=== PATIENT | male | born 1950 | race Caucasian/White ===

== ENCOUNTER 2016-10-06 11:23 | Emergency (ER) | payer OTHER ==
[~2016-10-06] VITALS: Ht 175.3 cm; Wt 87.9 kg
[~2016-10-06 11:23] MED LIST: ALBUAER19 INH; ASPEC81 PO; IPRASOL4 INH; LISI-461 PO; LPR100 PO; MAGN400T6 PO; NRN600 PO; PANT40TA PO; PRAS1TAB6 PO; ROSU40TA PO; SYMIN/8045 INH; TIOTCAP INH; WARF3TAB6 PO
[2016-10-06 11:27] VITALS: TEMP 36.6; Ht 175.3 cm; Wt 87.9 kg
[2016-10-06] MEDS ORDERED: ACET1TAB84 PO (11:48)
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
[2016-10-06 13:08] VITALS: BP 115/70; PULSE 54; O2SAT 95
[2017-01-13] MEDS ORDERED: ISOS40TA5 PO (11:57)
[2017-02-10] MEDS ORDERED: RANO500T PO (11:02)
== END 2016-10-06 13:32 | disposition home or self-care (01) ==
LOC: C.EDB 11:25
DX: S09.91XA Unspecified injury of ear, initial encounter (principal); X58.XXXA Exposure to other specified factors, initial encounter; Z79.01 Long term (current) use of anticoagulants; I10 Essential (primary) hypertension; G40.909 Epilepsy, unspecified, not intractable, without status epilepticus; E78.5 Hyperlipidemia, unspecified; I25.10 Atherosclerotic heart disease of native coronary artery without angina pectoris; I48.91 Unspecified atrial fibrillation; K21.9 Gastro-esophageal reflux disease without esophagitis; M19.90 Unspecified osteoarthritis, unspecified site; F41.8 Other specified anxiety disorders; K57.32 Diverticulitis of large intestine without perforation or abscess without bleeding; G47.33 Obstructive sleep apnea (adult) (pediatric); Z86.711 Personal history of pulmonary embolism; Z98.61 Coronary angioplasty status; Z79.82 Long term (current) use of aspirin; Z79.899 Other long term (current) drug therapy; Z98.890 Other specified postprocedural states; Z88.5 Allergy status to narcotic agent; Z88.8 Allergy status to other drugs, medicaments and biological substances; Z83.3 Family history of diabetes mellitus; Z82.49 Family history of ischemic heart disease and other diseases of the circulatory system

== ENCOUNTER → 2016-10-21 | Outpatient (CLI) | payer OTHER ==
[~2016-10-21] MED LIST changes: +ACET1TAB84 PO; +ASPI-435 PO; +ISOS40TA5 PO; +RANO500T PO; +SPRIN/30 INH; +VNTHFA/IN INH
[2016-10-21 09:49] LABS: BASO % 0.4 %; BASO ABS # 0.02 K/uL (0-0.2); EOS % 5.9 %; HEMATOCRIT 38.1 % (42-52); LYMPH % 30.9 %; LYMPH ABS # 1.66 K/uL (1.2-3.4); MEAN CELL VOLUME 81.6 fL (80-100); MEAN CORPUSCULAR HEMOGLOBIN 26.6 pg (25-34); MEAN CORPUSCULAR HGB CONC 32.5 g/dl (32-36); MONO % 11.9 %; NEUT % 50.9 %; PLATELET COUNT 157 K/uL (130-400); RED BLOOD COUNT 4.67 M/uL (4.7-6.1); WHITE BLOOD COUNT 5.38 K/uL (4.8-10.8)
[2016-10-21 10:06] LABS: ALT/SGPT 30 U/L (12-78); BLOOD UREA NITROGEN 25 mg/dl (7-18); BUN/CREATININE RATIO 22.4 (10-20); CALCIUM 9.4 mg/dl (8.5-10.1); CARBON DIOXIDE 27 mmol/L (21-32); CHLORIDE 105 mmol/L (98-107); GLUCOSE 91 mg/dl (70-99); HDL CHOLESTEROL 34 mg/dl; POTASSIUM 4.2 mmol/L (3.5-5.1); SODIUM 140 mmol/L (136-145)
[2016-10-21 10:17] LABS: ALKALINE PHOSPHATASE 68 U/L (45-117); AST/SGOT 26 U/L (15-37); CHOLESTEROL 131 mg/dl (0-200); CHOLESTEROL/HDL RATIO 3.9; FERRITIN 18.4 ng/ml (8.0-388.0); LDL CHOLESTEROL CALCULATED 69 mg/dl; TRIGLYCERIDES 141 mg/dl (0-150); VERY LOW DENSITY LIPOPROT CALC 28 mg/dl
[2016-10-21 10:26] LABS: COMPLETE YES
== END | disposition home or self-care (01) ==
LOC: C.LAB1850 07:25
PROVIDERS: ATTEND Internal Medicine
DX: D64.9 Anemia, unspecified (principal); E78.5 Hyperlipidemia, unspecified; I26.99 Other pulmonary embolism without acute cor pulmonale

== ENCOUNTER 2016-12-24 12:02 | Inpatient (IN) | payer OTHER ==
[~2016-12-24] VITALS: Ht 175.3 cm; Wt 86.2 kg
[2016-12-24] VITALS (7 sets, daily range): BP systolic 131–154; BP diastolic 70–88; PULSE 54–58; TEMP 36.5–36.6; O2SAT 94–97; Ht 175.3 cm; Wt 86.2 kg
[~2016-12-24 12:02] MED LIST changes: -ASPI-435 PO; -ISOS40TA5 PO; -RANO500T PO; -SPRIN/30 INH; -VNTHFA/IN INH
[2016-12-24] MEDS ORDERED: SPRIN/30 INH (12:25)
[2016-12-24] MEDS ORDERED: VNTHFA/IN INH (12:25)
[2016-12-24] MEDS ORDERED: ASPI-435 PO (12:25)
[2016-12-24] MEDS ORDERED: NITROGLYCERIN OINT 2% 1GM PACKET ONE (12:30)
[2016-12-24] MEDS ORDERED: SODIUM CHLORIDE 0.9% 1000ML 500 ML IV STA (12:31)
[2016-12-24] MEDS ORDERED: NITROGLYCERIN OINT 2% 1GM PACKET EXT STA (12:31)
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
--- NOTE | 2016-12-24 12:52 | DIAGNOSTIC IMAGING REPORT ---
CHEST ONE VIEW PORTABLE CLINICAL HISTORY: CHEST PAIN dyspnea COMPARISON STUDY: 07/02/2015 FINDINGS: Chronic elevation left hemidiaphragm. Several old left-sided rib fractures. Mild left basilar atelectasis. Lungs otherwise appear clear. IMPRESSION: Chronic change. Mild left basilar atelectasis. Electronically signed by: Dann Chiu M.D. 12/24/2016 12:50 PM Dictated Date/Time: 12/24/2016 12:50 PM
[2016-12-24 13:00] LABS: HEMATOCRIT 36.2 % (42-52); MEAN CELL VOLUME 84.4 fL (80-100); MEAN CORPUSCULAR HEMOGLOBIN 27.7 pg (25-34); MEAN CORPUSCULAR HGB CONC 32.9 g/dl (32-36); MEAN PLATELET VOLUME 9.1 fL (7.4-10.4); PLATELET COUNT 143 K/uL (130-400); RED BLOOD COUNT 4.29 M/uL (4.7-6.1); WHITE BLOOD COUNT 5.13 K/uL (4.8-10.8)
[2016-12-24 13:08] LABS: INR 2.8 (0.9-1.1); PARTIAL THROMBOPLASTIN RATIO 1.5
[2016-12-24 13:18] LABS: CREATININE 1.4 mg/dl (0.60-1.40); MAGNESIUM 2.2 mg/dl (1.8-2.4); POTASSIUM 4.7 mmol/L (3.5-5.1)
[2016-12-24 13:24] LABS: CKMB/CK RATIO 0.9 (0-3.0)
[2016-12-24] MEDS ORDERED: POLYETHYLENE (MIRALAX) 17 GM PACK PO PRN (14:30)
[2016-12-24] MEDS ORDERED: ONDANSETRON INJ 2 MG/ML 2 ML VIAL IV PRN (14:30)
[2016-12-24] MEDS ORDERED: NITROGLYCERIN 0.4 MG SL PER TAB CHARGE SL PRN (14:30)
[2016-12-24] MEDS ORDERED: ALBUT/IPRATROP 3MG/0.5MG NEB 3 ML VIAL INH PRN (14:30)
[2016-12-24] MEDS ORDERED: ALUMINUM/MAGNESIUM/SIMETH (MAALOX MAX) 30 ML UDC PO PRN (14:30)
[2016-12-24] MEDS ORDERED: ACETAMINOPHEN 325 MG TAB PO PRN ×2 (14:30→18:45)
[2016-12-24] MEDS ORDERED: MAGNESIUM HYDROXIDE SUSP 30 ML UDC PO PRN (14:30)
[2016-12-24] MEDS: SODIUM CHLORIDE 0.9% 1000ML 1,000 ML IV SCH (14:50)
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
[2016-12-24] MEDS ORDERED: FENTANYL CITRATE INJ 50 MCG/1 ML 2 ML VIAL ONE (16:33)
[2016-12-24] MEDS ORDERED: MIDAZOLAM HCL 1 MG/ML 2ML VIAL ONE (16:33)
[2016-12-24] MEDS ORDERED: HEPARIN SOD (PORCINE) 1000 UNIT/ML 10 ML VIAL ONE (16:33)
[2016-12-24] MEDS ORDERED: NiCARDipine HCL INJ 2.5 MG/ML 10 ML AMP ONE (16:33)
[2016-12-24] MEDS ORDERED: NITROGLYCERIN/D5W 100MCG/ML 20ML SYR ONE (16:33)
--- NOTE | 2016-12-24 16:52 | Procedure Note ---
Pre-Mod Sedation Assessment General Date of Moderate Sedation: Dec 24, 2016. Vital Signs: Vital Signs Past 12 Hours Date Time Temp Pulse Resp B/P (MAP) Pulse Ox O2 Delivery O2 Flow Rate FiO2 12/24/16 15:21 52 18 105/73 97 Room Air 12/24/16 15:03 51 16 130/80 12/24/16 14:10 51 16 118/78 95 Room Air 12/24/16 13:24 48 16 105/63 97 Room Air 12/24/16 13:17 94 Room Air 12/24/16 13:16 94 Room Air 12/24/16 12:42 51 12/24/16 12:15 36.4 50 16 113/76 97 Room Air 12/24/16 12:11 97 Room Air Review Cardiovascular: regular rate, rhythm, no edema Abdomen: normal bowel sounds, non tender Lungs: chest non-tender, lungs clear Airway Class: II Pre-Sedation Airway Assessment Oral Cavity: WNL Able to Visualize Vocal Cords: No Short Thick Neck: No Hx of Sleep Apnea: No Smoking Status: Never Smoker Mallampati Classification: Class III ASA Classification: Class II Procedure Planning Contraindications-for Mod Sed: None Yes Notes The planned sedation has been discussed with the patient and consent obtained. I have identified the patient, determined the appropriateness of sedation and have assessed the patient immediately prior to the procedure. All medicine(s) and interventions are by my order.
[2016-12-24] MEDS ORDERED: IV FLUIDS COMPLETED PRN ×2 (17:00→19:15)
[2016-12-24 17:05] LABS: CALCIUM 8.9 mg/dl (8.5-10.1)
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
[2016-12-24] MEDS ORDERED: ADENOSINE IV SOLN 3 MG/ML 20 ML VIAL ONE ×2 (17:52)
[2016-12-24] MEDS ORDERED: SODIUM CHLORIDE 0.9% 1000ML 1,000 ML IV SCH (18:38)
--- NOTE | 2016-12-24 18:38 | Cardiac Catheterization ---
Procedure Note Procedure Date Dec 24, 2016. Pre-Procedure Diagnosis Acute Coronary Syndrome AUC Score 7 Post-Procedure Diagnosis Severe CAD, Decreased LV Systolic Function, Normal Intracardiac Pressures Procedure(s) Performed Coronary Angiography, Left Heart Cath [employer] Detective Slick Senior [employer] Developer(s) Reuben Estimated Blood Loss 15 Medication(s) Fentanyl, Heparin, Nitroglycerin, Versed, Lidocaine 1% Summary of Findings Indication: Unstable angina/Rest Pain Access: 6Fr Slender Right Radial Artery Catheters: [place] Findings: LM - Luminal irregularities LAD - Widely patent proximal stent, 30-40% focal mid stenosis, distal luminal irregularities; 20-30% ostial stenosis moderate caliber 2nd diagonal. Circumflex - 20% ostial stenosis, 50-60% stenosis in distal segment after OM2; large OM2 with luminal irregularities. RCA - Dominant, chronically occluded proximally. Distal PDA, PLB fill partially via left to right collaterals. LVEDP - 12 LVEF - 35-40%; inferior wall akinesis. JR4 guide, probed occluded RCA with state pilot 50 wire. Behaved as chronic occlusion. EBU 3.5 guide, FFR wire across distal circumflex stenosis. FFR distal circumflex - 0.92 Arterial Closure: TR Band Summary: 1. Severe chronic single vessel disease - Occluded proximal RCA (faint distal left to right collaterals) 2. Mild to moderate nonobstructive left coronary system disease - 40% mid LAD - 50-60% distal circumflex (FFR 0.92) 3. Normal intracardiac filling pressure 4. Moderate LV dysfunction. LVEF 35-40% with inferior akinesis. Recommendations: Return to PCU for continued monitoring. Repeat Echo tomorrow AM to confirm LV dysfunction. Titrate up MEET, beta-yris as BP/HR allow Continue DAPT with Effient/ASA Hold coumadin tonight, can resume tomorrow Continued ASCVD risk factor modification including high-intensity statin If stable can potentially discharge to home tomorrow. Hemodynamics Rest Ao: 121/65/89 Final Ao: 136/68/95 LV: 139/12 Recommendations PCI without planned CABG Specimens None Radiation Exposure (mGy) 2709 Contrast (mls) 120 Visipaque Fluids (cc crystalloids) 150 Drains None Anesthesia Moderate (start 17:06 - 18:09) Procedural Complication(s) None Disposition PCU ACC Data Cardiac Status Clinical evaluation leading to the procedure CAD Presntation: Unstable angina Anginal Classification: CCS IV Heart Failure: No, NYHA Class: CCS I Cardiogenic Shock w/in 24Hrs: No Cardiac Arrest w/in 24Hrs: No Imaging studies past 6 months: No Stress studies past 6 months: No Standard Exercise Stress Test: No Stress Echocardiogram: No Stress Testing w/SPECT MPI: No Cardiac CTA: No Coronary Anatomy Dominant: Right Left Main (% Stenosis): Normal LAD (% Stenosis): Mid (40) D2 (% Stenosis): Ostial (30) Circumflex (% Stenosis): Ostial (20), Distal (50-60) RCA (% Stenosis): Proximal (100) Diagnostic Physician's Name: Ric Kruger MD Status: Urgent Closure Device Percutaneous Entry Location: Radial Closure Device: Radial Band Recommendations: Medical therapy and/or Counseling Intraprocedure Events Significant Dissection: No Perforation: No
[2016-12-24] MEDS: METOPROLOL TARTRATE 50 MG TAB PO SCH (20:19)
[2016-12-24] MEDS: GABAPENTIN 600 MG TAB PO SCH (20:19)
[2016-12-24] MEDS: ALBUTEROL HFA 8 GM INHALER INH SCH (20:21)
[2016-12-24] MEDS: BUDESONIDE/FORMOTEROL FUMARATE 80/4.5 60 PUFFS/INHALER INH SCH (20:21)
[2016-12-25] MEDS: SODIUM CHLORIDE 0.9% 1000ML 1,000 ML IV SCH ×2 (00:50→10:50)
[2016-12-25 04:12] VITALS: BP 143/83; PULSE 55; TEMP 36.7; O2SAT 96
[2016-12-25 04:28] LABS: HEMATOCRIT 35.7 % (42-52); MEAN CELL VOLUME 84.8 fL (80-100); MEAN CORPUSCULAR HEMOGLOBIN 25.7 pg (25-34); MEAN CORPUSCULAR HGB CONC 30.3 g/dl (32-36); MEAN PLATELET VOLUME 8.8 fL (7.4-10.4); PLATELET COUNT 117 K/uL (130-400); RED BLOOD COUNT 4.21 M/uL (4.7-6.1); WHITE BLOOD COUNT 4.17 K/uL (4.8-10.8)
[2016-12-25 04:36] LABS: INR 2.5 (0.9-1.1); PROTHROMBIN TIME (PATIENT) 27.4 SECONDS (9.0-12.0)
[2016-12-25 04:56] LABS: CHLORIDE 108 mmol/L (98-107); POTASSIUM 4.5 mmol/L (3.5-5.1); SODIUM 141 mmol/L (136-145)
[2016-12-25 05:32] LABS: BLOOD UREA NITROGEN 28 mg/dl (7-18); BUN/CREATININE RATIO 23.2 (10-20); CALCIUM 8.3 mg/dl (8.5-10.1); CARBON DIOXIDE 27 mmol/L (21-32); GLUCOSE 98 mg/dl (70-99)
[2016-12-25] MEDS: ALBUTEROL HFA 8 GM INHALER INH SCH ×3 (06:30→12:16)
[2016-12-25] MEDS ORDERED: PERFLUTREN LIPID MICROSPHERE (DEFINITY) IV ONE (07:22)
[2016-12-25] MEDS: BUDESONIDE/FORMOTEROL FUMARATE 80/4.5 60 PUFFS/INHALER INH SCH (07:28)
[2016-12-25] MEDS: GABAPENTIN 600 MG TAB PO SCH (07:33)
[2016-12-25 08:00] VITALS: BP 132/81; PULSE 62; TEMP 36.6; O2SAT 96
[2016-12-25] MEDS: METOPROLOL TARTRATE 50 MG TAB PO SCH (08:16)
[2016-12-25] MEDS ORDERED: PRASugrel TAB 10 MG TAB PO SCH (09:00)
[2016-12-25] MEDS ORDERED: LISINOPRIL 10 MG TAB PO SCH (09:00)
[2016-12-25] MEDS ORDERED: ASPIRIN 81 MG ECTAB PO SCH (09:00)
[2016-12-25] MEDS ORDERED: TIOTROPIUM BROMIDE 5 PUFF/90 MCG INH INH SCH (09:00)
[2016-12-25] MEDS ORDERED: MAGNESIUM OXIDE 400 MG TAB PO SCH (09:00)
[2016-12-25] MEDS ORDERED: ROSUVASTATIN CALCIUM 20 MG TAB PO SCH (09:00)
[2016-12-25] MEDS ORDERED: PANTOprazole SOD 40 MG TAB PO SCH (09:00)
--- NOTE | 2016-12-25 09:21 | ECHOCARDIOGRAM REPORT ---
*NOTICE TO RECEIVING [employer] This information is strictly Confidential and protected under [place] law. [place] law prohibits you from making any further disclosure of this information unless further disclosure is expressly permitted by the written consent of the person to whom it pertains or is authorized by law. A general authorization for the release of medical or other information is not sufficient for this purpose. Hospital accepts no responsibility if the information is made available to any other person, INCLUDING THE PATIENT. Interpretation Summary * Name: FLACA KIDD Study Date: 12/25/2016 06:58 AM BP: 143/83 mmHg * Patient Location: C.2T\S\S232\S\1 HR: 55 * : 1950 (M/d/yyyy) Gender: Male Height: 69 in * Age: 66 yrs Ethnicity: CA Weight: 197 lb * Ordering Physician: Ric Kruger * Referring Physician: Darnell Velazco * Performed By: Erma Rowe RDCS * * Reason For Study: AMI * BSA: 2.1 m2 * -- Conclusions -- * The left ventricle is normal in size. * There is normal left ventricular wall thickness. * Ejection Fraction = 45-50%. * The inferior wall and inferoseptum are akinetic. * The right ventricular systolic function is mildly reduced. * Aortic valve sclerosis mild, without significant aortic valvular stenosis. * Diastolic dysfunction, Grade II (pseudonormalization pattern). Procedure Details * A contrast injection of Definity was performed to improve assessment of LV function. * Contrast was injected into an intravenous site in the left arm. * One vial of Definity ultrasound contrast was diluted in normal saline to a total volume of 10 ml. A total of '2' ml of solution was administered during imaging. * Lot # [id number] of Definity utilized for procedure. * Expiration date FEB 25. * The attending nurse who injected the contrast agent was ALEXIS HOLLAND RN. Left Ventricle * The left ventricle is normal in size. * There is normal left ventricular wall thickness. * Ejection Fraction = 45-50%. * Left ventricular systolic function is mildly reduced. * The inferior wall and inferoseptum are akinetic. Right Ventricle * The right ventricle is normal size. * The right ventricular systolic function is mildly reduced. * The right ventricular systolic function is reduced as assessed by tricuspid annular plane systolic excursion (TAPSE) (TAPSE <1.6 cm). Atria * The left atrium is mildly dilated. * The right atrium is mildly dilated. Mitral Valve * The mitral valve leaflets appear normal. There is no evidence of stenosis, fluttering, or prolapse. * There is mild mitral regurgitation. Tricuspid Valve * The tricuspid valve is not well visualized, but is grossly normal. * There is mild tricuspid regurgitation. * Right ventricular systolic pressure is elevated at 30-40mmHg. Aortic Valve * Aortic valve sclerosis mild, without significant aortic valvular stenosis. * No aortic regurgitation is present. Pulmonic Valve * The pulmonic valve is not well seen, but is grossly normal. Great Vessels * There is aortic root sclerosis/calcification. Pericardium/Pleural * There is no pericardial effusion. Great Vessels * Dilated inferior vena cava with reduced collapsability with sniff indicates an elevated right atrial pressure of 15 mmHg Left Ventricular Diastolic Function * Diastolic dysfunction, Grade II (pseudonormalization pattern). MMode 2D Measurements and Calculations IVSd 1.2 cm IVSs 1.7 cm LVIDd 4.1 cm LVIDs 2.9 cm LVPWd 1.4 cm LVPWs 1.7 cm IVS/LVPW 0.85 FS 28.5 % EDV(Teich) 74.3 ml ESV(Teich) 33.1 ml EF(Teich) 55.5 % EDV(cubed) 69.0 ml ESV(cubed) 25.2 ml EF(cubed) 63.5 % % IVS thick 38.2 % % LVPW thick 15.4 % LV mass(C)d 199.0 grams LV mass(C)dI 96.9 grams/m\S\2 LV mass(C)s 184.2 grams LV mass(C)sI 89.7 grams/m\S\2 SV(Teich) 41.2 ml SI(Teich) 20.1 ml/m\S\2 SV(cubed) 43.8 ml SI(cubed) 21.4 ml/m\S\2 Ao root diam 3.3 cm Ao root area 8.6 cm\S\2 LA dimension 3.5 cm LA/Ao 1.1 LVAd ap4 29.7 cm\S\2 LVLd ap4 8.3 cm EDV(MOD-sp4) 86.6 ml EDV(sp4-el) 90.8 ml LVAs ap4 17.3 cm\S\2 LVLs ap4 6.8 cm ESV(MOD-sp4) 36.9 ml ESV(sp4-el) 37.4 ml EF(MOD-sp4) 57.4 % EF(sp4-el) 58.8 % LVAd ap2 36.1 cm\S\2 LVLd ap2 8.5 cm EDV(MOD-sp2) 124.8 ml EDV(sp2-el) 129.5 ml LVAs ap2 22.1 cm\S\2 LVLs ap2 7.2 cm ESV(MOD-sp2) 55.0 ml ESV(sp2-el) 57.9 ml EF(MOD-sp2) 55.9 % EF(sp2-el) 55.3 % LVLd %diff 3.1 % EDV(MOD-bp) 105.8 ml LVLs %diff 5.3 % ESV(MOD-bp) 45.3 ml EF(MOD-bp) 57.2 % SV(MOD-sp4) 49.7 ml SI(MOD-sp4) 24.2 ml/m\S\2 SV(MOD-sp2) 69.8 ml SI(MOD-sp2) 34.0 ml/m\S\2 SV(MOD-bp) 60.5 ml SI(MOD-bp) 29.5 ml/m\S\2 SV(sp4-el) 53.4 ml SI(sp4-el) 26.0 ml/m\S\2 SV(sp2-el) 71.6 ml SI(sp2-el) 34.9 ml/m\S\2 Doppler Measurements and Calculations MV E max tad 85.4 cm/sec MV A max tad 57.7 cm/sec MV E/A 1.5 MV dec time 0.28 sec Ao V2 max 144.5 cm/sec Ao max PG 8.3 mmHg Ao max PG (full) 5.3 mmHg LV V1 max PG 3.0 mmHg LV V1 max 87.3 cm/sec TR max tad 220.2 cm/sec
[2016-12-25 12:00] VITALS: BP 129/73; PULSE 54; TEMP 36.4; O2SAT 96
--- NOTE | 2016-12-25 12:12 | Discharge Instructions ---
Discharge Instructions Date of Service Dec 25, 2016. Admission Reason for Admission: Sob, Substernal Chest Pain Discharge Discharge Diagnosis / Problem: Substernal chest pain, CAD Discharge Goals Goal(s): Decrease discomfort, Improve function, Increase independence, Improve disease control, Learn about illness, Diagnostic testing, Therapeutic intervention, Prevent Disease Progression Activity Recommendations Activity Limitations: resume your previous activity Exercise/Sports Limitations: none Shower/Bathe: no limitations Driving or Machine Use: no limitations . Instructions / Follow-Up Instructions / Follow-Up Patient to be discharged home Cardiac catherization no worsening stenosis, stents patent No changes in medications at home If worsening chest pain please report to ER Please follow up with Dr Grubbs in 1-2 weeks Please follow up with Dr Velazco in 1-2 weeks Current Hospital Diet Patient's current hospital diet: AHA Diet (Heart Healthy) Discharge Diet Recommended Diet: AHA Diet (Heart Healthy) Pending Studies Studies pending at discharge: no Laboratory Results Lipid Panel Test 10/21/16 07:34 Range/Units Triglycerides Level 141 0-150 mg/dl Cholesterol Level 131 0-200 mg/dl HDL Cholesterol 34 mg/dl Cholesterol/HDL Ratio 3.9 LDL Cholesterol, Calculated 69 mg/dl Medical Emergencies . Who to Call and When: Medical Emergencies: If at any time you feel your situation is an emergency, please call 911 immediately. . Non-Emergent Contact Non-Emergency issues call your: Primary Care Provider Call Non-Emergent contact if: your pain is worsening . . "Provider Documentation" section prepared by Nas Curiel. . VTE Core Measure Inpt VTE Proph given/why not?: Warfarin (Coumadin), [facility] [place], [facility]
[2016-12-25 12:25] VITALS: BP 129/73; PULSE 54; TEMP 36.4; O2SAT 96
[2016-12-25] MEDS ORDERED: WARFARIN SOD 3 MG TAB PO SCH (16:00)
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
[2017-01-13] MEDS ORDERED: ISOS40TA5 PO (11:57)
[2017-02-10] MEDS ORDERED: RANO500T PO (11:02)
== END 2016-12-25 12:45 | disposition home or self-care (01) | DRG 287 ==
LOC: EDBD 12:02 → C.EDB 12:04 → ENRESERV 14:44 → C.2T 16:16
PROVIDERS: ADMIT Internal Medicine; ATTEND Hospitalist
PROC: 4A023N7 Measurement of Cardiac Sampling and Pressure, Left Heart, Percutaneous Approach (ICD-10-PCS; principal; 2016-12-24 16:41)
PROC: B2111ZZ Fluoroscopy of Multiple Coronary Arteries using Low Osmolar Contrast (ICD-10-PCS; principal; 2016-12-24 16:41)
PROC: B2151ZZ Fluoroscopy of Left Heart using Low Osmolar Contrast (ICD-10-PCS; principal; 2016-12-24 16:41)
DX: I25.110 Atherosclerotic heart disease of native coronary artery with unstable angina pectoris (principal); D64.9 Anemia, unspecified; Z95.5 Presence of coronary angioplasty implant and graft; M19.90 Unspecified osteoarthritis, unspecified site; Z86.718 Personal history of other venous thrombosis and embolism; Z86.711 Personal history of pulmonary embolism; E78.5 Hyperlipidemia, unspecified; I10 Essential (primary) hypertension; G47.33 Obstructive sleep apnea (adult) (pediatric); J44.9 Chronic obstructive pulmonary disease, unspecified; I25.2 Old myocardial infarction; I25.82 Chronic total occlusion of coronary artery; R56.9 Unspecified convulsions; M54.30 Sciatica, unspecified side; G43.909 Migraine, unspecified, not intractable, without status migrainosus; F41.1 Generalized anxiety disorder; K21.9 Gastro-esophageal reflux disease without esophagitis; Z90.49 Acquired absence of other specified parts of digestive tract; Z83.3 Family history of diabetes mellitus; Z82.49 Family history of ischemic heart disease and other diseases of the circulatory system; Z83.6 Family history of other diseases of the respiratory system; Z83.79 Family history of other diseases of the digestive system; Z88.5 Allergy status to narcotic agent; Z96.649 Presence of unspecified artificial hip joint; Z79.82 Long term (current) use of aspirin; Z79.899 Other long term (current) drug therapy; Z51.81 Encounter for therapeutic drug level monitoring; Z79.01 Long term (current) use of anticoagulants

== ENCOUNTER → 2016-12-27 | Outpatient (CLI) | payer OTHER ==
[~2016-12-27] MED LIST changes: -ALBUAER19 INH; -ASPEC81 PO; +ASPI-435 PO; +ISOS40TA5 PO; +RANO500T PO; +SPRIN/30 INH; -TIOTCAP INH; +VNTHFA/IN INH
[2016-12-27 09:40] LABS: BASO % 0.5 %; BASO ABS # 0.03 K/uL (0-0.2); COMPLETE YES; EOS % 5.7 %; HEMATOCRIT 36.4 % (42-52); IG% 0.2 %; LYMPH % 26.7 %; LYMPH ABS # 1.46 K/uL (1.2-3.4); MEAN CELL VOLUME 86.5 fL (80-100); MEAN CORPUSCULAR HEMOGLOBIN 27.6 pg (25-34); MEAN CORPUSCULAR HGB CONC 31.9 g/dl (32-36); MEAN PLATELET VOLUME 9.6 fL (7.4-10.4); MONO % 11.3 %; NEUT % 55.6 %; PLATELET COUNT 137 K/uL (130-400); RED BLOOD COUNT 4.21 M/uL (4.7-6.1); WHITE BLOOD COUNT 5.47 K/uL (4.8-10.8)
[2016-12-27 09:51] LABS: BLOOD UREA NITROGEN 20 mg/dl (7-18); BUN/CREATININE RATIO 17.8 (10-20); CARBON DIOXIDE 26 mmol/L (21-32); CHLORIDE 106 mmol/L (98-107); FERRITIN 17.8 ng/ml (8.0-388.0); GLUCOSE 93 mg/dl (70-99); POTASSIUM 4.6 mmol/L (3.5-5.1); SODIUM 140 mmol/L (136-145)
[2016-12-27 09:57] LABS: CALCIUM 8.8 mg/dl (8.5-10.1)
--- NOTE | 2016-12-31 09:27 | CODING QUERY MEDICAL NECESSITY ---
SUPPORTING DIAGNOSIS NEEDED Dr. Velazco, A supporting diagnosis is required for the test/procedure performed on this patient in order for us to be reimbursed by the patient's insurance. Please provide a supporting diagnosis for the following test/procedure listed below next to the test name along with your signature. *If there is no additional diagnosis for this patient that would support the following test/procedure please document that below next to the test/procedure. Test(s)/Procedure(s) that require a supporting diagnosis: * ([id number]) B12 VITAMIN LEVEL DIAGNOSIS: DATE OF SERVICE: 12/27/16 Provider Signature: Date: Thank you Jin Mendiola [facility] Information Management Once completed, please kindly fax back to [phone] For questions please call [phone]
== END | disposition home or self-care (01) ==
LOC: C.LAB1850 07:10
PROVIDERS: ATTEND Internal Medicine Interventional Cardiology
DX: N28.9 Disorder of kidney and ureter, unspecified (principal); D64.9 Anemia, unspecified; E78.5 Hyperlipidemia, unspecified; I10 Essential (primary) hypertension

== ENCOUNTER → 2017-04-22 | Outpatient (CLI) | payer OTHER ==
[2017-04-22 09:28] LABS: BASO % 0.2 %; BASO ABS # 0.01 K/uL (0-0.2); COMPLETE YES; EOS % 5.4 %; HEMATOCRIT 36.2 % (42-52); IG% 0.2 %; LYMPH % 29.2 %; MEAN CELL VOLUME 84.8 fL (80-100); MEAN CORPUSCULAR HEMOGLOBIN 26.9 pg (25-34); MEAN CORPUSCULAR HGB CONC 31.8 g/dl (32-36); MEAN PLATELET VOLUME 9.5 fL (7.4-10.4); MONO % 9.9 %; NEUT % 55.1 %; PLATELET COUNT 139 K/uL (130-400); RED BLOOD COUNT 4.27 M/uL (4.7-6.1); WHITE BLOOD COUNT 5.14 K/uL (4.8-10.8)
[2017-04-22 09:43] LABS: ALT/SGPT 22 U/L (12-78); BLOOD UREA NITROGEN 23 mg/dl (7-18); BUN/CREATININE RATIO 21.3 (10-20); CALCIUM 8.9 mg/dl (8.5-10.1); CARBON DIOXIDE 27 mmol/L (21-32); CHLORIDE 104 mmol/L (98-107); CHOLESTEROL 121 mg/dl (0-200); GLUCOSE 100 mg/dl (70-99); POTASSIUM 4.4 mmol/L (3.5-5.1); SODIUM 138 mmol/L (136-145); TRIGLYCERIDES 143 mg/dl (0-150); VERY LOW DENSITY LIPOPROT CALC 29 mg/dl
[2017-04-22 09:46] LABS: AST/SGOT 18 U/L (15-37); CHOLESTEROL/HDL RATIO 3.3; HDL CHOLESTEROL 37 mg/dl; LDL CHOLESTEROL CALCULATED 55 mg/dl
== END | disposition home or self-care (01) ==
LOC: C.LAB1850 07:45
PROVIDERS: ATTEND Internal Medicine
DX: I25.5 Ischemic cardiomyopathy (principal); I10 Essential (primary) hypertension; E78.5 Hyperlipidemia, unspecified

== ENCOUNTER → 2017-04-29 | Outpatient (CLI) | payer OTHER ==
--- NOTE | 2017-04-29 09:27 | DIAGNOSTIC IMAGING REPORT ---
PELVIS 1 OR 2 VIEW ROUTINE CLINICAL HISTORY: M89.8X8 Iliac crest bone pain [id number] COMPARISON STUDY: Pelvis 03/30/2014. FINDINGS: Cortical plates and screws within the left hemipelvis with multiple old, healed left pelvic fractures. The hardware remains intact. There is a left total hip arthroplasty. This is also unchanged. No definite acute fracture or dislocation within the pelvis or hips. Mild to moderate osteoarthritis within the right hip. The sacrum appears intact. No definite bony destruction identified. Large exostoses within the pelvis remain unchanged. IMPRESSION: No significant change compared the prior study. No acute fracture or dislocation within the pelvis or hips. Old posttraumatic and postoperative changes within the left hemipelvis are again noted. Electronically signed by: Edi Bah M.D. 04/29/2017 9:26 AM Dictated Date/Time: 04/29/2017 9:22 AM
--- NOTE | 2017-04-29 09:33 | DIAGNOSTIC IMAGING REPORT ---
SACRUM AND SACROILIAC JOINTS 3 VIEWS CLINICAL HISTORY: Chronic pelvic pain. FINDINGS: 4 views of the sacrum and sacroiliac joints are correlated with pelvic radiograph dated 03/30/2014. The skeletal structures are osteopenic. There is extensive chronic posttraumatic deformity of the left hemipelvis with buttress plates in place involving the left iliac wing and the left superior pubic ring. A left hip arthroplasty is in place. The orthopedic hardware appears intact. There is no radiographic evidence of acute sacral fracture. Sclerotic change is seen involving the superior aspect of the left sacroiliac joint. The right sacroiliac joint is grossly normal as visualized. No erosive change is suggested. Moderate arthritic change is seen in the partially imaged right hip. There is an IVC filter in place. IMPRESSION: 1. No acute bony abnormality is identified involving the sacrum or sacroiliac joints. 2. Extensive chronic posttraumatic and postoperative change in the left hemipelvis as above. The orthopedic hardware appears intact. This is similar to previous. Electronically signed by: Jairon Gross M.D. 04/29/2017 9:32 AM Dictated Date/Time: 04/29/2017 9:29 AM
== END | disposition home or self-care (01) ==
LOC: C.RAD1850 08:39
PROVIDERS: ATTEND Internal Medicine
DX: M89.8X8 Other specified disorders of bone, other site (principal)

== ENCOUNTER 2017-06-26 14:55 | Observation (INO) | payer OTHER ==
[~2017-06-26] VITALS: Ht 175.3 cm; Wt 87.2 kg
[~2017-06-26 14:55] MED LIST changes: -MAGN400T6 PO; -NRN600 PO
[2017-06-26] MEDS ORDERED: NITROGLYCERIN 0.4 MG SL PER TAB CHARGE ONE (15:11)
[2017-06-26] MEDS ORDERED: ASPIRIN 81 MG CHEW PO STA (15:12)
[2017-06-26 15:16] LABS: BASO % 0.2 %; BASO ABS # 0.01 K/uL (0-0.2); COMPLETE YES; EOS % 4.8 %; HEMATOCRIT 35.2 % (42-52); IG% 0.2 %; LYMPH % 23.1 %; LYMPH ABS # 1.24 K/uL (1.2-3.4); MEAN CELL VOLUME 84.8 fL (80-100); MEAN CORPUSCULAR HEMOGLOBIN 27.2 pg (25-34); MEAN CORPUSCULAR HGB CONC 32.1 g/dl (32-36); MEAN PLATELET VOLUME 8.9 fL (7.4-10.4); MONO % 12.7 %; PLATELET COUNT 133 K/uL (130-400); RED BLOOD COUNT 4.15 M/uL (4.7-6.1); WHITE BLOOD COUNT 5.37 K/uL (4.8-10.8)
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
[2017-06-26 15:31] LABS: PROTHROMBIN TIME (PATIENT) 30.8 SECONDS (9.0-12.0)
[2017-06-26] MEDS ORDERED: CMD/3 PO (15:31)
[2017-06-26] MEDS ORDERED: TIOT1SPR INH (15:31)
[2017-06-26] MEDS ORDERED: PRAS10TA5 PO (15:31)
[2017-06-26] MEDS ORDERED: PANT40TA2 PO (15:31)
[2017-06-26] MEDS ORDERED: ROSU40TA18 PO (15:31)
[2017-06-26] MEDS ORDERED: LSN5 PO (15:31)
--- NOTE | 2017-06-26 15:32 | DIAGNOSTIC IMAGING REPORT ---
CHEST ONE VIEW PORTABLE CLINICAL HISTORY: 66 years-old Male presenting with CHEST PAIN. TECHNIQUE: Portable upright AP view of the chest was obtained. COMPARISON: 12/24/2016. FINDINGS: Surgical clips project over the aortic arch. Cardiac silhouette top normal in size. Mildly low lung volumes with left hemidiaphragm elevation, unchanged. Lungs and pleural spaces clear. Chronic deformities of several left ribs. Degenerative changes of the left glenohumeral joint. Upper abdomen normal. IMPRESSION: 1. Chronic changes. No acute cardiopulmonary disease. Electronically signed by: Hubert Singh M.D. 06/26/2017 3:30 PM Dictated Date/Time: 06/26/2017 3:29 PM
[2017-06-26 15:33] LABS: ALT/SGPT 22 U/L (12-78); BLOOD UREA NITROGEN 31 mg/dl (7-18); BUN/CREATININE RATIO 24.2 (10-20); CALCIUM 8.6 mg/dl (8.5-10.1); CARBON DIOXIDE 28 mmol/L (21-32); CHLORIDE 105 mmol/L (98-107); GLUCOSE 107 mg/dl (70-99); POTASSIUM 4.5 mmol/L (3.5-5.1); SODIUM 139 mmol/L (136-145)
[2017-06-26] MEDS ORDERED: SYMIN INH (15:34)
[2017-06-26] MEDS ORDERED: TPRSR/25 PO (15:37)
[2017-06-26] MEDS ORDERED: NTRGSL/4 UT (15:37)
[2017-06-26 15:38] LABS: ALKALINE PHOSPHATASE 52 U/L (45-117); AST/SGOT 20 U/L (15-37)
[2017-06-26] MEDS ORDERED: MAGN400T6 PO (16:04)
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
[2017-06-26] MEDS ORDERED: ZOLPIDEM TARTRATE 5 MG TAB PO PRN ×2 (19:45)
[2017-06-26] MEDS ORDERED: ACETAMINOPHEN 325 MG TAB PO PRN (19:45)
[2017-06-26] MEDS ORDERED: NITROGLYCERIN 0.4 MG SL PER TAB CHARGE UT PRN (19:45)
[2017-06-26] MEDS ORDERED: MAGNESIUM HYDROXIDE SUSP 30 ML UDC PO PRN (19:45)
[2017-06-26] MEDS ORDERED: POLYETHYLENE (MIRALAX) 17 GM PACK PO PRN (19:45)
[2017-06-26] MEDS ORDERED: NITROGLYCERIN 0.4 MG SL PER TAB CHARGE SL PRN (19:45)
[2017-06-26] MEDS ORDERED: ONDANSETRON INJ 2 MG/ML 2 ML VIAL IV PRN (19:45)
[2017-06-26] MEDS ORDERED: ALBUTEROL HFA 8 GM INHALER INH PRN (19:45)
[2017-06-26] MEDS ORDERED: ALBUT/IPRATROP 3MG/0.5MG NEB 3 ML VIAL INH PRN (19:45)
[2017-06-26] MEDS ORDERED: ALUMINUM/MAGNESIUM/SIMETH (MAALOX MAX) 30 ML UDC PO PRN (19:45)
[2017-06-26 20:53] VITALS: BP 156/90; PULSE 58; TEMP 36.4; O2SAT 98; Ht 175.3 cm; Wt 87.2 kg
[2017-06-26] MEDS ORDERED: NRN600 PO (21:05)
[2017-06-26] MEDS ORDERED: IV FLUIDS COMPLETED PRN (22:30)
[2017-06-26] MEDS: GABAPENTIN 600 MG TAB PO SCH (23:18)
[2017-06-26] MEDS: BUDESONIDE/FORMOTEROL FUMARATE 160/4.5 60 PUFFS/INHALER INH SCH (23:20)
[2017-06-26] MEDS: WARFARIN SOD 3 MG TAB PO SCH (23:20)
[2017-06-26] MEDS: NITROGLYCERIN OINT 2% 1GM PACKET EXT SCH (23:23)
[2017-06-27] VITALS (7 sets, daily range): BP systolic 95–128; BP diastolic 51–77; PULSE 55–65; TEMP 36.4–36.8; O2SAT 92–99
[2017-06-27] MEDS: NITROGLYCERIN OINT 2% 1GM PACKET EXT SCH ×2 (04:00→10:10)
[2017-06-27 06:57] LABS: MEAN CELL VOLUME 84.8 fL (80-100); MEAN CORPUSCULAR HEMOGLOBIN 27.7 pg (25-34); MEAN CORPUSCULAR HGB CONC 32.6 g/dl (32-36); MEAN PLATELET VOLUME 9.4 fL (7.4-10.4); PLATELET COUNT 120 K/uL (130-400); RED BLOOD COUNT 4.01 M/uL (4.7-6.1); WHITE BLOOD COUNT 4.63 K/uL (4.8-10.8)
[2017-06-27 07:13] LABS: INR 2.5 (0.9-1.1); PROTHROMBIN TIME (PATIENT) 26.1 SECONDS (9.0-12.0)
[2017-06-27 07:29] LABS: BLOOD UREA NITROGEN 27 mg/dl (7-18); BUN/CREATININE RATIO 25.2 (10-20); CALCIUM 8.7 mg/dl (8.5-10.1); CARBON DIOXIDE 27 mmol/L (21-32); CHLORIDE 107 mmol/L (98-107); CREATININE 1.06 mg/dl (0.60-1.40); GLUCOSE 93 mg/dl (70-99); POTASSIUM 4.2 mmol/L (3.5-5.1); SODIUM 140 mmol/L (136-145)
[2017-06-27] MEDS: BUDESONIDE/FORMOTEROL FUMARATE 160/4.5 60 PUFFS/INHALER INH SCH (07:56)
[2017-06-27] MEDS: GABAPENTIN 600 MG TAB PO SCH (07:58)
--- NOTE | 2017-06-27 08:54 | Cardiology Consultation ---
Cardiology Consultation Date of Consultation: Jun 27, 2017. Requesting Physician: Dr. Aguiar Reason for Consultation: Chest pain Pt evaluation today including: conversation w/ patient, physical exam, lab review, review of studies, review of inpatient medication list History of Present Illness This is a very pleasant 66-year-old gentleman who has a history of known coronary artery disease as well as a mild ischemic cardiomyopathy. He was diagnosed with coronary disease and had stent placement in 2007 and 2009, he then presented with a acute inferior myocardial infarction 05/09/2015 complicated by ventricular fibrillation and he received several right coronary artery stents. His most recent catheterization was in December 2016 where he had an occluded right coronary artery, some noncritical disease in other vessels but no obstructive disease. His ejection fraction was 45-50%. He was treated medically although does not tolerate high doses of medications. 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 Over the last week he has been having difficulty with chest discomfort, the symptoms were worse than usual but he was working out in the cold. Yesterday he developed chest discomfort while doing heavy work, however did not resolve with rest. It started around 2 PM and lasted until 6 or 7 PM at which time he is in the hospital. He does not recall having any during the night or this morning. He had no other symptoms such as lightheadedness or dizziness, he does have some shortness of breath but tells me that he has nash's lung. Past Medical/Surgical History (1) GERD (gastroesophageal reflux disease) (2) CAD (coronary artery disease) (3) History of migraine (4) Chronic lung disease (5) Ventricular fibrillation (6) Hypertension (7) Dyslipidemia (8) Osteoarthritis (9) SOB (shortness of breath) on exertion (10) History of angioplasty (11) S/P hip replacement (12) S/P appendectomy (13) S p transverse aortic arch graft (14) S p repair of diaphragm laceration Family History Diabetes mellitus FH: liver disease Heart disease FATHER SISTER Hypertension Lung disease Social History Smoking Status: Never Smoker History of Alcohol Use: No Review of Systems Constitutional: No fever, No weight loss, No weakness Respiratory: + dyspnea on exertion, No cough, No wheezing Cardiac: + see HPI, + chest pain, No orthopnea, No PND, No edema, No palpitations Abdomen: No pain, No nausea, No vomiting, No diarrhea, No GI bleeding Male : No urinary frequency, No nocturia more than once/night, No slowing stream, No sexual dysfunction Neurologic: No paralysis, No weakness, No numbness/tingling, No balance problems Heme: No abnormal bleeding/bruising, No clotting problems Endo: No fatigue Skin: No problem reported Allergies Coded Allergies: Codeine (Verified Allergy, Unknown, HIVES, 12/24/16) TOLERATED OXYCODONE AND VICODEN BEFORE; STATES THAT IT IS THE TYLENOL THAT CAUSES THE REACTION. Meperidine (Verified Allergy, Unknown, hives, 12/24/16) Oxycodone (Verified Allergy, Unknown, HIVES, ITCHING, 12/24/16) Medications Current Inpatient Medications Medications (Trade) Dose Ordered Sig/Alejandro Route Start Time Stop Time Status Last Admin Dose Admin Acetaminophen (Tylenol Tab) 650 mg Q4H PRN PO 06/26/17 19:45 07/26/17 19:44 Al Hydrox/Mg Hydrox/Simethicone (Maalox Max Susp) 15 ml Q4H PRN PO 06/26/17 19:45 07/26/17 19:44 Magnesium Hydroxide (Milk Of Magnesia Susp) 30 ml Q12H PRN PO 06/26/17 19:45 07/26/17 19:44 Zolpidem Tartrate (Ambien Tab) 5 mg HSZ PRN PO 06/26/17 19:45 07/26/17 19:44 Ondansetron HCl (Zofran Inj) 4 mg Q6H PRN IV 06/26/17 19:45 07/26/17 19:44 Nitroglycerin (Nitrostat Tab) 0.4 mg UD PRN SL 06/26/17 19:45 07/26/17 19:44 Nitroglycerin (Nitroglycerin 2% Oint) 1 inch Q6H EXT 06/26/17 22:00 07/26/17 21:59 06/26/17 23:23 1 INCH Polyethylene (Miralax Powder Packet) 17 gm DAILY PRN PO 06/26/17 19:45 07/26/17 19:44 Albuterol (Ventolin Hfa Inhaler) 2 puffs Q6H PRN INH 06/26/17 19:45 07/26/17 19:44 Aspirin (Ecotrin Tab) 81 mg DAILY PO 06/27/17 09:00 07/27/17 08:59 06/27/17 07:57 81 MG Budesonide/ Formoterol Fumarate (Symbicort 160/ 4.5 Inh) 2 puffs BID INH 06/26/17 21:00 07/26/17 20:59 06/27/17 07:56 2 PUFFS Gabapentin (Neurontin Tab) 600 mg BID PO 06/26/17 21:00 07/26/17 20:59 06/27/17 07:58 600 MG Lisinopril (Zestril Tab) 5 mg DAILY PO 06/27/17 09:00 07/27/17 08:59 06/27/17 08:00 5 MG Magnesium Oxide (Mag-Ox Tab) 400 mg DAILY PO 06/27/17 09:00 07/27/17 08:59 06/27/17 07:58 400 MG Metoprolol Succinate (Toprol Xl Tab) 25 mg QAM PO 06/27/17 09:00 07/27/17 08:59 06/27/17 08:00 25 MG Pantoprazole Sodium (Protonix Tab) 40 mg QAM PO 06/27/17 09:00 07/27/17 08:59 06/27/17 07:59 40 MG Prasugrel (effiENT TAB) 10 mg QAM PO 06/27/17 09:00 07/27/17 08:59 06/27/17 07:58 10 MG Warfarin Sodium (Coumadin Tab) 3 mg DAILY@1600 PO 06/26/17 21:00 07/26/17 20:59 06/26/17 23:20 3 MG Ranolazine (Ranexa ER Tab) 500 mg DAILY PO 06/27/17 09:00 07/27/17 08:59 06/27/17 07:59 500 MG Rosuvastatin Calcium (Crestor Tab) 40 mg DAILY PO 06/27/17 09:00 07/27/17 08:59 06/27/17 07:57 40 MG Tiotropium [place] (Spiriva Handihaler Inhaler) 2 puff DAILY INH 06/27/17 09:00 07/27/17 08:59 06/27/17 07:55 2 PUFF Albuterol/ Ipratropium (Duoneb) 3 ml Q6H PRN INH 06/26/17 19:45 07/26/17 19:44 Miscellaneous (Iv Fluids Completed) 1 ea PRN PRN N/A 06/26/17 22:30 06/26/18 22:29 Physical Exam Vital Signs Past 12 Hours Date Time Temp Pulse Resp B/P (MAP) Pulse Ox O2 Delivery O2 Flow Rate FiO2 06/27/17 07:42 36.8 65 16 99/56 (70) 99 06/27/17 04:41 36.6 59 18 95/51 (66) 96 Room Air 06/27/17 04:00 Room Air 06/27/17 00:11 36.6 56 18 122/67 (85) 95 Room Air 06/27/17 00:02 Room Air 06/26/17 20:53 36.4 58 16 156/90 98 Room Air Constitutional: General Apperance: heathly-appearing Level of Distress: NAD Psychiatric: Mental Status: active & alert Head: normocephalic Eyes: EOM: EOMI ENMT: normal ENT inspection, hearing grossly normal Neck: supple, no masses Lungs: Respiratory effort: no dyspnea, good air movement Auscultation: breath sounds normal, no wheezing Cardiovascular: Heart Auscultation: RRR, no murmurs, no rubs, no gallops Peripheral Pulses: Bruits: none appreciated Abdomen: Bowel Sounds: normal Inspection & Palpation: soft, no tenderness, guarding & rebound, no masses Musculoskeletal: normal strength (5/5 throughout) Extremities: no edema Neurologic: Cranial Nerves: grossly intact Sensation: grossly intact Data Laboratory Results: Last 24 Hours Test 06/26/17 15:00 06/27/17 06:38 White Blood Count 5.37 K/uL 4.63 K/uL Red Blood Count 4.15 M/uL 4.01 M/uL Hemoglobin 11.3 g/dL 11.1 g/dL Hematocrit 35.2 % 34.0 % Mean Corpuscular Volume 84.8 fL 84.8 fL Mean Corpuscular Hemoglobin 27.2 pg 27.7 pg Mean Corpuscular Hemoglobin Concent 32.1 g/dl 32.6 g/dl Platelet Count 133 K/uL 120 K/uL Mean Platelet Volume 8.9 fL 9.4 fL Neutrophils (%) (Auto) 59.0 % Lymphocytes (%) (Auto) 23.1 % Monocytes (%) (Auto) 12.7 % Eosinophils (%) (Auto) 4.8 % Basophils (%) (Auto) 0.2 % Neutrophils # (Auto) 3.17 K/uL Lymphocytes # (Auto) 1.24 K/uL Monocytes # (Auto) 0.68 K/uL Eosinophils # (Auto) 0.26 K/uL Basophils # (Auto) 0.01 K/uL RDW Standard Deviation 54.6 fL 55.3 fL RDW Coefficient of Variation 17.6 % 17.7 % Immature Granulocyte % (Auto) 0.2 % Immature Granulocyte # (Auto) 0.01 K/uL Prothrombin Time 30.8 SECONDS 26.1 SECONDS Prothromb Time International Ratio 3.0 2.5 Sodium Level 139 mmol/L 140 mmol/L Potassium Level 4.5 mmol/L 4.2 mmol/L Chloride Level 105 mmol/L 107 mmol/L Carbon Dioxide Level 28 mmol/L 27 mmol/L Anion Gap 6.0 mmol/L 6.0 mmol/L Blood Urea Nitrogen 31 mg/dl 27 mg/dl Creatinine 1.30 mg/dl 1.06 mg/dl Est Creatinine Clear Calc Drug Dose 65.1 ml/min 77.0 ml/min Estimated GFR () 66.8 85.5 Estimated GFR (Non- 57.7 73.8 BUN/Creatinine Ratio 24.2 25.2 Random Glucose 107 mg/dl 93 mg/dl Calcium Level 8.6 mg/dl 8.7 mg/dl Total Bilirubin 0.5 mg/dl Direct Bilirubin 0.2 mg/dl Aspartate Amino Transf (AST/SGOT) 20 U/L Alanine Aminotransferase (ALT/SGPT) 22 U/L Alkaline Phosphatase 52 U/L Troponin I < 0.015 ng/ml < 0.015 ng/ml Pro-B-Type Natriuretic Peptide 298 pg/ml Total Protein 7.5 gm/dl Albumin 4.1 gm/dl Lipase 76 U/L Magnesium Level 2.0 mg/dl Imaging: No CHF, no acute changes EKG: Sinus rhythm, old inferior posterior myocardial infarction, no acute changes Telemetry reviewed: Sinus rhythm, no significant arrhythmia Assessment & Plan #1. Chest discomfort: He presented with prolonged chest discomfort which he describes as starting as a sharp pain and then becoming squeezing sensation, however it was unrelenting for 4-5 hours. He has no acute changes on his electrocardiogram and his enzymes are not elevated. This makes it very unlikely that this is cardiac in nature. He was working hard in the cold over the last week and has been getting chest discomfort, but it has typically resolved until this episode. Those episodes could be anginal. There does not appear to be in acute event and he has known coronary disease and chronic angina. This presenting episode may be some other etiology other than anginal. #2. Coronary disease: He does have known coronary disease but he has had stable exertional chest discomfort and other than this episode prompting this admission has been able to do very heavy work without a real change in his symptoms, other than when he works cold. I don't think a stress test would be useful as it would likely be abnormal given his known coronary artery disease, and I don't think we should do a catheterization as his presenting event does not seem ischemic. I would therefore continue to follow him medically. #3. Ischemic myopathy: He has an ischemic cardiomyopathy with moderate left ventricular dysfunction (EF in the 45-50% range). He is on appropriate treatment for this although at relatively low doses of Arnie inhibitors and beta blockers but he does not tolerate higher doses. Thank you for allowing me to participate in his care.
[2017-06-27] MEDS ORDERED: LISINOPRIL 5 MG TAB PO SCH (09:00)
[2017-06-27] MEDS ORDERED: ASPIRIN 81 MG ECTAB PO SCH (09:00)
[2017-06-27] MEDS ORDERED: METOPROLOL SUCC 25MG EXT REL TAB PO SCH (09:00)
[2017-06-27] MEDS ORDERED: PANTOprazole SOD 40 MG TAB PO SCH (09:00)
[2017-06-27] MEDS ORDERED: PRASugrel TAB 10 MG TAB PO SCH (09:00)
[2017-06-27] MEDS ORDERED: TIOTROPIUM BROMIDE 5 PUFF/90 MCG INH INH SCH (09:00)
[2017-06-27] MEDS ORDERED: ROSUVASTATIN CALCIUM 20 MG TAB PO SCH (09:00)
[2017-06-27] MEDS ORDERED: RANOLAZINE 500 MG ER TAB PO SCH (09:00)
[2017-06-27] MEDS ORDERED: MAGNESIUM OXIDE 400 MG TAB PO SCH (09:00)
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
[2017-06-27] MEDS: WARFARIN SOD 3 MG TAB PO SCH (16:30)
--- NOTE | 2017-06-27 16:45 | ECHOCARDIOGRAM REPORT ---
*NOTICE TO RECEIVING CONSTITUTION PARTY AGENCY This information is strictly Confidential and protected under [place] law. [place] law prohibits you from making any further disclosure of this information unless further disclosure is expressly permitted by the written consent of the person to whom it pertains or is authorized by law. A general authorization for the release of medical or other information is not sufficient for this purpose. Hospital accepts no responsibility if the information is made available to any other person, INCLUDING THE PATIENT. Interpretation Summary * Name: FLACA KIDD Study Date: 06/27/2017 07:08 AM BP: 99/56 mmHg * Patient Location: C.2T\S\S230\S\2 HR: 65 * : 1950 (M/d/yyyy) Gender: Male Height: 70 in * Age: 66 yrs Ethnicity: [place] Weight: 200 lb * Ordering Physician: Dann Santiago * Referring Physician: Self, Referred * Performed By: Erma Rowe RDCS * * Reason For Study: CHEST PAIN * BSA: 2.1 m2 * -- Conclusions -- * 1. Normal LV size, mild concentric LVH. * 2. Low normal LV systolic function. LVEF 50-55%. Inferior wall akinesis. * 3. Normal RV size, borderline RV function. * 4. Aortic valve sclerosis without stenosis. * 5. Compared with prior study on 12/25/2016: No significant changes. Procedure Details * A contrast injection of Definity was performed to improve assessment of LV function. * Contrast was injected into an intravenous site in the right arm. * One vial of Definity ultrasound contrast was diluted in normal saline to a total volume of 10 ml. A total of '2' ml of solution was administered during imaging. * Lot # [id number] of Definity utilized for procedure. * Expiration date 1 AUG 29. * The attending nurse who injected the contrast agent was PHIL BOURNE RN. Left Ventricle * The left ventricle is grossly normal size. * There is mild concentric left ventricular hypertrophy. * Ejection Fraction = 45-50%. * Inferior wall hypokinesis. Right Ventricle * The right ventricle is grossly normal size. * The right ventricular systolic function is borderline reduced. Atria * The left atrial size is normal. * Right atrial size is normal. * No ASD detected; PFO is not assessed. Mitral Valve * The mitral valve is grossly normal. * There is no mitral valve stenosis. * There is trace mitral regurgitation. Tricuspid Valve * The tricuspid valve is not well visualized, but is grossly normal. * Tricuspid stenosis is absent. * There is mild tricuspid regurgitation. Aortic Valve * Aortic valve sclerosis mild, without significant aortic valvular stenosis. * No hemodynamically significant valvular aortic stenosis. * There is no significant aortic regurgitation. Pulmonic Valve * The pulmonary valve is inadequately visualized, but the Doppler data is adequate for interpretation. * There is no significant pulmonary regurgitation. Great Vessels * The aortic root and proximal ascending aorta are normal sized. Pericardium/Pleural * There is no pericardial effusion. MMode 2D Measurements and Calculations IVSd 1.5 cm IVSs 2.2 cm LVIDd 3.8 cm LVIDs 2.8 cm LVPWd 1.5 cm LVPWs 2.0 cm IVS/LVPW 0.97 FS 27.2 % EDV(Teich) 63.7 ml ESV(Teich) 29.5 ml EF(Teich) 53.6 % EDV(cubed) 56.8 ml ESV(cubed) 21.9 ml EF(cubed) 61.4 % % IVS thick 45.5 % % LVPW thick 29.2 % LV mass(C)d 223.1 grams LV mass(C)dI 106.9 grams/m\S\2 LV mass(C)s 261.9 grams LV mass(C)sI 125.5 grams/m\S\2 SV(Teich) 34.2 ml SI(Teich) 16.4 ml/m\S\2 SV(cubed) 34.9 ml SI(cubed) 16.7 ml/m\S\2 Ao root diam 3.0 cm Ao root area 7.3 cm\S\2 LA dimension 3.5 cm LA/Ao 1.2 LVAd ap4 39.4 cm\S\2 LVLd ap4 8.9 cm EDV(MOD-sp4) 142.4 ml EDV(sp4-el) 148.7 ml LVAs ap4 24.2 cm\S\2 LVLs ap4 7.4 cm ESV(MOD-sp4) 64.5 ml ESV(sp4-el) 66.7 ml EF(MOD-sp4) 54.7 % EF(sp4-el) 55.1 % LVAd ap2 45.8 cm\S\2 LVLd ap2 9.5 cm EDV(MOD-sp2) 178.1 ml EDV(sp2-el) 186.6 ml LVAs ap2 27.4 cm\S\2 LVLs ap2 7.6 cm ESV(MOD-sp2) 80.8 ml ESV(sp2-el) 83.4 ml EF(MOD-sp2) 54.6 % EF(sp2-el) 55.3 % LVLd %diff 6.8 % EDV(MOD-bp) 166.6 ml LVLs %diff 2.6 % ESV(MOD-bp) 73.1 ml EF(MOD-bp) 56.1 % SV(MOD-sp4) 78.0 ml SI(MOD-sp4) 37.4 ml/m\S\2 SV(MOD-sp2) 97.2 ml SI(MOD-sp2) 46.6 ml/m\S\2 SV(MOD-bp) 93.5 ml SI(MOD-bp) 44.8 ml/m\S\2 SV(sp4-el) 81.9 ml SI(sp4-el) 39.3 ml/m\S\2 SV(sp2-el) 103.2 ml SI(sp2-el) 49.4 ml/m\S\2 Doppler Measurements and Calculations MV E max tad 95.9 cm/sec MV A max tad 68.7 cm/sec MV E/A 1.4 MV dec time 0.29 sec Ao V2 max 149.8 cm/sec Ao max PG 9.0 mmHg Ao max PG (full) 5.9 mmHg LV V1 max PG 3.1 mmHg LV V1 max 87.8 cm/sec TR max tad 205.3 cm/sec
[2017-06-27] MEDS ORDERED: RANO500T PO (16:48)
[2017-06-27] MEDS ORDERED: NTRGSL/4 UT (16:48)
--- NOTE | 2017-06-27 16:51 | Discharge Instructions ---
Discharge Instructions Date of Service Jun 27, 2017. Admission Reason for Admission: Substernal Chest Pain Discharge Discharge Diagnosis / Problem: Chest pain Discharge Goals Goal(s): Improve disease control, Diagnostic testing, Therapeutic intervention Activity Recommendations Activity Limitations: as noted below Exercise/Sports Limitations: gradually increase as tolerated Shower/Bathe: no limitations . Instructions / Follow-Up Instructions / Follow-Up You were admitted with chest pain that lasted longer than usual and went away with nitroglycerin. All of the blood tests for a heart attack were normal.Your ECGs were unchanged from previous. You were seen by the Senior Software Qa Engineer and he did not feel it was necessary at this time to pursue further cardiac evaluation. Please keep your scheduled follow up appointment with Dr. Grubbs on 07/06. Home Care: * Take your medications exactly as directed. Don't skip doses. * Remember that recovery after a heart attack takes time. Plan to rest for at lease 4-8 weeks while you recover. Then return to normal activity when your doctor says it's okay. * Ask your doctor about joining a heart rehabilitation program. * Tell your doctor if you are feeling depressed. Feelings of sadness are common after a heart attack, but it is important that you speak to someone if you are feeling overwhelmed by these feelings. * If you are having chest pain, call 911 for an ambulance. Do NOT drive yourself to the hospital. * Ask your family members to learn CPR. * Learn to take your own blood pressure and pulse. Keep a record of your results. Ask your doctor when you should seek emergency medical attention. He or she will tell you which blood pressure reading is dangerous. Lifestyle Changes: * Maintain a healthy weight. Get help to lose any extra pounds. * Cut back on salt. * Limit canned, dried, packaged, and fast foods. * Don't add salt to your food. * Season foods with herbs instead of salt when you cook. * Break the smoking habit. Enroll in a stop-smoking program to improve your chances of success. * Limit fatty foods. * Ask your doctor about having your lipid levels checked regularly. * Build up your activity according to your doctor's recommendation. * Ask your doctor when it's okay to resume sexual activity. * Tell your doctor about any erectile dysfunction (ED) medication you are taking. Some ED medications are not safe if you take certain heart medications. * Try to manage stress. Follow Up: It is important for you to keep your follow up appointments with your medical provider. Current Hospital Diet Patient's current hospital diet: AHA Diet (Heart Healthy) Discharge Diet Recommended Diet: AHA Diet (Heart Healthy) Procedures Procedures Performed: Chest xray Pending Studies Studies pending at discharge: no Laboratory Results Lipid Panel Test 04/22/17 07:46 Range/Units Triglycerides Level 143 0-150 mg/dl Cholesterol Level 121 0-200 mg/dl HDL Cholesterol 37 mg/dl Cholesterol/HDL Ratio 3.3 LDL Cholesterol, Calculated 55 mg/dl Medical Emergencies . Who to Call and When: Medical Emergencies: If at any time you feel your situation is an emergency, please call 911 immediately. Call 911 immediately or go to your nearest Emergency Room if you experience any of the following: Warning Signs and Symptoms of a Heart Attack * Chest pain that is not relieved by medication * Shortness of breath . Non-Emergent Contact Non-Emergency issues call your: Primary Care Provider, Senior Software Qa Engineer Call Non-Emergent contact if: your pain is not controlled, your pain is worsening, your pain is unusual for you, your pain is concerning you, you have any medication questions . . "Provider Documentation" section prepared by Noemy Aguiar. . AMI Core Measures Reason no ASA as I/P: Treatment provided - N/A Reason no ASA at D/C: Treatment provided - N/A Reason no statin as I/P: Treatment provided - N/A Reason no statin at D/C: Treatment provided - N/A VTE Core Measure Inpt VTE Proph given/why not?: Warfarin (Coumadin)
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
== END 2017-06-27 18:11 | disposition home or self-care (01) ==
LOC: C.EDB 14:56 → C.2T 19:37 → ENRESERV 19:43
PROVIDERS: ADMIT Hospitalist; ATTEND Family Medicine
DX: R07.9 Chest pain, unspecified (principal); I25.10 Atherosclerotic heart disease of native coronary artery without angina pectoris; Z95.5 Presence of coronary angioplasty implant and graft; Z98.890 Other specified postprocedural states; Z86.718 Personal history of other venous thrombosis and embolism; Z79.01 Long term (current) use of anticoagulants; E78.5 Hyperlipidemia, unspecified; I11.0 Hypertensive heart disease with heart failure; K21.9 Gastro-esophageal reflux disease without esophagitis; G43.909 Migraine, unspecified, not intractable, without status migrainosus; I50.42 Chronic combined systolic (congestive) and diastolic (congestive) heart failure; I25.5 Ischemic cardiomyopathy; F41.1 Generalized anxiety disorder; J67.0 Farmer's lung; N28.9 Disorder of kidney and ureter, unspecified; Z79.82 Long term (current) use of aspirin; Z90.89 Acquired absence of other organs; Z96.649 Presence of unspecified artificial hip joint; Z83.3 Family history of diabetes mellitus; Z82.49 Family history of ischemic heart disease and other diseases of the circulatory system; Z88.5 Allergy status to narcotic agent

== ENCOUNTER → 2017-08-02 | Outpatient (CLI) | payer OTHER ==
[~2017-08-02] MED LIST changes: +CMD/3 PO; -ISOS40TA5 PO; -LISI-461 PO; -LPR100 PO; +LSN5 PO; +MAGN400T6 PO; +NRN600 PO; +NTRGSL/4 UT; +OPTIRAY 320 IV PRN; -PANT40TA PO; +PANT40TA2 PO; +PRAS10TA5 PO; -PRAS1TAB6 PO; -ROSU40TA PO; +ROSU40TA28 PO; -SPRIN/30 INH; +SYMIN INH; -SYMIN/8045 INH; +TIOT1SPR INH; +TPRSR/25 PO; -WARF3TAB6 PO
--- NOTE | 2017-08-02 12:55 | DIAGNOSTIC IMAGING REPORT ---
CT SCAN OF THE CHEST WITH IV CONTRAST CLINICAL HISTORY: COPD. COMPARISON STUDY: Chest x-ray dated 06/26/2017. Chest CT dated 06/03/2015. TECHNIQUE: Following the IV administration of 95 cc of Optiray 320, CT scan of the thorax was performed from the thoracic inlet to the upper abdomen. Images are reviewed in the axial, sagittal, and coronal planes. IV contrast was administered without complication. A dose lowering technique was utilized adhering to the principles of ALARA. CT DOSE: 650.42 mGycm FINDINGS: Thyroid: Imaged portions of the thyroid gland are normal in size and attenuation. Thoracic aorta: There is atherosclerotic calcification of the thoracic aorta, which is normal in caliber and demonstrates standard 3-vessel arch anatomy. No dissection is seen. Pulmonary vasculature: The pulmonary trunk is normal in caliber. There are no filling defects identified in the central pulmonary vessels to indicate pulmonary embolus. Note that this examination was not protocoled for evaluation of the pulmonary arteries. Heart: The heart is enlarged and without pericardial effusion. The coronary arteries are densely calcified. Lungs and pleural spaces: Mild emphysematous change is suspected. There is chronic elevation of left hemidiaphragm. Probable scarring versus atelectasis is seen at both lung bases, left greater than right. No pleural effusion is seen. Pleural calcification in the left lower lung is likely related to previous trauma. Groundglass consolidation is seen throughout the right upper lobe. Milder groundglass changes in the right middle and right lower lobes. A calcified granuloma is noted in the right upper lobe. The trachea and central airways are clear. Mediastinum: There are scattered subcentimeter mediastinal lymph nodes. These are not pathologically enlarged by size criteria. Rosalba: Clear. Axillae: There is no axillary lymphadenopathy. Upper abdomen: There are calcifications of the right adrenal gland. A 1.4 cm cyst is noted in the upper pole of the left kidney. Skeletal structures: The skeletal structures are osteopenic. Degenerative change is seen in the shoulders and thoracic spine. There are numerous healed left-sided rib fractures. No lytic or blastic bony lesions are seen. IMPRESSION: 1. Cardiomegaly and suspect emphysema. 2. Chronic posttraumatic change and scarring is identified involving the left hemithorax. 3. Groundglass consolidation is seen throughout the right lung, greatest at the right apex. Correlate clinically for evidence of a mild infectious/inflammatory pneumonitis. 4. No pleural effusion is identified. 5. Additional findings as above. Electronically signed by: Jairon Gross M.D. 08/02/2017 12:54 PM Dictated Date/Time: 08/02/2017 12:48 PM
== END | disposition home or self-care (01) ==
LOC: C.CTS 12:06
PROVIDERS: ATTEND Physician Assistant
DX: I51.7 Cardiomegaly (principal); J44.9 Chronic obstructive pulmonary disease, unspecified; R91.8 Other nonspecific abnormal finding of lung field; J98.4 Other disorders of lung

== ENCOUNTER → 2017-08-06 | Outpatient (CLI) | payer OTHER ==
[~2017-08-06] MED LIST changes: -OPTIRAY 320 IV PRN
--- NOTE | 2017-08-07 05:55 | PAP/PSG TECHNICIAN REPORT ---
[facility] Thermal Cutter Helper Polysomnogram Report Study name: None Report date: 08/07/2017 Study date: 08/06/2017 Referring Physician: Genesis Claudio PA-C, PA-C Name: FLACA MORALES Interpreting Physician: Bernard Laws D.O. Date of : 1950 Thermal Cutter Helper: Grisel Merida [facility]. Sex: Male Age: 67 StudyType: PSG Weight: 195 lbs Height: 67 years, Height 5' 9" Neck Circum: 16.75inches BMI: 28.79 Medications: Ranexa 500mg, Metoprolol Succinate ER 50mg, Spiriva Respimat 2.5mcg/act, Rosuvastatin Calcium 40mg, Lisinopril 5mg, Nitrostat 0.4mg, Pantoprazole Sodium 40mg, Warfarin Sodium 1mg, Gabapentin 600mg, Methylprednisolone 4mg, Albuterol Sulfate 5mg/ml, ASA 81mg, Effient 10mg, Magnesium Oxide 400mg, Senna S 8.6-50mg, Symbicort 160-4.5 mcg/act Patient History Study started on room air with no ETCO2 monitoring in room #6. 67 yr old male here tonight for a possible split psg. He was diagnosed with OLIVER(in 2012 with AHI=27.5) but was unable to tolerate CPAP. He tried both nasal and full face masks. He complains of shortness of breath and EDSTonight he said his "lungs "hurt. He had a CT on 08/04/17 but did not get results. His ESS=22/24. Neck circ=16.75inches. Parameters Monitored NPSG: E1-M2, E2-M1, Fp1-M2, Fp2-M1, F3-M2, F4-M2, F4-M1, C3-M2, C4-M2, C4-M1, O1-M2, O2-M2, O2-M1, T3-M2, T4-M1, P3-M2, P4-M1, CHIN1, CHIN2, HR, EKG, Legs, PFLOW, SNOR, FLOW, CFLOW, Tidal Volume, THOR, ABDO, SpO2, PLTH, CPRESS, ETCO2 Wave, ETCO2, pH Sleep Architecture Sleep Stages Time at Lights Off 9:34:19 PM STAGES Time (min.) TST (%) Time at Lights On 5:28:49 AM Wake 35.5 -- Total Recording Time (TRT) 474.50 min. N1 30.0 7 Total Sleep Period (TSP) 463.0 min. N2 277.5 63 Total Sleep Time (TST) 439.0min. N3 85.5 19 Awake Time 35.5 min. REM 46.0 10 Wake after Sleep Onset 24.0 min. Sleep Efficiency (SE) 93 % Sleep Onset Latency (EDEL) 11.5 min. Number of Stage 1 Shifts None Awakenings 25 Stage Changes 107 Number of REM periods 13 REM 46.0 10 REM Latency 178.5 min. NREM 393.0 90 Body Position Analysis Supine Right Left Side Prone Vertical Total Sleep Time (min.) 223.9 156.5 86.3 242.79 0.0 0.0 Total Sleep Time (%) 45% 36% 20% 55 0% N/A% Total Sleep Time REM (min.) 16.0 5.5 24.5 None 0.0 0.0 Total Sleep Time NREM (min.) 180.2 151.0 61.8 None 0.0 0.0 Intermittent Wake (min.) 27.7 3.4 4.4 None 0.0 0.0 Total Sleep Period (%) 46% None None None None None Arousals Myoclonus (PLM) * Events Count Index Events Count Index Spontaneous 6 1 Events Awake (PLMW) 81 136.9 Respiratory 18 3.6 Events Asleep w/ Arousal (PLMA) 10 1.4 PLM 10 1 Events Asleep w/o Arousal (PLMS) 852 116.4 Snoring 5 1 Total Asleep 862 117.8 Total 39 5 Total 943 119 Respiratory Analysis * CA OA MA CH H RERA Total Count 1 23 0 0 53 1 77 Index 0.1 3.1 0.0 0 7.2 0 10.7 Mean Duration 13.9 23.0 0.0 0.00 26.0 21.3 24.9 Longest Duration 13.9 56.1 0.0 0.00 0.0 21.3 61.2 Respiratory Event Summary Total Supine ~Supine Right Left Prone REM NREM Apneas Count 24 24 0 0 0 N/A 17 7 Index 3.3 7 0 0.0 0.0 N/A 22 1 Hypopneas (4% Desat) Count 53 45 8 1 7 N/A 6 47 Index 7.2 13.8 2 0.4 4.9 N/A 7.8 7.2 Apneas & All Hypopneas Count 77 69 8 1 7 N/A 23 54 Index 10.5 21 2 0 5 N/A 30.0 8.2 Respiratory Events ([employer] Special Agent+All Hyp+RERA) Count 77 70 8 1 7 N/A 23 54 Index 10.7 21 2 0.4 4.9 N/A 30.0 8.4 Respiratory Related Arousal Count 18 70 3 0 3 N/A 5 21 Index 3.6 7 1 0 2 N/A 7 3 Snoring Analysis Supine Right Left Prone REM NREM Total Snore duration 58.7 min Snores count 1,293 539 212 N/A 193 1,851 2,044 Snore mean duration 1.7 Sec Snores index 395 207 147 N/A 251.7 282.6 279.4 TST with snoring (%) 13.4% Desaturation Event Summary: Minimum %SpO2 Event Count Mean/Min/Max Duration(sec.) Desaturation Index % Time In Bed > 90 66 28.1 / 9.8 / 57.5 15.0 56.0 86 - 90 44 30.7 / 9.8 / 58.8 13.5 41.3 81 - 85 4 24.8 / 16.8 / 39.3 25.5 2.0 76 - 80 1 39.3 / 39.3 / 39.3 20.8 0.6 71 - 75 0 N/A 0.0 0.1 66 - 70 0 N/A 0.0 0.1 61 - 65 0 N/A 0.0 0.0 56 - 60 0 N/A 0.0 0.0 51 - 55 0 N/A 0.0 0.0 < 50 0 N/A 0.0 0.0 Total REM NREM Awake <50% 0.0 min. 0.0 min. 0.0 min. 0.0 min. 51 - 60% 0.0 min. 0.0 min. 0.0 min. 0.0 min. 61 - 70% 0.5 min. 0.1 min. 0.0 min. 0.4 min. 71 - 80% 3.3 min. 2.7 min. 0.2 min. 0.3 min. 81 - 90% 204.5 min. 13.9 min. 173.2 min. 17.4 min. 91 - 100% 264.6 min. 29.3 min. 219.3 min. 16.0 min. Average 91 90 91 90 Minimum SpO2 64 68 76 64 Desaturation Event Index 12.1 27.4 9.8 22.0 # Desat. Events below 89% 71 20 45 6 Time(%) with Saturation below 89% 13.9 2.3 10.4 1.1 Time(min.) with Saturation below 89% 65.6 11.1 49.2 5.4 Time (mins) REM (mins) NREM (mins) % of TST SpO2 Below 90% 82 21 N61 26.2 SpO2 Below 88% 33 0 0 7 Heart Rate Analysis Min (bpm) Max (bpm) Average (bpm) Awake 59 102 68 NREM 56 102 63 REM 60 84 66 Overall 56 102 64 Supplemental O2 Values Minimum O2 level: None Value Start Time End Time Thermal Cutter Helper Comments Mr. Morales slept in the right, left and supine positions. Cardiac arrhythmia and PLM's noted. No bruxism noted. Snoring was noted and scored as a 3 on a scale of 1 through 5. (0=no snoring, 5=snoring loud enough to be heard through a closed door or down the [place] way) He did not use the restroom during the night. He stated that he slept about the same as when at home. The final report will be interpreted and signed by a sleep physician. The completed physician report will then be placed in the patient medical record. Therapy (cm H2O) 0 TIB (min.) 474.5 TST (min.) 439.0 Sleep Onset (min.) 11.5 REM Onset From Sleep (min.) 178.5 Sleep Efficiency % 93 Wakefulness (%) 7 Wakefulness (min.) 35.5 NREM 1 (%) 7 NREM 1 (min.) 30.0 NREM 2 (%) 63 NREM 2 (min.) 277.5 NREM 3 (%) 19 NREM 3 (min.) 85.5 REM (%) 10 REM (min.) 46.0 # Arousals 39 Arousal Index 5 # Snore 2,044 Snore Index 279.4 AHI 10.5 AHI Supine 21 AHI Non-Supine 2 NREM AHI 8.2 REM AHI 30.0 RDI 10.7 # Obstructive Apnea 23 # Central Apnea 1 # Mixed Apnea 0 # Hypopneas 53 RERAs 1 Total Respiratory Events 82 Time Below SpO2 89% (min.) 60.3 Mean NREM SpO2 (%) 91 Mean REM SpO2 (%) 90 Mean Sleep SpO2 (%) 91 Min NREM SpO2 (%) 76 Min REM SpO2 (%) 68 Position Supine (min.) 223.9 Position Non-supine (min.) 242.8 LM Index Sleep 117.8 LM Index NREM 129.2 LM Index REM 20.9 Mean Heart Rate (bpm) 64 Min Heart Rate (bpm) 56 16.75
--- NOTE | 2017-08-10 18:23 | Sleep Study ---
Sleep Study Report Date of Service: 08/06/2017 Sleep Study Report CLINICAL DATA: The patient is a 67-year-old male who has complaints of shortness of Breath and excessive daytime somnolence. His Ramer Sleepiness Scale score is 22 out of a possible 24. He previously had a diagnosis of sleep apnea made in 2012 with an apnea-hypopnea index of 27.5. He was unable to tolerate CPAP. This was an in-lab overnight polysomnography. SLEEP ARCHITECTURE: The total sleep period was 463 minutes. The total sleep time was 439 minutes. The sleep efficiency was normal at 93 percent. The sleep latency was 11.5 minutes. Wake after sleep onset was 24 minutes. The REM latency was prolonged to 178.5 minutes. Sleep consisted of stage N1 7 percent, stage N2 63 percent, stage N3 19 percent, stage REM 10 percent. AROUSAL DATA: The patient had a total of 39 arousals including 6 spontaneous arousals, 18 respiratory arousals, 10 PLM arousals, and 5 snoring arousals. The arousal index was 5. PLM DATA: The patient had 862 periodic limb movements of sleep for a PLM index severely elevated at 117.8. There were 10 arousals associated with limb movements for a PLM arousal index of 1.4. EKG: The underlying cardiac rhythm appeared to be normal sinus. There were rare extrasystoles seen. The cardiac rates ranged from 56 to 102 beats per minute. The average heart rate was 64 beats per minute. RESPIRATORY DATA: Patient had a total of 77 respiratory events including 1 central apnea, 23 obstructive apneas, and 53 hypopneas. Hypopneas were scored according to the 4 percent desaturation rule. The longest apnea was 56.1 seconds. The mean duration of the hypopneas was 26 seconds. There was 1 RERAs. The apnea- hypopnea index was 10.5. This reflects mild sleep apnea. OXIMETRY DATA: The average saturation for the night was 91 percent. The minimum saturation was 64 percent. There was a total of 65.6 minutes with saturations less than 90 percent. LEAD SOFTWARE ENGINEER COMMENTS: The patient slept on the right, left, and supine positions. Cardiac arrhythmia and PLMS noted. No bruxism noted. Snoring was noted and scored as a 3 on a scale of 1 through 5. He did not use the restroom during the night. IMPRESSIONS: 1. Obstructive sleep apnea - mild 2. Periodic limb movement disorder COMMENTS: The patient had a normal sleep efficiency. There were very frequent periodic limb movements but with few arousals. Clinical correlation is needed in this regard. He has mild sleep apnea. The events were somewhat more frequent in the supine position and during REM sleep. The patient has a history of prior HI and a history of cardiac arrhythmia. He has cardiomyopathy. These would be comorbidities for sleep apnea. He did not tolerate CPAP in the past. It is unclear if the cause of that failure was the pressure itself or if it was the mask interface. Consideration could be given to a trial of nasal BiPAP in light of his failure with CPAP previously. Alternatively it is unknown if he could be a candidate for oral appliance therapy if he would not do well with CPAP or BiPAP. RECOMMENDATIONS: 1. Consideration is given to a trial of BiPAP in light of his difficulties with CPAP in the past. This would best be done as a in-lab BiPAP titration. 2. If the patient refuses treatment with CPAP or BiPAP, consideration could be given to an evaluation for an oral appliance. This would require that his own teeth would be in quite good condition. 3. If possible the patient should avoid sleeping in the supine position. 4. If the patient refuses any treatment for sleep apnea, he could be a candidate for nocturnal oxygen therapy. This would likely require an overnight pulse oximetry study. Copies To 1: Bernard Laws DO; Halle Watts PA-C
== END | disposition home or self-care (01) ==
LOC: C.NEUR 21:00
PROVIDERS: ATTEND Physician Assistant
DX: G47.33 Obstructive sleep apnea (adult) (pediatric) (principal); G47.61 Periodic limb movement disorder

== ENCOUNTER → 2017-09-02 | Outpatient (CLI) | payer OTHER ==
--- NOTE | 2017-09-03 05:47 | PAP/PSG TECHNICIAN REPORT ---
[facility] Tentmaker Polysomnogram Report Study name: None Report date: 09/03/2017 Study date: 09/02/2017 Referring Physician: Genesis Claudio PA-C, PA-C Name: FLACA MORALES Interpreting Physician: Bernard Laws D.O. Date of : 1950 Tentmaker: Mohini Young [facility]. Sex: Male Age: 67 StudyType: PSG Weight: 195 lbs Height: 67 years, Height 5' 9" Neck Circum: 16.75 inches BMI: 28.79 Medications: Ranexa 500mg, Metoprolol Succinate ER 50mg, Spiriva Respimat 2.5mcg/act, Rosuvastatin Calcium 40mg, Lisinopril 5mg, Nitrostat 0.4mg, Pantoprazole Sodium 40mg, Warfarin Sodium 1mg, Gabapentin 600mg, Methylprednisolone 4mg, Albuterol Sulfate 5mg/ml, ASA 81mg, Effient 10mg, Magnesium Oxide 400mg, Senna S 8.6-50mg, Symbicort 160-4.5 mcg/act Patient History 67 yr. old male here for a new titration sleep study. Patients PSG was done on 08/06/17 and had an AHI of 10.5. ESS . Parameters Monitored NPSG: E1-M2, E2-M1, Fp1-M2, Fp2-M1, F3-M2, F4-M2, F4-M1, C3-M2, C4-M2, C4-M1, O1-M2, O2-M2, O2-M1, T3-M2, T4-M1, P3-M2, P4-M1, CHIN1, CHIN2, HR, EKG, Legs, PFLOW, SNOR, FLOW, CFLOW, Tidal Volume, THOR, ABDO, SpO2, PLTH, CPRESS, ETCO2 Wave, ETCO2, pH Sleep Architecture Sleep Stages Time at Lights Off 8:23:11 PM STAGES Time (min.) TST (%) Time at Lights On 5:05:41 AM Wake 46.0 -- Total Recording Time (TRT) 522.50 min. N1 38.5 8 Total Sleep Period (TSP) 513.5 min. N2 284.0 60 Total Sleep Time (TST) 476.5min. N3 101.5 21 Awake Time 46.0 min. REM 52.5 11 Wake after Sleep Onset 41.5 min. Sleep Efficiency (SE) 91 % Sleep Onset Latency (EDEL) 4.5 min. Number of Stage 1 Shifts None Awakenings 27 Stage Changes 106 Number of REM periods 7 REM 52.5 11 REM Latency 181.0 min. NREM 424.0 89 Body Position Analysis Supine Right Left Side Prone Vertical Total Sleep Time (min.) 142.1 174.2 175.1 349.30 0.0 0.0 Total Sleep Time (%) 27% 37% 37% 73 0% N/A% Total Sleep Time REM (min.) 0.0 45.5 7.0 None 0.0 0.0 Total Sleep Time NREM (min.) 127.2 128.7 168.1 None 0.0 0.0 Intermittent Wake (min.) 14.9 15.2 15.9 None 0.0 0.0 Total Sleep Period (%) 27% None None None None None Arousals Myoclonus (PLM) * Events Count Index Events Count Index Spontaneous 7 1 Events Awake (PLMW) 51 66.5 Respiratory 6 1.0 Events Asleep w/ Arousal (PLMA) 22 2.8 PLM 21 3 Events Asleep w/o Arousal (PLMS) 865 108.9 Snoring 2 0 Total Asleep 887 111.7 Total 36 5 Total 938 108 Respiratory Analysis * CA OA MA CH H RERA Total Count 0 6 0 0 25 0 31 Index 0.0 0.8 0.0 0 3.1 0 3.9 Mean Duration 0.0 19.4 0.0 0.00 25.3 0.0 24.1 Longest Duration 0.0 30.2 0.0 0.00 0.0 0.0 51.5 Respiratory Event Summary Total Supine ~Supine Right Left Prone REM NREM Apneas Count 6 6 0 0 0 N/A 0 6 Index 0.8 3 0 0.0 0.0 N/A 0 1 Hypopneas (4% Desat) Count 25 22 3 3 0 N/A 0 25 Index 3.1 10.4 1 1.0 0.0 N/A 0.0 3.5 Apneas & All Hypopneas Count 31 28 3 3 0 N/A 0 31 Index 3.9 13 1 1 0 N/A 0.0 4.4 Respiratory Events (Tiler+All Hyp+RERA) Count 31 28 3 3 0 N/A 0 31 Index 3.9 13 1 1.0 0.0 N/A 0.0 4.4 Respiratory Related Arousal Count 6 28 1 1 0 N/A 0 8 Index 1.0 3 0 0 0 N/A 0 1 Snoring Analysis Supine Right Left Prone REM NREM Total Snore duration 12.9 min Snores count 464 74 39 N/A 22 555 577 Snore mean duration 1.3 Sec Snores index 219 25 13 N/A 25.1 78.5 72.7 TST with snoring (%) 2.7% Desaturation Event Summary: Minimum %SpO2 Event Count Mean/Min/Max Duration(sec.) Desaturation Index % Time In Bed > 90 57 27.3 / 8.0 / 54.5 7.1 91.8 86 - 90 2 22.6 / 15.0 / 30.3 2.9 7.8 81 - 85 0 N/A 0.0 0.3 76 - 80 0 N/A 0.0 0.0 71 - 75 0 N/A 0.0 0.0 66 - 70 0 N/A 0.0 0.0 61 - 65 0 N/A 0.0 0.0 56 - 60 0 N/A 0.0 0.0 51 - 55 0 N/A 0.0 0.0 < 50 0 N/A 0.0 0.0 Total REM NREM Awake <50% 0.0 min. 0.0 min. 0.0 min. 0.0 min. 51 - 60% 0.0 min. 0.0 min. 0.0 min. 0.0 min. 61 - 70% 0.0 min. 0.0 min. 0.0 min. 0.0 min. 71 - 80% 0.2 min. 0.0 min. 0.0 min. 0.2 min. 81 - 90% 42.6 min. 0.7 min. 36.5 min. 5.3 min. 91 - 100% 478.5 min. 51.8 min. 387.4 min. 39.3 min. Average 93 93 92 93 Minimum SpO2 77 90 81 77 Desaturation Event Index 6.5 1.1 6.1 18.3 # Desat. Events below 89% 23 N/A 17 6 Time(%) with Saturation below 89% 1.1 0.0 0.8 0.3 Time(min.) with Saturation below 89% 5.9 0.0 4.3 1.6 Time (mins) REM (mins) NREM (mins) % of TST SpO2 Below 90% 35 N/A N35 1.8 SpO2 Below 88% 8 0 0 1 Heart Rate Analysis Min (bpm) Max (bpm) Average (bpm) Awake 58 127 67 NREM 57 77 65 REM 59 75 64 Overall 57 77 65 Supplemental O2 Values Minimum O2 level: None Value Start Time End Time Tentmaker Comments Mr. Morales slept in the right, left, and supine and prone positions. No cardiac arrhythmia. Frequent PLMs noted. No bruxism noted. PAP initiated at an IPAP of +8 CMH2O and an EPAP of +4 CMH2O up-titrated to al level of: IPAP +14 CMH2O, EPAP +7 CMH20 BiFlex 1. A medium Lowe and Paykel Simplus, was used during titration. Mr. Morales did not wake to use the restroom during the night. Mr. Morales stated, I am stiff this morning. The final report will be interpreted and signed by a sleep physician. The completed physician report will then be placed in the patient medical record. Therapy Event: Therapy (cm H20) 02/11 03/14 04/14 05/15 06/15 136 14/7 Total Time at Pressure (min.) 164.1 10.3 39.5 8.3 25.7 142.8 131.8 TST at Pressure (min.) 154.1 9.9 28.9 8.3 24.7 137.8 112.8 # Periods 1 1 1 1 1 1 1 Sleep Onset (min.) 4.5 0.0 1.2 0.0 0.0 0.0 0.0 REM Onset (min.) N/A N/A 11.2 N/A N/A 50.6 12.8 Sleep Efficiency % 93 96 73 100 96 96 85 Wakefulness (%) 6.1 3.3 27.0 0.0 3.9 3.5 14.4 Wakefulness (min.) 10.0 0.3 10.7 0.0 1.0 5.0 19.0 NREM 1 (%) 4.3 4.9 13.9 0.0 5.8 7.0 10.6 NREM 1 (min.) 7.0 0.5 5.5 0.0 1.5 10.0 14.0 NREM 2 (%) 49.7 91.8 28.7 100.0 90.3 64.6 43.8 NREM 2 (min.) 81.6 9.4 11.4 8.3 23.2 92.3 57.8 NREM 3 (%) 39.9 0.0 0.0 0.0 0.0 17.5 8.3 NREM 3 (min.) 65.5 0.0 0.0 0.0 0.0 25.0 11.0 REM (%) 0.0 0.0 30.4 0.0 0.0 7.4 22.8 REM (min.) 0.0 0.0 12.0 0.0 0.0 10.5 30.0 # Arousals 7 6 4 0 4 9 6 Arousal Index 2.7 36.3 8.3 0.0 9.7 3.9 3.2 # Snore 450 27 4 5 14 60 17 Snore Index 175.2 163.2 8.3 36.1 33.9 26.1 9.0 AHI 0.4 42.3 12.5 43.4 12.1 2.2 0.5 AHI Supine 1.1 42.3 33.1 43.4 13.2 9.6 N/A AHI Non-Supine 0.0 N/A 0.0 N/A 9.1 0.5 0.5 NREM AHI 0.4 42.3 21.3 43.4 12.1 2.4 0.7 REM AHI N/A N/A 0.0 N/A N/A 0.0 0.0 RDI 0.4 42.3 12.5 43.4 12.1 2.2 0.5 # Obstructive 0 3 0 1 1 1 0 # Central Ap 0 0 0 0 0 0 0 # Mixed 0 0 0 0 0 0 0 # Hypopneas 1 4 6 5 4 4 1 RERAS 0 0 0 0 0 0 0 Total Respiratory Events 1 7 6 6 5 5 1 Time Below SpO2 89.00% (min.) 0.1 1.4 1.0 1.1 0.6 0.1 0.0 Mean NREM SpO2 (%) 92 91 92 91 92 93 93 Mean REM SpO2 (%) N/A N/A 92 N/A N/A 93 94 Mean Sleep SpO2 (%) 92 91 92 91 92 93 94 Min NREM SpO2 (%) 88 83 87 82 81 87 90 Min REM SpO2 (%) N/A N/A 90 N/A N/A 92 91 Position Supine (min.) 55.0 9.9 10.9 8.3 18.1 25.0 0.0 Position Non-supine (min.) 99.1 0.0 18.0 0.0 6.6 112.8 112.8 LM Index Sleep 161.2 151.2 60.3 151.8 150.3 72.7 89.9 LM Index NREM 161.2 151.2 99.6 151.8 150.3 78.7 115.2 LM Index REM N/A N/A 5.0 N/A N/A 0.0 20.0 Mean Heart Rate (bpm) 68 66 67 64 64 64 61 Min Heart Rate (bpm) 63 62 63 63 62 59 57
--- NOTE | 2017-09-06 17:10 | Sleep Study ---
Sleep Study Report Date of Service: 09/02/2017 Sleep Study Report CLINICAL DATA: The patient is a 67-year-old male with complaints of shortness of Breath and excessive daytime somnolence. His Shushan Sleepiness Scale score is 22. He was diagnosed with sleep apnea in 2012 at which time he had an apnea-hypopnea index of 27.5. He did not tolerate nasal CPAP therapy. A diagnostic sleep study was done 08/06/2017 showing mild apnea with an apnea-hypopnea index of 10.5. However his oxygen saturations were as low as 64 percent. His longest apnea was 56.1 seconds. The PLM index was severely elevated at 117.8. [facility]. This was done in light of the fact he did not tolerate nasal CPAP previously. SLEEP ARCHITECTURE: The sleep period time is 513.5 minutes. The total sleep time was 476.5 minutes. The sleep efficiency was normal at 91 percent. Sleep latency was normal at 4.5 minutes. Wake after sleep onset was 41.5 minutes. The REM latency was prolonged to 181 minutes. Sleep consisted of stage N1 8 percent, stage N2 60 percent, stage N3 21 percent, stage REM 11 percent. AROUSAL DATA: The patient had 36 arousals including 7 spontaneous arousals, 6 respiratory arousals, 21 PLM arousals, and 2 snoring arousals. PLM DATA: Patient had a total of 887 periodic limb movements for a PLM index of 111.7. There were 22 arousals associated with limb movements for a PLM arousal index of 2.8. EKG: The minimum heart rate was 57. The maximum heart rate was 77. The average heart rate was 65 beats per minute. No arrhythmia noted. RESPIRATORY DATA: Patient had a total of 31 respiratory events including 6 obstructive apneas and 25 hypopneas. Hypopneas were scored according to the 4 percent desaturation rule. The longest apnea was 30.2 seconds. The mean duration of the hypopneas was 25.3 seconds. The apnea-hypopnea index was 3.9 events per hour. At the final pressure of 14/7, the apnea-hypopnea index was only 0.5 events per hour. The patient was at that pressure for 131.8 minutes. OXIMETRY DATA: The average saturation for the night was 93 percent. The minimum saturation was 77 percent. There was a total of 5.9 minutes with saturations less than 89 percent. SURVEILLANCE DIRECTOR COMMENTS: The patient slept on the right, left, supine, and prone positions. No cardiac arrhythmia. Frequent PLMS. No bruxism noted. Positive airway pressure was initiated at IPAP 8 and EPAP of 4. This was up titrated to a level of IPAP 14 and EPAP 7 with Bi-Flex 1. A medium Lowe and Paykel Simplus was used during titration. Patient did not awaken to use the restroom during the night. IMPRESSIONS: 1. OBSTRUCTIVE SLEEP APNEA-RESOLVED WITH BIPAP 14/7 2. PERIODIC LIMB MOVEMENT DISORDER COMMENTS: The patient did very well with BiPAP. His sleep efficiency was normal. There was a lower than normal amount of REM sleep. His sleep overall was well consolidated. There were some transient oxygen desaturations but much improved compared with the 1st study. He persisted with frequent periodic limb movements but with relatively few arousals. RECOMMENDATIONS: 1. IT IS ADVISED THAT THE PATIENT BE STARTED ON BIPAP 14/7 WITH BI-FLEX 1 2. IT IS SUGGESTED THAT HE BE ORDERED A LOWE AND PAYKEL SIMPLUS MASK SIZE MEDIUM. 3. IT IS ADVISED THAT A SERUM FERRITIN LEVEL BE DONE IN LIGHT OF THE FREQUENT PERIODIC LIMB MOVEMENTS. 4. CONSIDERATION IS GIVEN TO PHARMACOLOGIC THERAPY FOR THE LIMB MOVEMENTS DEPENDING UPON HIS RESPONSE TO BIPAP. 5. WEIGHT LOSS IS ADVISED IN LIGHT OF THE MILD ELEVATION OF BODY MASS INDEX AT 28.79 6. IT IS SUGGESTED THAT HE AVOID SLEEPING IN THE SUPINE POSITION. Copies To 1: Bernard Laws DO; Genesis Claudio PA-C; Darnell Velazco M.D.
== END | disposition home or self-care (01) ==
LOC: C.NEUR 20:00
PROVIDERS: ATTEND Physician Assistant
DX: G47.30 Sleep apnea, unspecified (principal)

== ENCOUNTER → 2017-09-13 | Outpatient (CLI) | payer OTHER | END | disposition home or self-care (01) | LOC: C.LAB1850 08:41 | PROVIDERS: ATTEND Physician Assistant | DX: D64.9 Anemia, unspecified (principal); G47.30 Sleep apnea, unspecified ==

== ENCOUNTER → 2017-11-17 | Outpatient (CLI) | payer OTHER ==
[~2017-11-17] MED LIST changes: +FERR50TA3; +IBUP-1428 PO; +SENNTAB23
[2017-11-17 09:33] LABS: BASO % 0.5 %; BASO ABS # 0.02 K/uL (0-0.2); EOS % 4.4 %; EOS ABS # 0.19 K/uL (0-0.5); HEMATOCRIT 38.1 % (42-52); HEMOGLOBIN 12.4 g/dL (14.0-18.0); LYMPH % 38.4 %; LYMPH ABS # 1.64 K/uL (1.2-3.4); MEAN CELL VOLUME 84.5 fL (80-100); MEAN CORPUSCULAR HEMOGLOBIN 27.5 pg (25-34); MEAN CORPUSCULAR HGB CONC 32.5 g/dl (32-36); MEAN PLATELET VOLUME 9.6 fL (7.4-10.4); MONO % 9.4 %; NEUT % 47.3 %; NEUT ABS # 2.02 K/uL (1.4-6.5); PLATELET COUNT 135 K/uL (130-400); RED CELL DISTRIBUTION WIDTH CV 17.6 % (11.5-14.5); RED CELL DISTRIBUTION WIDTH SD 54.3 fL (36.4-46.3); WHITE BLOOD COUNT 4.27 K/uL (4.8-10.8)
[2017-11-17 09:44] LABS: ALBUMIN 3.6 gm/dl (3.4-5.0); ALT/SGPT 26 U/L (12-78); AST/SGOT 23 U/L (15-37); BLOOD UREA NITROGEN 17 mg/dl (7-18); CALCIUM 8.6 mg/dl (8.5-10.1); CARBON DIOXIDE 27 mmol/L (21-32); CHOLESTEROL 110 mg/dl (0-200); CREATININE 1.12 mg/dl (0.60-1.40); GLUCOSE 95 mg/dl (70-99); SODIUM 139 mmol/L (136-145)
[2017-11-17 09:49] LABS: ALKALINE PHOSPHATASE 58 U/L (45-117); LDL CHOLESTEROL CALCULATED 50 mg/dl; TOTAL PROTEIN 7.5 gm/dl (6.4-8.2)
== END | disposition home or self-care (01) ==
LOC: C.LAB1850 07:15
PROVIDERS: ATTEND Internal Medicine Cardiovascular Disease
DX: D64.9 Anemia, unspecified (principal); I25.10 Atherosclerotic heart disease of native coronary artery without angina pectoris; Z12.5 Encounter for screening for malignant neoplasm of prostate; I25.5 Ischemic cardiomyopathy

== ENCOUNTER 2019-06-30 21:28 | Inpatient (IN) ==
[2019-06-30] MEDS ORDERED: FAMOTIDINE 20MG/5ML IV PUSH IV STA (21:57)
[2019-06-30] MEDS ORDERED: ONDANSETRON INJ 2 MG/ML 2 ML VIAL IV STA ×2 (21:57→23:08)
[2019-06-30] MEDS ORDERED: SODIUM CHLORIDE 0.9% 1000ML 1,000 ML IV SCH (22:00)
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
--- NOTE | 2019-06-30 22:08 | XRay Report ---
XR chest 1V portable CLINICAL HISTORY: 68 years-old Male presenting with weakness. TECHNIQUE: Portable upright AP view of the chest was obtained. COMPARISON: 06/26/2017. FINDINGS: . Surgical clips project over the aortic arch. Cardiac silhouette enlarged. No focal opacity. No larg e effusion or pneumothorax. Degenerative changes of the thoracic spine. Old left posterior rib deform ities. Upper abdomen normal. IMPRESSION: 1. Cardiomegaly. No other convincing evidence of acute cardiopulmonary disease. ACT 112: Negative or not required by law. Electronically signed by: Hubert Singh M.D. 06/30/2019 10:07 PM
[2019-06-30 22:09] LABS: Basophils # (auto) 0.01 K/uL (0-0.2); Basophils % (auto) 0.1 %; Eosinophils # (auto) 0.02 K/uL (0-0.5); Eosinophils % (auto) 0.3 %; Hematocrit (blood only) 46.4 % (42-52); Hemoglobin 16.1 g/dL (14.0-18.0); Immature Granulocytes # (auto) 0.02 K/uL (0.00-0.02); Immature Granulocytes % (auto) 0.3 %; Lymphocytes # (auto) 0.44 K/uL (1.2-3.4); Lymphocytes % (auto) 6.6 %; Mean Corpuscular Hemoglobin 35.1 pg (25-34); Mean Corpuscular Hgb Conc 34.7 g/dL (32-36); Mean Corpuscular Volume 101.1 fL (80-100); Mean Platelet Volume 9.7 fL (7.4-10.4); Monocytes # (auto) 0.67 K/uL (0.11-0.59); Neutrophils # (auto) 5.52 K/uL (1.4-6.5); Neutrophils % (auto) 82.7 %; Platelet Count 107 K/uL (130-400); RDW Coefficient of Variation 13.3 % (11.5-14.5); RDW Standard Deviation 48.7 fL (36.4-46.3); Red Blood Count 4.59 M/uL (4.7-6.1); White Blood Count 6.68 K/uL (4.8-10.8)
[2019-06-30 22:18] LABS: iSTAT Creatinine 1.4 mg/dl (0.6-1.3); iSTAT Hemoglobin 16.3 g/dl (14.0-18.0); iSTAT Ionized Calcium 1.14 mmol/l (1.12-1.32); iSTAT Potassium 3.6 mEq/L (3.3-5.0)
[2019-06-30 22:27] LABS: Alanine Aminotransferase 23 U/L (12-78); Albumin Level 4.1 gm/dl (3.4-5.0); Aspartate Aminotransferase 16 U/L (15-37); BUN Creatinine Ratio 24.3 (10-20); Blood Urea Nitrogen 35 mg/dl (7-18); Calcium 9.5 mg/dl (8.5-10.1); Carbon Dioxide 29 mmol/L (21-32); Chloride 97 mmol/L (98-107); Est GFR (African American) 57.7; Est GFR (Non-African American) 49.8; Glucose 143 mg/dl (70-99); Magnesium 1.6 mg/dl (1.8-2.4); Potassium 3.6 mmol/L (3.5-5.1); Sodium 134 mmol/L (136-145)
[2019-06-30 22:28] LABS: Partial Thromboplastin Ratio 1.6; Partial Thromboplastin Time 44.1 Seconds (21.0-31.0); Prothrombin Time 37.2 Seconds (9.0-12.0)
[2019-06-30] MEDS ORDERED: MAGNESIUM SULFATE / D5W 1 GM/100 ML BAG IV ONE (22:32)
[2019-06-30] MEDS ORDERED: IOVERSOL 100ml IV PRN (22:33)
[2019-06-30 22:37] LABS: Albumin Globulin Ratio 0.9 (0.9-2); Alkaline Phosphatase 63 U/L (45-117); Bilirubin,Total 1.8 mg/dl (0.2-1); Globulin 4.4 gm/dl (2.5-4.0); Thyroid Stimulating Hormone 0.741 uIu/ml (0.300-4.500); Total Protein 8.5 gm/dl (6.4-8.2)
--- NOTE | 2019-06-30 22:45 | CT Scan Report ---
CT abd pelvis IV con only CLINICAL HISTORY: 68 years-old Male presenting with mid abd pain, weak, mult abd OR, no spleen. TECHNIQUE: Multidetector CT of the abdomen and pelvis was performed after the administration of intra venous contrast. IV contrast: 93 mL of Optiray 320. One or more dose lowering techniques were used co nsistent with the principles of ALARA (as low as reasonably achievable), including automatic exposure control, mA or kV adjustment to individual patient size, and/or use of iterative reconstruction. COMPARISON: 03/30/2014. CT DOSE (mGy.cm): The estimated cumulative dose is 576.07 mGy.cm. FINDINGS: Executive Chairman topogram: Orthopedic hardware. Lung bases: Multichamber enlargement of the heart. Coronary artery and aortic valve calcification. No pericardial or pleural effusion. Minimal dependent changes likely atelectasis. Liver: Normal morphology. No liver lesion. Patent hepatic vasculature. Biliary: No intrahepatic or extrahepatic biliary ductal dilatation. Normal gallbladder. Pancreas: Moderate parenchymal atrophy. Spleen: Normal. Adrenal glands: Calcification in the right adrenal gland unchanged from prior and possibly indicating prior hemorrhage or infection. Kidneys and ureters: Dominant cyst in the right kidney has increased in size from prior. Few addition al cysts. No nephrolithiasis or hydronephrosis. Ureters nondistended. Bladder: Circumferential bladder wall thickening. Pelvic organs: Prostate enlargement likely secondary to benign prostatic hyperplasia. Bowel: Normal. No bowel obstruction. Peritoneal cavity: No free fluid or intraperitoneal gas. Lymph nodes: No enlarged lymph nodes in the abdomen or pelvis. Vasculature: Infrarenal abdominal aortic aneurysm measuring 3 cm, previously 2.7 cm. Infrarenal IVC f ilter in place. IVC patent. Abdominal wall: Diastasis of the rectus abdominis. Prosthetic mesh may be in place from prior ventral hernia repair. Musculoskeletal: Degenerative changes of the spine. Extensive internal fixation hardware of the left hemipelvis. Total left hip arthroplasty. Posttraumatic changes of the pubic rami. Posttraumatic form bodies of the ribs. IMPRESSION: 1. No acute intra-abdominal pathology. 2. Ventral hernia repair. 3. 3 cm infrarenal abdominal aortic aneurysm, previously 2.7 cm. Periodic ultrasound monitoring is a dvised. 4. Chronic bladder outlet obstruction secondary to prostatomegaly. ACT 112: Negative or not required by law. Electronically signed by: Hubert Singh M.D. 06/30/2019 10:44 PM
[2019-06-30 23:01] LABS: Troponin I < 0.015 ng/ml (0-0.045)
[2019-06-30 23:29] LABS: Appearance Urine Clear (Clear); Bacteria Urine Automated Negative (Negative); Blood Urine Negative (Negative); Color Urine Dark Yellow; Glucose Urine UA Negative (Negative); Ketones Urine 1+ (Negative); Leukocyte Esterase Urine Trace (Negative); Nitrite Urine Positive (Negative); Protein Urine Trace (Negative); RBC Urine Automated 0-4 /hpf (0-4); Specific Gravity Urine > 1.045 (1.000-1.030); Urobilinogen Urine Negative (Negative)
[2019-06-30 23:51] LABS: Bilirubin Urine Negative (Negative); Ictotest Urine Negative (Negative)
--- NOTE | 2019-07-01 00:25 | Emergency Department Note ---
ED Visit Note I have personally seen and evaluated the patient with the PA. I agree with the diagnosis and management decisions and have been personally involved in the case. Upon my evaluation the patient is resting comfortably in bed and stated he "was doing better." I did review the findings with the patient and the plan for evaluation by the hospitalist. He expresses an understanding and agrees. Please see Yu Kelly PA-C's notes for further details of the history, physical and visit. .
[2019-07-01] MEDS ORDERED: PROCHLORPERAZINE 2 ML IV ONE (01:21)
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
[2019-07-01] MEDS ORDERED: ALBUT/IPRATROP 3MG/0.5MG NEB 3 ML VIAL INH PRN (02:57)
[2019-07-01] MEDS ORDERED: ALBUTEROL HFA 8 GM INHALER INH PRN (02:57)
[2019-07-01] MEDS ORDERED: TIOTROPIUM BROMIDE INH PRN (02:57)
[2019-07-01] MEDS ORDERED: NITROGLYCERIN SL 0.4 MG/TAB TAB SL PRN (02:57)
[2019-07-01] MEDS ORDERED: PROCHLORPERAZINE 10 MG in SYRINGE 8 ML IV PRN (02:57)
[2019-07-01] MEDS ORDERED: ONDANSETRON INJ 2 MG/ML 2 ML VIAL IV PRN (02:57)
[2019-07-01] MEDS ORDERED: SENNA 8.6 MG TAB PO PRN (02:57)
[2019-07-01] MEDS ORDERED: ACETAMINOPHEN 1,000 MG/100 ML VIAL IV PRN (03:02)
[2019-07-01] MEDS ORDERED: PIPERACILL/TAZOBAC CONSULT ACTIVE PRN (03:08)
[2019-07-01] MEDS: LACTATED RINGER'S 1,000 ML IV SCH ×2 (03:09→16:05)
[2019-07-01] MEDS ORDERED: NAPROXEN 250 MG TAB PO PRN (03:10)
[2019-07-01] MEDS ORDERED: ALBUTEROL 0.083% NEBU SOLN 3 ML VIAL INH PRN (03:11)
[2019-07-01] MEDS ORDERED: PIPERACILLIN/TAZOBACTAM 3.375 GM in DEXTROSE 5% 100 ML IV ONE (03:15)
[2019-07-01 03:42] LABS: Hematocrit (blood only) 40.8 % (42-52); Hemoglobin 14.4 g/dL (14.0-18.0); Mean Corpuscular Hemoglobin 35.7 pg (25-34); Mean Corpuscular Hgb Conc 35.3 g/dL (32-36); Mean Corpuscular Volume 101.2 fL (80-100); RDW Coefficient of Variation 13.1 % (11.5-14.5); RDW Standard Deviation 48.5 fL (36.4-46.3); Red Blood Count 4.03 M/uL (4.7-6.1); White Blood Count 5.35 K/uL (4.8-10.8)
[2019-07-01 04:01] LABS: Alanine Aminotransferase 19 U/L (12-78); Albumin Level 3.2 gm/dl (3.4-5.0); Aspartate Aminotransferase 13 U/L (15-37); BUN Creatinine Ratio 27.4 (10-20); Blood Urea Nitrogen 32 mg/dl (7-18); Calcium 8.3 mg/dl (8.5-10.1); Carbon Dioxide 26 mmol/L (21-32); Chloride 100 mmol/L (98-107); Creatinine Clr Calc Pharmacy 67.9 ml/min; Est GFR (African American) 75.6; Est GFR (Non-African American) 65.3; Glucose 121 mg/dl (70-99); Magnesium 1.7 mg/dl (1.8-2.4); Potassium 3.4 mmol/L (3.5-5.1); Sodium 132 mmol/L (136-145)
[2019-07-01 04:03] LABS: Prothrombin Time 39.8 Seconds (9.0-12.0)
[2019-07-01] MEDS ORDERED: MAGNESIUM SULFATE / D5W 1 GM/100 ML BAG IV ONE (04:04)
[2019-07-01 04:06] LABS: Influenza A virus by PCR Neg for Influ A (Neg); Influenza B virus by PCR Neg for Influ B (Neg)
[2019-07-01 04:12] LABS: INR 4.3 (0.9-1.1)
[2019-07-01 04:13] LABS: Albumin Globulin Ratio 0.8 (0.9-2); Alkaline Phosphatase 51 U/L (45-117); Bilirubin,Total 1.8 mg/dl (0.2-1); Globulin 3.8 gm/dl (2.5-4.0); Troponin I < 0.015 ng/ml (0-0.045)
[2019-07-01 04:14] LABS: Mean Platelet Volume 9.6 fL (7.4-10.4)
[2019-07-01 04:15] LABS: Basophils # (auto) 0.01 K/uL (0-0.2); Basophils % (auto) 0.2 %; Eosinophils # (auto) 0.01 K/uL (0-0.5); Eosinophils % (auto) 0.2 %; Immature Granulocytes # (auto) 0.05 K/uL (0.00-0.02); Immature Granulocytes % (auto) 0.9 %; Lymphocytes # (auto) 0.37 K/uL (1.2-3.4); Lymphocytes % (auto) 6.9 %; Monocytes # (auto) 0.73 K/uL (0.11-0.59); Monocytes % (auto) 13.6 %; Neutrophils # (auto) 4.18 K/uL (1.4-6.5); Neutrophils % (auto) 78.2 %; Platelet Estimate Decreased (Normal); RBC Morphology Unremarkable
[2019-07-01 04:16] LABS: Platelet Count 95 K/uL (130-400)
[2019-07-01] MEDS: POTASSIUM CHLORIDE / WTR 10 MEQ/100 ML PLCT IV SCH ×4 (04:44→08:52)
[2019-07-01] MEDS: PIPERACILLIN/TAZOBACTAM 3.375 GM in DEXTROSE 5% 100 ML IV SCH ×3 (07:45→23:46)
[2019-07-01] MEDS: ASPIRIN 81 MG ECTAB PO SCH (08:45)
[2019-07-01] MEDS: ROSUVASTATIN CALCIUM 20 MG TAB PO SCH (08:45)
[2019-07-01] MEDS: FERROUS SULFATE 325 MG TAB PO SCH (08:45)
[2019-07-01] MEDS: MAGNESIUM OXIDE 400 MG TAB PO SCH (08:46)
[2019-07-01] MEDS: GABAPENTIN 600 MG TAB PO SCH ×2 (08:46→20:51)
[2019-07-01] MEDS: RANOLAZINE 500 MG ER TAB PO SCH ×2 (08:46→20:52)
[2019-07-01] MEDS: ISOSORBIDE MONO EXTENDED REL 30 MG TABCR PO SCH (08:46)
[2019-07-01] MEDS: TIOTROPIUM BROMIDE 5 PUFF/90 MCG INH INH SCH (08:46)
[2019-07-01] MEDS: PANTOprazole 40 MG TAB PO SCH ×2 (08:46→20:52)
[2019-07-01] MEDS: BUDESONIDE/FORMOTEROL FUMARATE 160/4.5 60 PUFFS/INHALER INH SCH ×2 (08:47→20:53)
[2019-07-01] MEDS: METOPROLOL SUCC 25MG EXT REL TAB PO SCH (08:48)
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
[2019-07-01] MEDS ORDERED: WARFARIN SOD 3 MG TAB PO SCH (16:00)
[2019-07-01] MEDS: ACETAMINOPHEN 325 MG TAB PO SCH (20:51)
[2019-07-01] MEDS: DICYCLOMINE HCL 20 MG TAB PO PRN (20:54)
[2019-07-02] MEDS: LACTATED RINGER'S 1,000 ML IV SCH ×2 (03:49→16:29)
[2019-07-02 05:36] LABS: Hematocrit (blood only) 40.8 % (42-52); Hemoglobin 13.9 g/dL (14.0-18.0); Mean Corpuscular Hemoglobin 34.5 pg (25-34); Mean Corpuscular Hgb Conc 34.1 g/dL (32-36); Mean Corpuscular Volume 101.2 fL (80-100); RDW Coefficient of Variation 13.1 % (11.5-14.5); RDW Standard Deviation 48.1 fL (36.4-46.3); Red Blood Count 4.03 M/uL (4.7-6.1); White Blood Count 6.91 K/uL (4.8-10.8)
[2019-07-02 05:46] LABS: Mean Platelet Volume 9.2 fL (7.4-10.4); Platelet Count 90 K/uL (130-400)
[2019-07-02 05:55] LABS: Prothrombin Time 55.9 Seconds (9.0-12.0)
[2019-07-02 06:06] LABS: Albumin Level 2.8 gm/dl (3.4-5.0); BUN Creatinine Ratio 22.7 (10-20); Calcium 8.6 mg/dl (8.5-10.1); Creatinine Clr Calc Pharmacy 47.7 ml/min; Est GFR (African American) 49.4; Est GFR (Non-African American) 42.6; Magnesium 2.3 mg/dl (1.8-2.4); Potassium 3.9 mmol/L (3.5-5.1)
[2019-07-02 06:09] LABS: Albumin Globulin Ratio 0.7 (0.9-2); Basophils # (auto) 0.01 K/uL (0-0.2); Basophils % (auto) 0.1 %; Bilirubin,Total 1.3 mg/dl (0.2-1); Eosinophils # (auto) 0.13 K/uL (0-0.5); Eosinophils % (auto) 1.9 %; Immature Granulocytes # (auto) 0.05 K/uL (0.00-0.02); Immature Granulocytes % (auto) 0.7 %; Lymphocytes # (auto) 0.73 K/uL (1.2-3.4); Lymphocytes % (auto) 10.6 %; Monocytes # (auto) 0.67 K/uL (0.11-0.59); Monocytes % (auto) 9.7 %; Neutrophils # (auto) 5.32 K/uL (1.4-6.5); Total Protein 6.8 gm/dl (6.4-8.2); Toxic Vacuolation 1+
[2019-07-02 06:15] LABS: INR 6.2 (0.9-1.1)
[2019-07-02] MEDS ORDERED: LACTATED RINGER'S 250 ML IV ONE (07:25)
[2019-07-02] MEDS: PIPERACILLIN/TAZOBACTAM 3.375 GM in DEXTROSE 5% 100 ML IV SCH (08:03)
[2019-07-02] MEDS: TIOTROPIUM BROMIDE 5 PUFF/90 MCG INH INH SCH (08:05)
[2019-07-02] MEDS: BUDESONIDE/FORMOTEROL FUMARATE 160/4.5 60 PUFFS/INHALER INH SCH ×2 (08:05→21:22)
[2019-07-02] MEDS: DICYCLOMINE HCL 20 MG TAB PO PRN (08:06)
[2019-07-02] MEDS: ROSUVASTATIN CALCIUM 20 MG TAB PO SCH (08:06)
[2019-07-02] MEDS: GABAPENTIN 600 MG TAB PO SCH ×2 (08:06→21:21)
[2019-07-02] MEDS: ISOSORBIDE MONO EXTENDED REL 30 MG TABCR PO SCH (08:07)
[2019-07-02] MEDS: ASPIRIN 81 MG ECTAB PO SCH (08:07)
[2019-07-02] MEDS: FERROUS SULFATE 325 MG TAB PO SCH (08:07)
[2019-07-02] MEDS: MAGNESIUM OXIDE 400 MG TAB PO SCH (08:07)
[2019-07-02] MEDS: METOPROLOL SUCC 25MG EXT REL TAB PO SCH (08:07)
[2019-07-02] MEDS: RANOLAZINE 500 MG ER TAB PO SCH ×2 (08:08→21:22)
[2019-07-02] MEDS: PANTOprazole 40 MG TAB PO SCH ×2 (08:08→21:21)
--- NOTE | 2019-07-02 09:13 | Gastroenterology Progress Note ---
Date of Service July 02, 2019 Assessment & Plan (1) Abdominal pain: (2) Nausea and vomitin. Patient improving clinically. 2. Lipase was normal and no acute findings on CT. 3. Continue supportive care. Supervising Physician Co-Signing Physician Notes I personally evaluated the patient and agree with the findings as documented by NICKY Christie Exam: abd: soft, nt, nd Subjective Patient reports improving abdominal pain in the LLQ. Rates pain as 5/10 at present. Tolerating diet. No n/v or fevers/chills. Passed a formed BM last evening. Continues IV antibiotics. No new GI complaints. Review of Systems Constitutional: as per Subjective / HPI Respiratory: no problem reported Cardiovascular: no problem reported Gastrointestinal: as per Subjective / HPI Psychiatric: as per Subjective / HPI Physical Exam Constitutional: WD/WN, vitals as above Respiratory: normal respiratory effort, lungs clear to auscultation Cardiovascular: RRR, no murmur, no edema Gastrointestinal (Abdomen): Inspection/Auscultation: normal bowel sounds Percussion/Palpation: abdomen soft; abdomen nontender midline scar noted. Psychiatric: A+Ox3, euthymic affect Results & Data Vital Signs (Past 12 Hours) Vital Signs Temp Pulse Resp BP Pulse Ox 07/02/19 07:38 36.5 C 60 17 112/68 98 07/02/19 03:03 36.6 C 73 16 98/59 L 99 07/02/19 00:25 94 07/01/19 23:02 37 C 75 18 109/67 90 PG Care Time/CCT Total # of Minutes Spent Total Time Spent with Patient: Total time spent is greater than 50% in coordination of care (as documented) at patient's floor/unit and/or counseling patient:
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
--- NOTE | 2019-07-02 10:34 | Hospitalist Progress Note ---
Date of Service July 02, 2019 Assessment & Plan (1) Nausea vomiting and diarrhea: Scot is a 69-year-old male with a past medical history of PE, hyperlipidemia, hypertension, CKD, CAD, CLD, OLIVER, ADONIS, OLIVER, and seizures who presented to the hospital with 48 hours of nausea, vomiting, and abdominal pain consistent with viral gastroenteritis. Nausea/vomiting/abdominal pain 2/2 viral gastroenteritis, resolved CTa showed no intra-abdominal pathology, no diverticulitis was appreciated Patient with substantial rectal vault stool burden Suspect symptoms due to viral gastroenteritis, improving with supportive care No recent diarrhea, Giardia testing pending Lipase normal No signs of GI bleeding Continue Zofran/Compazine as needed for nausea/vomiting No further work-up at this time per GI TALIA Patient with baseline creatinine around 1.1, increased on admission to 1.45, down trended, then increased to 1.64. Suspect prerenal azotemia versus prerenal TALIA in the setting of volume depletion with gastroenteritis BMP daily Hold nephrotoxins Encourage p.o. fluid hydration, increasing IVFM increased to 120 cc/h while p.o. intake increases Supratherapeutic INR Patient on warfarin therapy following a PE Acutely increased in the setting of empiric antibiotic use, up trended to 4.0 and then to 6.2. Hold warfarin x2 doses -No clinical signs of bleeding INR daily Thrombocytopenia Platelets stable Up trended to 118 K Elevated total bilirubin Likely 2/2 acute gastroenteritis Trend, reassess tomorrow LFTs normal CAD with [place] status post stenting, ischemic cardiomyopathy, hypertension Echo shows EF 50 to 55% with inferior wall akinesis, relatively unchanged since last echo in 06/2017. 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 Holding for TALIA, anticipate discharge tomorrow pending stable kidney function. (2) AAA (abdominal aortic aneurysm): (3) Sciatica: (4) Prostate enlargement: (5) History of pulmonary embolus (PE): (6) Asthma: (7) Ischemic cardiomyopathy: (8) Hyperlipidemia: (9) Total bilirubin, elevated: (10) Supratherapeutic INR: (11) Acute kidney injury: (12) Abdominal pain: (13) Acute dehydration: (14) Weakness: (15) Supratherapeutic INR: (16) CAD (coronary artery disease): (17) GERD (gastroesophageal reflux disease): (18) History of migraine: Supervising Physician Co-Signing Physician Notes I personally examined the patient and verified all alicea points of history and exam, discussed case, and agree with decision making with Dr Bryan. Feeling better and eating better. Discussed CT findings of significant fecal load in contrast with his gastroenteritis type history, as well as the fact that his creatinine radha some. Also answered questions by the patient's son in regards to the AAA Vitals noted, in general he is awake and alert pleasant no distress. HEENT normocephalic atraumatic mucous membranes moist. Breathing unlabored no accessory muscle use good effort. Skin shows no rashes no pallor or icterus. No focal neuro deficits. Nausea vomitingmost likely viral, although he is somewhat constipated noted on CT scan in spite of his enteritis type history, so is possible that is driving his symptoms as well. Either way he is doing better. AKIalmost certainly volume depletion/losshowever is a little bit concerning that his creatinine radha overnight, he is eating and drinking better, hopefully with time this will start to correctfor now follow into tomorrow with supportive care, if creatinine were to continue to rise or not improve there is no other telling findings may need to enlist nephrology; on the other hand if his creatinine starts to correct again then hopefully he will be able to go home AAAincidental finding, explained to patient and son in depth and answered all questions the best my ability. Follow-up with serial ultrasounds. Stable for medical, hopefully home tomorrow as long as he has improvement in his creatinine. Subjective Patient is seen at the bedside this morning. He continues to have some left lower quadrant tenderness, but otherwise feels well. He denies fever, chills, sweats, chest pressure, chest pain, shortness of breath, diarrhea, constipation. He endorses loose bowel movements yesterday. He feels much closer to his normal healthy baseline this morning, has not had a bowel movement.He was seen by GI who recommended supportive care, no indication for additional interventions at this time. Patient voices concern about the small abdominal aortic aneurysm noted on his exam. Discussed in detail. Review of Systems Review of Systems: All systems reviewed & are unremarkable except as noted in HPI & below Physical Exam Physical Exam: General: A&Ox3. NAD. Cooperative. HEENT: Atraumatic, normocephalic. Pulm: CTAB A&P. -wheezes, -rales, -rhonchi. Symmetrical chest rise. No increase work of breathing. No respiratory distress. Cardiac: RRR, -mrg. Radial pulses intact and symmetrical. Abdominal: Left lower quadrant focal tenderness without rebound or guarding.. BS present. Results & Data Vital Signs (Past 12 Hours) Vital Signs Temp Pulse Pulse Resp BP Pulse Ox 07/02/19 08:40 58 L 07/02/19 07:38 36.5 C 60 17 112/68 98 07/02/19 03:03 36.6 C 73 16 98/59 L 99 07/02/19 00:25 94 07/01/19 23:02 37 C 75 18 109/67 90 Resident Activity Tracking Resident Involvement: Resident Care Provided Care Provided: Adult Hospital Medicine
[2019-07-02] MEDS: POLYETHYLENE (MIRALAX) 17 GM PACK PO SCH ×2 (11:53→21:21)
--- NOTE | 2019-07-02 14:48 | Billing Data ---
Date of Service July 02, 2019 Coding Level of Care Code 36885 Subseq Hosp Care Lvl 3
[2019-07-02] MEDS ORDERED: WARFARIN SOD 0.5 MG TAB PO SCH (16:00)
[2019-07-02] MEDS ORDERED: POLYETHYLENE (MIRALAX) 17 GM PACK PO SCH (21:00)
[2019-07-02] MEDS: ACETAMINOPHEN 325 MG TAB PO SCH (21:23)
[2019-07-03] MEDS: LACTATED RINGER'S 1,000 ML IV SCH (04:15)
[2019-07-03 06:48] LABS: Creatinine Clr Calc Pharmacy 73.7 ml/min; Est GFR (African American) 83.8; Est GFR (Non-African American) 72.3
[2019-07-03] MEDS: ROSUVASTATIN CALCIUM 20 MG TAB PO SCH (07:42)
[2019-07-03] MEDS: ISOSORBIDE MONO EXTENDED REL 30 MG TABCR PO SCH (07:42)
[2019-07-03] MEDS: FERROUS SULFATE 325 MG TAB PO SCH (07:42)
[2019-07-03] MEDS: ASPIRIN 81 MG ECTAB PO SCH (07:42)
[2019-07-03] MEDS: PANTOprazole 40 MG TAB PO SCH (07:43)
[2019-07-03] MEDS: MAGNESIUM OXIDE 400 MG TAB PO SCH (07:43)
[2019-07-03] MEDS: RANOLAZINE 500 MG ER TAB PO SCH (07:43)
[2019-07-03] MEDS: GABAPENTIN 600 MG TAB PO SCH (07:43)
[2019-07-03] MEDS: TIOTROPIUM BROMIDE 5 PUFF/90 MCG INH INH SCH (07:43)
[2019-07-03] MEDS: POLYETHYLENE (MIRALAX) 17 GM PACK PO SCH (07:43)
[2019-07-03] MEDS: BUDESONIDE/FORMOTEROL FUMARATE 160/4.5 60 PUFFS/INHALER INH SCH (07:44)
[2019-07-03] MEDS: METOPROLOL SUCC 25MG EXT REL TAB PO SCH (07:44)
[2019-07-03 07:59] LABS: INR 4.2 (0.9-1.1); Prothrombin Time 39.1 Seconds (9.0-12.0)
[2019-07-03 08:33] LABS: Albumin Globulin Ratio 0.7 (0.9-2); Albumin Level 2.7 gm/dl (3.4-5.0); BUN Creatinine Ratio 20.3 (10-20); Bilirubin,Total 0.8 mg/dl (0.2-1); Calcium 8.9 mg/dl (8.5-10.1); Creatinine Clr Calc Pharmacy 73.7 ml/min; Est GFR (African American) 83.8; Est GFR (Non-African American) 72.3; Potassium 3.6 mmol/L (3.5-5.1); Total Protein 6.7 gm/dl (6.4-8.2)
[2019-07-03 11:27] LABS: Folate (Folic Acid) 9.87 ng/ml (>5.38)
--- NOTE | 2019-07-04 17:37 | Billing Data ---
Date of Service July 03, 2019 Coding Level of Care Code D/C Day Management >30 mins
--- NOTE | 2019-07-09 10:11 | Billing Data ---
Date of Service July 01, 2019 Coding Level of Care Code 23491 Initial Inpt Care Lvl 3
== END 2019-07-03 13:30 | disposition home or self-care (01) | DRG 392 ==
LOC: ED 21:28 → SUATTDRO 07-01 02:02 → 2S 07-01 02:02 → 4W 07-02 13:49

== ENCOUNTER 2019-07-04 09:50 | Observation (INO) ==
[2019-07-04] MEDS ORDERED: ALBUT/IPRATROP 3MG/0.5MG NEB 3 ML VIAL NEB ONE (10:24)
--- NOTE | 2019-07-04 10:47 | XRay Report ---
XR chest 2V PA/lateral CLINICAL HISTORY: Shortness of breath. COMPARISON STUDY: Chest CT August 2018. Chest radiograph June 30, 2019. FINDINGS: There is no pneumothorax or pleural effusion. Moderate left midlung consolidation has devel oped since exam of June 30, 2019. Multiple left-sided rib deformities are again noted. Cardiac me diastinal silhouette is stable. There is no evidence for pulmonary edema. IMPRESSION: Interval development of moderate left lung airspace opacity which favors pneumonia. Post treatment radiographs to ensure resolution are recommended. ACT 112: Negative or not required by law. Electronically signed by: Clovis Lagos M.D. 07/04/2019 10:45 AM
[2019-07-04 11:22] LABS: Hematocrit (blood only) 39.2 % (42-52); Hemoglobin 13.6 g/dL (14.0-18.0); Mean Corpuscular Hemoglobin 34.9 pg (25-34); Mean Corpuscular Hgb Conc 34.7 g/dL (32-36); Mean Corpuscular Volume 100.5 fL (80-100); RDW Coefficient of Variation 13.3 % (11.5-14.5); RDW Standard Deviation 48.4 fL (36.4-46.3); White Blood Count 6.64 K/uL (4.8-10.8)
[2019-07-04 11:36] LABS: Mean Platelet Volume 9.4 fL (7.4-10.4); Platelet Count 97 K/uL (130-400)
[2019-07-04 11:37] LABS: BUN Creatinine Ratio 14.6 (10-20); Blood Urea Nitrogen 15 mg/dl (7-18); Calcium 8.9 mg/dl (8.5-10.1); Carbon Dioxide 29 mmol/L (21-32); Chloride 102 mmol/L (98-107); Est GFR (Non-African American) 78.5; Glucose 99 mg/dl (70-99); Magnesium 1.9 mg/dl (1.8-2.4); Sodium 135 mmol/L (136-145)
[2019-07-04 11:42] LABS: Basophils # (auto) 0.01 K/uL (0-0.2); Basophils % (auto) 0.2 %; Eosinophils # (auto) 0.12 K/uL (0-0.5); Eosinophils % (auto) 1.8 %; Immature Granulocytes # (auto) 0.03 K/uL (0.00-0.02); Immature Granulocytes % (auto) 0.5 %; Lymphocytes # (auto) 0.91 K/uL (1.2-3.4); Lymphocytes % (auto) 13.7 %; Monocytes # (auto) 1.06 K/uL (0.11-0.59); Neutrophils # (auto) 4.51 K/uL (1.4-6.5); Neutrophils % (auto) 67.8 %; Troponin I < 0.015 ng/ml (0-0.045)
[2019-07-04] MEDS ORDERED: CLINDAMYCIN 600 MG in DEXTROSE 5% 50 ML IV ONE (11:43)
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
[2019-07-04] MEDS ORDERED: ALBUTEROL HFA 8 GM INHALER INH PRN (16:46)
[2019-07-04] MEDS ORDERED: ACETAMINOPHEN 325 MG TAB PO PRN (16:46)
[2019-07-04] MEDS ORDERED: AMPICILLIN/SULBACTAM SOD 3,000 MG in 0.9 % SODIUM CHLORIDE 100 ML IV STA (16:46)
[2019-07-04] MEDS ORDERED: NITROGLYCERIN SL 0.4 MG/TAB TAB SL PRN (16:46)
[2019-07-04] MEDS ORDERED: SENNA 8.6 MG TAB PO PRN (16:46)
[2019-07-04] MEDS ORDERED: ONDANSETRON INJ 2 MG/ML 2 ML VIAL IV PRN (16:46)
--- NOTE | 2019-07-04 16:48 | CT Scan Report ---
CT OF THE CHEST WITHOUT IV CONTRAST CLINICAL HISTORY: PNA with Hx LLL scarring COMPARISON STUDY: CT August 18, 2018. Chest radiograph performed earlier today. CT DOSE: 362.73 mGy.cm TECHNIQUE: Axial images of the chest were obtained without IV contrast. Images were reviewed in the axial, sagittal, and coronal planes. IV contrast was not administered for this examination. Automat ed exposure control was utilized for the study. A dose lowering technique was utilized adhering to t he principles of ALARA. FINDINGS: The heart is moderately enlarged. Extensive coronary artery calcification is noted. No pat hologically enlarged thoracic lymph nodes are present. There is no pericardial effusion. A small left pleural effusion has developed since abdominal CT of June 30, 2019. Fluid along the left major f issure is noted. Dense consolidation within the superior segment of the left lower lobe is noted. The re is no pneumothorax. Central airways are patent. Multiple old left rib deformities are present. Upp er abdomen is unremarkable on this unenhanced exam. IMPRESSION: 1. Dense consolidation within the superior segment of the left lower lobe suggestive of pneumonia. Ra diographic follow-up to ensure resolution is recommended. 2. Small left pleural effusion. 3. Moderate cardiomegaly. Extensive coronary artery calcification. ACT 112: Negative or not required by law. Electronically signed by: Clovis Lagos M.D. 07/04/2019 4:47 PM
[2019-07-04] MEDS ORDERED: FERROUS SULFATE 325 MG TAB PO SCH (17:15)
[2019-07-04 17:45] LABS: INR 3.3 (0.9-1.1); Prothrombin Time 30.8 Seconds (9.0-12.0)
[2019-07-04] MEDS: WARFARIN SOD 3 MG TAB PO SCH ×2 (18:05→18:22)
[2019-07-04] MEDS: CYANOCOBALAMIN 500 MCG TABLET (VITAMIN B-12) PO SCH (18:07)
--- NOTE | 2019-07-04 18:10 | Billing Data ---
Date of Service July 04, 2019 Coding Level of Care Code 24116 OBS Care - Level 3
[2019-07-04 18:55] LABS: Influenza A virus by PCR Neg for Influ A (Neg); Influenza B virus by PCR Neg for Influ B (Neg)
[2019-07-04] MEDS: ALBUT/IPRATROP 3MG/0.5MG NEB 3 ML VIAL INH SCH ×2 (19:05→22:11)
[2019-07-04] MEDS: POLYETHYLENE (MIRALAX) 17 GM PACK PO SCH (20:27)
[2019-07-04] MEDS: RANOLAZINE 500 MG ER TAB PO SCH (20:27)
[2019-07-04] MEDS: GABAPENTIN 600 MG TAB PO SCH (20:28)
[2019-07-04] MEDS: methylPREDNISolone 40 MG in SYRINGE 0 ML IV SCH (20:28)
[2019-07-04] MEDS: BUDESONIDE/FORMOTEROL FUMARATE 160/4.5 60 PUFFS/INHALER INH SCH (20:29)
[2019-07-04] MEDS ORDERED: methylPREDNISolone 40 MG in DEXTROSE 5% 250 ML IV SCH (21:00)
[2019-07-04] MEDS: AMPICILLIN/SULBACTAM SOD 3,000 MG in 0.9 % SODIUM CHLORIDE 100 ML IV SCH (22:45)
[2019-07-05 02:39] LABS: Basophils # (auto) 0.01 K/uL (0-0.2); Basophils % (auto) 0.2 %; Eosinophils # (auto) 0.01 K/uL (0-0.5); Eosinophils % (auto) 0.2 %; Hematocrit (blood only) 38.7 % (42-52); Hemoglobin 13.7 g/dL (14.0-18.0); Immature Granulocytes # (auto) 0.04 K/uL (0.00-0.02); Immature Granulocytes % (auto) 0.8 %; Lymphocytes # (auto) 0.52 K/uL (1.2-3.4); Mean Corpuscular Hemoglobin 35.7 pg (25-34); Mean Corpuscular Hgb Conc 35.4 g/dL (32-36); Mean Corpuscular Volume 100.8 fL (80-100); Mean Platelet Volume 8.8 fL (7.4-10.4); Monocytes % (auto) 4.2 %; Neutrophils # (auto) 3.93 K/uL (1.4-6.5); Neutrophils % (auto) 83.6 %; Platelet Count 113 K/uL (130-400); RDW Coefficient of Variation 13.1 % (11.5-14.5); RDW Standard Deviation 47.6 fL (36.4-46.3); Red Blood Count 3.84 M/uL (4.7-6.1); White Blood Count 4.71 K/uL (4.8-10.8)
[2019-07-05 02:48] LABS: INR 3.2 (0.9-1.1); Prothrombin Time 30.5 Seconds (9.0-12.0)
[2019-07-05 02:55] LABS: BUN Creatinine Ratio 13.7 (10-20); Blood Urea Nitrogen 15 mg/dl (7-18); Calcium 8.9 mg/dl (8.5-10.1); Carbon Dioxide 27 mmol/L (21-32); Chloride 103 mmol/L (98-107); Creatinine Clr Calc Pharmacy 72.8 ml/min; Est GFR (African American) 81.9; Est GFR (Non-African American) 70.6; Glucose 166 mg/dl (70-99); Magnesium 1.9 mg/dl (1.8-2.4); Potassium 3.7 mmol/L (3.5-5.1); Sodium 137 mmol/L (136-145)
[2019-07-05 03:00] LABS: Troponin I < 0.015 ng/ml (0-0.045)
[2019-07-05 03:11] LABS: RBC Morphology Unremarkable
[2019-07-05] MEDS: ALBUT/IPRATROP 3MG/0.5MG NEB 3 ML VIAL INH SCH ×3 (03:40→11:10)
[2019-07-05 05:21] LABS: Appearance Urine Clear (Clear); Bilirubin Urine Negative (Negative); Blood Urine Negative (Negative); Color Urine Yellow; Glucose Urine UA Negative (Negative); Ketones Urine Trace (Negative); Leukocyte Esterase Urine Negative (Negative); Nitrite Urine Negative (Negative); Protein Urine Negative (Negative); Urobilinogen Urine Negative (Negative); pH Urine 6.5 (4.5-7.5)
[2019-07-05] MEDS: AMPICILLIN/SULBACTAM SOD 3,000 MG in 0.9 % SODIUM CHLORIDE 100 ML IV SCH ×2 (05:32→12:09)
[2019-07-05] MEDS: RANOLAZINE 500 MG ER TAB PO SCH (07:52)
[2019-07-05] MEDS: methylPREDNISolone 40 MG in SYRINGE 0 ML IV SCH (07:54)
[2019-07-05] MEDS: BUDESONIDE/FORMOTEROL FUMARATE 160/4.5 60 PUFFS/INHALER INH SCH (07:56)
[2019-07-05] MEDS: POLYETHYLENE (MIRALAX) 17 GM PACK PO SCH (07:58)
[2019-07-05] MEDS: GABAPENTIN 600 MG TAB PO SCH (07:58)
[2019-07-05] MEDS: CYANOCOBALAMIN 500 MCG TABLET (VITAMIN B-12) PO SCH (07:59)
[2019-07-05] MEDS ORDERED: ROSUVASTATIN CALCIUM 20 MG TAB PO SCH (09:00)
[2019-07-05] MEDS ORDERED: ASPIRIN 81 MG ECTAB PO SCH (09:00)
[2019-07-05] MEDS ORDERED: PANTOprazole 40 MG TAB PO SCH (09:00)
[2019-07-05] MEDS ORDERED: TIOTROPIUM BROMIDE 5 PUFF/90 MCG INH INH SCH (09:00)
[2019-07-05] MEDS ORDERED: ISOSORBIDE MONO EXTENDED REL 30 MG TABCR PO SCH (09:00)
[2019-07-05] MEDS ORDERED: MAGNESIUM OXIDE 400 MG TAB PO SCH (09:00)
[2019-07-05] MEDS ORDERED: METOPROLOL SUCC 25MG EXT REL TAB PO SCH (09:00)
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
--- NOTE | 2019-07-05 15:43 | Billing Data ---
Date of Service July 05, 2019 Coding Level of Care Code 40694 OBS Care - Discharge
[2019-07-06] MEDS ORDERED: WARFARIN SOD 0.5 MG TAB PO SCH (16:00)
== END 2019-07-05 13:15 | disposition home or self-care (01) ==
LOC: ED 09:50 → 2N 09:50 → SUATTDRO 15:09 → 2N 16:17

== ENCOUNTER 2021-05-28 23:09 | Inpatient (IN) ==
[2021-05-29 00:53] LABS: Basophils # (auto) 0.01 K/uL (0-0.2); Basophils % (auto) 0.2 %; Eosinophils # (auto) 0.11 K/uL (0-0.5); Eosinophils % (auto) 1.7 %; Hematocrit (blood only) 45.7 % (42-52); Hemoglobin 15.8 g/dL (14.0-18.0); Immature Granulocytes # (auto) 0.01 K/uL (0.00-0.02); Immature Granulocytes % (auto) 0.2 %; Lymphocytes # (auto) 1.04 K/uL (1.2-3.4); Lymphocytes % (auto) 16.5 %; Mean Corpuscular Hemoglobin 36.2 pg (25-34); Mean Corpuscular Hgb Conc 34.6 g/dL (32-36); Mean Corpuscular Volume 104.8 fL (80-100); Mean Platelet Volume 9.5 fL (7.4-10.4); Monocytes # (auto) 0.81 K/uL (0.11-0.59); Monocytes % (auto) 12.9 %; Neutrophils # (auto) 4.32 K/uL (1.4-6.5); Neutrophils % (auto) 68.5 %; Platelet Count 139 K/uL (130-400); RDW Standard Deviation 53.5 fL (36.4-46.3); Red Blood Count 4.36 M/uL (4.7-6.1)
[2021-05-29 01:16] LABS: Alanine Aminotransferase 29 U/L (12-78); Albumin Level 3.7 gm/dl (3.4-5.0); Aspartate Aminotransferase 19 U/L (15-37); BUN Creatinine Ratio 18.6 (10-20); Blood Urea Nitrogen 21 mg/dl (7-18); Carbon Dioxide 27 mmol/L (21-32); Chloride 104 mmol/L (98-107); Est GFR (African American) 79.5 ml/min; Est GFR (Non-African American) 68.6 ml/min; Glucose 108 mg/dl (70-99); Lipase 34 U/L (73-393); Sodium 139 mmol/L (136-145)
[2021-05-29] MEDS ORDERED: SODIUM CHLORIDE 0.9% 500 ML IV ONE (01:18)
[2021-05-29 01:19] LABS: Albumin Globulin Ratio 0.9 (0.9-2); Alkaline Phosphatase 64 U/L (45-117); Globulin 4.3 gm/dl (2.5-4.0)
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
[2021-05-29 01:35] LABS: Troponin I < 0.015 ng/ml (0-0.045)
[2021-05-29] MEDS ORDERED: MoRPHine SULFATE 2 MG/ML CARP IV STA (02:05)
[2021-05-29] MEDS ORDERED: ONDANSETRON INJ 2 MG/ML 2 ML VIAL IV STA (02:05)
[2021-05-29] MEDS ORDERED: SODIUM CHLORIDE 0.9% 500 ML IV SCH (02:15)
[2021-05-29] MEDS ORDERED: ACETAMINOPHEN 1,000 MG/100 ML VIAL IV PRN (02:41)
[2021-05-29] MEDS ORDERED: PIPERACILL/TAZOBAC CONSULT ACTIVE PRN (02:41)
[2021-05-29] MEDS ORDERED: PIPERACILLIN/TAZOBACTAM 4.5 GM/120 ML BAG IV STA (02:47)
[2021-05-29 03:23] LABS: INR 3.1 (0.9-1.1); Partial Thromboplastin Ratio 1.9; Prothrombin Time 28.7 Seconds (9.0-12.0)
[2021-05-29] MEDS ORDERED: NITROGLYCERIN 2% OINTMENT 30GM TUBE EXT STA (03:40)
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
[2021-05-29] MEDS: NSS + 20MEQ KCL 20 MEQ/1,000 ML BAG IV SCH ×2 (04:05→14:36)
[2021-05-29] MEDS ORDERED: ALBUT/IPRATROP 3MG/0.5MG NEB 3 ML VIAL NEB SCH (07:00)
[2021-05-29] MEDS: BUDESONIDE 0.5 MG/2 ML VIAL (PULMICORT) NEB SCH ×2 (07:27→19:58)
--- NOTE | 2021-05-29 07:56 | XRay Report ---
KUB HISTORY: eval for ngt placement COMPARISON: Outside hospital abdomen and pelvis CT 05/28/2021. FINDINGS: Nasogastric tube terminates in the proximal stomach with the fenestrated line at the gastro esophageal junction. This should be advanced by approximately 5 cm. Dilated gas-filled loops of small bowel are again noted within the left side of the abdomen and measure up to 4.7 cm. This is consiste nt with a small bowel obstruction. An IVC filter is noted. Postoperative changes within the left zeferino pelvis. Contrast within the urinary system from the prior CT examination. No renal calculi. No urete ral calculi. No pneumoperitoneum or pneumatosis. IMPRESSION: 1. Nasogastric tube terminates in the proximal stomach and should be advanced by approximately 5 cm. 2. Persistent small bowel obstruction pattern. ACT 112: Negative or not required by law. Electronically signed by: Edi Bah M.D. 05/29/2021 7:55 AM
--- NOTE | 2021-05-29 07:57 | XRay Report ---
XR chest 1V portable HISTORY: NG tube placement. possible aspiration COMPARISON: Chest 07/17/2019. FINDINGS: Nasogastric tube terminates in the proximal stomach. A few bibasilar linear densities favor subsegmental atelectasis. There are old, healed left-sided rib fractures. No pneumothorax. No pleura l effusions. The heart is mildly enlarged. No evidence for pulmonary edema. IMPRESSION: 1. Nasogastric tube terminates in the proximal stomach. 2. No focal lung consolidations to suggest pneumonia. ACT 112: Negative or not required by law. Electronically signed by: Edi Bah M.D. 05/29/2021 7:56 AM
[2021-05-29] MEDS: PIPERACILLIN/TAZOBACTAM 4.5 GM in DEXTROSE 5% 100 ML IV SCH ×2 (08:19→16:30)
[2021-05-29] MEDS: FAMOTIDINE 20 MG in SYRINGE 3 ML IV SCH ×2 (08:20→20:16)
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
[2021-05-29] MEDS ORDERED: HYDROmorphone INJ 0.5 MG/0.5 ML SYR IV PRN (10:43)
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
[2021-05-29] MEDS ORDERED: PATIENT'S HEIGHT AND/OR WEIGHT NEEDED SCH (11:00)
[2021-05-29] MEDS: NITROGLYCERIN 2% OINTMENT 30GM TUBE EXT SCH ×2 (12:51→18:23)
[2021-05-29 13:32] LABS: Magnesium 1.9 mg/dl (1.8-2.4); Phosphorus 2.9 mg/dl (2.5-4.9)
[2021-05-29] MEDS: HYDROmorphone INJ 0.5 MG/0.5 ML SYR IV PRN (18:47)
[2021-05-29] MEDS: ONDANSETRON INJ 2 MG/ML 2 ML VIAL IV PRN (18:50)
--- NOTE | 2021-05-29 18:52 | Electrocardiogram Report ---
Test Reason : Blood Pressure : / mmHG Vent. 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
[2021-05-29] MEDS: ALBUT/IPRATROP 3MG/0.5MG NEB 3 ML VIAL NEB SCH (19:58)
[2021-05-29] MEDS ORDERED: CHLORASEPTIC 1.4% SOLN 180 ML BTL MT PRN (21:45)
[2021-05-30] MEDS: PIPERACILLIN/TAZOBACTAM 4.5 GM in DEXTROSE 5% 100 ML IV SCH ×4 (00:05→23:59)
[2021-05-30] MEDS: NITROGLYCERIN 2% OINTMENT 30GM TUBE EXT SCH ×5 (00:13→23:23)
[2021-05-30] MEDS: NSS + 20MEQ KCL 20 MEQ/1,000 ML BAG IV SCH ×3 (00:25→20:24)
--- NOTE | 2021-05-30 05:28 | Surgery Progress Note ---
Date of Service May 30, 2021 Assessment & Plan (1) SBO (small bowel obstruction): Plan: Patient has been admitted on the medical service. Proceed as follows: Continue n.p.o. status and maintain NG tube to low continuous suction. Consideration will be given to removing NG tube and advancing diet once further improvement of abdominal exam is noted and improved bowel function are noted Continue IV fluid for hydration Continue analgesics Increase activity as able Admission and Anticipated Discharge Date Admission Date: May 29, 2021 Supervising Physician Co-Signing Physician Notes Dr. Allison-patient apparently did pass a little flatus-he is having less pain, some mild bilious output from the NG tube He does have some bowel sounds, will try to have him ambulate Add ice chips Continue supportive care for now and check a.m. labs Subjective Patient is resting in bed. He does note some abdominal pain but feels it has improved since admission. He has not had any nausea or vomiting since NG tube placed. He reports he has passed a small amount of flatus since admission. He denies any fevers, shakes, chills. He denies shortness of breath. Physical Exam Gastrointestinal (Abdomen): Abdomen is nondistended. There is generalized pain noted with palpation. There is no rebound tenderness or guarding. NG tube is in place and has drained approximately 300 cc over the past 12 to 14 hours. Results & Data ([facility]) Vital Signs (Past 12 Hours) Vital Signs Temp Pulse Pulse Pulse Resp BP Pulse Ox 05/30/21 03:02 36.5 C 86 18 136/75 95 05/29/21 22:55 36.6 C 95 H 18 121/71 93 05/29/21 22:20 90 05/29/21 21:06 103 H 159/89 H 05/29/21 19:58 70 18 93 05/29/21 19:10 36.7 C 67 18 124/73 91 05/29/21 18:02 96 H PG Care Time/CCT Total # of Minutes Spent Total Time Spent with Patient: Total time spent is greater than 50% in coordination of care (as documented) at patient's floor/unit and/or counseling patient: Coding Level of Care Code 83716 Subseq Hosp Care Lvl 1 Diagnoses SBO (small bowel obstruction) K56.609
[2021-05-30] MEDS: ALBUT/IPRATROP 3MG/0.5MG NEB 3 ML VIAL NEB SCH ×2 (06:00→19:25)
[2021-05-30] MEDS: BUDESONIDE 0.5 MG/2 ML VIAL (PULMICORT) NEB SCH ×2 (06:00→19:25)
[2021-05-30 06:10] LABS: Basophils # (auto) 0.01 K/uL (0-0.2); Basophils % (auto) 0.2 %; Eosinophils # (auto) 0.08 K/uL (0-0.5); Eosinophils % (auto) 1.9 %; Hematocrit (blood only) 38.4 % (42-52); Hemoglobin 13.2 g/dL (14.0-18.0); Lymphocytes # (auto) 0.97 K/uL (1.2-3.4); Lymphocytes % (auto) 23.5 %; Mean Corpuscular Hemoglobin 35.8 pg (25-34); Mean Corpuscular Hgb Conc 34.4 g/dL (32-36); Mean Corpuscular Volume 104.1 fL (80-100); Mean Platelet Volume 9.5 fL (7.4-10.4); Monocytes # (auto) 0.49 K/uL (0.11-0.59); Monocytes % (auto) 11.9 %; Neutrophils # (auto) 2.58 K/uL (1.4-6.5); Neutrophils % (auto) 62.5 %; Platelet Count 122 K/uL (130-400); RDW Standard Deviation 53.9 fL (36.4-46.3); Red Blood Count 3.69 M/uL (4.7-6.1); White Blood Count 4.13 K/uL (4.8-10.8)
[2021-05-30 06:31] LABS: INR 2.9 (0.9-1.1); Prothrombin Time 27.2 Seconds (9.0-12.0)
[2021-05-30 06:55] LABS: Albumin Globulin Ratio 0.9 (0.9-2); BUN Creatinine Ratio 12.1 (10-20); Bilirubin,Total 0.9 mg/dl (0.2-1); Calcium 8.6 mg/dl (8.5-10.1); Creatinine Clr Calc Pharmacy 97.5 ml/min; Est GFR (African American) 105.3 ml/min; Est GFR (Non-African American) 90.9 ml/min; Globulin 3.5 gm/dl (2.5-4.0); Magnesium 1.8 mg/dl (1.8-2.4); Phosphorus 2.8 mg/dl (2.5-4.9); Potassium 3.5 mmol/L (3.5-5.1); Total Protein 6.5 gm/dl (6.4-8.2)
--- NOTE | 2021-05-30 09:53 | XRay Report ---
XR KUB/Abdomen 1 view CLINICAL HISTORY: r/o sbo TECHNIQUE: 1 view of the abdomen was obtained. Comparison: None available at the time of this dictation. FINDINGS: Lung bases are unremarkable. Enteric tube terminates in the stomach. Incidental note is made of an IV C filter. Orthopedic hardware is seen about the pelvis. Multiple gas distended loops of small bowel a re seen, measuring up to 47 mm in diameter. Small stool burden is seen. IMPRESSION: Multiple gas-distended loops of small bowel may represent ileus versus partial small bowel obstructio n. ACT 112: Negative or not required by law. Electronically signed by: Nelson Jefferson M.D. 05/30/2021 9:51 AM
[2021-05-30] MEDS: ONDANSETRON INJ 2 MG/ML 2 ML VIAL IV PRN (13:35)
[2021-05-30] MEDS: FAMOTIDINE 20 MG in SYRINGE 3 ML IV SCH ×2 (13:53→21:03)
[2021-05-30 17:46] LABS: Hematocrit (blood only) 37.5 % (42-52); Hemoglobin 12.9 g/dL (14.0-18.0)
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
[2021-05-30] MEDS: HYDROmorphone INJ 0.5 MG/0.5 ML SYR IV PRN (22:37)
[2021-05-30] MEDS: PANTOprazole 40 MG in SYRINGE 0 ML IV SCH (23:23)
[2021-05-31] MEDS: NITROGLYCERIN 2% OINTMENT 30GM TUBE EXT SCH ×2 (05:08→13:44)
--- NOTE | 2021-05-31 05:13 | Surgery Progress Note ---
Date of Service May 31, 2021 Assessment & Plan (1) SBO (small bowel obstruction): Plan: Patient has been admitted on the medical service. Proceed as follows: Maintain n.p.o. status for the present time. We will keep NG tube for the present time. Continue IV fluid for hydration until oral intake can be advanced Continue analgesics Admission and Anticipated Discharge Date Admission Date: May 29, 2021 Supervising Physician Co-Signing Physician Notes Patient did have some pain medication during the night He did pass some flatus and have bowel movements yesterday He does have some bowel sounds Minimal from his NG tube We will give him some contrast via the NG and repeat his CT scan To assess transit of the contrast-depending on the results we may give him an additional 24 hours Patient may need PPN at some point depending on our findings Subjective Patient is resting comfortably in bed. He notes intermittent abdominal pain that seems to come and go. Does report having a small bowel movement and also passing flatus over the past 24 hours. He denies any fevers, shakes, chills. He denies any shortness of breath. Physical Exam Gastrointestinal (Abdomen): Bowel sounds are hypoactive. Abdomen is mildly distended. Pain noted with palpation which appears to be greatest in the left lower quadrant. NG tube is in place and has drained approximately 500 cc over the past 24 hours. Results & Data ([facility]) Vital Signs (Past 12 Hours) Vital Signs Temp Pulse Pulse Pulse Resp BP Pulse Ox 05/31/21 04:00 36.7 C 79 16 159/92 H 93 05/30/21 23:31 71 132/70 05/30/21 23:09 36.5 C 77 16 137/77 94 05/30/21 22:19 112 H 05/30/21 19:38 36.6 C 85 18 167/99 H 95 05/30/21 19:27 69 14 95 05/30/21 18:21 166/88 H PG Care Time/CCT Total # of Minutes Spent Total Time Spent with Patient: Total time spent is greater than 50% in coordination of care (as documented) at patient's floor/unit and/or counseling patient: Coding Level of Care Code 63515 Subseq Hosp Care Lvl 1 Diagnoses SBO (small bowel obstruction) K56.609
[2021-05-31] MEDS: NSS + 20MEQ KCL 20 MEQ/1,000 ML BAG IV SCH (06:05)
[2021-05-31] MEDS: ALBUT/IPRATROP 3MG/0.5MG NEB 3 ML VIAL NEB SCH ×2 (07:14→17:52)
[2021-05-31] MEDS: BUDESONIDE 0.5 MG/2 ML VIAL (PULMICORT) NEB SCH ×2 (07:14→17:52)
[2021-05-31] MEDS: PANTOprazole 40 MG in SYRINGE 0 ML IV SCH (07:44)
[2021-05-31] MEDS: PIPERACILLIN/TAZOBACTAM 4.5 GM in DEXTROSE 5% 100 ML IV SCH ×2 (07:44→17:29)
[2021-05-31] MEDS: FAMOTIDINE 20 MG in SYRINGE 3 ML IV SCH ×2 (07:44→20:11)
[2021-05-31] MEDS ORDERED: OPTIRAY 320 100ml IV ONE (09:51)
[2021-05-31 10:19] LABS: Basophils # (auto) 0.01 K/uL (0-0.2); Basophils % (auto) 0.2 %; Eosinophils # (auto) 0.12 K/uL (0-0.5); Eosinophils % (auto) 2.5 %; Hematocrit (blood only) 40.2 % (42-52); Hemoglobin 13.8 g/dL (14.0-18.0); Immature Granulocytes # (auto) 0.01 K/uL (0.00-0.02); Immature Granulocytes % (auto) 0.2 %; Lymphocytes % (auto) 18.8 %; Mean Corpuscular Hemoglobin 35.7 pg (25-34); Mean Corpuscular Hgb Conc 34.3 g/dL (32-36); Mean Corpuscular Volume 103.9 fL (80-100); Mean Platelet Volume 8.9 fL (7.4-10.4); Monocytes # (auto) 0.44 K/uL (0.11-0.59); Monocytes % (auto) 9.2 %; Neutrophils % (auto) 69.1 %; Platelet Count 107 K/uL (130-400); RDW Coefficient of Variation 13.8 % (11.5-14.5); RDW Standard Deviation 51.7 fL (36.4-46.3); Red Blood Count 3.87 M/uL (4.7-6.1); White Blood Count 4.78 K/uL (4.8-10.8)
[2021-05-31 10:42] LABS: Albumin Globulin Ratio 0.8 (0.9-2); Albumin Level 3.1 gm/dl (3.4-5.0); BUN Creatinine Ratio 5.5 (10-20); Bilirubin,Total 0.9 mg/dl (0.2-1); Calcium 8.5 mg/dl (8.5-10.1); Est GFR (African American) 105.8 ml/min; Est GFR (Non-African American) 91.3 ml/min; Globulin 3.9 gm/dl (2.5-4.0); Potassium 3.4 mmol/L (3.5-5.1)
--- NOTE | 2021-05-31 10:55 | CT Scan Report ---
ABDOMEN AND PELVIS CT WITH IV AND ORAL CONTRAST CT DOSE: 837.60 mGy.cm HISTORY: Acute generalized abdominal pain with reported no bowel obstruction. sbo, assess transit of contrast TECHNIQUE: Multiaxial CT images of the abdomen and pelvis were performed following the IV administrat ion of 95 cc of Optiray and oral contrast. A dose lowering technique was utilized adhering to the pr inciples of NATALIE. COMPARISON STUDY: KUB 05/30/2021, CT abdomen and pelvis from outside facility 05/28/2021 FINDINGS: Small layering pleural effusions are new from prior. Intralobular septal thickening bibasil ar atelectasis. Cardiac megaly with coronary artery calcifications. Respiratory motion artifact limit s the study. There is no pneumatosis or pneumoperitoneum. Subcentimeter calcified granuloma of the sp tahir. Moderately atrophic pancreas. Unremarkable adrenal gland. Calcifications of the radial glands s uggests prior hemorrhage or infection, unchanged. Ill-defined hypodensity of the left hepatic lobe wi thin the torres hepatis is suggestive of focal fatty perforation. Portal vein. Mildly decreased attenu ation of the gallbladder sludge. Bilateral renal cysts measure up to 3.6 cm on the right no hydronephrosis. Partial distention of the urinary bladder with mild wall thickening. Pelvic structures are not well visualized secondary to str eak artifact from left pelvis ORIF changes and left hip total joint arthroplasty. Atherosclerosis of the aorta. Fusiform aneurysmal dilation of the infrarenal segment measures 3.2 x 3.2 cm, unchanged fr om the 06/30/2019 study. Infrarenal IVC filter. No adenopathy. Enteric tube terminates in the mid gastric lumen. There is resolution of the previously described hig h-grade small bowel obstruction. Enteric contrast progresses into the cecum and ascending colon. Appe ndectomy. Postoperative changes of the anterior abdominal wall. Healed chronic fracture deformities o f the pelvis and left ribs. IMPRESSION: 1. Resolution of the high-grade small bowel obstruction described on the study from 05/28/2021. Enter ic contrast progresses into the cecum and ascending colon on today's study. 2. No bowel wall thickening or pneumoperitoneum 3. Small pleural effusions with bibasilar atelectasis and questioned pulmonary edema. 4. Cardiomegaly. 5. Unchanged fusiform aneurysm dilation of the distal infrarenal abdominal aorta, 3.2 x 3.2 cm. 6. Additional findings as above. ACT 112: Negative or not required by law. The above report was generated using voice recognition software. It may contain grammatical, syntax o r spelling errors. Electronically signed by: Gerry Molina M.D. 05/31/2021 10:53 AM
[2021-05-31] MEDS ORDERED: POTASSIUM CHLORIDE 20 MEQ/15 ML UDC PO SCH (12:00)
[2021-05-31] MEDS: SENNOSIDES 8.8 MG/5 ML UDC PO SCH ×3 (13:35→20:17)
[2021-05-31] MEDS: METOPROLOL SUCC 25MG EXT REL TAB PO SCH (13:39)
[2021-05-31] MEDS: GABAPENTIN 600 MG TAB PO SCH (20:11)
[2021-05-31] MEDS: POTASSIUM CHLORIDE CRTAB 20 MEQ TABCR PO SCH (21:34)
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
[2021-06-01] MEDS: PIPERACILLIN/TAZOBACTAM 4.5 GM in DEXTROSE 5% 100 ML IV SCH ×2 (00:38→09:34)
[2021-06-01] MEDS: RANOLAZINE 500 MG ER TAB PO SCH ×2 (00:39→09:35)
[2021-06-01 06:57] LABS: Hematocrit (blood only) 40.3 % (42-52); Hemoglobin 14.2 g/dL (14.0-18.0); Mean Corpuscular Hemoglobin 35.8 pg (25-34); Mean Corpuscular Hgb Conc 35.2 g/dL (32-36); Mean Corpuscular Volume 101.5 fL (80-100); Mean Platelet Volume 9.5 fL (7.4-10.4); Platelet Count 122 K/uL (130-400); RDW Coefficient of Variation 13.5 % (11.5-14.5); RDW Standard Deviation 50.7 fL (36.4-46.3); Red Blood Count 3.97 M/uL (4.7-6.1); White Blood Count 5.63 K/uL (4.8-10.8)
[2021-06-01 07:05] LABS: INR 2.3 (0.9-1.1)
[2021-06-01 07:34] LABS: BUN Creatinine Ratio 4.9 (10-20); Calcium 9.4 mg/dl (8.5-10.1); Creatinine Clr Calc Pharmacy 90.3 ml/min; Est GFR (African American) 102.8 ml/min; Est GFR (Non-African American) 88.7 ml/min; Magnesium 2.1 mg/dl (1.8-2.4); Potassium 3.3 mmol/L (3.5-5.1)
[2021-06-01 07:36] LABS: Phosphorus 3.4 mg/dl (2.5-4.9)
[2021-06-01] MEDS: ALBUT/IPRATROP 3MG/0.5MG NEB 3 ML VIAL NEB SCH (07:40)
[2021-06-01] MEDS: BUDESONIDE 0.5 MG/2 ML VIAL (PULMICORT) NEB SCH (07:40)
--- NOTE | 2021-06-01 08:54 | Surgery Progress Note ---
Date of Service June 01, 2021 Assessment & Plan (1) SBO (small bowel obstruction): Plan: CT scan with contrast yesterday revealed resolution of SBO with passage of contrast into the large bowel Pt has tolerated NGT removal and the start of clear liquids Denies abdominal pain/n/v. Continues to pass flatus/BMs Can trial advancing to full liquids, asked patient to take it slow Admission and Anticipated Discharge Date Admission Date: May 29, 2021 Supervising Physician Co-Signing Physician Notes home on low fiber diet from surg stdpt Subjective Patient denies abdominal pain, nausea/vomiting. Passing flatus and BM's. Tolerating clear liquids. Physical Exam Physical Exam: awake/alert Gastrointestinal (Abdomen): Inspection/Auscultation: + abdomen distended (mild) Percussion/Palpation: abdomen soft; abdomen nontender Results & Data ([facility]) Vital Signs (Past 12 Hours) Vital Signs Temp Pulse Pulse Resp BP Pulse Ox Pulse Ox 06/01/21 07:40 87 20 96 06/01/21 07:31 75 06/01/21 05:00 36.8 C 70 18 151/86 H 94 06/01/21 04:00 94 06/01/21 01:00 89 06/01/21 00:07 36.6 C 67 16 154/97 H 92 PG Care Time/CCT Total # of Minutes Spent Total Time Spent with Patient: Total time spent is greater than 50% in coordination of care (as documented) at patient's floor/unit and/or counseling patient: Coding Level of Care Code 83029 Subseq Hosp Care Lvl 1 Diagnoses SBO (small bowel obstruction) K56.609
[2021-06-01] MEDS ORDERED: ASPIRIN 81 MG ECTAB PO SCH (09:00)
[2021-06-01] MEDS ORDERED: ISOSORBIDE MONO EXTENDED REL 30 MG TABCR PO SCH (09:00)
[2021-06-01] MEDS ORDERED: PANTOprazole 40 MG TAB PO SCH (09:00)
[2021-06-01] MEDS ORDERED: ROSUVASTATIN CALCIUM 20 MG TAB PO SCH (09:00)
[2021-06-01] MEDS: FAMOTIDINE 20 MG in SYRINGE 3 ML IV SCH (09:35)
[2021-06-01] MEDS: METOPROLOL SUCC 25MG EXT REL TAB PO SCH (09:36)
[2021-06-01] MEDS: GABAPENTIN 600 MG TAB PO SCH (09:38)
[2021-06-01] MEDS: POTASSIUM CHLORIDE CRTAB 20 MEQ TABCR PO SCH (09:45)
[2021-06-01] MEDS: SENNOSIDES 8.8 MG/5 ML UDC PO SCH (09:46)
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
[2021-06-01] MEDS ORDERED: POTASSIUM CHLORIDE CRTAB 20 MEQ TABCR PO STA (10:54)
[2021-06-01] MEDS ORDERED: WARFARIN SOD 3 MG TAB PO SCH (16:00)
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
== END 2021-06-01 17:50 | disposition home or self-care (01) | DRG 390 ==
LOC: ED 23:09 → EDINP 05-29 02:45 → SUATTDRO 05-29 02:45 → 2N 05-29 16:39

== ENCOUNTER 2022-09-20 13:15 | Observation (INO) ==
[2022-09-20] MEDS ORDERED: ACETAMINOPHEN 1,000 MG/100 ML VIAL IV STA (13:55)
[2022-09-20] MEDS ORDERED: SODIUM CHLORIDE 0.9% 500 ML IV ONE ×3 (13:55→16:45)
[2022-09-20 14:14] LABS: Basophils # (auto) 0.04 K/uL (0-0.2); Basophils % (auto) 0.3 %; Eosinophils # (auto) 0.15 K/uL (0-0.50); Eosinophils % (auto) 1.1 %; Hematocrit (blood only) 44.1 % (42.0-52.0); Hemoglobin 15.5 g/dl (14.0-18.0); Immature Granulocytes # (auto) 0.07 K/uL (0.01-0.20); Immature Granulocytes % (auto) 0.5 %; Lymphocytes # (auto) 1.29 K/uL (1.2-3.4); Lymphocytes % (auto) 9.8 %; Mean Corpuscular Hemoglobin 34.5 pg (25.0-34.0); Mean Corpuscular Hgb Conc 35.1 g/dL (32.0-36.0); Mean Corpuscular Volume 98.2 fL (80.0-100.0); Mean Platelet Volume 9.2 fL (9.4-12.4); Monocytes # (auto) 1.32 K/uL (0.11-0.59); Monocytes % (auto) 10.1 %; Neutrophils # (auto) 10.26 K/uL (1.40-6.50); Neutrophils % (auto) 78.2 %; Platelet Count 159 K/uL (130-400); RDW Coefficient of Variation 13.5 % (11.5-14.5); RDW Standard Deviation 48.7 fL (36.4-46.3); Red Blood Count 4.49 M/uL (4.70-6.10); White Blood Count 13.13 K/ul (4.8-10.8)
[2022-09-20 14:25] LABS: INR 1.8 (0.9-1.1); Prothrombin Time 18.4 Seconds (9.0-12.0)
[2022-09-20 14:37] LABS: Troponin I High Sensitivity 44.7 pg/ml (0-20)
--- NOTE | 2022-09-20 14:38 | XRay Report ---
XR chest 1V portable CLINICAL HISTORY: Chest pain, nonspecific COMPARISON STUDY: Chest CT February 29, 2020. Chest radiograph May 29, 2021. FINDINGS: No pneumothorax or pleural effusion is present. Multiple old left-sided rib deformities are again noted. Cardiomediastinal silhouette is stable. There is no evidence for pulmonary edema. There is no consolidation. IMPRESSION: No acute cardiopulmonary findings. No significant change in appearance of the chest. ACT 112: Negative or not required by law. Electronically signed by: Clovis Lagos M.D. 09/20/2022 2:36 PM
[2022-09-20 14:45] LABS: Albumin Level 3.9 gm/dl (3.4-5.0); Bilirubin,Total 1.4 mg/dl (0.2-1.0); Calcium 9.7 mg/dl (8.5-10.1); Magnesium 1.7 mg/dl (1.7-2.4); Potassium 4.1 mmol/L (3.5-5.1)
[2022-09-20 14:51] LABS: Albumin Globulin Ratio 0.9 (0.9-2); BUN Creatinine Ratio 13.9 (10-20); Est GFR (Non-African American) 41.4 ml/min; Globulin 4.3 gm/dl (2.5-4.0); Phosphorus 3.9 mg/dl (2.5-4.9); Total Protein 8.2 gm/dl (6.0-8.3)
[2022-09-20] MEDS ORDERED: ALBUT/IPRATROP 3MG/0.5MG NEB 3 ML VIAL NEB STA (15:24)
[2022-09-20] MEDS ORDERED: methylPREDNISolone 125 MG/2 ML VIAL IV STA (15:24)
[2022-09-20] MEDS ORDERED: guaiFENesin 600 MG TABCR PO STA (15:24)
[2022-09-20] MEDS ORDERED: MAGNESIUM SULFATE / D5W 1 GM/100 ML BAG IV STA (15:24)
[2022-09-20 16:17] LABS: Adenovirus PCR Not Detected (NotDetected); Bordetella parapertussis PCR Not Detected (NotDetected); Bordetella pertussis PCR Not Detected (NotDetected); Chlamydia pneumoniae PCR Not Detected (NotDetected); Coronavirus 229E PCR Not Detected (NotDetected); Coronavirus CoV-2 (COVID19)PCR Not Detected (NotDetected); Coronavirus HKU1 PCR Not Detected (NotDetected); Coronavirus NL63 PCR Not Detected (NotDetected); Coronavirus OC43PCR Not Detected (NotDetected); Human Metapneumovirus PCR Not Detected (NotDetected); Influenza A PCR Not Detected (NotDetected); Influenza B PCR Not Detected (NotDetected); Mycoplasma pneumoniae PCR Not Detected (NotDetected); Parainfluenza Virus 1 PCR Not Detected (NotDetected); Parainfluenza Virus 2 PCR Not Detected (NotDetected); Parainfluenza Virus 3 PCR Not Detected (NotDetected); Parainfluenza Virus 4 PCR Not Detected (NotDetected); Respiratory Syncytial VirusPCR Not Detected (NotDetected); Rhinovirus/Enterovirus PCR Not Detected (NotDetected)
--- NOTE | 2022-09-20 16:43 | CT Scan Report ---
CT chest diagnostic wo con CT DOSE: 387.41 mGycm HISTORY: Shortness of breath, hypoxia, hypotension TECHNIQUE: Multiaxial CT images of the chest were performed without contrast. A dose lowering techni que was utilized adhering to the principles of ALARA. COMPARISON: Chest CT 02/29/2020. FINDINGS: The central airways are patent. No pneumothorax. No pleural effusions. Punctate calcified g ranuloma within the right upper lobe posteriorly. Bibasilar linear densities have slightly progressed . This favors subsegmental atelectasis or scarring. Mild interstitial thickening has also slightly pr ogressed. This may be chronic. Superimposed congestive change could be difficult to exclude by imagin g. Multiple old, healed left-sided rib fractures are again noted. No acute fractures identified withi n the chest. Limited views of the upper abdomen demonstrate a normal liver and left adrenal gland. Ca lcifications are noted within the right adrenal gland. There is a punctate calcified granuloma within the spleen. Stable subcentimeter mediastinal and hilar lymph nodes. Normal thyroid gland. Normal eso phagus. The heart remains mildly enlarged. Severe coronary artery calcifications, unchanged. Left buddy tricular calcifications have progressed. Normal caliber thoracic aorta. IMPRESSION: 1. Mild interstitial thickening which is slightly progressed. This may be chronic. Superimposed conge stive change could also have a similar appearance. 2. Bibasilar linear densities favor subsegmental atelectasis or scarring. Otherwise, no new focal roque g consolidations to suggest a pneumonia. 3. Stable mild cardiomegaly. 4. Old, healed left-sided rib fractures again noted. ACT 112: Negative or not required by law. Electronically signed by: Edi Bah M.D. 09/20/2022 4:41 PM
[2022-09-20] MEDS ORDERED: cefTRIAXone SODIUM 2,000 MG/70 ML BAG IV STA (16:58)
[2022-09-20] MEDS ORDERED: DOXYCYCLINE HYCLATE 100 MG in DEXTROSE 5% 100 ML IV STA (16:58)
--- NOTE | 2022-09-20 17:11 | Emergency Department Note ---
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 (PCR) (NotDetected) M. pneumoniae (PCR) (NotDetected) Parainfluenza 1 (PCR) (NotDetected) Parainfluenza 2 (PCR) (NotDetected) Parainfluenza 3 (PCR) (NotDetected) Parainfluenza 4 (PCR) (NotDetected) RSV (PCR) (NotDetected) Entero/Rhino (PCR) (NotDetected) Administered Medications Discontinued Medications Albuterol (Albut/Ipratrop 3mg/0.5mg Neb 3 Ml Vial) 3 ml NEB NOW STA; Protocol Stop: 09/20/22 15:25 Last Admin: 09/20/22 15:34 Dose: 3 ml Documented By: KENNEDY Guaifenesin (Guaifenesin 600 Mg Tabcr) 600 mg PO NOW STA Stop: 09/20/22 15:25 Last Admin: 09/20/22 15:34 Dose: 600 mg Documented By: KENNEDY Sodium Chloride (Nss) 500 mls @ 999 mls/hr IV .Q31M ONE Stop: 09/20/22 14:25 Last Infusion: 09/20/22 16:10 Dose: 0 mls/hr Documented By: Admin: 09/20/22 14:30 Dose: 999 mls/hr Documented By: JOHNNIE Acetaminophen (Ofirmev) 1,000 mg in 100 mls @ 400 mls/hr IV NOW STA Stop: 09/20/22 14:09 Last Infusion: 09/20/22 16:10 Dose: 0 mls/hr Documented By: Admin: 09/20/22 14:46 Dose: 400 mls/hr Documented By: JOHNNIE Sodium Chloride (Nss) 500 mls @ 999 mls/hr IV .Q31M ONE Stop: 09/20/22 15:50 Last Infusion: 09/20/22 16:09 Dose: 0 mls/hr Documented By: Admin: 09/20/22 15:35 Dose: 999 mls/hr Documented By: KENNEDY Magnesium Sulfate/Dextrose (Magnesium Sulfate / D5w) 1 gm in 100 mls @ 100 mls/hr IV NOW STA Stop: 09/20/22 16:23 Last Infusion: 09/20/22 16:59 Dose: 0 mls/hr Documented By: Admin: 09/20/22 15:34 Dose: 100 mls/hr Documented By: KENNEDY Sodium Chloride (Nss) 500 mls @ 999 mls/hr IV .Q31M ONE Stop: 09/20/22 17:15 Last Infusion: 09/20/22 18:25 Dose: 0 mls/hr Documented By: Admin: 09/20/22 17:16 Dose: 999 mls/hr Documented By: KENNEDY Ceftriaxone Sodium (Rocephin) 2,000 mg in 70 mls @ 140 mls/hr IV NOW STA Stop: 09/20/22 17:27 Last Infusion: 09/20/22 18:24 Dose: 0 mls/hr Documented By: Admin: 09/20/22 17:16 Dose: 140 mls/hr Documented By: KENNEDY Doxycycline Hyclate 100 mg/ (Dextrose) 110 mls @ 50 mls/hr IV NOW STA Stop: 09/20/22 19:09 Last Infusion: 09/20/22 20:46 Dose: 0 mls/hr Documented By: Admin: 09/20/22 18:24 Dose: 50 mls/hr Documented By: KENNEDY Methylprednisolone (Methylprednisolone 125 Mg/2 Ml Vial) 125 mg IV NOW STA Stop: 09/20/22 15:25 Last Admin: 09/20/22 15:34 Dose: 125 mg Documented By: KENNEDY Imaging Data Radiologist's Impression: Chest X-Ray 09/20/22 13:55 XR chest 1V portable CLINICAL HISTORY: Chest pain, nonspecific COMPARISON STUDY: Chest CT February 29, 2020. Chest radiograph May 29, 2021. FINDINGS: No pneumothorax or pleural effusion is present. Multiple old left- sided rib deformities are again noted. Cardiomediastinal silhouette is stable. There is no evidence for pulmonary edema. There is no consolidation. IMPRESSION: No acute cardiopulmonary findings. No significant change in appearance of the chest. ACT 112: Negative or not required by law. Electronically signed by: Clovis Lagos M.D. 09/20/2022 2:[address] 09/20/22 15:21 CT chest diagnostic wo con CT DOSE: 387.41 mGycm HISTORY: Shortness of breath, hypoxia, hypotension TECHNIQUE: Multiaxial CT images of the chest were performed without contrast. A dose lowering technique was utilized adhering to the principles of ALARA. COMPARISON: Chest CT 02/29/2020. FINDINGS: The central airways are patent. No pneumothorax. No pleural effusions. Punctate calcified granuloma within the right upper lobe posteriorly. Bibasilar linear densities have slightly progressed. This favors subsegmental atelectasis or scarring. Mild interstitial thickening has also slightly progressed. This may be chronic. Superimposed congestive change could be difficult to exclude by imaging. Multiple old, healed left-sided rib fractures are again noted. No acute fractures identified within the chest. Limited views of the upper abdomen demonstrate a normal liver and left adrenal gland. Calcifications are noted within the right adrenal gland. There is a punctate calcified granuloma within the spleen. Stable subcentimeter mediastinal and hilar lymph nodes. Normal thyroid gland. Normal esophagus. The heart remains mildly enlarged. Severe coron gordon artery calcifications, unchanged. Left ventricular calcifications have progressed. Normal caliber thoracic aorta. IMPRESSION: 1. Mild interstitial thickening which is slightly progressed. This may be chronic. Superimposed congestive change could also have a similar appearance. 2. Bibasilar linear densities favor subsegmental atelectasis or scarring. Otherwise, no new focal lung consolidations to suggest a pneumonia. 3. Stable mild cardiomegaly. 4. Old, healed left-sided rib fractures again noted. ACT 112: Negative or not required by law. Electronically signed by: Edi Bah M.D. 09/20/2022 4:41 PM Discharge Plan Visit Data Chief Complaint: Weakness Stated Complaint: VERY WEAK, SHORT OF BREATH ED Provider: Zeyad Presley Discharge Problem: Acute hypotension, Chronic obstructive pulmonary disease, unspecified, Acute kidney insufficiency, Hypoxia, Leukocytosis Patient Disposition: Admitted As Inpatient Discharge Instructions Interventions: ED Discharge Assessment Last Done: 09/20/22 19:35
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
[2022-09-20 19:50] LABS: Appearance Urine Clear (Clear); Bacteria Urine Automated Negative (Negative); Bilirubin Urine Negative (Negative); Blood Urine Negative (Negative); Color Urine Orange; Epithelial Cell Urine Auto 0-5 /lpf (0-5); Glucose Urine UA Negative (Negative); Ketones Urine Negative (Negative); Leukocyte Esterase Urine Trace (Negative); Nitrite Urine Negative (Negative); Protein Urine Negative (Negative); RBC Urine Automated 0-4 /hpf (0-4); Specific Gravity Urine 1.017 (1.000-1.030); Urobilinogen Urine Negative (Negative); pH Urine 5.5 (4.5-7.5)
[2022-09-20] MEDS ORDERED: WARFARIN SOD 3 MG TAB PO STA (21:27)
[2022-09-20] MEDS ORDERED: ALBUT/IPRATROP 3MG/0.5MG NEB 3 ML VIAL NEB PRN (22:29)
[2022-09-20] MEDS ORDERED: SODIUM CHLORIDE 0.9% 1000ML 1,000 ML IV SCH (22:45)
[2022-09-20] MEDS: GABAPENTIN 600 MG TAB PO SCH (23:07)
[2022-09-20] MEDS: RANOLAZINE 500 MG ER TAB PO SCH (23:07)
[2022-09-21] MEDS: ALBUT/IPRATROP 3MG/0.5MG NEB 3 ML VIAL NEB SCH ×3 (01:40→19:26)
--- NOTE | 2022-09-21 02:31 | Billing Data ---
Date of Service September 20, 2022 Coding Level of Care Code 21522 INT INP/OBS CARE
[2022-09-21] MEDS ORDERED: DOXYCYCLINE HYCLATE 100 MG in DEXTROSE 5% 100 ML IV SCH (06:00)
--- NOTE | 2022-09-21 07:37 | Hospitalist Progress Note ---
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 Most likely 2/2 COPD exac. Also considered, but per CT scan, less suspicion for pneumonia. Procal 0.07. Hypotensive presentation (73/44, fluid responsive); may be 2/2 volume depletion in setting of illness. Continue Rocephin and doxycycline. Goal O2 sat >/=90%. Saturating 90-93% on 2L. Methylpred 40 q12 scheduled duonebs Pellet stove exposure noted. No anion gap. Lower suspicion for CO poisoning; reassess if clinical worsening. 09/20/22 21:19 Fabrizio Tubbs MD Hypotension (None) 09/20/22 21:19 Fabrizio Tubbs MD Plan As per above, since resolved. Blood cultures pending. Intermittent dysuria in HPI noted. UA w/ trace leuks. Urine culture was not sent; will attempt to add on. The above regimen will cover if UTI. 09/20/22 21:19 Fabrizio Tubbs MD Asthma-COPD overlap syndrome (None) 09/20/22 21:19 Fabrizio Tubbs MD Plan Not on home O2. Never smoker. 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 Duonebs. 09/20/22 21:19 Fabrizio Tubbs MD Chronic anticoagulation (None) 09/20/22 21:19 Fabrizio Tubbs MD Plan Per 09/07/22 anticoag clinic note: 1.5 mg /Th/Sa, 3mg x4 days. Check INR, 1.8 at admission. 09/20/22 21:19 Fabrizio Tubbs MD Renal insufficiency (None) 09/20/22 21:19 Fabrizio Tubbs MD Plan CKD2 w/ baseline Cr of 1.1. TALIA w/ Cr 1.65. Most likely 2/2 prerenal. s/p 1.5L of fluid bolus. Gentle IV hydration. Mild hypoNa 132 most likely from similar etiology. 09/20/22 21:19 Fabrizio Tubbs MD CAD (coronary artery disease) (None) 09/20/22 21:19 Fabrizio Tubbs MD Plan ecg unchanged from 2020, chronic inferior lead ST elevation 09/20/22 21:19 Fabrizio Tubbs MD Hypertension (None) 09/20/22 21:19 Fabrizio Tubbs MD Plan Hold home metoprolol in setting of hypotension. 09/20/22 21:19 Fabrizio Tubbs MD Dyslipidemia (Chronic) 09/20/22 21:19 Fabrizio Tubbs MD Plan Continue home statin. 09/20/22 21:19 Fabrizio Tubbs MD GERD (gastroesophageal reflux disease) (None) 09/20/22 21:19 Fabrizio Tubbs MD Plan Continue PPI. 09/20/22 21:19 Fabrizio Tubbs MD Presence of IVC filter (None) 09/20/22 21:19 Fabrizio Tubbs MD Plan Noted. 09/20/22 21:19 Fabrizio Tubbs MD Plan Text Plan FEN/GI: low Na, HH diet. NSS 60/hr x 1 bag. anticoag: home warfarin code: full dispo: med tele 09/20/22 21:19 Fabrizio Tubbs MD Admission and Anticipated Discharge Date Admission Date: September 20, 2022 Review of Systems Review of Systems: All systems reviewed & are unremarkable except as noted in HPI & below Results & Data Results & Data ([facility]) Vital Signs (Past 12 Hours) Vital Signs Temp Pulse Pulse Resp BP Pulse Ox O2 Del Method 09/20/22 23:56 65 09/20/22 20:04 66 09/20/22 23:33 36.6 C 57 L 20 108/69 94 Nasal Cannula 09/20/22 20:03 36.5 C 64 18 109/67 94 Nasal Cannula O2 Flow Rate 09/20/22 23:56 09/20/22 20:04 09/20/22 23:33 2 09/20/22 20:03 2
[2022-09-21] MEDS: ROSUVASTATIN CALCIUM 20 MG TAB PO SCH (08:06)
[2022-09-21] MEDS: PANTOprazole 40 MG TAB PO SCH (08:07)
[2022-09-21] MEDS: RANOLAZINE 500 MG ER TAB PO SCH ×2 (08:07→20:48)
[2022-09-21] MEDS: ISOSORBIDE MONO EXTENDED REL 30 MG TABCR PO SCH (08:07)
[2022-09-21] MEDS: guaiFENesin 600 MG TABCR PO SCH ×2 (08:08→20:46)
[2022-09-21] MEDS: GABAPENTIN 600 MG TAB PO SCH ×2 (08:08→20:47)
[2022-09-21] MEDS: BUDESONIDE 0.5 MG/2 ML VIAL (PULMICORT) NEB SCH ×2 (08:23→19:26)
[2022-09-21] MEDS: FORMOTEROL 20 MCG/2 ML VIAL NEB SCH ×2 (08:23→19:26)
[2022-09-21] MEDS ORDERED: methylPREDNISolone 40 MG in SYRINGE 0 ML IV SCH (09:00)
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
[2022-09-21 09:18] LABS: Basophils # (auto) 0.01 K/uL (0-0.2); Basophils % (auto) 0.1 %; Hematocrit (blood only) 37.8 % (42.0-52.0); Hemoglobin 13.5 g/dl (14.0-18.0); Immature Granulocytes # (auto) 0.05 K/uL (0.01-0.20); Immature Granulocytes % (auto) 0.4 %; Lymphocytes # (auto) 0.85 K/uL (1.2-3.4); Lymphocytes % (auto) 7.4 %; Mean Corpuscular Hemoglobin 34.4 pg (25.0-34.0); Mean Corpuscular Hgb Conc 35.7 g/dL (32.0-36.0); Mean Corpuscular Volume 96.4 fL (80.0-100.0); Mean Platelet Volume 9.1 fL (9.4-12.4); Monocytes # (auto) 0.43 K/uL (0.11-0.59); Monocytes % (auto) 3.7 %; Neutrophils # (auto) 10.17 K/uL (1.40-6.50); Neutrophils % (auto) 88.4 %; Platelet Count 109 K/uL (130-400); RDW Coefficient of Variation 13.3 % (11.5-14.5); RDW Standard Deviation 47.2 fL (36.4-46.3); Red Blood Count 3.92 M/uL (4.70-6.10); White Blood Count 11.51 K/ul (4.8-10.8)
[2022-09-21 09:39] LABS: Partial Thromboplastin Ratio 1.6; Partial Thromboplastin Time 43.6 Seconds (21.0-31.0); Prothrombin Time 20.7 Seconds (9.0-12.0)
[2022-09-21 09:41] LABS: Albumin Level 3.5 gm/dl (3.4-5.0); BUN Creatinine Ratio 24.5 (10-20); Bilirubin,Total 0.5 mg/dl (0.2-1.0); Creatinine Clr Calc Pharmacy 83.1 ml/min; Est GFR (African American) 94.8 ml/min; Est GFR (Non-African American) 81.8 ml/min; Globulin 3.5 gm/dl (2.5-4.0); Magnesium 1.8 mg/dl (1.7-2.4); Potassium 3.9 mmol/L (3.5-5.1)
[2022-09-21] MEDS: SENNA 8.6 MG TAB PO SCH (10:05)
--- NOTE | 2022-09-21 14:39 | Medical Student Progress Note ---
Date of Service September 21, 2022 Assessment & Plan (1) Hypoxia: Plan: 1. Hypoxia - improved - likely COPD exacerbation d/t atypical PNA (HiB) - restrictive presentation - change in cough - Treat with azithromycin - reduce methylpred to 20 q12 2. Asthma/COPD - chronic, improved - see above FEN/GI: low Na, HH diet. Anticoag: home warferin d/c: planned for tomormrow (2) Asthma-COPD overlap syndrome: (3) Hypersensitivity pneumonitis: (4) OLIVER (obstructive sleep apnea): Admission and Anticipated Discharge Date Admission Date: September 20, 2022 Supervising Attestation I personally examined the patient and verified all alicea points of history and exam, discussed case, and agree with decision making with Sunshine H[facility]PTON Feeling better. Breathing better. Notes that he is much better than yesterday. Later seen walking in the hallway. Vitals noted, in general he is awake and alert, pleasant no distress. Lungs show faint basilar rales no rhonchi no wheezes good air entry good effort. Skin shows no rashes no pallor or icterus. CBC, coags, basic metabolic panel reviewed. CT films reviewed as well and personally compared to previous. Acute hypoxiaacute exacerbation of chronic lung disease, plus or minus small underlying pneumonia versus simply exacerbation. Either way improving on current treatment. Agree with weaning steroids and continuing antibiotics. Hopefully home tomorrow. Otherwise as above Subjective Scot Morales is a 72 y/o with a PMHx of ruptured abdominal aortic aneurysm, LA, PE, ischemic cardiomyopathy, CAD, HTN, nash's lung, aspiration pneumonia o f left lower lobe, asthma, COPD, OLIVER, GERD, hypersensitivity pneumonitis, stroke, psychogenic nonepileptic pneumonitis (PNES), and CKD presented to the ED yesterday accompanied by his , for a CC of dyspnea, cough, weakness, congestion, and lightheadedness. 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 At home, patient experienced substernal/epigastric pain lasting 1 min at approximately 1 am, and extreme generalized weakness around 4:30 am. He had tried his inhaler and nebulizer, experiencing minimal relief. Upon arrival to the ED, patient was afebrile, BPs of 70s/40s, diminished breath sounds and underlying wheeze. On CDX, no abnormalities were appreciated. CT showed progressed interstitial thickening (?chronic) and bibasilar linear densities. EKG showed minor ST elevation in inferior leads, likely chronic. Labs showed WBC 13K (nonspecific), creat 1.65, mag 1.7 (repleted). He was treated with given empiric ceftriaxone & doxy for CAP, and received a bolus 500cc NS x 3 for BP. Admitted to Medicine last night, for likely COPD exacerbation. Labs: Procal 0.07, UA w/ trace leuks, CKD2 baseline Cr 1.1, TALIA w/ CR 1.65. Tx: Hypoxia - rocephin & doxy, methylpred 40 q12. Renal insufficiency - 1.5L fluid bolus. HTN - metoprolol held. This morning, he reports improvement in symptoms and clarifies that his two-week productive cough originally produced yellow/green sputum and currently is white. During afternoon rounds, he is accompanied by his , Fatou. He reports taking a "tall blue" inhaler (potentially Ventolin, as identified via photo) and Symbicort every morning. His will bring medications from home tomorrow afternoon. Review of Systems Review of Systems: A complete 10 point review of systems was reviewed with the patient with pertinent positives and negatives as per history of present illness. All else were negative. Physical Exam Physical Exam: VITAL SIGNS - Vital signs and nursing notes reviewed. GENERAL - appears stated age, no acute distress. Communicates well, answers questions. HEAD - NC/AT. EYES - PERRL with EOMI bilaterally. Sclera anicteric. NOSE - Midline and without cyanosis. MOUTH/OROPHARYNX - Without perioral cyanosis. Buccal mucosa pink and moist. NECK - Neck with FROM. LUNGS - Good inspiratory effort noted. Unequal lung sounds -- LLL rales. No wheezes noted. CARDIAC - RRR with S1/S2. No murmur, rubs, or gallops . ABDOMEN - No pulsations or visible masses. EXTREMITIES - No clubbing or peripheral cyanosis. No pretibial edema present. PSYCH - A&Ox3 Results & Data ([facility]) Vital Signs (Past 12 Hours) Vital Signs Temp Pulse Pulse Resp BP Pulse Ox O2 Del Method 09/21/22 07:30 58 L 09/21/22 11:17 36.7 C 75 18 115/66 92 Room Air 09/21/22 07:40 65 134/82 95 Nasal Cannula 09/21/22 07:30 Nasal Cannula 09/21/22 08:23 79 18 97 Nasal Cannula 09/21/22 07:43 36.3 C L 66 20 131/80 95 Nasal Cannula O2 Flow Rate FiO2 09/21/22 07:30 09/21/22 11:17 09/21/22 07:40 2 09/21/22 07:30 2 09/21/22 08:23 2 09/21/22 07:43 2 Laboratory Results Abnormal Labs 09/20/22 09/20/22 09/20/22 13:45 13:45 13:45 WBC 13.13 H RBC 4.49 L Hgb Hct MCH 34.5 H RDW Std Deviation 48.7 H Plt Count MPV 9.2 L Neut # (Auto) 10.26 H Lymph # (Auto) Gilliam # (Auto) 1.32 H PT 18.4 H INR 1.8 H APTT Sodium 132 L Chloride 93 L Creatinine 1.65 H BUN/Creatinine Ratio Glucose 108 H Total Bilirubin 1.4 H AST Troponin I High Sens 44.7 H Globulin 4.3 H Lipase 5 L Ur Leukocyte Esterase 09/20/22 09/20/22 09/21/22 17:17 19:15 08:23 WBC 11.51 H RBC 3.92 L Hgb 13.5 L Hct 37.8 L MCH 34.4 H RDW Std Deviation 47.2 H Plt Count 109 L MPV 9.1 L Neut # (Auto) 10.17 H Lymph # (Auto) 0.85 L Gilliam # (Auto) PT INR APTT Sodium Chloride Creatinine BUN/Creatinine Ratio Glucose Total Bilirubin AST Troponin I High Sens 28.8 H D Globulin Lipase Ur Leukocyte Esterase Trace H 09/21/22 09/21/22 08:23 08:23 WBC RBC Hgb Hct MCH RDW Std Deviation Plt Count MPV Neut # (Auto) Lymph # (Auto) Gilliam # (Auto) PT 20.7 H INR 2.0 H APTT 43.6 H Sodium 133 L Chloride Creatinine BUN/Creatinine Ratio 24.5 H Glucose 160 H Total Bilirubin AST 12 L Troponin I High Sens Globulin Lipase Ur Leukocyte Esterase
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
[2022-09-21] MEDS ORDERED: cefTRIAXone SODIUM 2,000 MG in DEXTROSE 5% 50 ML IV SCH (16:00)
[2022-09-21] MEDS ORDERED: WARFARIN SOD 0.5 MG TAB PO SCH (16:00)
--- NOTE | 2022-09-21 17:54 | Billing Data ---
Date of Service September 21, 2022 Coding Level of Care Code 60767 SUB INP/OBS CARE
[2022-09-21] MEDS: SODIUM CHLOR 7% 4 ML NEB NEB SCH (19:26)
[2022-09-21] MEDS: cefUROXime axetil 500 MG TAB PO SCH (20:47)
[2022-09-21] MEDS: DOXYCYCLINE HYCLATE 100 MG CAP PO SCH (20:47)
--- NOTE | 2022-09-21 22:38 | Electrocardiogram Report ---
Test Reason : Blood Pressure : / mmHG Vent. Rate : 089 BPM Atrial Rate : 089 BPM P-R Int : 166 ms QRS Dur : 086 ms QT Int : 344 ms P-R-T Axes : 048 -38 091 degrees QTc Int : 418 ms Normal sinus rhythm Left axis deviation Inferior-posterior infarct (cited on or before 10-MAY-2015) Anterolateral infarct (cited on or before 09-MAY-2015) Abnormal ECG When compared with ECG of 29-MAY-2021 00:31, No significant change was found Confirmed by Demond Sutherland ([id number]) on 09/21/2022 10:38:10 PM Referred By: REFERRED SELF Confirmed By:Demond Sutherland
[2022-09-22 06:37] LABS: Basophils # (auto) 0.01 K/uL (0-0.2); Basophils % (auto) 0.1 %; Hematocrit (blood only) 34.8 % (42.0-52.0); Hemoglobin 12.4 g/dl (14.0-18.0); Immature Granulocytes # (auto) 0.08 K/uL (0.01-0.20); Immature Granulocytes % (auto) 0.5 %; Lymphocytes % (auto) 6.7 %; Mean Corpuscular Hemoglobin 34.3 pg (25.0-34.0); Mean Corpuscular Hgb Conc 35.6 g/dL (32.0-36.0); Mean Corpuscular Volume 96.4 fL (80.0-100.0); Mean Platelet Volume 9.2 fL (9.4-12.4); Monocytes # (auto) 0.87 K/uL (0.11-0.59); Monocytes % (auto) 5.9 %; Neutrophils # (auto) 12.91 K/uL (1.40-6.50); Neutrophils % (auto) 86.8 %; Platelet Count 119 K/uL (130-400); Red Blood Count 3.61 M/uL (4.70-6.10); White Blood Count 14.87 K/ul (4.8-10.8)
[2022-09-22] MEDS: ALBUT/IPRATROP 3MG/0.5MG NEB 3 ML VIAL NEB SCH (06:52)
[2022-09-22] MEDS: FORMOTEROL 20 MCG/2 ML VIAL NEB SCH (06:53)
[2022-09-22] MEDS: BUDESONIDE 0.5 MG/2 ML VIAL (PULMICORT) NEB SCH (06:53)
[2022-09-22] MEDS: SODIUM CHLOR 7% 4 ML NEB NEB SCH (06:53)
[2022-09-22 07:06] LABS: BUN Creatinine Ratio 25.5 (10-20); Calcium 8.9 mg/dl (8.5-10.1); Creatinine Clr Calc Pharmacy 79.5 ml/min; Est GFR (African American) 90.2 ml/min; Est GFR (Non-African American) 77.8 ml/min; Magnesium 1.8 mg/dl (1.7-2.4); Phosphorus 2.7 mg/dl (2.5-4.9); Potassium 4.3 mmol/L (3.5-5.1)
[2022-09-22] MEDS: guaiFENesin 600 MG TABCR PO SCH (08:57)
[2022-09-22] MEDS: ISOSORBIDE MONO EXTENDED REL 30 MG TABCR PO SCH (08:59)
[2022-09-22] MEDS: RANOLAZINE 500 MG ER TAB PO SCH (08:59)
[2022-09-22] MEDS: ROSUVASTATIN CALCIUM 20 MG TAB PO SCH (08:59)
[2022-09-22] MEDS: cefUROXime axetil 500 MG TAB PO SCH (09:00)
[2022-09-22] MEDS: PANTOprazole 40 MG TAB PO SCH (09:00)
[2022-09-22] MEDS: DOXYCYCLINE HYCLATE 100 MG CAP PO SCH (09:00)
[2022-09-22] MEDS: SENNA 8.6 MG TAB PO SCH (09:00)
[2022-09-22] MEDS ORDERED: predniSONE 20 MG TAB PO SCH (09:00)
[2022-09-22] MEDS: GABAPENTIN 600 MG TAB PO SCH (09:01)
--- NOTE | 2022-09-22 11:38 | Pulmonology Progress Note ---
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 RECOMMENDATIONS: 1. Hypoxia - * Likely secondary to acute exacerbation of patient's chronic obstructive physiology. * Patient has improved and is back to his baseline. He is not requiring oxygen at this point. He is ambulating the halls without issue. * Would continue with his home nebulizers including budesonide, Perforomist, and as needed DuoNebs. * Patient did well with hypertonic saline nebulizers. These can be continued in the outpatient setting. * Patient can complete his outpatient course of antibiotics: Ceftin and doxycycline. * Can complete his 5-day course of prednisone. * Has an outpatient follow-up appointment on 10/05/[address] Miller. * Should have PFTs repeated when the patient is back to his baseline. 2. Asthma-COPD Overlap Syndrome - * Continue with management as above. * Patient missed a few days of his maintenance nebulizers which likely contributed to current admission. 3. Hypersensitivity Pneumonitis - * Uncertain if this represents progression of underlying pneumonitis. * Regardless, will treat with suggested course of steroids and antibiotics. * He will continue to follow-up with Dr. Miller who has been managing the patient at this point. 4. OLIVER - * Has failed CPAP in the past. Thank you for allowing us to participate in the care of this patient. Patient is stable from a pulmonary perspective and can be discharged at the discretion of the primary hospitalist service. Admission and Anticipated Discharge Date Admission Date: September 20, 2022 Supervising Physician Co-Signing Physician Notes Patient seen and examined. EMR reviewed. Discussed with NAV and agree with assessment plan as noted. Complete 5-day course of prednisone and a course of oral antibiotics. Follow-up with outpatient pulmonary with repeat PFTs. May require follow-up CT scan to evaluate whether or not interstitial opacities have improved or remained progressive over time. Defer additional immune suppression until the patient has returned back to his baseline. Okay to discharge from a pulmonary perspective. Pulmonary will sign off at this point time. Feel free to contact us if we can be of additional assistance. Subjective Patient seen and evaluated at bedside. Reports feeling back to his baseline. He was able to ambulate the hallways without issue. He reports that his cough is decreased as has his sputum production. He feels as though he has done well with the hypertonic saline nebulizers. Review of Systems Review of Systems: A complete 10 point review of systems was reviewed with the patient with pertinent positives and negatives as per history of present illness. All else were negative. Physical Exam Physical Exam: VITAL SIGNS - Vital signs and nursing notes were reviewed. GENERAL - 72-year-old male appearing his stated age who is in no acute distress. Communicates well with provider and answers questions appropriately. MOUTH/OROPHARYNX - Without perioral cyanosis. Buccal mucosa pink and moist. LUNGS - Good inspiratory effort noted. Bibasilar rales. No wheezes noted. CARDIAC - RRR with S1/S2. No murmur, rubs, or gallops appreciated. ABDOMEN - Abdominal contour obese without pulsations or visible masses. BS normoactive all four quadrants. No tenderness, palpable masses, hepatosplenomegaly, or ascites noted. PSYCH - A&Ox3 and cooperates fully with examiner. Pt is very pleasant and interacts well with examiner. Results & Data Results & Data Vital Signs (Past 12 Hours) Vital Signs Temp Pulse Pulse Resp BP Pulse Ox O2 Del Method 09/22/22 11:28 36.7 C 88 16 137/72 96 Room Air 09/22/22 07:00 89 09/22/22 09:09 Room Air 09/22/22 08:13 36.5 C 81 16 132/68 92 Room Air 09/22/22 06:54 77 18 94 Room Air 09/22/22 04:13 36.2 C L 72 20 128/65 94 Room Air 09/21/22 23:58 84 09/21/22 23:48 36.6 C 84 20 146/85 H 92 Room Air PG Care Time/CCT Total # of Minutes Spent Total Time Spent with Patient: Total time spent is greater than 50% in coordination of care (as documented) at patient's floor/unit and/or counseling patient: Coding Level of Care Code 65941 SUB INP/OBS CARE 2/35MIN Diagnoses Hypoxia R09.02 Asthma-COPD overlap syndrome J44.9 Hypersensitivity pneumonitis J67.9 OLIVER (obstructive sleep apnea) G47.33
--- NOTE | 2022-09-22 12:36 | Medical Student Progress Note ---
Date of Service September 22, 2022 Assessment & Plan (1) Hypoxia: Plan: 1. Hypoxia - much improved - acute hypoxiaacute exacerbation of chronic lung disease, +/- small underlying PNA versus simply exacerbation - restrictive presentation - improved cough - Treated with azithromycin - Methylpred 20 q12 2. Asthma/COPD - chronic, improved - see above FEN/GI: low Na, HH diet. Anticoag: home warfarin d/c: potentially today (2) Asthma-COPD overlap syndrome: (3) Hypersensitivity pneumonitis: (4) OLIVER (obstructive sleep apnea): Admission and Anticipated Discharge Date Admission Date: September 20, 2022 Subjective Matheus Morales was seen and evaluated at bedside. He reports being back to baseline, feeling and breathing better. His cough has decreased. He has been able to ambulate the hallways without issue, and was departing for a walk after the end of our conversation. He reports his will be arriving around 2 pm with his medications. Review of Systems Review of Systems: A complete 10 point review of systems was reviewed with the patient with pertinent positives and negatives as per history of present illness. All else were negative. Physical Exam Physical Exam: VITAL SIGNS - Vital signs and nursing notes reviewed. GENERAL - appears stated age, no acute distress. Communicates well, answers questions. HEAD - NC/AT. EYES - PERRL with EOMI bilaterally. Sclera anicteric. NOSE - Midline and without cyanosis. MOUTH/OROPHARYNX - Without perioral cyanosis. Buccal mucosa pink and moist. NECK - Neck with FROM. LUNGS - Good inspiratory effort noted. Unequal lung sounds -- LLL rales. No wheezes noted. CARDIAC - RRR with S1/S2. No murmur, rubs, or gallops . ABDOMEN - No pulsations or visible masses. EXTREMITIES - No clubbing or peripheral cyanosis. No pretibial edema present. PSYCH - A&Ox3 Results & Data Vital Signs (Past 12 Hours) Vital Signs Temp Pulse Pulse Resp BP Pulse Ox O2 Del Method 09/22/22 11:28 36.7 C 88 16 137/72 96 Room Air 09/22/22 07:00 89 09/22/22 09:09 Room Air 09/22/22 08:13 36.5 C 81 16 132/68 92 Room Air 09/22/22 06:54 77 18 94 Room Air 09/22/22 04:13 36.2 C L 72 20 128/65 94 Room Air
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
[2022-09-22] MEDS ORDERED: WARFARIN SOD 3 MG TAB PO SCH (16:00)
--- NOTE | 2022-09-22 18:12 | Billing Data ---
Date of Service September 22, 2022 Coding Level of Care Code 09204 IN/OBS DISCH 30 MIN/LESS
--- NOTE | 2022-09-23 06:02 | Electrocardiogram Report ---
Test Reason : Blood Pressure : / mmHG Vent. Rate : 067 BPM Atrial Rate : 067 BPM P-R Int : 202 ms QRS Dur : 106 ms QT Int : 448 ms P-R-T Axes : 038 -32 108 degrees QTc Int : 473 ms Normal sinus rhythm Premature supraventricular complexes Left axis deviation Left ventricular hypertrophy with repolarization abnormality Inferior-posterior infarct (cited on or before 10-MAY-2015) Anterolateral infarct (cited on or before 09-MAY-2015) Abnormal ECG When compared with ECG of 20-SEP-2022 13:39, T wave inversion now evident in Lateral leads QT has lengthened Confirmed by Demond Sutherland ([id number]) on 09/23/2022 6:02:07 AM Referred By: REFERRED SELF Confirmed By:Demond Sutherland
== END 2022-09-22 15:15 | disposition home or self-care (01) | DRG 871 ==
LOC: ED 13:15 → 2N 18:23 → INTOOBSV 18:23 → SUATTDRO 18:23 → 2N 19:35

== ENCOUNTER 2022-10-09 09:47 | Inpatient (IN) ==
[2022-10-09 10:32] LABS: Basophils # (auto) 0.01 K/uL (0-0.2); Basophils % (auto) 0.1 %; Eosinophils # (auto) 0.06 K/uL (0-0.50); Eosinophils % (auto) 0.9 %; Hemoglobin 14.6 g/dl (14.0-18.0); Immature Granulocytes # (auto) 0.04 K/uL (0.01-0.20); Immature Granulocytes % (auto) 0.6 %; Lymphocytes % (auto) 10.3 %; Mean Corpuscular Hemoglobin 34.2 pg (25.0-34.0); Mean Corpuscular Hgb Conc 34.8 g/dL (32.0-36.0); Mean Corpuscular Volume 98.4 fL (80.0-100.0); Mean Platelet Volume 9.2 fL (9.4-12.4); Monocytes % (auto) 5.9 %; Neutrophils # (auto) 5.58 K/uL (1.40-6.50); Neutrophils % (auto) 82.2 %; Platelet Count 136 K/uL (130-400); RDW Coefficient of Variation 14.3 % (11.5-14.5); Red Blood Count 4.27 M/uL (4.70-6.10); White Blood Count 6.79 K/ul (4.8-10.8)
--- NOTE | 2022-10-09 10:34 | XRay Report ---
XR chest 1V portable CLINICAL HISTORY: Sepsis TECHNIQUE: Single frontal radiograph of the chest was obtained. Comparison: Comparison is made to chest radiograph 09/20/2022 FINDINGS: No lines and tubes are seen. Cardiomegaly is noted. Redemonstration of density in the left lower lung opacity. Interstitial thickening is seen. Left pleural effusion cannot be excluded. IMPRESSION: Density over the left lower lung is favored to represent extrapleural fat as seen on prior exam. Supe rimposed aspiration/pneumonia cannot be entirely excluded. Otherwise no acute abnormalities. ACT 112: Negative or not required by law. Electronically signed by: Nelson Jefferson M.D. 10/09/2022 10:33 AM
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
[2022-10-09 10:48] LABS: Albumin Level 3.5 gm/dl (3.4-5.0); BUN Creatinine Ratio 24.5 (10-20); Bilirubin Direct 0.1 mg/dl (0-0.2); Bilirubin,Total 0.8 mg/dl (0.2-1.0); Calcium 9.6 mg/dl (8.6-10.3); Est GFR (Non-African American) 70.8 ml/min; Magnesium 1.9 mg/dl (1.7-2.4); Potassium 3.8 mmol/L (3.5-5.1); Total Protein 7.3 gm/dl (6.0-8.3)
[2022-10-09] MEDS ORDERED: ALBUT/IPRATROP 3MG/0.5MG NEB 3 ML VIAL NEB STA (10:57)
[2022-10-09] MEDS ORDERED: CEFEPIME 2,000 MG/20 ML VIAL IV STA (10:58)
[2022-10-09 10:59] LABS: Base Excess VBG 3.1 mEq/L; HCO3 VBG 27 mmol/L; Oxygen Saturation VBG 70.9 %; PCO2 VBG 38 mmHg (38-50); PO2 VBG 42 mmHg; pH VBG 7.46 (7.36-7.41)
[2022-10-09 11:21] LABS: Adenovirus PCR Not Detected (NotDetected); Bordetella parapertussis PCR Not Detected (NotDetected); Bordetella pertussis PCR Not Detected (NotDetected); Chlamydia pneumoniae PCR Not Detected (NotDetected); Coronavirus 229E PCR Not Detected (NotDetected); Coronavirus CoV-2 (COVID19)PCR Not Detected (NotDetected); Coronavirus HKU1 PCR Not Detected (NotDetected); Coronavirus NL63 PCR Not Detected (NotDetected); Coronavirus OC43PCR Not Detected (NotDetected); Human Metapneumovirus PCR Not Detected (NotDetected); Influenza A PCR Not Detected (NotDetected); Influenza B PCR Not Detected (NotDetected); Mycoplasma pneumoniae PCR Not Detected (NotDetected); Parainfluenza Virus 1 PCR Not Detected (NotDetected); Parainfluenza Virus 2 PCR Not Detected (NotDetected); Parainfluenza Virus 3 PCR Not Detected (NotDetected); Parainfluenza Virus 4 PCR Not Detected (NotDetected); Respiratory Syncytial VirusPCR Not Detected (NotDetected); Rhinovirus/Enterovirus PCR Not Detected (NotDetected)
[2022-10-09 11:29] LABS: INR 3.8 (0.9-1.1); Partial Thromboplastin Ratio 2.2; Prothrombin Time 38.1 Seconds (9.0-12.0)
[2022-10-09 11:56] LABS: Partial Thromboplastin Time 60.9 Seconds (21.0-31.0)
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
[2022-10-09 13:07] LABS: Appearance Urine Clear (Clear); Bilirubin Urine Negative (Negative); Blood Urine Negative (Negative); Color Urine Yellow; Glucose Urine UA Negative (Negative); Ketones Urine Negative (Negative); Leukocyte Esterase Urine Negative (Negative); Nitrite Urine Negative (Negative); Protein Urine Negative (Negative); Specific Gravity Urine 1.015 (1.000-1.030); Urobilinogen Urine Negative (Negative)
--- NOTE | 2022-10-09 13:10 | Electrocardiogram Report ---
Test Reason : Blood Pressure : / mmHG Vent. Rate : 086 BPM Atrial Rate : 086 BPM P-R Int : 172 ms QRS Dur : 104 ms QT Int : 360 ms P-R-T Axes : 035 -35 062 degrees QTc Int : 430 ms Normal sinus rhythm Left axis deviation Minimal voltage criteria for LVH, may be normal variant Old Inferior-posterior infarct (cited on or before 10-MAY-2015) Possible Old Anterolateral infarct (cited on or before 09-MAY-2015) Abnormal ECG When compared with ECG of 21-SEP-2022 06:34, Premature supraventricular complexes are no longer Present Confirmed by Britton Fernández ([id number]) on 10/09/2022 1:10:03 PM Referred By: Confirmed By:Britton Fernández
[2022-10-09] MEDS ORDERED: ONDANSETRON INJ 2 MG/ML 2 ML VIAL IV PRN (18:24)
[2022-10-09] MEDS ORDERED: SENNA 8.6 MG TAB PO PRN (18:24)
[2022-10-09] MEDS ORDERED: ALBUT/IPRATROP 3MG/0.5MG NEB 3 ML VIAL NEB PRN (18:24)
[2022-10-09] MEDS ORDERED: NITROGLYCERIN SL 0.4 MG/TAB TAB SL PRN (18:24)
[2022-10-09] MEDS ORDERED: ACETAMINOPHEN 325 MG TAB PO PRN (18:24)
[2022-10-09] MEDS: FORMOTEROL 20 MCG/2 ML VIAL NEB SCH (19:05)
[2022-10-09] MEDS: BUDESONIDE 0.25 MG/2 ML VIAL (PULMICORT) NEB SCH (19:06)
[2022-10-09] MEDS: GABAPENTIN 600 MG TAB PO SCH (20:28)
[2022-10-09] MEDS: RANOLAZINE 500 MG ER TAB PO SCH (20:28)
[2022-10-09] MEDS: CEFEPIME 2,000 MG in SYRINGE 0 ML IV SCH (20:28)
[2022-10-09] MEDS: methylPREDNISolone 20 MG in SYRINGE 0 ML IV SCH (20:57)
[2022-10-10] MEDS: CEFEPIME 2,000 MG in SYRINGE 0 ML IV SCH (02:25)
[2022-10-10 06:53] LABS: Hematocrit (blood only) 38.8 % (42.0-52.0); Hemoglobin 13.6 g/dl (14.0-18.0); Mean Corpuscular Hemoglobin 34.6 pg (25.0-34.0); Mean Corpuscular Hgb Conc 35.1 g/dL (32.0-36.0); Mean Corpuscular Volume 98.7 fL (80.0-100.0); Mean Platelet Volume 9.3 fL (9.4-12.4); Platelet Count 131 K/uL (130-400); RDW Standard Deviation 50.5 fL (36.4-46.3); Red Blood Count 3.93 M/uL (4.70-6.10); White Blood Count 6.38 K/ul (4.8-10.8)
[2022-10-10 07:13] LABS: BUN Creatinine Ratio 24.2 (10-20); Creatinine Clr Calc Pharmacy 83.1 ml/min; Est GFR (African American) 98.6 ml/min; Est GFR (Non-African American) 85.1 ml/min; Potassium 4.4 mmol/L (3.5-5.1)
[2022-10-10] MEDS: BUDESONIDE 0.25 MG/2 ML VIAL (PULMICORT) NEB SCH ×2 (07:19→19:54)
[2022-10-10] MEDS: FORMOTEROL 20 MCG/2 ML VIAL NEB SCH ×2 (07:19→19:54)
[2022-10-10 07:30] LABS: INR 3.2 (0.9-1.1); Prothrombin Time 32.2 Seconds (9.0-12.0)
[2022-10-10] MEDS: ASPIRIN 81 MG ECTAB PO SCH (08:17)
[2022-10-10] MEDS: ROSUVASTATIN CALCIUM 20 MG TAB PO SCH (08:17)
[2022-10-10] MEDS: MAGNESIUM OXIDE 400 MG TAB PO SCH (08:17)
[2022-10-10] MEDS: CHOLECALCIFEROL 1,000 UNITS 25 MCG TAB PO SCH (08:17)
[2022-10-10] MEDS: METOPROLOL SUCC 25MG EXT REL TAB PO SCH (08:17)
[2022-10-10] MEDS: ISOSORBIDE MONO EXTENDED REL 30 MG TABCR PO SCH (08:17)
[2022-10-10] MEDS: GABAPENTIN 600 MG TAB PO SCH ×2 (08:18→19:43)
[2022-10-10] MEDS: PANTOprazole 40 MG TAB PO SCH (08:18)
[2022-10-10] MEDS: methylPREDNISolone 20 MG in SYRINGE 0 ML IV SCH ×2 (08:18→19:42)
[2022-10-10] MEDS: RANOLAZINE 500 MG ER TAB PO SCH ×2 (08:18→19:42)
--- NOTE | 2022-10-10 08:37 | Hospitalist Progress Note ---
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 Cefepime discontinued 10/10, however did add azithromycin for COPD anti- inflammatory effect -Continue Duonebs q12h scheduled with prns -Resume Spiriva and hypertonic saline nebs, and continue budesonide and formoterol -Methylpred 40mg IV q12h, decrease as able -Wean oxygen as able with goal O2 >90% (2) Hypersensitivity pneumonitis: Plan: See above, needs repeat PFTs and follow up with Dr. Miller. Discussion had about proper use of his chronic inhaler regimen, as well as his rescue medications. Will need very clear written instructions on discharge regarding which inhalers to use and when (3) Generalized weakness: Plan: Secondary to hypoxia? PT and OT when able (4) GERD (gastroesophageal reflux disease): Plan: Chronic and stable Continue PPI (5) Hypertension: Plan: Chronic and stable Continue Metoprolol and Isosorbide (6) Dyslipidemia: Plan: Chronic and stable Continue rosuvastatin (7) OLIVER (obstructive sleep apnea): Plan: Intolerant of CPAP (8) History of DVT (deep vein thrombosis): Plan: On warfarin typically; holding given supratherapeutic INR (3.2 today), recheck in a.m. Plan FULL CODE Med/Tele Admission and Anticipated Discharge Date Admission Date: October 09, 2022 Subjective No acute events overnight, patient reports that his breathing is better now than when he came in but that he is not recovering as quickly as he has in previous admissions. He does not endorse chest pain, or shortness of breath while lying in bed during my interview on 3 L nasal cannula. He denies nausea and abdominal pain. Review of Systems Review of Systems: All systems reviewed & are unremarkable except as noted in Subjective Physical Exam Constitutional: WD/WN, vitals as above Respiratory: Normal respiratory effort, some coarse breath sounds with 1 expiratory wheeze during auscultation Cardiovascular: Systolic RUSB murmur Gastrointestinal (Abdomen): normal bowel sounds, soft, nontender, no hepatosplenomegaly Skin: no rashes, warm and dry Psychiatric: A+Ox3, euthymic affect Results & Data Results & Data Vital Signs (Past 12 Hours) Vital Signs Temp Pulse Pulse Resp BP Pulse Ox O2 Del Method 10/10/22 07:42 37.6 C H 80 18 163/99 H 92 Nasal Cannula 10/10/22 07:00 117 H 10/10/22 07:19 86 18 95 Nasal Cannula 10/10/22 03:45 37 C 87 16 143/86 H 92 Nasal Cannula 10/09/22 23:00 Nasal Cannula 10/09/22 23:00 91 H 10/09/22 22:40 37.2 C 87 18 152/92 H 90 Nasal Cannula O2 Flow Rate 10/10/22 07:42 4 10/10/22 07:00 10/10/22 07:19 4 10/10/22 03:45 4 10/09/22 23:00 4 10/09/22 23:00 10/09/22 22:40 4 PG Care Time/CCT Total # of Minutes Spent Total Time Spent with Patient: Total time spent is greater than 50% in coordination of care (as documented) at patient's floor/unit and/or counseling patient: Coding Level of Care Code 91496 SUB INP/OBS CARE 3/50MIN Diagnoses Hypoxia R09.02 Hypersensitivity pneumonitis J67.9 Generalized weakness R53.1 GERD (gastroesophageal reflux disease) K21.9 Hypertension I10 Dyslipidemia E78.5 OLIVER (obstructive sleep apnea) G47.33 History of DVT (deep vein thrombosis) Z86.718
[2022-10-10] MEDS: UMECLIDINIUM BROMIDE 62.5MCG/BLISTER 7 PUFFS/INHALER INH SCH (10:15)
[2022-10-10] MEDS: AZITHROMYCIN 500 MG in DEXTROSE 5% 250 ML IV SCH (14:06)
[2022-10-10] MEDS: SODIUM CHLOR 7% 4 ML NEB NEB SCH (19:54)
[2022-10-10] MEDS: ALBUT/IPRATROP 3MG/0.5MG NEB 3 ML VIAL NEB SCH (19:55)
[2022-10-10] MEDS: MELATONIN 3 MG TAB PO PRN (21:51)
[2022-10-11 07:14] LABS: INR 2.6 (0.9-1.1); Prothrombin Time 26.6 Seconds (9.0-12.0)
[2022-10-11] MEDS: FORMOTEROL 20 MCG/2 ML VIAL NEB SCH ×2 (07:22→19:08)
[2022-10-11] MEDS: ALBUT/IPRATROP 3MG/0.5MG NEB 3 ML VIAL NEB SCH ×2 (07:22→19:09)
[2022-10-11] MEDS: SODIUM CHLOR 7% 4 ML NEB NEB SCH ×2 (07:22→19:07)
--- NOTE | 2022-10-11 07:31 | Hospitalist Progress Note ---
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 Cefepime discontinued 10/10, however did add azithromycin for COPD anti-inflammatory effect 10/10 -Continue Duonebs, increased to every 6 hours scheduled and every 2 hours as needed for shortness of breath/wheezing -Resume Spiriva and hypertonic saline nebs, and continue budesonide and formoterol -Methylpred 40mg IV q12h, decrease as able -Mucinex 1200 mg twice daily scheduled -Wean oxygen as able with goal O2 >90% (2) Hypersensitivity pneumonitis: Plan: See above; needs repeat PFTs and follow up with Dr. Miller. Discussion had about proper use of his chronic inhaler regimen, as well as his rescue medications. Will need very clear written instructions on discharge regarding which inhalers to use and when (3) Generalized weakness: Plan: Secondary to hypoxia? PT and OT evaluations while admitted (4) GERD (gastroesophageal reflux disease): Plan: Chronic and stable Continue PPI (5) Hypertension: Plan: Chronic and stable Continue Metoprolol and Isosorbide (6) Dyslipidemia: Plan: Chronic and stable Continue rosuvastatin (7) OLIVER (obstructive sleep apnea): Plan: Intolerant of CPAP (8) History of DVT (deep vein thrombosis): Plan: On warfarin typically; can resume warfarin as patient's INR is 2.6 today, recheck in a.m. Plan FULL CODE Med/Tele Admission and Anticipated Discharge Date Admission Date: October 09, 2022 Subjective Patient without any acute events overnight, reports his breathing is about the same. Is on 2 L nasal cannula today, somewhat improved from yesterday. Reports increased shortness of breath with walks to the bathroom for example and out of the patient room. Notes he is not "bringing up much". No symptoms of chest pain or abdominal pain. Review of Systems Review of Systems: All systems reviewed & are unremarkable except as noted in Subjective Physical Exam Constitutional: WD/WN, vitals as above Respiratory: Normal respiratory effort, moving air a bit better today still with intermittent expiratory wheezes, especially after cough noted during auscultation Cardiovascular: Systolic RUSB murmur Gastrointestinal (Abdomen): normal bowel sounds, soft, nontender, no hepatosplenomegaly Skin: no rashes, warm and dry Psychiatric: A+Ox3, euthymic affect Results & Data Results & Data Vital Signs (Past 12 Hours) Vital Signs Temp Pulse Pulse Resp BP Pulse Ox O2 Del Method 10/11/22 07:23 80 18 93 Nasal Cannula 10/11/22 03:59 36.5 C 79 18 138/84 92 Nasal Cannula 10/10/22 19:40 Nasal Cannula 10/10/22 23:33 36.5 C 84 16 147/92 H 91 Nasal Cannula 10/10/22 23:03 93 H 10/10/22 19:57 77 18 90 Nasal Cannula 10/10/22 19:36 36.7 C 74 16 146/90 H 91 Nasal Cannula O2 Flow Rate 10/11/22 07:23 2 10/11/22 03:59 2 10/10/22 19:40 2 10/10/22 23:33 2 10/10/22 23:03 10/10/22 19:57 3 10/10/22 19:36 2 PG Care Time/CCT Total # of Minutes Spent Total Time Spent with Patient: Total time spent is greater than 50% in coordination of care (as documented) at patient's floor/unit and/or counseling patient: Coding Level of Care Code 97150 SUB INP/OBS CARE 3/50MIN Diagnoses Hypoxia R09.02 Hypersensitivity pneumonitis J67.9 Generalized weakness R53.1 GERD (gastroesophageal reflux disease) K21.9 Hypertension I10 Dyslipidemia E78.5 OLIVER (obstructive sleep apnea) G47.33 History of DVT (deep vein thrombosis) Z86.718
[2022-10-11] MEDS: GABAPENTIN 600 MG TAB PO SCH ×2 (08:33→19:48)
[2022-10-11] MEDS: ISOSORBIDE MONO EXTENDED REL 30 MG TABCR PO SCH (08:33)
[2022-10-11] MEDS: PANTOprazole 40 MG TAB PO SCH (08:33)
[2022-10-11] MEDS: ROSUVASTATIN CALCIUM 20 MG TAB PO SCH (08:33)
[2022-10-11] MEDS: RANOLAZINE 500 MG ER TAB PO SCH ×2 (08:34→19:49)
[2022-10-11] MEDS: UMECLIDINIUM BROMIDE 62.5MCG/BLISTER 7 PUFFS/INHALER INH SCH (08:34)
[2022-10-11] MEDS: methylPREDNISolone 20 MG in SYRINGE 0 ML IV SCH (08:34)
[2022-10-11] MEDS: CHOLECALCIFEROL 1,000 UNITS 25 MCG TAB PO SCH (08:34)
[2022-10-11] MEDS: MAGNESIUM OXIDE 400 MG TAB PO SCH (08:35)
[2022-10-11] MEDS: METOPROLOL SUCC 25MG EXT REL TAB PO SCH (08:35)
[2022-10-11] MEDS: ASPIRIN 81 MG ECTAB PO SCH (08:35)
[2022-10-11] MEDS: BUDESONIDE 0.25 MG/2 ML VIAL (PULMICORT) NEB SCH ×2 (09:20→19:08)
--- NOTE | 2022-10-11 11:37 | Fluoroscopy Report ---
MODIFIED BARIUM SWALLOW CLINICAL HISTORY: r/o aspiration COMPARISON STUDY: None. FLUOROSCOPY TIME: 1.7 minutes. Exposure dose: 25.39 mGy. TECHNIQUE: A modified barium swallow was performed in conjunction with Speech Pathology. The patient ingested varying consistencies of barium containing material. Video fluoroscopy was performed. FINDINGS: No tracheal aspiration was identified with thin liquids, mildly thick liquids, pudding cons istencies or crackers with paste. Epiglottic inversion was normal. Laryngeal elevation was normal. Sw allowing mechanism was intact. IMPRESSION: 1. Intact swallowing mechanism. No tracheal aspiration identified. 2. Full recommendations by Speech pathology to follow. ACT 112: Negative or not required by law. Electronically signed by: Clovis Lagos M.D. 10/11/2022 11:36 AM
[2022-10-11] MEDS ORDERED: guaiFENesin 600 MG TABCR PO STA (13:18)
[2022-10-11] MEDS: methylPREDNISolone 40 MG in SYRINGE 0 ML IV SCH (14:41)
[2022-10-11] MEDS: AZITHROMYCIN 500 MG in DEXTROSE 5% 250 ML IV SCH (14:55)
[2022-10-11] MEDS ORDERED: ALBUT/IPRATROP 3MG/0.5MG NEB 3 ML VIAL NEB PRN (16:52)
[2022-10-11] MEDS: WARFARIN SOD 3 MG TAB PO SCH (17:10)
[2022-10-11] MEDS: guaiFENesin 600 MG TABCR PO SCH (19:49)
[2022-10-12] MEDS: ALBUT/IPRATROP 3MG/0.5MG NEB 3 ML VIAL NEB SCH ×4 (00:02→19:09)
[2022-10-12] MEDS: methylPREDNISolone 40 MG in SYRINGE 0 ML IV SCH ×2 (02:50→14:21)
[2022-10-12] MEDS: SODIUM CHLOR 7% 4 ML NEB NEB SCH ×2 (06:55→19:35)
[2022-10-12] MEDS: FORMOTEROL 20 MCG/2 ML VIAL NEB SCH ×2 (06:55→19:08)
[2022-10-12] MEDS: BUDESONIDE 0.25 MG/2 ML VIAL (PULMICORT) NEB SCH ×2 (06:55→19:08)
[2022-10-12 07:11] LABS: INR 2.5 (0.9-1.1); Prothrombin Time 25.1 Seconds (9.0-12.0)
[2022-10-12] MEDS: MAGNESIUM OXIDE 400 MG TAB PO SCH (08:52)
[2022-10-12] MEDS: ROSUVASTATIN CALCIUM 20 MG TAB PO SCH (08:52)
[2022-10-12] MEDS: METOPROLOL SUCC 25MG EXT REL TAB PO SCH (08:53)
[2022-10-12] MEDS: PANTOprazole 40 MG TAB PO SCH (08:53)
[2022-10-12] MEDS: ISOSORBIDE MONO EXTENDED REL 30 MG TABCR PO SCH (08:53)
[2022-10-12] MEDS: ASPIRIN 81 MG ECTAB PO SCH (08:54)
[2022-10-12] MEDS: CHOLECALCIFEROL 1,000 UNITS 25 MCG TAB PO SCH (08:54)
[2022-10-12] MEDS: RANOLAZINE 500 MG ER TAB PO SCH ×2 (08:54→20:47)
[2022-10-12] MEDS: guaiFENesin 600 MG TABCR PO SCH ×2 (08:55→20:46)
[2022-10-12] MEDS: GABAPENTIN 600 MG TAB PO SCH ×2 (08:55→20:46)
[2022-10-12] MEDS: UMECLIDINIUM BROMIDE 62.5MCG/BLISTER 7 PUFFS/INHALER INH SCH (08:55)
--- NOTE | 2022-10-12 11:43 | Hospitalist Progress Note ---
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 -Multifactorial with underlying lung disease/pneumonitis, with some asthma/COPD flare -No evidence of PNA (fat pad likely per read) with nondetectable procal, ACTIVITIES CONCIERGE did evaluate patient and no overt signs of aspiration on video swallow study -Added azithromycin for COPD anti-inflammatory effect 10/10, completes 10/13 -Continue Duonebs every 6 hours scheduled and every 2 hours as needed for shortness of breath/wheezing -Continue Spiriva, hypertonic saline nebs, budesonide, and formoterol -Methylpred 40mg IV q12h, decrease to daily tomorrow -Mucinex 1200 mg twice daily scheduled -Wean oxygen as able with goal O2 >90%, two step tomorrow and AM CXR to ensure no developing pathology contributing to O2 needs (2) Hypersensitivity pneumonitis: Plan: See above; needs repeat PFTs and follow up with Dr. Miller. Discussion had about proper use of his chronic inhaler regimen, as well as his rescue medications (3) Generalized weakness: Plan: Secondary to hypoxia? PT and OT to evaluate patient tomorrow, determine if patient needs pulmonary rehab prior to return home (4) GERD (gastroesophageal reflux disease): Plan: Chronic and stable Continue PPI (5) Hypertension: Plan: Chronic and stable Continue Metoprolol and Isosorbide (6) Dyslipidemia: Plan: Chronic and stable Continue rosuvastatin (7) OLIVER (obstructive sleep apnea): Plan: Intolerant of CPAP (8) History of DVT (deep vein thrombosis): Plan: On warfarin typically; continue home warfarin dosing, INR 2.5 today Plan FULL CODE Med/Tele Admission and Anticipated Discharge Date Admission Date: October 09, 2022 Subjective Patient without any acute events overnight. Feels better with regard to his breathing at rest, but still with dyspnea with going to bathroom and going on short walks. No other complaints today. Review of Systems Review of Systems: All systems reviewed & are unremarkable except as noted in Subjective Physical Exam Constitutional: WD/WN, vitals as above Respiratory: Normal respiratory effort, no cough, fair air movement, no wheezing Cardiovascular: Systolic RUSB murmur Gastrointestinal (Abdomen): normal bowel sounds, soft, nontender, no hepatosplenomegaly Skin: no rashes, warm and dry Psychiatric: A+Ox3, euthymic affect Results & Data Results & Data Vital Signs (Past 12 Hours) Vital Signs Temp Pulse Pulse Pulse Resp BP Pulse Ox 10/12/22 11:16 36.3 C L 92 H 18 144/90 H 92 10/12/22 07:00 78 10/12/22 10:01 88 20 138/86 94 10/12/22 09:09 10/12/22 07:47 36.7 C 78 20 146/84 H 90 10/12/22 06:58 72 18 97 10/12/22 03:40 36.5 C 71 16 144/80 H 94 10/12/22 00:04 72 16 94 O2 Del Method O2 Flow Rate 10/12/22 11:16 Nasal Cannula 2 10/12/22 07:00 10/12/22 10:01 Nasal Cannula 2 10/12/22 09:09 Nasal Cannula 2 10/12/22 07:47 Nasal Cannula 2 10/12/22 06:58 Nasal Cannula 4 10/12/22 03:40 Nasal Cannula 1 10/12/22 00:04 Nasal Cannula 1 PG Care Time/CCT Total # of Minutes Spent Total Time Spent with Patient: Total time spent is greater than 50% in coordination of care (as documented) at patient's floor/unit and/or counseling patient: Coding Level of Care Code 49585 SUB INP/OBS CARE 3/50MIN Diagnoses Hypoxia R09.02 Hypersensitivity pneumonitis J67.9 Generalized weakness R53.1 GERD (gastroesophageal reflux disease) K21.9 Hypertension I10 Dyslipidemia E78.5 OLIVER (obstructive sleep apnea) G47.33 History of DVT (deep vein thrombosis) Z86.718
[2022-10-12] MEDS ORDERED: AZITHROMYCIN 250 MG TAB PO ONE (12:00)
[2022-10-12] MEDS: WARFARIN SOD 0.5 MG TAB PO SCH (15:44)
[2022-10-12] MEDS ORDERED: WARFARIN SOD 3 MG TAB PO SCH (16:00)
[2022-10-12] MEDS: MELATONIN 3 MG TAB PO PRN (20:58)
[2022-10-13] MEDS: ALBUT/IPRATROP 3MG/0.5MG NEB 3 ML VIAL NEB SCH ×4 (00:34→19:40)
[2022-10-13] MEDS: BUDESONIDE 0.25 MG/2 ML VIAL (PULMICORT) NEB SCH ×2 (07:10→19:39)
[2022-10-13] MEDS: FORMOTEROL 20 MCG/2 ML VIAL NEB SCH ×2 (07:10→19:39)
[2022-10-13] MEDS: SODIUM CHLOR 7% 4 ML NEB NEB SCH ×2 (07:11→19:39)
[2022-10-13] MEDS: CHOLECALCIFEROL 1,000 UNITS 25 MCG TAB PO SCH (07:54)
[2022-10-13] MEDS: RANOLAZINE 500 MG ER TAB PO SCH ×2 (07:54→20:04)
[2022-10-13] MEDS: METOPROLOL SUCC 25MG EXT REL TAB PO SCH (07:55)
[2022-10-13] MEDS: PANTOprazole 40 MG TAB PO SCH (07:55)
[2022-10-13] MEDS: MAGNESIUM OXIDE 400 MG TAB PO SCH (07:55)
[2022-10-13] MEDS: ASPIRIN 81 MG ECTAB PO SCH (07:55)
[2022-10-13] MEDS: ISOSORBIDE MONO EXTENDED REL 30 MG TABCR PO SCH (07:55)
[2022-10-13] MEDS: ROSUVASTATIN CALCIUM 20 MG TAB PO SCH (07:56)
[2022-10-13] MEDS: GABAPENTIN 600 MG TAB PO SCH ×2 (07:56→20:03)
[2022-10-13] MEDS: guaiFENesin 600 MG TABCR PO SCH ×2 (07:56→20:03)
--- NOTE | 2022-10-13 08:15 | XRay Report ---
XR chest 1V portable HISTORY: 72 years-old Male hypoxia acute hypoxia COMPARISON: Chest radiograph 10/09/2022, chest CT 09/20/2022 TECHNIQUE: AP view of the chest FINDINGS: Cardiac silhouette is enlarged. Atherosclerosis of the aorta. Surgical clips adjacent to the thoracic aorta again noted. No pneumothorax, pleural effusion or overt pulmonary edema. Chronic interstitial coarsening is similar to prior along with bibasilar atelectasis/scarring. Degenerative changes of the shoulders and spine with chronic left rib fracture deformities. IMPRESSION: 1. Cardiomegaly without acute process. 2. Chronic interstitial coarsening. 3. Chronic left rib fracture deformities. ACT 112: Negative or not required by law. The above report was generated using voice recognition software. It may contain grammatical, syntax o r spelling errors. Electronically signed by: Gerry Molina M.D. 10/13/2022 8:14 AM
[2022-10-13 08:56] LABS: INR 2.9 (0.9-1.1); Prothrombin Time 29.6 Seconds (9.0-12.0)
[2022-10-13] MEDS ORDERED: methylPREDNISolone 40 MG in SYRINGE 0 ML IV SCH (09:00)
[2022-10-13] MEDS: UMECLIDINIUM BROMIDE 62.5MCG/BLISTER 7 PUFFS/INHALER INH SCH (09:47)
--- NOTE | 2022-10-13 14:23 | Hospitalist Progress Note ---
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 -Multifactorial with underlying lung disease/pneumonitis, with some asthma/COPD flare -Repeat chest x-ray 10/13 without evidence of pneumonia or fluid overload, nondetectable procal, NUTRITION COORDINATOR did evaluate patient and no overt signs of aspiration on video swallow study -Completed azithromycin for COPD anti-inflammatory effect on 10/13 -Continue Duonebs every 6 hours scheduled and every 2 hours as needed for shortness of breath/wheezing -Continue Spiriva, hypertonic saline nebs, budesonide, and formoterol -Methylpred 40mg IV every 8 hours today, can decrease as able as we continue to determine what his new baseline oxygen need is -Mucinex 1200 mg twice daily scheduled -Wean oxygen as able with goal O2 >90% -Ultimately plan for acute rehab for pulmonary rehab, and eventually home with home oxygen therapy (2) Hypersensitivity pneumonitis: Plan: See above; needs repeat PFTs and follow up with Dr. Miller with pulmonology. Discussion had about proper use of his chronic inhaler regimen, as well as his rescue medications (3) Generalized weakness: Plan: Secondary to hypoxia? PT and OT to continue to evaluate, recommending rehab at this time (4) GERD (gastroesophageal reflux disease): Plan: Chronic and stable Continue PPI (5) Hypertension: Plan: Chronic and stable Continue Metoprolol and Isosorbide (6) Dyslipidemia: Plan: Chronic and stable Continue rosuvastatin (7) OLIVER (obstructive sleep apnea): Plan: Intolerant of CPAP (8) History of DVT (deep vein thrombosis): Plan: On warfarin typically; continue home warfarin dosing, INR 2.9 today Plan FULL CODE Med/Tele Admission and Anticipated Discharge Date Admission Date: October 09, 2022 Subjective Patient without any acute events overnight. Today while working with physical therapy required 2 L nasal cannula with rest, and did have hypoxia in the 80s despite being on 2 L with ambulation, improved with several minutes of rest. Patient denies any chest pain or abdominal pain, nausea, lightheadedness. Resting comfortably when on 2 L nasal cannula Review of Systems Review of Systems: All systems reviewed & are unremarkable except as noted in Subjective Physical Exam Constitutional: WD/WN, vitals as above Respiratory: Normal respiratory effort, no cough, fair air movement, no wheezing Cardiovascular: Systolic RUSB murmur Gastrointestinal (Abdomen): normal bowel sounds, soft, nontender, no hepatosplenomegaly Skin: no rashes, warm and dry Psychiatric: A+Ox3, euthymic affect Results & Data Results & Data Vital Signs (Past 12 Hours) Vital Signs Temp Pulse Pulse Pulse Pulse Pulse Pulse 10/13/22 13:01 78 10/13/22 11:39 36.6 C 99 H 10/13/22 11:01 85 10/13/22 09:21 10/13/22 07:55 81 110 H 99 H 80 10/13/22 07:39 36.6 C 81 10/13/22 07:11 83 10/13/22 03:28 36.6 C 79 Resp Resp Resp Resp Resp BP Pulse Ox 10/13/22 13:01 18 96 10/13/22 11:39 16 159/93 H 92 10/13/22 11:01 10/13/22 09:21 10/13/22 07:55 18 20 18 18 10/13/22 07:39 16 145/87 H 96 10/13/22 07:11 18 94 10/13/22 03:28 20 136/77 94 Pulse Ox Pulse Ox Pulse Ox Pulse Ox O2 Del Method O2 Flow Rate O2 Flow Rate 10/13/22 13:01 Nasal Cannula 2 10/13/22 11:39 Nasal Cannula 2 10/13/22 11:01 10/13/22 09:21 Nasal Cannula 2 10/13/22 07:55 92 91 93 87 L 2 10/13/22 07:39 Nebulizer 10/13/22 07:11 Nasal Cannula 2 10/13/22 03:28 Nasal Cannula 2 O2 Flow Rate O2 Flow Rate 10/13/22 13:01 10/13/22 11:39 10/13/22 11:01 10/13/22 09:21 10/13/22 07:55 2 2 10/13/22 07:39 10/13/22 07:11 10/13/22 03:28 PG Care Time/CCT Total # of Minutes Spent Total Time Spent with Patient: Total time spent is greater than 50% in coordination of care (as documented) at patient's floor/unit and/or counseling patient: Coding Level of Care Code 89785 SUB INP/OBS CARE 3/50MIN Diagnoses Hypoxia R09.02 Hypersensitivity pneumonitis J67.9 Generalized weakness R53.1 GERD (gastroesophageal reflux disease) K21.9 Hypertension I10 Dyslipidemia E78.5 OLIVER (obstructive sleep apnea) G47.33 History of DVT (deep vein thrombosis) Z86.718
[2022-10-13] MEDS: methylPREDNISolone 40 MG in SYRINGE 0 ML IV SCH (16:09)
[2022-10-13] MEDS: WARFARIN SOD 3 MG TAB PO SCH (16:09)
[2022-10-13] MEDS: POLYETHYLENE (MIRALAX) 17 GM PACK PO PRN (20:01)
[2022-10-13] MEDS: MELATONIN 3 MG TAB PO PRN (20:03)
[2022-10-14] MEDS: methylPREDNISolone 40 MG in SYRINGE 0 ML IV SCH ×4 (00:06→23:51)
[2022-10-14] MEDS: ALBUT/IPRATROP 3MG/0.5MG NEB 3 ML VIAL NEB SCH ×4 (00:21→19:28)
[2022-10-14] MEDS: BUDESONIDE 0.25 MG/2 ML VIAL (PULMICORT) NEB SCH ×2 (07:03→19:28)
[2022-10-14] MEDS: SODIUM CHLOR 7% 4 ML NEB NEB SCH ×2 (07:03→19:28)
[2022-10-14] MEDS: FORMOTEROL 20 MCG/2 ML VIAL NEB SCH ×2 (07:04→19:29)
[2022-10-14 07:53] LABS: INR 2.9 (0.9-1.1)
[2022-10-14] MEDS: ISOSORBIDE MONO EXTENDED REL 30 MG TABCR PO SCH (09:38)
[2022-10-14] MEDS: guaiFENesin 600 MG TABCR PO SCH ×2 (09:43→20:53)
[2022-10-14] MEDS: RANOLAZINE 500 MG ER TAB PO SCH ×2 (09:44→20:52)
[2022-10-14] MEDS: GABAPENTIN 600 MG TAB PO SCH ×2 (09:45→20:53)
[2022-10-14] MEDS: PANTOprazole 40 MG TAB PO SCH (09:45)
[2022-10-14] MEDS: CHOLECALCIFEROL 1,000 UNITS 25 MCG TAB PO SCH (09:46)
[2022-10-14] MEDS: ROSUVASTATIN CALCIUM 20 MG TAB PO SCH (09:47)
[2022-10-14] MEDS: METOPROLOL SUCC 25MG EXT REL TAB PO SCH (09:48)
[2022-10-14] MEDS: MAGNESIUM OXIDE 400 MG TAB PO SCH (09:48)
[2022-10-14] MEDS: ASPIRIN 81 MG ECTAB PO SCH (09:49)
[2022-10-14] MEDS: UMECLIDINIUM BROMIDE 62.5MCG/BLISTER 7 PUFFS/INHALER INH SCH (09:50)
--- NOTE | 2022-10-14 15:44 | Hospitalist Progress Note ---
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 -Multifactorial with underlying lung disease/pneumonitis, with some asthma/COPD flare -Repeat chest x-ray 10/13 without evidence of pneumonia or fluid overload, nondetectable procal, [employer]ER did evaluate patient and no overt signs of aspiration on video swallow study -Completed azithromycin for COPD anti-inflammatory effect on 10/13 -Continue Duonebs every 6 hours scheduled and every 2 hours as needed for shortness of breath/wheezing -Continue Spiriva, hypertonic saline nebs, budesonide, and formoterol -Methylpred 40mg IV every 8 hours today, can decrease as able. Will continue for today. -Mucinex 1200 mg twice daily scheduled -Wean oxygen as able with goal O2 >90% -Ultimately plan for acute rehab for pulmonary rehab, and eventually home with home oxygen therapy Message left for [employer] to do a peer to peer so inpatient rehab can be approved (2) Hypersensitivity pneumonitis: Plan: See above; needs repeat PFTs and follow up with Dr. Miller with pulmonology. Discussion had about proper use of his chronic inhaler regimen, as well as his rescue medications (3) Generalized weakness: Plan: Secondary to hypoxia? PT and OT to continue to evaluate, recommending rehab at this time (4) GERD (gastroesophageal reflux disease): Plan: Chronic and stable Continue PPI (5) Hypertension: Plan: Chronic and stable Continue Metoprolol and Isosorbide (6) Dyslipidemia: Plan: Chronic and stable Continue rosuvastatin (7) OLIVER (obstructive sleep apnea): Plan: Intolerant of CPAP (8) History of DVT (deep vein thrombosis): Plan: On warfarin typically; continue home warfarin dosing, INR 2.9 today Plan FULL CODE Med/Tele Admission and Anticipated Discharge Date Admission Date: October 09, 2022 Subjective Patient says that he feels much better at rest. However when he walks, he feels very winded and his oxygen levels drop. Review of Systems Review of Systems: All systems reviewed & are unremarkable except as noted in Subjective Physical Exam Physical Exam: General: Awake, conversant Heart: S1, S2/regular rate and rhythm, no murmur rubs or gallops Lungs: Clear to auscultation bilaterally. Normal effort Abdomen: Soft/nontender/nondistended. No hepatosplenomegaly Extremities: No clubbing/cyanosis. No edema Behavior: Appropriate, cooperative Results & Data Results & Data Vital Signs (Past 12 Hours) Vital Signs Temp Pulse Pulse Resp BP Pulse Ox O2 Del Method 10/14/22 15:11 74 10/14/22 13:09 82 18 96 Nasal Cannula 10/14/22 07:00 74 10/14/22 11:59 36.6 C 82 18 125/81 96 Nasal Cannula 10/14/22 11:00 Nasal Cannula 10/14/22 10:22 94 10/14/22 08:00 36.6 C 85 16 145/87 H 96 Room Air 10/14/22 07:05 90 18 95 Nasal Cannula 10/14/22 04:00 36.7 C 85 19 138/85 94 Nasal Cannula O2 Flow Rate 10/14/22 15:11 10/14/22 13:09 2 10/14/22 07:00 10/14/22 11:59 2 10/14/22 11:00 2 10/14/22 10:22 2 10/14/22 08:00 2 10/14/22 07:05 2 10/14/22 04:00 2 Laboratory Results Abnormal lab results 10/14/22 Range/Units 06:33 PT 29.0 H (9.0-12.0) Seconds INR 2.9 H (0.9-1.1) PG Care Time/CCT Total # of Minutes Spent Total Time Spent with Patient: Total time spent is greater than 50% in coordination of care (as documented) at patient's floor/unit and/or counseling patient: Coding Level of Care Code 07895 SUB INP/OBS CARE 2/35MIN Diagnoses Hypoxia R09.02 Hypersensitivity pneumonitis J67.9 Generalized weakness R53.1 GERD (gastroesophageal reflux disease) K21.9 Hypertension I10 Dyslipidemia E78.5 OLIVER (obstructive sleep apnea) G47.33 History of DVT (deep vein thrombosis) Z86.718
[2022-10-14] MEDS: WARFARIN SOD 0.5 MG TAB PO SCH (16:36)
[2022-10-14] MEDS: MELATONIN 3 MG TAB PO PRN (21:03)
[2022-10-14] MEDS: POLYETHYLENE (MIRALAX) 17 GM PACK PO PRN (21:03)
[2022-10-15] MEDS: ALBUT/IPRATROP 3MG/0.5MG NEB 3 ML VIAL NEB SCH ×4 (00:41→19:27)
[2022-10-15] MEDS: FORMOTEROL 20 MCG/2 ML VIAL NEB SCH ×2 (07:16→19:26)
[2022-10-15] MEDS: BUDESONIDE 0.25 MG/2 ML VIAL (PULMICORT) NEB SCH ×2 (07:16→19:26)
[2022-10-15] MEDS: SODIUM CHLOR 7% 4 ML NEB NEB SCH ×2 (07:16→19:26)
[2022-10-15 07:39] LABS: INR 3.2 (0.9-1.1); Prothrombin Time 32.3 Seconds (9.0-12.0)
[2022-10-15] MEDS: ROSUVASTATIN CALCIUM 20 MG TAB PO SCH (08:03)
[2022-10-15] MEDS: RANOLAZINE 500 MG ER TAB PO SCH ×2 (08:04→20:04)
[2022-10-15] MEDS: guaiFENesin 600 MG TABCR PO SCH ×2 (08:04→20:05)
[2022-10-15] MEDS: GABAPENTIN 600 MG TAB PO SCH ×2 (08:04→20:04)
[2022-10-15] MEDS: CHOLECALCIFEROL 1,000 UNITS 25 MCG TAB PO SCH (08:04)
[2022-10-15] MEDS: ISOSORBIDE MONO EXTENDED REL 30 MG TABCR PO SCH (08:05)
[2022-10-15] MEDS: MAGNESIUM OXIDE 400 MG TAB PO SCH (08:05)
[2022-10-15] MEDS: METOPROLOL SUCC 25MG EXT REL TAB PO SCH (08:05)
[2022-10-15] MEDS: ASPIRIN 81 MG ECTAB PO SCH (08:05)
[2022-10-15] MEDS: methylPREDNISolone 40 MG in SYRINGE 0 ML IV SCH (08:06)
[2022-10-15] MEDS: PANTOprazole 40 MG TAB PO SCH (08:07)
[2022-10-15] MEDS: UMECLIDINIUM BROMIDE 62.5MCG/BLISTER 7 PUFFS/INHALER INH SCH (08:07)
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
--- NOTE | 2022-10-15 13:30 | Hospitalist Progress Note ---
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 -Multifactorial with underlying lung disease/pneumonitis, with some asthma/COPD flare -Repeat chest x-ray 10/13 without evidence of pneumonia or fluid overload, nondetectable procal, DELIVERY SPECIALIST did evaluate patient and no overt signs of aspiration on video swallow study -Completed azithromycin for COPD anti-inflammatory effect on 10/13 -Continue Duonebs every 6 hours scheduled and every 2 hours as needed for shortness of breath/wheezing -Continue Spiriva, hypertonic saline nebs, budesonide, and formoterol -Solu-Medrol to 40 mg IV twice daily -Mucinex 1200 mg twice daily scheduled -Wean oxygen as able with goal O2 >90% Peer to peer with insurance company for inpatient rehab denied Consult pulmonary to see if pulmonary rehab can be arranged for outpatient Patient will need to go home with home oxygen eventually Encouraged him to use oxygen on ambulation as well (2) Hypersensitivity pneumonitis: Plan: See above; needs repeat PFTs and follow up with Dr. Miller with pulmonology. Discussion had about proper use of his chronic inhaler regimen, as well as his rescue medications (3) Generalized weakness: Plan: Secondary to hypoxia? PT and OT to continue to evaluate, recommending rehab at this time (4) GERD (gastroesophageal reflux disease): Plan: Chronic and stable Continue PPI (5) Hypertension: Plan: Chronic and stable Continue Metoprolol and Isosorbide (6) Dyslipidemia: Plan: Chronic and stable Continue rosuvastatin (7) OLIVER (obstructive sleep apnea): Plan: Intolerant of CPAP (8) History of DVT (deep vein thrombosis): Plan: On warfarin typically; continue home warfarin dosing, INR 2.9 today Plan FULL CODE Med/Tele Admission and Anticipated Discharge Date Admission Date: October 09, 2022 Subjective Patient says he gets winded when he goes to the bathroom. On questioning he stated that he tried to go to the bathroom without oxygen on. Review of Systems Review of Systems: All systems reviewed & are unremarkable except as noted in Subjective Physical Exam Physical Exam: General: Awake, conversant Heart: S1, S2/regular rate and rhythm, no murmur rubs or gallops Lungs: Clear to auscultation bilaterally. Normal effort Abdomen: Soft/nontender/nondistended. No hepatosplenomegaly Extremities: No clubbing/cyanosis. No edema Behavior: Appropriate, cooperative Results & Data Results & Data Vital Signs (Past 12 Hours) Vital Signs Temp Pulse Pulse Resp BP Pulse Ox O2 Del Method 10/15/22 11:56 Nasal Cannula 10/15/22 10:58 36.5 C 80 20 171/94 H 93 Nasal Cannula 10/15/22 07:41 36.5 C 66 20 163/97 H 96 Nasal Cannula 10/15/22 07:38 67 10/15/22 07:30 66 18 94 Nasal Cannula 10/15/22 03:36 74 10/15/22 03:16 36.4 C L 85 18 153/86 H 97 Nasal Cannula O2 Flow Rate 10/15/22 11:56 2 10/15/22 10:58 2 10/15/22 07:41 2 10/15/22 07:38 10/15/22 07:30 2 10/15/22 03:36 10/15/22 03:16 2 PG Care Time/CCT Total # of Minutes Spent Total Time Spent with Patient: Total time spent is greater than 50% in coordination of care (as documented) at patient's floor/unit and/or counseling patient: Coding Level of Care Code 10128 SUB INP/OBS CARE 2/35MIN Diagnoses Hypoxia R09.02 Hypersensitivity pneumonitis J67.9 Generalized weakness R53.1 GERD (gastroesophageal reflux disease) K21.9 Hypertension I10 Dyslipidemia E78.5 OLIVER (obstructive sleep apnea) G47.33 History of DVT (deep vein thrombosis) Z86.718
[2022-10-15] MEDS: WARFARIN SOD 3 MG TAB PO SCH (15:42)
[2022-10-15] MEDS: POLYETHYLENE (MIRALAX) 17 GM PACK PO PRN (20:11)
[2022-10-15] MEDS: MELATONIN 3 MG TAB PO PRN (20:11)
[2022-10-15] MEDS ORDERED: methylPREDNISolone 40 MG in SYRINGE 0 ML IV SCH (21:00)
[2022-10-16] MEDS: ALBUT/IPRATROP 3MG/0.5MG NEB 3 ML VIAL NEB SCH ×4 (00:37→19:40)
[2022-10-16] MEDS: BUDESONIDE 0.25 MG/2 ML VIAL (PULMICORT) NEB SCH ×2 (07:03→18:52)
[2022-10-16] MEDS: FORMOTEROL 20 MCG/2 ML VIAL NEB SCH ×2 (07:03→18:52)
[2022-10-16] MEDS: SODIUM CHLOR 7% 4 ML NEB NEB SCH ×2 (07:03→18:52)
[2022-10-16] MEDS: ROSUVASTATIN CALCIUM 20 MG TAB PO SCH (08:36)
[2022-10-16] MEDS: guaiFENesin 600 MG TABCR PO SCH ×2 (08:36→20:58)
[2022-10-16] MEDS: ASPIRIN 81 MG ECTAB PO SCH (08:36)
[2022-10-16] MEDS: CHOLECALCIFEROL 1,000 UNITS 25 MCG TAB PO SCH (08:36)
[2022-10-16] MEDS: MAGNESIUM OXIDE 400 MG TAB PO SCH (08:36)
[2022-10-16] MEDS: RANOLAZINE 500 MG ER TAB PO SCH ×2 (08:36→20:58)
[2022-10-16] MEDS: predniSONE 10 MG TABLET PO SCH (08:36)
[2022-10-16] MEDS: PANTOprazole 40 MG TAB PO SCH (08:36)
[2022-10-16] MEDS: GABAPENTIN 600 MG TAB PO SCH ×2 (08:36→20:59)
[2022-10-16] MEDS: METOPROLOL SUCC 25MG EXT REL TAB PO SCH (08:37)
[2022-10-16] MEDS: UMECLIDINIUM BROMIDE 62.5MCG/BLISTER 7 PUFFS/INHALER INH SCH (08:37)
[2022-10-16] MEDS: ISOSORBIDE MONO EXTENDED REL 30 MG TABCR PO SCH (08:37)
[2022-10-16 09:24] LABS: Prothrombin Time 39.8 Seconds (9.0-12.0)
[2022-10-16] MEDS: WARFARIN SOD 0.5 MG TAB PO SCH (09:50)
--- NOTE | 2022-10-16 10:47 | Pulmonology Progress Note ---
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 His chest x-ray from 10/13/2022 actually looks much improved from admission and from his prior film back on 09/20/2022. RECOMMENDATIONS: 1. Hypoxia -suspect this may be related to the patient's underlying obstructive lung disease as well as chronic hypersensitivity pneumonitis. He feels better on oxygen. Recommend assessing the patient for oxygen and getting him set up with home oxygen if he qualifies. Unclear if he will require oxygen in the long-term or not. 2. Asthma-COPD Overlap Syndrome -continue DuoNeb, Perforomist, and budesonide as well as Mucinex. 3. Hypersensitivity Pneumonitis -not sure that this represents progression of the patient's underlying lung disease or not. Certainly his chest x-ray demonstrates no significant radiographic progression. Discontinue Solu-Medrol and transition to oral prednisone 10 mg a day. Follow-up with Dr. Miller in the outpatient setting. Outpatient PFTs have been scheduled previously. 4. OLIVER -Has failed CPAP in the past. Continue to follow for now. Patient appears to be stable from a pulmonary standpoint. I recommend he be dismissed from the hospital with outpatient follow-up in the pulmonary clinic within the next few weeks. Feel free to contact us if we can be of additional assistance Admission and Anticipated Discharge Date Admission Date: October 09, 2022 Subjective Patient seen and examined. He is awake alert and conversant. No obvious distress. He is not coughing or expectorating phlegm. He continues to complain of some mild exertional dyspnea with physical activity but this is markedly relieved when he uses his oxygen. Review of Systems Review of Systems: All systems reviewed & are unremarkable except as noted in Subjective Physical Exam Physical Exam: VITAL SIGNS - Vital signs and nursing notes were reviewed. GENERAL - 72-year-old male appearing his stated age who is in no acute distress. Communicates well with provider and answers questions appropriately. MOUTH/OROPHARYNX - Without perioral cyanosis. Buccal mucosa pink and moist. LUNGS - Good inspiratory effort noted. Bibasilar rales. No wheezes noted. CARDIAC - RRR with S1/S2. No murmur, rubs, or gallops appreciated. ABDOMEN - Abdominal contour obese without pulsations or visible masses. BS normoactive all four quadrants. No tenderness, palpable masses, hepatosplenomegaly, or ascites noted. PSYCH - A&Ox3 and cooperates fully with examiner. Pt is very pleasant and interacts well with examiner. Results & Data Results & Data Vital Signs (Past 12 Hours) Vital Signs Temp Pulse Pulse Resp BP Pulse Ox O2 Del Method 10/16/22 10:30 Nasal Cannula 10/16/22 09:41 71 10/16/22 07:47 37.0 C 70 18 144/91 H 95 Nasal Cannula 10/16/22 03:49 36.5 C 84 18 158/94 H 92 Nasal Cannula 10/16/22 00:37 87 20 97 Nasal Cannula 10/15/22 23:16 36.5 C 63 18 163/94 H 93 Nasal Cannula O2 Flow Rate 10/16/22 10:30 2 10/16/22 09:41 10/16/22 07:47 2 10/16/22 03:49 2 10/16/22 00:37 2 10/15/22 23:16 PG Care Time/CCT Total # of Minutes Spent Total Time Spent with Patient: Total time spent is greater than 50% in coordination of care (as documented) at patient's floor/unit and/or counseling patient: Coding Level of Care Code 38969 SUB INP/OBS CARE 2/35MIN Diagnoses Hypoxia R09.02 Asthma-COPD overlap syndrome J44.9 Hypersensitivity pneumonitis J67.9 OLIVER (obstructive sleep apnea) G47.33
--- NOTE | 2022-10-16 11:59 | Hospitalist Progress Note ---
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 -Multifactorial with underlying lung disease/pneumonitis, with some asthma/COPD flare -Repeat chest x-ray 10/13 without evidence of pneumonia or fluid overload, nondetectable procal, BORING MACHINE OPERATOR HORIZONTAL did evaluate patient and no overt signs of aspiration on video swallow study -Completed azithromycin for COPD anti-inflammatory effect on 10/13 -Continue Duonebs every 6 hours scheduled and every 2 hours as needed for shortness of breath/wheezing -Continue Spiriva, hypertonic saline nebs, budesonide, and formoterol Solu-Medrol discontinued Now on prednisone 10 mg since this morning We will check a rest and exercise today Likely discharge tomorrow -Mucinex 1200 mg twice daily scheduled -Wean oxygen as able with goal O2 >90% Peer to peer with insurance company for inpatient rehab denied Pulmonology on board. The patient will follow-up with outpatient pulmonology to see if pulmonary rehab can be set up outpatient Encouraged him to use oxygen on ambulation as well (2) Hypersensitivity pneumonitis: Plan: See above; needs repeat PFTs and follow up with Dr. Miller with pulmonology. Discussion had about proper use of his chronic inhaler regimen, as well as his rescue medications (3) Generalized weakness: Plan: Secondary to hypoxia? PT and OT to continue to evaluate, recommending rehab at this time (4) GERD (gastroesophageal reflux disease): Plan: Chronic and stable Continue PPI (5) Hypertension: Plan: Chronic and stable Continue Metoprolol and Isosorbide (6) Dyslipidemia: Plan: Chronic and stable Continue rosuvastatin (7) OLIVER (obstructive sleep apnea): Plan: Intolerant of CPAP (8) History of DVT (deep vein thrombosis): Plan: On warfarin typically; continue home warfarin dosing INR for today Hold Coumadin today Plan FULL CODE Med/Tele Admission and Anticipated Discharge Date Admission Date: October 09, 2022 Subjective Patient feels well today. Denies chest pain or shortness of breath. Review of Systems Review of Systems: All systems reviewed & are unremarkable except as noted in Subjective Physical Exam Physical Exam: General: Awake, conversant Heart: S1, S2/regular rate and rhythm, no murmur rubs or gallops Lungs: Clear to auscultation bilaterally. Normal effort Abdomen: Soft/nontender/nondistended. No hepatosplenomegaly Extremities: No clubbing/cyanosis. No edema Behavior: Appropriate, cooperative Results & Data Results & Data Vital Signs (Past 12 Hours) Vital Signs Temp Pulse Pulse Resp BP Pulse Ox O2 Del Method 10/16/22 11:53 36.4 C L 80 20 130/78 97 Nasal Cannula 10/16/22 08:00 93 H 20 96 Nasal Cannula 10/16/22 10:30 Nasal Cannula 10/16/22 09:41 71 10/16/22 07:47 37.0 C 70 18 144/91 H 95 Nasal Cannula 10/16/22 03:49 36.5 C 84 18 158/94 H 92 Nasal Cannula 10/16/22 00:37 87 20 97 Nasal Cannula O2 Flow Rate 10/16/22 11:53 2 10/16/22 08:00 2 10/16/22 10:30 2 10/16/22 09:41 10/16/22 07:47 2 10/16/22 03:49 2 10/16/22 00:37 2 PG Care Time/CCT Total # of Minutes Spent Total Time Spent with Patient: Total time spent is greater than 50% in coordination of care (as documented) at patient's floor/unit and/or counseling patient: Coding Level of Care Code 99405 SUB INP/OBS CARE 2/35MIN Diagnoses Hypoxia R09.02 Hypersensitivity pneumonitis J67.9 Generalized weakness R53.1 GERD (gastroesophageal reflux disease) K21.9 Hypertension I10 Dyslipidemia E78.5 OLIVER (obstructive sleep apnea) G47.33 History of DVT (deep vein thrombosis) Z86.718
[2022-10-16] MEDS: MELATONIN 3 MG TAB PO PRN (20:58)
[2022-10-17] MEDS: FORMOTEROL 20 MCG/2 ML VIAL NEB SCH (07:00)
[2022-10-17] MEDS: BUDESONIDE 0.25 MG/2 ML VIAL (PULMICORT) NEB SCH (07:00)
[2022-10-17] MEDS: SODIUM CHLOR 7% 4 ML NEB NEB SCH (07:00)
[2022-10-17] MEDS: ALBUT/IPRATROP 3MG/0.5MG NEB 3 ML VIAL NEB SCH ×2 (07:45)
[2022-10-17 08:05] LABS: INR 2.9 (0.9-1.1); Prothrombin Time 29.4 Seconds (9.0-12.0)
[2022-10-17] MEDS: ASPIRIN 81 MG ECTAB PO SCH (09:10)
[2022-10-17] MEDS: GABAPENTIN 600 MG TAB PO SCH (09:10)
[2022-10-17] MEDS: CHOLECALCIFEROL 1,000 UNITS 25 MCG TAB PO SCH (09:10)
[2022-10-17] MEDS: ISOSORBIDE MONO EXTENDED REL 30 MG TABCR PO SCH (09:11)
[2022-10-17] MEDS: METOPROLOL SUCC 25MG EXT REL TAB PO SCH (09:11)
[2022-10-17] MEDS: PANTOprazole 40 MG TAB PO SCH (09:11)
[2022-10-17] MEDS: RANOLAZINE 500 MG ER TAB PO SCH (09:11)
[2022-10-17] MEDS: ROSUVASTATIN CALCIUM 20 MG TAB PO SCH (09:11)
[2022-10-17] MEDS: guaiFENesin 600 MG TABCR PO SCH (09:11)
[2022-10-17] MEDS: MAGNESIUM OXIDE 400 MG TAB PO SCH (09:11)
[2022-10-17] MEDS: predniSONE 10 MG TABLET PO SCH (09:11)
[2022-10-17] MEDS: UMECLIDINIUM BROMIDE 62.5MCG/BLISTER 7 PUFFS/INHALER INH SCH (09:11)
--- NOTE | 2022-10-17 10:30 | Discharge Summary ---
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 Patient had a recent admission for similar complaints 2 weeks ago and was discharged to home on 09/22/22 with prednisone, Doxycycline and Cefuroxime. Patient was evaluated by his PCP on 09/27/22 and was rx another course of prednisone. He tells me that he is to be on Symbicort and Spiriva but was not rx the Spiriva. He said also that his PCP forgot to send in a rx for the spiriva as well and he has only been using symbicort BID. He does have a nebulizer machine and will use this when he feels he needs to. He did try a nebulizer treatment and also had one left over prednisone pill and took that as well last night. He denies any fevers, chill, nausea, vomiting, a bdominal pain. He does admit to left chest wall discomfort, he states this feels like my lungs, not my heart. He denies any diaphoresis. Patient was hypoxic on admission, currently is saturating in low 90s on 3L NC. Troponin elevated slightly at 22 (was 28.8 and 44.7 last admission), Lactate elevated at 2.1, procal normal at <0.05, VBG normal CXR Density over the left lower lung is favored to represent extrapleural fat as seen on prior exam. Superimposed aspiration/pneumonia cannot be entirely excluded. Otherwise no acute abnormalities. Last admission had CT 09/20/22 1. Mild interstitial thickening which is slightly progressed. This may be chronic. Superimposed congestive change could also have a similar appearance. 2. Bibasilar linear densities favor subsegmental atelectasis or scarring. Otherwise, no new focal lung consolidations to suggest a pneumonia. 3. Stable mild cardiomegaly. 4. Old, healed left-sided rib fractures again noted. Admission Exam Per Admitting Provider Constitutional: WD/WN, vitals as above Respiratory: normal respiratory effort, lungs clear to auscultation Cardiovascular: regular rhythm, bradycardic, no murmurs Gastrointestinal (Abdomen): normal bowel sounds, soft, nontender, no hepatosplenomegaly Skin: no rashes, warm and dry Neurologic: bilateral upper and lower extremities and face without sensory or motor deficits Psychiatric: A+Ox3, euthymic affect Principal Diagnosis Hypoxia related to acute exacerbation of COPD and hypersensitivity pneumonitis Discharge Exam General: Awake, conversant Heart: S1, S2/regular rate and rhythm, no murmur rubs or gallops Lungs: Clear to auscultation bilaterally. Normal effort Abdomen: Soft/nontender/nondistended. No hepatosplenomegaly Extremities: No clubbing/cyanosis. 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 -Multifactorial with underlying lung disease/pneumonitis, with some asthma/COPD flare -Repeat chest x-ray 10/13 without evidence of pneumonia or fluid overload, nondetectable procal, RESIDENTIAL COUNSELOR did evaluate patient and no overt signs of aspiration on video swallow study -Completed azithromycin for COPD anti-inflammatory effect on 10/13 -Being discharged on prednisone 10 mg Will be discharged on 1 L of oxygen with exertion Discharge today Pulmonology on board. The patient will follow-up with outpatient pulmonology to see if pulmonary rehab can be set up outpatient (2) Hypersensitivity pneumonitis: See above; needs repeat PFTs and follow up with Dr. Miller with pulmonology. Discussion had about proper use of his chronic inhaler regimen, as well as his rescue medications (3) Generalized weakness: Secondary to hypoxia? Improved (4) GERD (gastroesophageal reflux disease): Chronic and stable Continue PPI (5) Hypertension: Chronic and stable Continue Metoprolol and Isosorbide (6) Dyslipidemia: Chronic and stable Continue rosuvastatin (7) OLIVER (obstructive sleep apnea): Intolerant of CPAP (8) History of DVT (deep vein thrombosis): On warfarin typically; continue home warfarin dosing Resume Coumadin Plan FULL CODE Med/Tele Total Time Total Time Spent Total Time Spent (In Minutes): 35 Discharge Plan Discharge Items Patient Disposition: Home - Self-Care Reason For Visit: hypoxia Discharge Diagnosis: Acute exacerbation of underlying COPD and chronic hypersensitivity pneumonitis Activity: Resume your previous activity Non-emergency contact: Primary Care Provider and Inspector Returned Materials Call non-emergency contact if: you have any medication questions and your symptoms worsen Follow-up/Referrals: Darnell Velazco MD [Primary Care Provider] - 10/20/22 3:00 pm Diet: Heart Healthy Addtl Attending Provider Instructions: Advised to follow-up with PCP in 1 week Advised to follow-up with stage rigger in 1 week Pending Studies at Discharge: No Stand-Alone Forms: [employer], Work/School Release Medications and DC Order Prescriptions: New Spiriva Respimat 2.5 mcg/actuation mist 2 inh inhalation DAILY 30 Days Qty: 4 0RF Spiriva Respimat 2.5 mcg/actuation mist 2 inh inhalation DAILY Qty: 4 0RF prednisone 10 mg Tablet 10 mg PO DAILY 5 Days Qty: 5 0RF Continued acetaminophen 650 mg tablet extended release 1,300 mg PO HS warfarin 3 mg tablet 1.5 - 3 mg PO UD Rx Instructions: DIRECTED BY [facility] cholecalciferol (vitamin D3) 50 mcg (2,000 unit) capsule 50 mcg PO DAILY Qty: 30 0RF aspirin 81 mg tablet,delayed release (DR/EC) 81 mg PO DAILY gabapentin 600 mg tablet 600 mg PO BID Qty: 180 3RF pantoprazole 40 mg tablet,delayed release (DR/EC) 40 mg PO DAILY Qty: 90 3RF rosuvastatin 40 mg tablet 40 mg PO DAILY Qty: 90 3RF metoprolol succinate 25 mg tablet extended release 24 hr 25 mg PO DAILY Qty: 90 3RF isosorbide mononitrate 30 mg tablet extended release 24 hr 30 mg PO DAILY Qty: 90 3RF magnesium oxide 400 mg (241.3 mg magnesium) tablet 400 mg PO DAILY Qty: 90 3RF sennosides [senna] 8.6 mg tablet 8.6 mg PO DAILY PRN (Reason: Constipation) Qty: 90 3RF albuterol sulfate 90 mcg/actuation HFA aerosol inhaler 2 puff INHALATION Q6H PRN (Reason: Shortness Of Breath) Qty: 18 5RF budesonide 0.25 mg/2 mL suspension for nebulization 0.25 mg inhalation BID Qty: 120 12RF Perforomist 20 mcg/2 mL solution for nebulization 2 ml inhalation BID Qty: 120 12RF nitroglycerin [Nitrostat] 0.4 mg tablet, sublingual 0.4 mg Sublingual DIRECTED PRN (Reason: Chest Pain) Qty: 25 3RF Rx Instructions: PLACE 1 TABLET UNDER TONGUE EVERY 5 MINUTES FOR UP TO 3 DOSES ranolazine 500 mg tablet extended release 12 hr 500 mg PO BID ipratropium-albuterol 0.5 mg-3 mg(2.5 mg base)/3 mL solution for nebulization 3 ml INHALATION Q6H PRN (Reason: Shortness Of Breath) Qty: 180 5RF Discharge Orders: Discharge Order (Routine); Ordered 10/17/22 Ordered By: Datne Ramon/Other Patient Handouts: Chest and Lung Problems, Infec Common Resp Prevention Admission Data Admit Date/Time: 10/09/22 13:17 Attending Provider: Dante Mcintyre Admit Provider: Hubert Bryan Primary Care Provider: Darnell Velazco Other Providers: Hubert Bryan ; [facility] ; [facility] ; Chandler Loaiza Other Interventions: Discharge Summary Assessment (RN) Last Done: 10/17/22 10:35 Coding Level of Care Code 53332 INP/OBS DISCH >30 MIN Diagnoses Hypoxia R09.02 Hypersensitivity pneumonitis J67.9 Generalized weakness R53.1 GERD (gastroesophageal reflux disease) K21.9 Hypertension I10 Dyslipidemia E78.5 OLIVER (obstructive sleep apnea) G47.33 History of DVT (deep vein thrombosis) Z86.718
== END 2022-10-17 13:10 | disposition home or self-care (01) | DRG 189 ==
LOC: ED 09:47 → 2N 09:47 → SUATTDRO 13:17 → OBSVTOIN 13:17 → SUATTDRO 16:06 → 2N 18:16

== ENCOUNTER 2023-11-08 09:35 | Observation (INO) ==
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
[2023-11-08 10:16] LABS: Base Excess VBG 3.2 mEq/L; HCO3 VBG 29 mmol/L; Oxygen Saturation VBG 62.2 %; PCO2 VBG 45 mmHg (38-50); PO2 VBG 37 mmHg; pH VBG 7.41 (7.36-7.41)
[2023-11-08 10:27] LABS: Basophils # (auto) 0.03 K/uL (0.00-0.20); Basophils % (auto) 0.5 %; Eosinophils # (auto) 0.13 K/uL (0.00-0.50); Hematocrit (blood only) 41.4 % (42.0-52.0); Hemoglobin 13.8 g/dl (14.0-18.0); Immature Granulocytes # (auto) 0.04 K/uL (0.01-0.20); Immature Granulocytes % (auto) 0.6 %; Lymphocytes # (auto) 1.05 K/uL (1.20-3.40); Mean Corpuscular Hemoglobin 32.9 pg (25.0-34.0); Mean Corpuscular Hgb Conc 33.3 g/dL (32.0-36.0); Mean Corpuscular Volume 98.8 fL (80.0-100.0); Mean Platelet Volume 9.5 fL (9.4-12.4); Monocytes % (auto) 12.2 %; Neutrophils % (auto) 68.7 %; Platelet Count 152 K/uL (130-400); RDW Coefficient of Variation 15.1 % (11.5-14.5); RDW Standard Deviation 54.1 fL (36.4-46.3); Red Blood Count 4.19 M/uL (4.70-6.10); White Blood Count 6.55 K/ul (4.8-10.8)
[2023-11-08] MEDS: ALBUT/IPRATROP 3MG/0.5MG NEB 3 ML VIAL NEB STA (10:40)
[2023-11-08 10:50] LABS: Albumin Level 4.2 gm/dl (3.4-5.0); BUN Creatinine Ratio 13.4 (10-20); Bilirubin Direct 0.1 mg/dl (0-0.2); Bilirubin,Total 0.7 mg/dl (0.2-1.0); Calcium 9.4 mg/dl (8.6-10.3); Creatinine Clr Calc Pharmacy 59.2 ml/min; Est GFR (African American) 65.4 ml/min; Est GFR (Non-African American) 56.5 ml/min; Magnesium 1.8 mg/dl (1.7-2.4); Potassium 3.8 mmol/L (3.5-5.1); Total Protein 7.3 gm/dl (6.0-8.3)
[2023-11-08 10:54] LABS: INR 2.5 (0.9-1.1); Partial Thromboplastin Ratio 1.5; Partial Thromboplastin Time 43 Seconds (21-31); Prothrombin Time 25.6 Seconds (9.0-12.0)
[2023-11-08 10:56] LABS: Troponin I High Sensitivity 17.2 pg/ml (0-20)
[2023-11-08 10:57] LABS: Influenza A virus by PCR Negative (Neg); Influenza B virus by PCR Negative (Neg); RSV by PCR Negative (Neg); SARS CoV2 RNA(COVID-19) Ceph NEGATIVE (Negative)
[2023-11-08] MEDS: CEFEPIME 2,000 MG/20 ML VIAL IV STA (11:11)
--- NOTE | 2023-11-08 11:16 | XRay Report ---
XR chest 1V portable HISTORY: 73 years-old Male Sepsis COMPARISON: 08/26/2023 TECHNIQUE: AP view of the chest FINDINGS: Cardiac silhouette is enlarged. Chronic interstitial coarsening. Chronic left rib fractures. No pneum othorax, pleural effusion or overt pulmonary edema. Mediastinal surgical clips. No lobar airspace con solidation. IMPRESSION: 1. Cardiomegaly without acute process. 2. Chronic interstitial lung disease. ACT 112: Negative or not required by law. The above report was generated using voice recognition software. It may contain grammatical, syntax o r spelling errors. Electronically signed by: Gerry Molina M.D. 11/08/2023 11:15 AM
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
[2023-11-08] MEDS: OPTIRAY 320 125ml IV ONE (12:45)
[2023-11-08] MEDS ORDERED: ALBUTEROL 0.083% NEBU SOLN 3 ML VIAL NEB PRN (12:55)
--- NOTE | 2023-11-08 13:02 | CT Scan Report ---
CT ANGIOGRAM OF THE CHEST CLINICAL HISTORY: Dyspnea COMPARISON STUDY: Chest x-ray dated 11/08/2023. Chest CT dated 09/20/2022. TECHNIQUE: Following the IV administration of 119 cc of Optiray 320, CT angiogram of the chest was pe rformed from the upper abdomen to the thoracic inlet utilizing the pulmonary embolus protocol. Images are reviewed in the axial, sagittal, and coronal planes. 3-D MIPS images are created and assessed. I V contrast was administered without complication. A dose lowering technique was utilized adhering to the principles of ALARA. CT DOSE: 849.13 mGy.cm FINDINGS: Thyroid: Imaged portions of the thyroid gland are normal in size and attenuation. Thoracic aorta: There is atherosclerotic calcification of the thoracic aorta, which is normal in rosalind chela and demonstrates standard 3-vessel arch anatomy. The thoracic aorta is not well opacified. Pulmonary vasculature: The pulmonary trunk is normal in caliber. There are no filling defects identif ied in main, lobar, or segmental pulmonary branches to suggest pulmonary embolus. Heart: The heart is enlarged and without pericardial effusion. The coronary arteries are densely calc ified. Left ventricular calcifications are unchanged and suggest prior ischemia. Lungs and pleural spaces: Subpleural reticulation the fossae of fibrotic change and parenchymal scarr ing is seen throughout both lungs. There is no airspace consolidation typical for pneumonia. There is trace left pleural effusion. Scarring/atelectasis is noted at both lung bases. The trachea and centr al airways are clear. There are scattered calcified granulomas. Mediastinum: Mildly enlarged mediastinal nodes measure up to 11 mm short axis.. Rosalba: Mildly enlarged hilar nodes measure up to 13 mm in short axis. Axillae: There is no axillary lymphadenopathy. Upper abdomen: There are calcified splenic granulomas. Partially visualized upper abdominal viscera i s otherwise within normal limits. Skeletal structures: The skeletal structures are osteopenic. No lytic or blastic bony lesions are see n. There is chronic deformity of the left-sided ribs. Degenerative change is noted in the shoulders a nd spine. IMPRESSION: 1. There is no evidence of pulmonary embolus in the main, lobar, or segmental pulmonary arteries. 2. Cardiomegaly and trace left pleural effusion. 3. Chronic parenchymal changes as above. There is no airspace consolidation typical for pneumonia. 4. Mildly enlarged mediastinal and hilar lymph nodes are nonspecific and may be related to chronic neo ng disease. Correlate clinically. 5. Additional findings as above. ACT 112: Negative or not required by law. Electronically signed by: Jairon Gross M.D. 11/08/2023 12:59 PM
[2023-11-08] MEDS: ALBUT/IPRATROP 3MG/0.5MG NEB 3 ML VIAL NEB SCH ×2 (13:43→15:49)
[2023-11-08] MEDS ORDERED: SENNA 8.6 MG TAB PO PRN (14:40)
--- NOTE | 2023-11-08 16:10 | Electrocardiogram Report ---
Test Reason : Blood Pressure : / mmHG Vent. Rate : 066 BPM Atrial Rate : 066 BPM P-R Int : 206 ms QRS Dur : 098 ms QT Int : 420 ms P-R-T Axes : 041 -25 038 degrees QTc Int : 440 ms Normal sinus rhythm Inferior infarct (cited on or before 10-MAY-2015) Anterolateral infarct (cited on or before 09-MAY-2015) Abnormal ECG When compared with ECG of 09-OCT-2022 10:08, Questionable change in initial forces of Anterior leads ST no longer depressed in Lateral leads Confirmed by Ethan Avila ([id number]) on 11/08/2023 4:09:38 PM Referred By: REFERRED SELF Confirmed By:Ethan Avila
[2023-11-08] MEDS: WARFARIN SOD 0.5 MG TAB PO SCH (17:28)
[2023-11-08] MEDS: WARFARIN SOD 1 MG TAB PO SCH (17:28)
--- NOTE | 2023-11-08 17:43 | Ultrasound Report ---
BILATERAL CAROTID DOPPLER STUDY HISTORY: Transient ischemic attack. COMPARISON: None. TECHNIQUE: Real-time, grayscale, and color Doppler sonography of the carotid arteries was performed. Imaging reviewed in the transverse and longitudinal planes. All measurements were calculated based on NASCET criteria. FINDINGS: Antegrade flow is seen in the bilateral vertebral arteries. Mild calcified plaque within the right carotid bifurcation and distal left internal carotid artery. The peak systolic velocity within the right ICA is 59 cm/s. The right systolic ratio is 0.7. The peak systolic velocity within the left ICA is 59 cm/s. The left systolic ratio is 0.8. IMPRESSION: No hemodynamically significant stenosis seen within the carotid arteries. ACT 112: Negative or not required by law. Electronically signed by: Edi Bah M.D. 11/08/2023 5:42 PM
[2023-11-08 18:18] LABS: Appearance Urine Clear (Clear); Bilirubin Urine Negative (Negative); Blood Urine Negative (Negative); Color Urine Yellow; Glucose Urine UA Negative (Negative); Ketones Urine Negative (Negative); Leukocyte Esterase Urine Negative (Negative); Nitrite Urine Negative (Negative); Protein Urine Negative (Negative); Specific Gravity Urine > 1.045 (1.000-1.030); Urobilinogen Urine Negative (Negative); pH Urine 6.5 (4.5-7.5)
[2023-11-08] MEDS: FLUTICASONE/VILANTEROL 100/25MCG 14 PUFFS/INHALER INH SCH (22:32)
[2023-11-08] MEDS: RANOLAZINE 500 MG ER TAB PO SCH (22:32)
[2023-11-08] MEDS: GABAPENTIN 600 MG TAB PO SCH (22:33)
--- NOTE | 2023-11-08 22:54 | Communication Note ---
Date of Service: November 08, 2023 Notified by nursing on concern for chest pain. Evaluated pt at bedside. Notes left sided chest tightness. States that he gets intermittently at home, most recent episode 2 days ago. Lasts for anywhere from seconds to a few minutes. Starting to subside now. Heart with RRR no murmurs, lungs clear to auscultation B/L. Repeat EKG unchanged from prior. Repeat Trop 17.4-> 16.8.
--- NOTE | 2023-11-09 02:09 | CT Scan Report ---
Exam(s): CT HEAD Without Contrast EXAM: CT Head Without Intravenous Contrast CLINICAL HISTORY: AMS. TECHNIQUE: Axial computed tomography images of the head/brain without intravenous contrast. CTDI is 36.9 mGy and DLP is 624 mGy-cm. Automated exposure control was utilized for the study. A dose lowering technique was utilized adhering to the principles of ALARA. COMPARISON: CT head 06/02/2020 FINDINGS: Brain: No intracranial hemorrhage, mass-effect or midline shift. No abnormal extra axial fluid. No evidence of acute infarct. Mild periventricular white matter hypodensities are most consistent with chronic microangiopathy. Ventricles: Unremarkable. No ventriculomegaly. Bones/joints: Unremarkable. No acute fracture. Soft tissues: Unremarkable. Sinuses: Unremarkable as visualized. No acute sinusitis. Mastoid air cells: Unremarkable as visualized. No mastoid effusion. IMPRESSION: No acute intracranial finding. Electronically signed by: Gisele Danielle MD 11/09/23 02:09 AM
[2023-11-09 07:48] LABS: Basophils # (auto) 0.03 K/uL (0.00-0.20); Basophils % (auto) 0.5 %; Eosinophils # (auto) 0.12 K/uL (0.00-0.50); Eosinophils % (auto) 1.9 %; Hematocrit (blood only) 39.6 % (42.0-52.0); Hemoglobin 13.5 g/dl (14.0-18.0); Immature Granulocytes # (auto) 0.01 K/uL (0.01-0.20); Immature Granulocytes % (auto) 0.2 %; Lymphocytes # (auto) 0.88 K/uL (1.20-3.40); Lymphocytes % (auto) 14.1 %; Mean Corpuscular Hemoglobin 33.1 pg (25.0-34.0); Mean Corpuscular Hgb Conc 34.1 g/dL (32.0-36.0); Mean Corpuscular Volume 97.1 fL (80.0-100.0); Mean Platelet Volume 9.8 fL (9.4-12.4); Monocytes # (auto) 0.69 K/uL (0.11-0.59); Neutrophils # (auto) 4.53 K/uL (1.40-6.50); Neutrophils % (auto) 72.3 %; Platelet Count 115 K/uL (130-400); RDW Standard Deviation 53.1 fL (36.4-46.3); Red Blood Count 4.08 M/uL (4.70-6.10); White Blood Count 6.26 K/ul (4.8-10.8)
[2023-11-09 08:06] LABS: Albumin Globulin Ratio 1.5 (0.9-2); Albumin Level 4.1 gm/dl (3.4-5.0); BUN Creatinine Ratio 12.2 (10-20); Bilirubin,Total 0.6 mg/dl (0.2-1.0); Calcium 8.8 mg/dl (8.6-10.3); Chol HDL Ratio 3.1 (0-5); Creatinine Clr Calc Pharmacy 64.5 ml/min; Est GFR (African American) 73.8 ml/min; Est GFR (Non-African American) 63.7 ml/min; Globulin 2.8 gm/dl (2.5-4.0); Potassium 4.2 mmol/L (3.5-5.1); Total Protein 6.9 gm/dl (6.0-8.3)
[2023-11-09 08:16] LABS: INR 2.5 (0.9-1.1); Prothrombin Time 26.1 Seconds (9.0-12.0)
[2023-11-09] MEDS: ROSUVASTATIN CALCIUM 20 MG TAB PO SCH (08:47)
[2023-11-09] MEDS: METOPROLOL SUCC 25MG EXT REL TAB PO SCH (08:47)
[2023-11-09] MEDS: UMECLIDINIUM BROMIDE 62.5MCG/BLISTER 7 PUFFS/INHALER INH SCH (08:47)
[2023-11-09] MEDS: MAGNESIUM OXIDE 400 MG TAB PO SCH (08:47)
[2023-11-09] MEDS: ASPIRIN 81 MG ECTAB PO SCH (08:47)
[2023-11-09] MEDS: TAMSULOSIN HCL 0.4 MG CAP PO SCH (08:47)
[2023-11-09] MEDS: ISOSORBIDE MONO EXTENDED REL 30 MG TABCR PO SCH (08:48)
[2023-11-09] MEDS: PANTOprazole 40 MG TAB PO SCH (08:48)
[2023-11-09] MEDS: CHOLECALCIFEROL 25 MCG (1000 UNITS) TAB PO SCH (08:48)
--- NOTE | 2023-11-09 11:44 | Discharge Summary ---
Date of Service November 09, 2023 Admission HPI Per Admitting Provider This is a pleasant 73-year-old male who has underlying pulmonary fibrosis and COPD with chronic hypoxemic respiratory failure. 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 The patient was at his primary care doctor's office today. The patient did not take his ambulatory oxygen with him. At the primary care doctor's office his oxygen saturations were in the mid 80s. The patient was placed on 2 L of oxygen nasal cannula at which point his oxygen saturations came up in the low 90s. He was sent to the ER for further evaluation and treatment In the ER he had a unremarkable workup including a negative chest x-ray by radiology's read laboratory studies were unremarkable and stable including a nonacute EKG. And negative troponin. Course in the ER he received some nebulizer treatments and he received IV cefepime for what was thought to be a possible left lower lobe pneumonia by wet read of the x-ray by the emergency department provider. However again the official chest x-ray does not appear to demonstrate a acute infiltrate. The patient had a negative procalcitonin level with a normal white count he is afebrile with no other clinical stigmata of pneumonia. Therefore, it appears this is an acute recognition of a chronic hypoxemic respiratory failure with medical noncompliance of ambulatory oxygen use. The patient does have a history of however pulmonary embolism. His INR is 2.5 however his increased shortness of breath has been ongoing for a few days therefore an abundance of caution we will check a CTA to make sure he did not h ave an acute PE as we do not know the patient's INR status a few days ago and his shortness of breath started. It is noted that his viral respiratory panel was also negative today in the ER. We admit the patient observation to an echocardiogram and serial troponins. He does follow with a [facility] and the patient tells me he is scheduled for routine outpatient stress test on November 13. Principal Diagnosis Acute on chronic hypoxic respiratory failure Discharge Exam General-alert and oriented x3, no fever, no chills HEENT-head atraumatic and normocephalic, pupils equal and reactive to light, extraocular muscles intact Neck-no lymphadenopathy or thyromegaly, trachea midline Chest-diminished breath sounds bilaterally with coarse inspiratory rales. No wheezing or rhonchi Cardiac-regular rate and rhythm, normal S1 and S2 Abdomen-normal bowel sounds, no hepatosplenomegaly Extremities-no cyanosis, clubbing, or edema Neuro-cranial nerves II through XII intact, motor and sensory function within normal limits, strength symmetrical, no focal deficits Psych-normal affect, normal mood Discharge Data Allergies Allergy/AdvReac Type Severity Reaction Status Date / Time codeine Allergy Intermediate HIVES Verified 10/11/23 16:30 meperidine Allergy Intermediate hives Verified 10/11/23 16:30 oxycodone Allergy Intermediate HIVES, Verified 10/11/23 16:30 ITCHING Consultations 11/08/23 11:54 ED Decision to Admit Stat Ordered Studies 11/08/23 12:23 CT angio chest PE protocol Stat 11/08/23 16:38 CT head/brain wo con Stat US carotid doppler BI Stat Hospital Course (1) Acute on chronic hypoxic respiratory failure: Appears to be due to noncompliance with oxygen per nasal cannula. While he is wearing his oxygen currently, his oxygen saturations are normal. He is at his baseline. (2) Interstitial lung disease: Stable. Continue current medical management (3) Psychogenic nonepileptic seizure: Stable. Continue outpatient therapy Plan Home today, November 08 Total Time Total Time Spent Total Time Spent (In Minutes): 45 minutes Discharge Plan Discharge Items Patient Disposition: Home - Self-Care Reason For Visit: sob Discharge Diagnosis: Acute on chronic hypoxic respiratory failure due to oxygen noncompliance Activity: Resume your previous activity Non-emergency contact: Primary Care Provider Call non-emergency contact if: you have any medication questions Follow-up/Referrals: ProDarnell MD [Primary Care Provider] - Diet: Regular Addtl Attending Provider Instructions: Wear oxygen at all times as directed. All medications remain the same Pending Studies at Discharge: No Stand-Alone Forms: My TRData, Smoking Cessation Medications and DC Order Prescriptions: Continued naproxen sodium 220 mg tablet 220 mg PO BID PRN (Reason: Other) acetaminophen 650 mg tablet extended release 1,300 mg PO HS PRN (Reason: Pain) warfarin 3 mg tablet See Rx Instructions PO UD Rx Instructions: 1.5mg q Tuesday, 3mg x 6 days per [facility] orally use as directed; cholecalciferol (vitamin D3) 50 mcg (2,000 unit) capsule 50 mcg PO DAILY Qty: 30 0RF aspirin 81 mg tablet,delayed release (DR/EC) 81 mg PO DAILY sennosides [senna] 8.6 mg tablet 8.6 mg PO DAILY PRN (Reason: Constipation) Qty: 90 3RF ipratropium-albuterol 0.5 mg-3 mg(2.5 mg base)/3 mL solution for nebulization 3 ml INHALATION Q6H PRN (Reason: Shortness Of Breath) Qty: 180 5RF gabapentin 600 mg tablet 600 mg PO BID Qty: 180 3RF metoprolol succinate 25 mg tablet extended release 24 hr 25 mg PO DAILY Qty: 90 3RF isosorbide mononitrate 30 mg tablet extended release 24 hr 30 mg PO DAILY Qty: 90 3RF rosuvastatin 40 mg tablet 40 mg PO DAILY Qty: 90 3RF ranolazine 500 mg tablet extended release 12 hr 500 mg PO BID Qty: 180 3RF magnesium oxide 400 mg (241.3 mg magnesium) tablet 400 mg PO DAILY Qty: 90 3RF pantoprazole 40 mg tablet,delayed release (DR/EC) 40 mg PO DAILY Qty: 90 3RF tamsulosin 0.4 mg capsule 0.4 mg PO DAILY Qty: 30 2RF albuterol sulfate 90 mcg/actuation HFA aerosol inhaler 2 puff INHALATION Q6H PRN (Reason: Shortness Of Breath) Qty: 18 5RF budesonide-formoterol [Symbicort] 160-4.5 mcg/actuation HFA aerosol inhaler 2 puff inhalation BID Qty: 3 1RF (DME) Portable Oxygen E0431 Misc See Rx Instructions .MEDSUPPLY Qty: 1 0RF Rx Instructions: Oxygen 3 liters continuous via nasal cannula on exertion with portable concentrator. BELEN 99 nitroglycerin [Nitrostat] 0.4 mg tablet, sublingual 0.4 mg Sublingual DIRECTED PRN (Reason: Chest Pain) Qty: 25 3RF Rx Instructions: PLACE 1 TABLET UNDER TONGUE EVERY 5 MINUTES FOR UP TO 3 DOSES Ofev 150 mg capsule 150 mg PO Q12H Qty: 60 8RF Spiriva Respimat 2.5 mcg/actuation mist 2 inh inhalation DAILY 30 Days Qty: 4 4RF Discharge Orders: Discharge Order (Routine); Ordered 11/09/23 Ordered By: Radu Harrison Admission Data Admit Date/Time: 11/08/23 12:29 Attending Provider: Radu Harrison Admit Provider: Mark Esteves Primary Care Provider: Darnell Velazco Other Providers: Mark Esteves Coding Level of Care Code 98505 INP/OBS DISCH >30 MIN Diagnoses Acute on chronic hypoxic respiratory failure J96.21 Interstitial lung disease J84.9 Psychogenic nonepileptic seizure F44.5
[2023-11-09] MEDS ORDERED: WARFARIN SOD 3 MG TAB PO SCH (16:00)
--- NOTE | 2023-11-10 07:59 | XCELERA ---
[id number]
--- NOTE | 2023-11-11 11:04 | Electrocardiogram Report ---
Test Reason : Blood Pressure : / mmHG Vent. Rate : 065 BPM Atrial Rate : 065 BPM P-R Int : 206 ms QRS Dur : 100 ms QT Int : 416 ms P-R-T Axes : 042 -24 004 degrees QTc Int : 432 ms Sinus rhythm with Premature atrial complexes Inferior infarct (cited on or before 10-MAY-2015) Anterolateral infarct (cited on or before 09-MAY-2015) Abnormal ECG When compared with ECG of 08-NOV-2023 09:50, Premature atrial complexes are now Present Confirmed by Ethan Avila ([id number]) on 11/11/2023 11:03:25 AM Referred By: REFERRED SELF Confirmed By:Ethan Avila
== END 2023-11-09 14:28 | disposition home or self-care (01) ==
LOC: 2S 09:35 → ED 09:35 → SUATTDRO 12:29 → 2S 14:51

== ENCOUNTER 2023-12-16 12:45 | Observation (INO) ==
[2023-12-16 13:45] LABS: Base Excess VBG 1.8 mEq/L; HCO3 VBG 29 mmol/L; Oxygen Saturation VBG < 60.0 %; PCO2 VBG 53 mmHg (38-50); PO2 VBG 24 mmHg; pH VBG 7.34 (7.36-7.41)
[2023-12-16 13:51] LABS: Basophils # (auto) 0.02 K/uL (0.00-0.20); Basophils % (auto) 0.2 %; Eosinophils # (auto) 0.22 K/uL (0.00-0.50); Eosinophils % (auto) 2.7 %; Hematocrit (blood only) 37.1 % (42.0-52.0); Hemoglobin 12.5 g/dl (14.0-18.0); Immature Granulocytes # (auto) 0.03 K/uL (0.01-0.20); Immature Granulocytes % (auto) 0.4 %; Lymphocytes # (auto) 0.99 K/uL (1.20-3.40); Mean Corpuscular Hemoglobin 33.6 pg (25.0-34.0); Mean Corpuscular Hgb Conc 33.7 g/dL (32.0-36.0); Mean Corpuscular Volume 99.7 fL (80.0-100.0); Mean Platelet Volume 9.5 fL (9.4-12.4); Monocytes # (auto) 0.73 K/uL (0.11-0.59); Monocytes % (auto) 8.9 %; Neutrophils # (auto) 6.23 K/uL (1.40-6.50); Neutrophils % (auto) 75.8 %; Platelet Count 129 K/uL (130-400); RDW Coefficient of Variation 14.9 % (11.5-14.5); RDW Standard Deviation 54.6 fL (36.4-46.3); Red Blood Count 3.72 M/uL (4.70-6.10); White Blood Count 8.22 K/ul (4.8-10.8)
[2023-12-16 14:07] LABS: Albumin Globulin Ratio 1.2 (0.9-2); Albumin Level 4.2 gm/dl (3.4-5.0); BUN Creatinine Ratio 14.3 (10-20); Bilirubin,Total 0.8 mg/dl (0.2-1.0); Calcium 9.6 mg/dl (8.6-10.3); Creatinine Clr Calc Pharmacy 67.3 ml/min; Est GFR (African American) 76.2 ml/min; Est GFR (Non-African American) 65.7 ml/min; Globulin 3.5 gm/dl (2.5-4.0); Potassium 4.4 mmol/L (3.5-5.1); Total Protein 7.7 gm/dl (6.0-8.3)
--- NOTE | 2023-12-16 14:10 | XRay Report ---
XR chest 1V not portable HISTORY: Chest pain, nonspecific COMPARISON: Chest 11/08/2023. FINDINGS: No pneumothorax. No pleural effusions. The cardiac silhouette remains enlarged. There is di ffuse chronic interstitial thickening again noted. This is similar to the prior study. No new focal l carie consolidations. No evidence for pulmonary edema. There are old, healed left-sided rib fractures. IMPRESSION: No significant change compared to the prior study. No acute process. Cardiomegaly and chronic interst itial thickening persists. ACT 112: Negative or not required by law. Electronically signed by: Edi Bah M.D. 12/16/2023 2:09 PM
[2023-12-16 14:13] LABS: Troponin I High Sensitivity 13.1 pg/ml (0-20)
[2023-12-16 14:17] LABS: INR 1.7 (0.9-1.1); Partial Thromboplastin Ratio 1.3; Partial Thromboplastin Time 35 Seconds (21-31); Prothrombin Time 17.9 Seconds (9.0-12.0)
[2023-12-16 14:25] LABS: Influenza A virus by PCR Negative (Neg); Influenza B virus by PCR Negative (Neg); RSV by PCR Negative (Neg); SARS CoV2 RNA(COVID-19) Ceph NEGATIVE (Negative)
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
[2023-12-16] MEDS: methylPREDNISolone 125 MG/2 ML VIAL IV STA (17:22)
[2023-12-16] MEDS: ALBUT/IPRATROP 3MG/0.5MG NEB 3 ML VIAL NEB STA (17:23)
[2023-12-16] MEDS: OPTIRAY 320 125ml IV ONE (17:39)
--- NOTE | 2023-12-16 17:56 | CT Scan Report ---
CHEST CTA for PULMONARY ARTERIES CT DOSE: 821.86 mGy.cm HISTORY: Atypical chest pain. TECHNIQUE: Multiaxial CT images of the chest were performed following the intravenous administration of contrast to evaluate the pulmonary arteries. 3D/Maximal intensity projection images were also obta ined. Sagittal and coronal reformations were also reviewed. A dose lowering technique was utilized a dhering to the principles of ALARA. COMPARISON STUDY: Chest CTA 11/08/2023. FINDINGS: Inadequate contrast within the thoracic aorta to evaluate for a dissection. The aorta is no rmal and course and caliber. The heart remains enlarged. Severe coronary artery calcifications are ag ain noted. There is a trace left pleural effusion. This remains unchanged. No pericardial effusion. L imited views of the upper abdomen demonstrate a normal liver and left adrenal gland. The right adrena l gland is not included on this study. Punctate calcified granuloma within the spleen. Normal esophag us. Normal thyroid gland. Left ventricular wall calcifications consistent with an old infarct. This r emains unchanged. Mild mediastinal and bilateral hilar lymphadenopathy, unchanged. Old, healed left-s ided rib fractures. No acute fractures within the chest. No filling defects within the pulmonary delmer artem to suggest a pulmonary embolus. No pneumothorax. The central airways are patent. A few punctate calcified granulomas within the lungs. A few bibasilar linear densities favor subsegmental atelectasi s. Chronic interstitial thickening most pronounced within the right upper lobe and mild bronchiectasi s is similar to the prior study. No evidence for pulmonary edema. IMPRESSION: 1. No evidence for a pulmonary embolus. 2. Mild cardiomegaly, unchanged. 3. Chronic interstitial changes again noted. 4. Trace left pleural effusion, unchanged. 5. Stable mild mediastinal and bilateral hilar lymphadenopathy. ACT 112: Negative or not required by law. Electronically signed by: Edi Bah M.D. 12/16/2023 5:54 PM
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
--- NOTE | 2023-12-16 20:17 | Billing Data ---
Date of Service December 16, 2023 Coding Level of Care Code 39033 INT INP/OBS CARE
[2023-12-16 21:23] LABS: Adenovirus PCR Not Detected (NotDetected); Bordetella parapertussis PCR Not Detected (NotDetected); Bordetella pertussis PCR Not Detected (NotDetected); Chlamydia pneumoniae PCR Not Detected (NotDetected); Coronavirus 229E PCR Not Detected (NotDetected); Coronavirus CoV-2 (COVID19)PCR Not Detected (NotDetected); Coronavirus HKU1 PCR Not Detected (NotDetected); Coronavirus NL63 PCR Not Detected (NotDetected); Coronavirus OC43PCR Not Detected (NotDetected); Human Metapneumovirus PCR Not Detected (NotDetected); Influenza A PCR Not Detected (NotDetected); Influenza B PCR Not Detected (NotDetected); Mycoplasma pneumoniae PCR Not Detected (NotDetected); Parainfluenza Virus 1 PCR Not Detected (NotDetected); Parainfluenza Virus 2 PCR Not Detected (NotDetected); Parainfluenza Virus 3 PCR Not Detected (NotDetected); Parainfluenza Virus 4 PCR Not Detected (NotDetected); Respiratory Syncytial VirusPCR Not Detected (NotDetected); Rhinovirus/Enterovirus PCR Not Detected (NotDetected)
[2023-12-16] MEDS ORDERED: ALBUTEROL HFA 8 GM INHALER INH PRN (22:32)
[2023-12-16] MEDS ORDERED: ALBUT/IPRATROP 3MG/0.5MG NEB 3 ML VIAL INH PRN (22:32)
[2023-12-16] MEDS ORDERED: NAPROXEN 250 MG TAB PO PRN (22:32)
[2023-12-16] MEDS ORDERED: NITROGLYCERIN SL 0.4 MG/TAB TAB SL PRN (22:32)
[2023-12-16] MEDS ORDERED: SENNA 8.6 MG TAB PO PRN (22:32)
[2023-12-16] MEDS: WARFARIN SOD 4 MG TAB PO STA (23:17)
[2023-12-16] MEDS ORDERED: ACETAMINOPHEN 325 MG TAB PO PRN (23:17)
[2023-12-16] MEDS: RANOLAZINE 500 MG ER TAB PO SCH (23:18)
[2023-12-16] MEDS: CHOLECALCIFEROL 25 MCG (1000 UNITS) TAB PO SCH (23:18)
[2023-12-16] MEDS: WARFARIN SOD 0.5 MG TAB PO STA (23:19)
[2023-12-16] MEDS: GABAPENTIN 600 MG TAB PO SCH (23:19)
--- NOTE | 2023-12-17 06:24 | Electrocardiogram Report ---
Test Reason : Blood Pressure : / mmHG Vent. Rate : 057 BPM Atrial Rate : 057 BPM P-R Int : 204 ms QRS Dur : 106 ms QT Int : 436 ms P-R-T Axes : 037 -24 006 degrees QTc Int : 424 ms Sinus bradycardia Inferior infarct (cited on or before 10-MAY-2015) Anterolateral infarct (cited on or before 09-MAY-2015) Abnormal ECG When compared with ECG of 08-NOV-2023 22:30, Premature atrial complexes are no longer Present Confirmed by Demond Sutherland ([id number]) on 12/17/2023 6:24:14 AM Referred By: Confirmed By:Demond Sutherland
[2023-12-17 07:02] LABS: Basophils # (auto) 0.01 K/uL (0.00-0.20); Basophils % (auto) 0.2 %; Hematocrit (blood only) 35.1 % (42.0-52.0); Hemoglobin 12.3 g/dl (14.0-18.0); Immature Granulocytes # (auto) 0.02 K/uL (0.01-0.20); Immature Granulocytes % (auto) 0.3 %; Lymphocytes # (auto) 0.56 K/uL (1.20-3.40); Lymphocytes % (auto) 8.8 %; Mean Corpuscular Hemoglobin 33.7 pg (25.0-34.0); Mean Corpuscular Volume 96.2 fL (80.0-100.0); Mean Platelet Volume 9.9 fL (9.4-12.4); Monocytes # (auto) 0.16 K/uL (0.11-0.59); Monocytes % (auto) 2.5 %; Neutrophils # (auto) 5.65 K/uL (1.40-6.50); Neutrophils % (auto) 88.2 %; Platelet Count 129 K/uL (130-400); RDW Coefficient of Variation 14.2 % (11.5-14.5); RDW Standard Deviation 50.2 fL (36.4-46.3); Red Blood Count 3.65 M/uL (4.70-6.10)
[2023-12-17 07:05] LABS: Albumin Globulin Ratio 1.1 (0.9-2); Albumin Level 3.9 gm/dl (3.4-5.0); BUN Creatinine Ratio 16.5 (10-20); Bilirubin,Total 0.7 mg/dl (0.2-1.0); Calcium 9.5 mg/dl (8.6-10.3); Creatinine Clr Calc Pharmacy 87.7 ml/min; Est GFR (African American) 101.6 ml/min; Est GFR (Non-African American) 87.7 ml/min; Globulin 3.5 gm/dl (2.5-4.0); Total Protein 7.4 gm/dl (6.0-8.3)
[2023-12-17 07:08] LABS: INR 1.5 (0.9-1.1)
--- NOTE | 2023-12-17 07:49 | Hospitalist Progress Note ---
Date of Service December 17, 2023 Assessment & Plan (1) Interstitial lung disease: (2) Hypoxia: (3) Restrictive lung disease: (4) Shortness of breath at rest: (5) Acidosis: (6) Chronic anticoagulation: (7) Anemia: (8) Thrombocytopenia: Plan Patient is a 73 yo M w/ a PMHx of interstitial lung disease/restrictive lung disease/Schmidt's lung, dyspnea on exertion, PNES, BPH, presence of IVC filter, Hx of PE/on chronic anticoagulation (warfarin), ischemic cardiomyopathy (post 2 coronary stents), Hx of [place], who presents for acute on chronic hypoxic resp failure. 1. Acute on chronic hypoxic resp failure in the setting of known interstitial lung disease - O2 sats in 80s upon presentation, requiring 3 L O2 NC to maintain oxygen > 92 - VBG: pH, 7.34; CO2, 53 - continue budesonide-formoterol, albuterol (PRN), ipratropium-albuterol - on admissionno fevers, WBC, 8.2 - COVID, Flu A/B, RSV all negative; Resp BioFire panel neg - CXR, no acute process or abnormalities - CT-chest: no evidence of PE, trace l. pleural effusion, chronic interstitial changes noted, stable mediastinal and hilar lymphadenopathy - Pulm consulted, pending recommendations 2. Chronic anticoagulation/Hx of PE/ - pt on Warfarin, subtherapeutic INR of 1.7 upon admission, 4.5 mg Warfarin, ONCE, upon admission (pt had not taken daily dose) - daily INR, continue home dose Warfarin (3 mg, daily ( only, 1.5 mg) 3. Anemia - pt w/ Hgb, 12.5 upon admission - no acute sources of bleeding - daily CBC 4. Thrombocytopenia - pt w/ Plts, 129 upon admission - daily CBC Admission and Anticipated Discharge Date Admission Date: December 16, 2023 Supervising Physician Co-Signing Physician Notes I personally examined the patient and verified all alicea points of history and exam, discussed case, and agree with decision making with Dr Caceres No new complaints. Appreciate pulmonary input. Vitals noted, in general he is awake and alert pleasant no distress. HEENT normocephalic atraumatic mucous membranes moist. Lungs with faint Rales predominantly at the bases with fairly quiet throughout otherwise no wheezes no rhonchi. No accessory muscle use. No conversational dyspnea. 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 Continue to follow closely. follow INR Subjective Today, pt states he is feeling much better than yesterday, he states he feels his breathing has improved significantly and it may be due to the steroids he got yesterday. He states that he had noticed a functional decline the last 2 weeks where he was having progressively worsening shortness of breath with normal activities. He states that his oxygen device at home "just couldn't seem to keep up" and he would sometimes desaturate into the 60-70s%. He is usually on 2L of oxygen at home and follows regularly with pulmonology. He states he was here about a month ago for a similar reason but last time he had mucus he was coughing up and seemed more sick. He states that weeks ago he was prescribed Ofev by pulmonology but due to cost he could not get it at first and now is able to get it but wanted to see a casino beverage server in [place] for another opinion on his pulmonary fibrosis. Overall feeling better today. Awaiting pulmonology here for their opinion since this is his second recent admission for similar symptoms. No other questions or complaints at this time. Review of Systems Review of Systems: Per HPI. Physical Exam Physical Exam: General:Alert and oriented, no acute distress, HEENT: Normocephalic, moist oral mucosa, Cardio: Regular rate and rhythm, no murmur, Resp:Lungs clear to auscultation b/l, faint crackles in lung bases GI: Soft and nontender, nondistended, bowel sounds active Skin: Warm, pink, dry, Results & Data Results & Data Vital Signs (Past 12 Hours) Vital Signs Temp Pulse Pulse Pulse Resp BP BP 12/17/23 07:14 36.4 C L 65 18 148/90 H 12/16/23 22:32 12/16/23 22:32 36.6 C 88 18 177/84 H 12/16/23 20:00 69 24 157/91 H Pulse Ox O2 Del Method O2 Flow Rate 12/17/23 07:14 97 Nasal Cannula 3 12/16/23 22:32 Room Air 4 12/16/23 22:32 95 Nasal Cannula 4 12/16/23 20:00 91 Nasal Cannula 2 Resident Activity Tracking Resident Involvement: Resident Care Provided Care Provided: Adult Hospital Medicine
[2023-12-17] MEDS: ASPIRIN 81 MG ECTAB PO SCH (09:24)
[2023-12-17] MEDS: ISOSORBIDE MONO EXTENDED REL 30 MG TABCR PO SCH (09:25)
[2023-12-17] MEDS: METOPROLOL SUCC 25MG EXT REL TAB PO SCH (09:25)
[2023-12-17] MEDS: FLUTICASONE/VILANTEROL 200/25MCG 14 PUFFS/INHALER INH SCH (09:25)
[2023-12-17] MEDS: MAGNESIUM OXIDE 400 MG TAB PO SCH (09:25)
[2023-12-17] MEDS: UMECLIDINIUM BROMIDE 62.5MCG/BLISTER 7 PUFFS/INHALER INH SCH (09:26)
[2023-12-17] MEDS: PANTOprazole 40 MG TAB PO SCH (09:26)
[2023-12-17] MEDS: ROSUVASTATIN CALCIUM 10 MG TAB PO SCH (09:26)
[2023-12-17] MEDS: TAMSULOSIN HCL 0.4 MG CAP PO SCH (09:26)
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
--- NOTE | 2023-12-17 14:34 | Billing Data ---
Date of Service December 17, 2023 Coding Level of Care Code 45775 SUB INP/OBS CARE
[2023-12-17] MEDS: FUROSEMIDE INJ 20 MG/2 ML VIAL IV ONE (14:43)
[2023-12-17] MEDS: WARFARIN SOD 3 MG TAB PO SCH (15:57)
[2023-12-18 08:23] LABS: INR 2.1 (0.9-1.1); Prothrombin Time 21.7 Seconds (9.0-12.0)
--- NOTE | 2023-12-18 10:55 | Pulmonology Progress Note ---
Date of Service December 18, 2023 Assessment & Plan (1) Acute on chronic hypoxic respiratory failure: (2) Pulmonary fibrosis: (3) Interstitial lung disease: (4) Asthma-COPD overlap syndrome: (5) Hypersensitivity pneumonitis: (6) Pulmonary hypertension: Plan CT chest 12/16/2023 personally reviewed: Fibrotic changes appreciated bilaterally especially in the upper lobes, more pronounced on the right side Mosaicism appreciated bilaterally Elevated left hemidiaphragm, mild bilateral pleural effusion Cardiomegaly No significant mediastinal lymphadenopathy No significant change compared to CT chest 11/08/2023 2D echo 11/10/2023: EF 50-55%, grade 2 diastolic dysfunction, PASP 40-45 mmHg -- Acute on chronic hypoxic respiratory failure Patient with need 3 L oxygen via nasal cannula on exertion Multifactorial Grade 2 diastolic dysfunction Restrictive lung disease with ILD BNP 351 Respiratory bio fire negative for everything 12/17/2023, procalcitonin negative --Restrictive pattern with air trapping Restrictive pattern is most likely from scarring and reticulation from history of underlying hypersensitivity pneumonitis. This was appreciated on PFTs done in September 2018 but there is improvement in air trapping appreciated on PFTs 03/2020 Patient personally does not have any history of smoking but he has history of hypersensitivity pneumonitis status post treatment with prednisone. 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 Patient is not able to tolerate inhalers. He prefers nebulizers. Patient has finished pulmonary rehab and did find benefit from it At home he is on high-dose Symbicort and Spiriva on a regular basis along with as needed albuterol and DuoNebs Continue with incentive spirometry as well given the elevated hemidiaphragm and restrictive lung disease Ofev was supposed to be started February 2023 but there was issues with insurance and he was not able to get it. He has not started to use it yet Repeat LFTs every 3 months x 2 and then can do it every 6 months if they are stable Absolute eosinophil count of 180 on 01/16/2020 Chronic hypersensitive pneumonitis can give restrictive pattern especially when there is a component of scarring/fibrosis. PFT 10/05/2023 personally reviewed: Moderate restrictive lung dysfunction, no obstruction, moderate decrease in DLCO, subdued inspiratory loop on the flow- volume loop (Increase in FVC by 110 mL, no significant change in FEV1 DLCO or TLC, no significant change in weight compared to 03/02) FVC 2.17 L 51%, FEV1 1.79 L 57%, FEV1/FVC 82%, ERV 61%, RV 57%, TLC 52%, RV/TLC 106%, DLCO 40% --History of OLIVER Patient did not tolerate BiPAP and return the machine I did explain the importance of using CPAP in a patient who has been diagnosed with OLIVER Patient currently is not willing to have another sleep study done --History of hypersensitivity pneumonitis Status post prednisone for 8 to 12 months long time ago On repeat CT chest 02/29/2020 there does not seem to be any reason to treat his HP Most likely in the fibrotic phase. -- Pulmonary hypertension Combination of type II and type III --History of PE and DVT On warfarin Plan: In/out: -580 since coming to the hospital I think patient is one of the reasons for coming to the hospital is likely diastolic CHF. BNP elevated with mild pitting edema bilateral lower extremity and small bilateral pleural effusion I do not think this is exacerbation of his underlying ILD as there is no significant change on the CAT scan of the chest Recommend getting cardiology involved for the grade 2 diastolic dysfunction as well as wall motion abnormalities. Patient did find benefit from Lasix yesterday. Would recommend patient to be discharged on 20 mg of Lasix . Can take extra if there is gain in weight by 2-3 pounds. Will benefit from pulmonary rehab, can be taken care of as an outpatient No further recommendation from pulmonary perspective, will sign off Please call directly with any questions Please note the above document was generated using voice recognition software. It may contain grammatical, syntax or spelling errors.Any formal questions or concerns about the content, text or information contained within the body of this dictation should be directly addressed to the provider for clarification. Admission and Anticipated Discharge Date Admission Date: December 16, 2023 Subjective Patient seen and examined at bedside. No acute distress, no adverse events overnight. Was saturating 97% on 2 L nasal cannula at rest Patient's was also in the room He says he is feeling better. Shortness of breath is improved Denied any headache, no nausea, no vomiting Diuresed well with Lasix yesterday Fair appetite Review of Systems 2 Review of Systems: All systems reviewed & are unremarkable except as noted in Subjective Physical Exam 2 Physical Exam: Constitutional: No acute distress HEENT: EOMI, PERRLA, patient has soft voice Respiratory system: Mild decrease air entry on the left lower side(likely from elevated left hemidiaphragm), no wheeze, no rhonchi, positive crackles bilateral lower lobes CVS: S1-S2 positive, positive 3 out of 6 systolic ejection murmur best appreciated the aorta Abdomen: Soft, nontender, nondistended, positive bowel sounds x4, obese Extremities: +2 pulses bilaterally radialis, no cyanosis, minimal pitting edema Neuro: Awake alert oriented x3 Psych: Normal mood and affect G/U: No Vázquez Skin: no rashes, warm and dry Lymphatic: no cervical or axillary lymphadenopathy Results & Data Results & Data Vital Signs (Past 12 Hours) Vital Signs Temp Pulse Resp BP Pulse Ox O2 Del Method O2 Flow Rate 12/18/23 07:27 36.9 C 60 16 128/81 97 Nasal Cannula 3 Laboratory Results 12/17/23 05:48 12/17/23 05:48 PG Care Time/CCT Total # of Minutes Spent Total Time Spent with Patient: Total time spent is greater than 50% in coordination of care (as documented) at patient's floor/unit and/or counseling patient: Coding Level of Care Code 07574 SUB INP/OBS CARE 2/35MIN Diagnoses Acute on chronic hypoxic respiratory failure J96.21 Pulmonary fibrosis J84.10 Interstitial lung disease J84.9 Asthma-COPD overlap syndrome J44.9 Hypersensitivity pneumonitis J67.9 Pulmonary hypertension I27.20
--- NOTE | 2023-12-18 12:51 | Discharge Summary ---
Date of Service December 18, 2023 Admission HPI Per Admitting Provider A 2 day Hx of increased dyspnea at rest and decreased O2sats at exertion (saturating down to the 60s instead of the 70s after mild-moderate exertion), but w/out any other Sx such as cough, wheezing, hemoptysis, chest pain, or palpitations. Patient was recently prescribed a new medication by Dr. Miller, nintedanib (Ofev), but has not started it because of concerns about its side effects, which per the pt include increased HTN, increased risk of heart attacks. Patient not presenting w/ any pedal edema or pleuritic chest pain either. Admission Exam Per Admitting Provider Constitutional: well developed, well nourished and cooperative; not edematous Respiratory: + labored breathing and able to speak in complete sentences; no cough and no audible wheezes Auscultation: + crackles (crackles at posterior bases of lungs b/l; posterior middle l. lung too) Cardiovascular: Rate/Rhythm: regular rate and regular rhythm Heart Sounds: + murmur Extremities: normal capillary refill; no calf tenderness and no pedal edema Gastrointestinal (Abdomen): normal bowel sounds, soft, nontender, no hepatosplenomegaly Skin: no rashes, warm and dry Psychiatric: A+Ox3, euthymic affect Principal Diagnosis Acute on chronic hypoxic respiratory failure Discharge Exam General:Alert and oriented, no acute distress, HEENT: Normocephalic, moist oral mucosa, Cardio: Regular rate and rhythm, no murmur, Resp:Lungs clear to auscultation b/l, no wheezes or crackles GI: Soft and nontender, nondistended, bowel sounds active Skin: Warm, pink, dry, Discharge Data Allergies Allergy/AdvReac Type Severity Reaction Status Date / Time codeine Allergy Unknown HIVES Verified 11/22/23 12:29 meperidine Allergy Unknown hives Verified 11/22/23 12:29 oxycodone Allergy Unknown HIVES, Verified 11/22/23 12:29 ITCHING Consultations 12/16/23 18:39 ED Decision to Admit Stat 12/16/23 22:32 Consult Pulmonology Routine Ordered Studies 12/16/23 17:10 CT angio chest PE protocol Stat Hospital Course (1) Interstitial lung disease: (2) Hypoxia: (3) Restrictive lung disease: (4) Shortness of breath at rest: (5) Acidosis: (6) Chronic anticoagulation: (7) Anemia: (8) Thrombocytopenia: Plan Patient is a 73 yo M w/ a PMHx of 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 1. 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 Anemia - pt w/ Hgb, 12.5 upon admission - no acute sources of bleeding Total Time Total Time Spent Total Time Spent (In Minutes): As per attending attestation. Discharge Plan Discharge Items Patient Disposition: Home - Self-Care Reason For Visit: DYSPNEA AT REST Discharge Diagnosis: Acute on chronic hypoxic respiratory failure Activity: As commented below Activity Comment: Continue your daily activity as tolerated Non-emergency contact: Primary Care Provider Call non-emergency contact if: you have any medication questions and your symptoms worsen Follow-up/Referrals: Pro,Darnell Rose MD [Primary Care Provider] - Diet: Regular Addtl Attending Provider Instructions: You were admitted to the hospital for what we call "acute on chronic hypoxic respiratory failure" meaning you needed more oxygen than your baseline oxygen need and your oxygen saturations were <90% when you came in. We think what may have happened is maybe you had some sort of viral respiratory illness that was mild but increased your oxygen need recently and that that is resolving. You go one dose of steroid here, but have done better each day despite only having one dose, so I do not think any more steroid is needed. Pulmonology (lung doctors) also saw you while you were here and they have you a dose of a water pill since you were noted to have a reduced pumping function of your heart when you had an echocardiogram (also known as an ultrasound of your heart) on November 09. You seemed to be improving daily regardless, so I do not think you need more of this water pill right now. It is possible you may need a water pill in the future, but you should follow up with your primary care physician when you leave the hospital to determine if there is a need for that long-term. In the meantime, keeping track of your weights at home would be helpful, that way you can see where your weight normally sits and if your weight increases by 2-3 lbs a day for a day or two in a row, you may be accumulating fluid and a water pill may be helpful to prevent water from accumulating in your lungs and making it more difficult to breathe. To do list when you leave the hospital: 1.) Call your PCP on Tuesday (tomorrow) and let them know you were in the hospital this weekend and ask for an appointment for this week 2.) Keep a written log (on paper or on your phone) of your weights every day (take them at the same time daily, like when you first get up in the morning) Pending Studies at Discharge: No Stand-Alone Forms: My [facility] Medications and DC Order Prescriptions: Continued naproxen sodium 220 mg tablet 220 mg PO UD PRN (Reason: Pain) acetaminophen 650 mg tablet extended release 1,300 mg PO UD PRN (Reason: Pain) warfarin 3 mg tablet 3 mg PO UD Rx Instructions: 1.5mg q (instead of Tuesdays per family member), 3mg x 6 days per [facility] orally use as directed; aspirin 81 mg tablet,delayed release (DR/EC) 81 mg PO QAM sennosides [senna] 8.6 mg tablet 8.6 mg PO DAILY PRN (Reason: Constipation) Qty: 90 3RF ipratropium-albuterol 0.5 mg-3 mg(2.5 mg base)/3 mL solution for nebulization 3 ml INHALATION Q6H PRN (Reason: Shortness Of Breath) Qty: 180 5RF rosuvastatin 40 mg tablet 40 mg PO DAILY Qty: 90 3RF ranolazine 500 mg tablet extended release 12 hr 500 mg PO BID Qty: 180 3RF pantoprazole 40 mg tablet,delayed release (DR/EC) 40 mg PO DAILY Qty: 90 3RF tamsulosin 0.4 mg capsule 0.4 mg PO DAILY Qty: 30 2RF gabapentin 600 mg tablet 600 mg PO BID Qty: 180 3RF albuterol sulfate 90 mcg/actuation HFA aerosol inhaler 2 puff INHALATION Q6H PRN (Reason: Shortness Of Breath) Qty: 18 5RF budesonide-formoterol [Symbicort] 160-4.5 mcg/actuation HFA aerosol inhaler 2 puff inhalation BID Qty: 3 1RF (DME) Portable Oxygen Misc See Rx Instructions .MEDSUPPLY Qty: 1 0RF Rx Instructions: Oxygen 3 liters continuous via nasal cannula on exertion with portable concentrator. BELEN 99 nitroglycerin [Nitrostat] 0.4 mg tablet, sublingual 0.4 mg Sublingual DIRECTED PRN (Reason: Chest Pain) Qty: 25 3RF Rx Instructions: PLACE 1 TABLET UNDER TONGUE EVERY 5 MINUTES FOR UP TO 3 DOSES Spiriva Respimat 2.5 mcg/actuation mist 2 inh inhalation DAILY 30 Days Qty: 4 4RF isosorbide mononitrate 30 mg tablet extended release 24 hr 30 mg PO QAM magnesium oxide 400 mg (241.3 mg magnesium) tablet 400 mg PO QAM metoprolol succinate 25 mg tablet extended release 24 hr 25 mg PO QAM cholecalciferol (vitamin D3) 50 mcg (2,000 unit) capsule 50 mcg PO PM Ofev 150 mg capsule 150 mg PO UD Patient Comments: haven't picked it up yet, my copay is 4000/plans to discuss with today to see what we can come up with. Rx Instructions: hasn't started it, would like another opinion on the medication. Discharge Orders: Discharge Order (Routine); Ordered 12/18/23 Ordered By: Sara Ramon/Other Patient Handouts: Shortness Breath Max[employer] Energy, Shortness of Breath Coping Admission Data Admit Date/Time: 12/16/23 20:16 Attending Provider: Da Arellano Admit Provider: Ric Kevin Primary Care Provider: Darnell Velazco Other Providers: Hubert Bryan; Arnold Miller Other Interventions: Discharge Summary Assessment (RN) Last Done: 12/18/23 14:45 Supervising Physician Co-Signing Physician Notes I personally examined the patient and verified all alicea points of history and exam, discussed case, and agree with decision making with Dr Caceres Feels okay. Still feels good to go home. at the bedside. Updated both to the best my ability and to their satisfaction. Vitals noted, in general he is awake and alert pleasant no distress. HEENT normocephalic atraumatic mucous membranes moist. Breathing unlabored no accessory muscle use good effort. Skin without rashes pallor or icterus. Neuro without focal deficits. 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 We discussed in depth that proving/disproving the diastolic CHF diagnosis would be safer than simply sending him out on diuretics whenever it is not clear he would benefit. In that respect, we recommended daily weights, and correlating if his weight went up by 2 pounds or more with any breathing symptoms. He would then continue to follow with his PCP in this regard, and obviously if there starts to be a clear pattern of weight gain and new dyspnea, that would more or less confirm that he has a degree of diastolic CHF at play with his breathing, and then symptom triggered diuretics as well as probably more aggressive afterload reduction would be warranted. Patient and expressed good understanding of this. Safe/stable for home. Otherwise as above. Resident Activity Tracking Resident Involvement: Resident Care Provided Care Provided: Adult Hospital Medicine
--- NOTE | 2023-12-18 18:15 | Billing Data ---
Date of Service December 18, 2023 Coding Level of Care Code 89726 IN/OBS DISCH 30 MIN/LESS
[2023-12-22] MEDS ORDERED: WARFARIN SOD 0.5 MG TAB PO SCH (16:00)
== END 2023-12-18 15:19 | disposition home or self-care (01) ==
LOC: ED 12:45 → 3E 12:45 → SUATTDRO 20:16 → 3E 21:48

== ENCOUNTER 2024-01-02 09:56 | Observation (INO) ==
--- NOTE | 2024-01-02 10:35 | XRay Report ---
XR chest 1V portable CLINICAL HISTORY: Dyspnea. COMPARISON STUDY: Chest radiograph and chest CT December 16, 2023. FINDINGS: No pneumothorax or pleural effusion is present. Cardiomegaly is unchanged. There is no evid ence for pulmonary edema. There is no consolidation to suggest pneumonia. Old left-sided rib deformit ies are again noted. Hazy left midlung density is unchanged. IMPRESSION: No acute cardiopulmonary findings. No significant change in appearance of the chest. ACT 112: Negative or not required by law. Electronically signed by: Clovis Lagos M.D. 01/02/2024 10:32 AM
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
[2024-01-02] MEDS: ALBUT/IPRATROP 3MG/0.5MG NEB 3 ML VIAL NEB STA (10:56)
[2024-01-02 11:00] LABS: HCO3 VBG 26 mmol/L; Oxygen Saturation VBG 84.1 %; PCO2 VBG 42 mmHg (38-50); PO2 VBG 52 mmHg
[2024-01-02 11:17] LABS: Basophils # (auto) 0.02 K/uL (0.00-0.20); Basophils % (auto) 0.4 %; Eosinophils % (auto) 1.9 %; Hematocrit (blood only) 40.3 % (42.0-52.0); Hemoglobin 13.9 g/dl (14.0-18.0); Immature Granulocytes # (auto) 0.01 K/uL (0.01-0.20); Immature Granulocytes % (auto) 0.2 %; Lymphocytes # (auto) 0.74 K/uL (1.20-3.40); Mean Corpuscular Hemoglobin 33.7 pg (25.0-34.0); Mean Corpuscular Hgb Conc 34.5 g/dL (32.0-36.0); Mean Corpuscular Volume 97.6 fL (80.0-100.0); Mean Platelet Volume 9.8 fL (9.4-12.4); Neutrophils # (auto) 3.51 K/uL (1.40-6.50); Neutrophils % (auto) 66.5 %; Platelet Count 103 K/uL (130-400); RDW Coefficient of Variation 14.3 % (11.5-14.5); RDW Standard Deviation 51.4 fL (36.4-46.3); Red Blood Count 4.13 M/uL (4.70-6.10); White Blood Count 5.28 K/ul (4.8-10.8)
[2024-01-02 11:31] LABS: Albumin Globulin Ratio 1.2 (0.9-2); Albumin Level 4.2 gm/dl (3.4-5.0); BUN Creatinine Ratio 17.9 (10-20); Bilirubin,Total 0.8 mg/dl (0.2-1.0); Calcium 9.2 mg/dl (8.6-10.3); Creatinine Clr Calc Pharmacy 66.3 ml/min; Est GFR (African American) 76.2 ml/min; Est GFR (Non-African American) 65.7 ml/min; Globulin 3.5 gm/dl (2.5-4.0); Magnesium 1.9 mg/dl (1.7-2.4); Potassium 3.6 mmol/L (3.5-5.1); Total Protein 7.7 gm/dl (6.0-8.3)
[2024-01-02 11:33] LABS: INR 1.7 (0.9-1.1); Partial Thromboplastin Ratio 1.5; Partial Thromboplastin Time 40 Seconds (21-31); Prothrombin Time 17.4 Seconds (9.0-12.0)
[2024-01-02 11:38] LABS: Troponin I High Sensitivity 17.8 pg/ml (0-20)
[2024-01-02] MEDS: methylPREDNISolone 125 MG/2 ML VIAL IV STA (11:42)
[2024-01-02] MEDS: cefTRIAXone SODIUM 2,000 MG/50 ML BAG IV STA (11:44)
[2024-01-02 11:51] LABS: Adenovirus PCR Not Detected (NotDetected); Bordetella parapertussis PCR Not Detected (NotDetected); Bordetella pertussis PCR Not Detected (NotDetected); Chlamydia pneumoniae PCR Not Detected (NotDetected); Coronavirus 229E PCR Not Detected (NotDetected); Coronavirus CoV-2 (COVID19)PCR Not Detected (NotDetected); Coronavirus HKU1 PCR Not Detected (NotDetected); Coronavirus NL63 PCR Not Detected (NotDetected); Coronavirus OC43PCR Not Detected (NotDetected); Human Metapneumovirus PCR Not Detected (NotDetected); Influenza A PCR Not Detected (NotDetected); Influenza B PCR Not Detected (NotDetected); Mycoplasma pneumoniae PCR Not Detected (NotDetected); Parainfluenza Virus 1 PCR Not Detected (NotDetected); Parainfluenza Virus 2 PCR Not Detected (NotDetected); Parainfluenza Virus 3 PCR DETECTED (NotDetected); Parainfluenza Virus 4 PCR Not Detected (NotDetected); Respiratory Syncytial VirusPCR Not Detected (NotDetected); Rhinovirus/Enterovirus PCR Not Detected (NotDetected)
[2024-01-02] MEDS ORDERED: ACETAMINOPHEN 325 MG TAB PO PRN (13:22)
[2024-01-02] MEDS ORDERED: SENNA 8.6 MG TAB PO PRN (13:25)
[2024-01-02] MEDS ORDERED: ALBUTEROL HFA 8 GM INHALER INH PRN (13:25)
[2024-01-02] MEDS ORDERED: NITROGLYCERIN SL 0.4 MG/TAB TAB SL PRN (13:25)
[2024-01-02] MEDS ORDERED: FUROSEMIDE 20 MG TAB PO SCH (13:30)
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
--- NOTE | 2024-01-02 18:37 | Electrocardiogram Report ---
Test Reason : Blood Pressure : / mmHG Vent. Rate : 067 BPM Atrial Rate : 067 BPM P-R Int : 168 ms QRS Dur : 092 ms QT Int : 402 ms P-R-T Axes : 018 -21 -18 degrees QTc Int : 424 ms Sinus rhythm with occasional Premature ventricular complexes Old Inferior infarct (cited on or before 10-MAY-2015) Old Anterolateral infarct (cited on or before 09-MAY-2015) Abnormal ECG When compared with ECG of 16-DEC-2023 13:25, Premature ventricular complexes are now Present Confirmed by Britton Fernández ([id number]) on 01/02/2024 6:36:48 PM Referred By: REFERRED SELF Confirmed By:Britton Fernández
[2024-01-02] MEDS: WARFARIN SOD 3 MG TAB PO SCH (18:44)
[2024-01-02] MEDS: RANOLAZINE 500 MG ER TAB PO SCH (20:41)
[2024-01-02] MEDS: CHOLECALCIFEROL 25 MCG (1000 UNITS) TAB PO SCH (20:41)
[2024-01-02] MEDS: GABAPENTIN 600 MG TAB PO SCH (20:41)
--- OUTSIDE RECORDS SUMMARY | 2024-01-02 20:56 | External Medical Summary | Continuity of Care Document ---
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 Name Role Phone Darnell Velazco Primary Care Physician [phone] Encounter [facility] [id number] Date(s): 12/29/23 - 12/29/23 [facility] [address] [facility] [address], [address], [address] [place] [id number] Encounter Diagnosis Body mass index [BMI] 29.0-29.9, adult(Discharge Diagnosis) - 12/29/23 ILD (interstitial lung disease)(Discharge Diagnosis) - 12/29/23 Discharge Disposition: Home or Self Care Attending Physician: MD Breen Judie A Referring Physician: MD Velazco Jeffrey W Allergies, Adverse Reactions, Alerts Substance Criticality Severity Reaction Reaction Severity Status codeine Unable to assess criticality Moderate HIVES Active meperidine Unable to assess criticality Moderate hives Active oxyCODONE Unable to assess criticality Moderate HIVES, ITCHING Active Tylenol with Codeine Eruption Active Medications Albuterol (Eqv-ProAir HFA) Start: 12/29/23 10:34:00 AM EDT, 0 Refill(s) Start Date: 12/29/23 Status: Ordered aspirin 81 mg oral capsule Start: 12/29/23 10:34:00 AM EDT, 0 Refill(s) Start Date: 12/29/23 Status: Ordered budesonide Start: 12/29/23 10:34:00 AM EDT, 0 Refill(s) Start Date: 12/29/23 Status: Ordered Flomax Start: 12/29/23 10:35:00 AM EDT, 0 Refill(s) Start Date: 12/29/23 Status: Ordered furosemide Start: 12/29/23 10:37:00 AM EDT, Tue Start Date: 12/29/23 Status: Ordered gabapentin Start: 12/29/23 10:35:00 AM EDT, 0 Refill(s) Start Date: 12/29/23 Status: Ordered isosorbide dinitrate Start: 12/29/23 10:35:00 AM EDT, 0 Refill(s) Start Date: 12/29/23 Status: Ordered magnesium (as citrate)-melatonin 71.5 mg-1 mg oral tablet Start: 12/29/23 10:35:00 AM EDT, 0 Refill(s) Start Date: 12/29/23 Status: Ordered metoprolol succinate (ER) Start: 12/29/23 10:36:00 AM EDT, 0 Refill(s) Start Date: 12/29/23 Status: Ordered Naprosyn Start: 12/29/23 10:36:00 AM EDT, 0 Refill(s) Start Date: 12/29/23 Status: Ordered nitroglycerin 0.4 mg sublingual tablet Start: 12/29/23 10:36:00 AM EDT, 25 each, 0 Refill(s), PLACE 1 TABLET UNDER TONGUE EVERY 5 MINUTES FOR UP TO 3 DOSES Start Date: 12/29/23 Status: Ordered Ofev Start: 12/29/23 10:37:00 AM EDT, not started yet Start Date: 12/29/23 Status: Ordered pantoprazole 40 mg oral delayed release tablet Start: 12/29/23 10:36:00 AM EDT, 90 tab, 0 Refill(s) Start Date: 12/29/23 Status: Ordered Protonix Start: 12/29/23 10:36:00 AM EDT, 0 Refill(s) Start Date: 12/29/23 Status: Ordered rosuvastatin Start: 12/29/23 10:36:00 AM EDT, 0 Refill(s) Start Date: 12/29/23 Status: Ordered warfarin 3 mg oral tablet Start: 12/29/23 10:36:00 AM EDT, 70 tab, 0 Refill(s) Start Date: 12/29/23 Status: Ordered Mental Status 12/29/23 Barriers to Learning one year None evide nt Mandatory Health Literacy Documentation Yes Health Literacy Communication Barriers N ever Primary Language Comoran Problem List No Chronic Problems Diagnosis Diagnosis Type Effective Dates Health Status Cl inical Service Informant Body mass index [BMI] 29.0-29.9, adult Discharge Diagnosis 12/29/23 Non-Specified ILD (interstitial lung disease) Discharge Diagnosis 12/29/23 Vital Signs Most recent to oldest [Reference Range]: 1 Height 175 cm (12/29/23 10:38 AM) Patient Weight 89.5 kg (12/29/23 10:38 AM) Body Mass Index 29.22 kg/m2 (12/29/23 10:38 AM) Temperature [36.5-37.9 DegC] 36.2 DegC *LOW* (12/29/23 10:38 AM) Heart Rate 57 bpm (12/29/23 10:38 AM) Respiratory Rate 16 br/min (12/29/23 10:38 AM) Blood Pressure 123/70mmHg (12/29/23 10:38 AM) Cuff Pulse Pressure 53 mmHg (12/29/23 10:38 AM) BP Location # 1 Left Arm (12/29/23 10:38 AM) Social History Social History Type Response Smoking Status Never smoked cigaret liz Sex Male Patient Care team information Care Team Personnel Name: MD Velazco Jeffrey W Position: Referring DIRECT Member Role: Primary Care Provider Address: Address: [facility] [address] Care Team Related Persons Name: MONSE KIDD Address: home [address] [place] [id number]
[2024-01-03 07:24] LABS: Hematocrit (blood only) 38.2 % (42.0-52.0); Hemoglobin 13.2 g/dl (14.0-18.0); Mean Corpuscular Hemoglobin 33.6 pg (25.0-34.0); Mean Corpuscular Hgb Conc 34.6 g/dL (32.0-36.0); Mean Corpuscular Volume 97.2 fL (80.0-100.0); Mean Platelet Volume 10.3 fL (9.4-12.4); Platelet Count 108 K/uL (130-400); RDW Coefficient of Variation 13.7 % (11.5-14.5); Red Blood Count 3.93 M/uL (4.70-6.10); White Blood Count 5.47 K/ul (4.8-10.8)
[2024-01-03 07:30] LABS: BUN Creatinine Ratio 26.6 (10-20); C Reactive Protein 4.61 mg/dl (0-0.5); Calcium 9.5 mg/dl (8.6-10.3); Creatinine Clr Calc Pharmacy 94.4 ml/min; Est GFR (African American) 104.7 ml/min; Est GFR (Non-African American) 90.3 ml/min; Potassium 3.9 mmol/L (3.5-5.1)
[2024-01-03] MEDS: PANTOprazole 40 MG TAB PO SCH (07:37)
[2024-01-03] MEDS: ROSUVASTATIN CALCIUM 20 MG TAB PO SCH (07:37)
[2024-01-03] MEDS: ISOSORBIDE MONO EXTENDED REL 30 MG TABCR PO SCH (07:37)
[2024-01-03] MEDS: METOPROLOL SUCC 25MG EXT REL TAB PO SCH (07:37)
[2024-01-03] MEDS: MAGNESIUM OXIDE 400 MG TAB PO SCH (07:37)
[2024-01-03] MEDS: SPIRONOLACTONE 25 MG TAB PO SCH (07:38)
[2024-01-03] MEDS: TAMSULOSIN HCL 0.4 MG CAP PO SCH (07:38)
[2024-01-03] MEDS: UMECLIDINIUM BROMIDE 62.5MCG/BLISTER 7 PUFFS/INHALER INH SCH (07:38)
[2024-01-03] MEDS: ASPIRIN 81 MG ECTAB PO SCH (07:38)
[2024-01-03 07:39] LABS: INR 2.3 (0.9-1.1); Prothrombin Time 22.8 Seconds (9.0-12.0)
[2024-01-03] MEDS: FLUTICASONE/VILANTEROL 200/25MCG 14 PUFFS/INHALER INH SCH (07:39)
[2024-01-03] MEDS ORDERED: UMECLIDINIUM/VILANTEROL 62.5/25MCG 7 PUFFS/INHALER INH SCH (09:00)
[2024-01-03] MEDS: ALBUT/IPRATROP 3MG/0.5MG NEB 3 ML VIAL INH PRN (12:57)
--- NOTE | 2024-01-03 17:29 | Hospitalist Progress Note ---
Date of Service January 03, 2024 Assessment & Plan (1) Parainfluenza infection: Plan: Patient admitted with SOB. Biofire showed parainfluenza infection. Patient will be admitted with supportive care. arlette hold further antibiotics and corticosteroids. will continue neb treatments. will monitor inflammatory markers. Patinet appears to show improvement clinically. (2) Pulmonary fibrosis: Plan: History of this will likely compicate above problem. will monitor patient (3) Chronic anticoagulation: Plan: Patient is on anticoagulation for history of pulmonary embolism Will resume warfarin and monitor. Admission and Anticipated Discharge Date Admission Date: January 02, 2024 Subjective 73 yo male reports no significant improvement with his breathing. Review of Systems Review of Systems: All systems reviewed & are unremarkable except as noted in HPI & below Physical Exam Physical Exam: Patient is lying in bed. He is in no acute distress Constitutional: well developed and well nourished Eyes: PERRL, conjunctivae normal, anicteric sclerae ENMT: external ear and nose normal, oropharynx normal Neck: trachea midline, no thyromegaly Respiratory: Auscultation: + wheezes (decreased wheezing) Cardiovascular: RRR, no murmur, no edema Gastrointestinal (Abdomen): normal bowel sounds, soft, nontender, no hepatosplenomegaly Musculoskeletal: no cyanosis or clubbing, extremities motor strength 5/5 Skin: no rashes, warm and dry Neurologic: PERRL, EOMI, accommodation nl, no face palsy, no dysarthria Psychiatric: A+Ox3, euthymic affect Lymphatic: no cervical or axillary lymphadenopathy Results & Data Results & Data Vital Signs (Past 12 Hours) Vital Signs Temp Pulse Resp BP Pulse Ox O2 Del Method O2 Flow Rate 01/03/24 15:41 36.5 C 67 16 122/71 97 Nasal Cannula 2 01/03/24 13:00 67 20 95 Nasal Cannula 2 01/03/24 07:30 Nasal Cannula 2 01/03/24 07:19 36.4 C L 67 16 163/83 H 94 Nasal Cannula 2 PG Care Time/CCT Total # of Minutes Spent Total Time Spent with Patient: Total time spent is greater than 50% in coordination of care (as documented) at patient's floor/unit and/or counseling patient: Coding Level of Care Code 89666 SUB INP/OBS CARE 2/35MIN Diagnoses Parainfluenza infection B34.8 Pulmonary fibrosis J84.10 Chronic anticoagulation Z79.01
[2024-01-04 07:11] LABS: C Reactive Protein 2.49 mg/dl (0-0.5); Calcium 9.2 mg/dl (8.6-10.3); Creatinine Clr Calc Pharmacy 71.7 ml/min; Est GFR (African American) 83.3 ml/min; Est GFR (Non-African American) 71.9 ml/min
[2024-01-04 07:26] LABS: INR 2.7 (0.9-1.1); Prothrombin Time 26.6 Seconds (9.0-12.0)
[2024-01-04 07:29] LABS: Hematocrit (blood only) 37.2 % (42.0-52.0); Hemoglobin 12.7 g/dl (14.0-18.0); Mean Corpuscular Hemoglobin 33.2 pg (25.0-34.0); Mean Corpuscular Hgb Conc 34.1 g/dL (32.0-36.0); Mean Corpuscular Volume 97.4 fL (80.0-100.0); Mean Platelet Volume 9.8 fL (9.4-12.4); Platelet Count 127 K/uL (130-400); RDW Standard Deviation 50.4 fL (36.4-46.3); Red Blood Count 3.82 M/uL (4.70-6.10); White Blood Count 7.41 K/ul (4.8-10.8)
[2024-01-04] MEDS: SODIUM CHLOR 7% 4 ML NEB NEB SCH (10:58)
--- NOTE | 2024-01-04 21:59 | Hospitalist Progress Note ---
Date of Service January 04, 2024 Assessment & Plan (1) Parainfluenza infection: Plan: Patient admitted with SOB. Biofire showed parainfluenza infection. Patient will be admitted with supportive care. arlette hold further antibiotics and corticosteroids. will continue neb treatments. will monitor inflammatory markers: decreased by 50% Patinet appears to show improvement clinically. continue supportive care. (2) Pulmonary fibrosis: Plan: History of this will likely compicate above problem. will monitor patient (3) Chronic anticoagulation: Plan: Patient is on anticoagulation for history of pulmonary embolism Will resume warfarin and monitor. Admission and Anticipated Discharge Date Admission Date: January 02, 2024 Subjective Patient reports no new symptoms. Review of Systems Review of Systems: All systems reviewed & are unremarkable except as noted in HPI & below Physical Exam Physical Exam: Patient is lying in bed. He is in no acute distress Respiratory: Auscultation: + crackles Results & Data Results & Data Vital Signs (Past 12 Hours) Vital Signs Temp Pulse Resp BP BP Pulse Ox O2 Del Method 01/04/24 20:10 115 H 16 92 Nasal Cannula 01/04/24 19:51 36.6 C 66 16 115/77 95 Nasal Cannula 01/04/24 15:02 36.3 C L 68 16 123/77 95 Nasal Cannula 01/04/24 15:00 Nasal Cannula 01/04/24 11:01 77 20 95 Nasal Cannula O2 Flow Rate 01/04/24 20:10 2 01/04/24 19:51 2 01/04/24 15:02 2 01/04/24 15:00 2 01/04/24 11:01 2 PG Care Time/CCT Total # of Minutes Spent Total Time Spent with Patient: Total time spent is greater than 50% in coordination of care (as documented) at patient's floor/unit and/or counseling patient: Coding Level of Care Code 57015 SUB INP/OBS CARE 2/35MIN Diagnoses Parainfluenza infection B34.8 Pulmonary fibrosis J84.10 Chronic anticoagulation Z79.01
[2024-01-05 07:56] LABS: Hematocrit (blood only) 37.9 % (42.0-52.0); Hemoglobin 12.9 g/dl (14.0-18.0); Mean Corpuscular Hemoglobin 33.1 pg (25.0-34.0); Mean Corpuscular Volume 97.2 fL (80.0-100.0); Mean Platelet Volume 9.5 fL (9.4-12.4); Platelet Count 134 K/uL (130-400); RDW Coefficient of Variation 14.2 % (11.5-14.5); RDW Standard Deviation 50.7 fL (36.4-46.3); White Blood Count 6.41 K/ul (4.8-10.8)
[2024-01-05 08:12] LABS: C Reactive Protein 1.5 mg/dl (0-0.5); Calcium 9.3 mg/dl (8.6-10.3); Creatinine Clr Calc Pharmacy 81.1 ml/min; Est GFR (African American) 96.6 ml/min; Est GFR (Non-African American) 83.4 ml/min; Potassium 3.9 mmol/L (3.5-5.1)
[2024-01-05 08:28] LABS: INR 2.3 (0.9-1.1); Prothrombin Time 23.5 Seconds (9.0-12.0)
[2024-01-05] MEDS: WARFARIN SOD 0.5 MG TAB PO SCH (16:16)
[2024-01-05 19:48] VITALS: TEMP 97.7
--- NOTE | 2024-01-05 21:21 | Hospitalist Progress Note ---
Date of Service January 05, 2024 Assessment & Plan (1) Parainfluenza infection: Plan: Patient admitted with SOB. Biofire showed parainfluenza infection. Patient will be admitted with supportive care. arlette hold further antibiotics and corticosteroids. will continue neb treatments. will monitor inflammatory markers: improved on 01/04 Patinet appears to show improvement clinically. continue supportive care. (2) Pulmonary fibrosis: Plan: History of this will likely compicate above problem. will monitor patient (3) Chronic anticoagulation: Plan: Patient is on anticoagulation for history of pulmonary embolism Will resume warfarin and monitor. Admission and Anticipated Discharge Date Admission Date: January 02, 2024 Subjective 73 yo male reports no new symptoms. Review of Systems Review of Systems: All systems reviewed & are unremarkable except as noted in HPI & below Physical Exam Physical Exam: Patient is lying in bed. He is in no acute distress Constitutional: well developed, well nourished and + ill appearing Eyes: PERRL, conjunctivae normal, anicteric sclerae ENMT: external ear and nose normal, oropharynx normal Neck: trachea midline, no thyromegaly Respiratory: Auscultation: + crackles and + wheezes (decreased wheezing) Cardiovascular: RRR, no murmur, no edema Gastrointestinal (Abdomen): normal bowel sounds, soft, nontender, no hepatosplenomegaly Musculoskeletal: no cyanosis or clubbing, extremities motor strength 5/5 Skin: no rashes, warm and dry Neurologic: PERRL, EOMI, accommodation nl, no face palsy, no dysarthria Psychiatric: A+Ox3, euthymic affect Lymphatic: no cervical or axillary lymphadenopathy Results & Data Results & Data Vital Signs (Past 12 Hours) Vital Signs Temp Pulse Resp BP BP Pulse Ox O2 Del Method 01/05/24 19:54 66 14 90 Nasal Cannula 01/05/24 19:47 36.5 C 63 18 135/92 96 Nasal Cannula 01/05/24 15:13 36.4 C L 62 20 119/73 95 Nasal Cannula O2 Flow Rate 01/05/24 19:54 2 01/05/24 19:47 3 01/05/24 15:13 2 PG Care Time/CCT Total # of Minutes Spent Total Time Spent with Patient: Total time spent is greater than 50% in coordination of care (as documented) at patient's floor/unit and/or counseling patient: Coding Level of Care Code 38304 SUB INP/OBS CARE MIN Diagnoses Parainfluenza infection B34.8 Pulmonary fibrosis J84.10 Chronic anticoagulation Z79.01
[2024-01-06 07:15] VITALS: RESP 16
[2024-01-06 07:29] VITALS: O2SAT 95
[2024-01-06 08:08] LABS: Hemoglobin 13.8 g/dl (14.0-18.0); Mean Corpuscular Hemoglobin 33.1 pg (25.0-34.0); Mean Corpuscular Hgb Conc 34.5 g/dL (32.0-36.0); Mean Corpuscular Volume 95.9 fL (80.0-100.0); Mean Platelet Volume 9.5 fL (9.4-12.4); Platelet Count 157 K/uL (130-400); RDW Coefficient of Variation 13.7 % (11.5-14.5); RDW Standard Deviation 48.7 fL (36.4-46.3); Red Blood Count 4.17 M/uL (4.70-6.10); White Blood Count 7.49 K/ul (4.8-10.8)
[2024-01-06 08:25] LABS: INR 2.1 (0.9-1.1); Prothrombin Time 21.4 Seconds (9.0-12.0)
[2024-01-06 08:38] LABS: BUN Creatinine Ratio 21.8 (10-20); C Reactive Protein 1.01 mg/dl (0-0.5); Calcium 9.5 mg/dl (8.6-10.3); Creatinine Clr Calc Pharmacy 67.8 ml/min; Est GFR (African American) 77.9 ml/min; Est GFR (Non-African American) 67.2 ml/min; Potassium 4.3 mmol/L (3.5-5.1)
--- NOTE | 2024-01-06 10:45 | Discharge Summary ---
Date of Service January 06, 2024 Admission HPI Per Admitting Provider 73 yo male reports Feeling short of breath for the past 4 days. Patient states this is accompanied by generalized malaise subjective fever and chills. Patient has noticed an increase in sputum production. Patient reports that he was wheezing at home but his chest felt tight. Given the progressive worsening of his symptoms. Patient decided to come into the hospital Principal Diagnosis Parainflueza infection Discharge Exam Patient is lying in bed. He is in no acute distress Constitutional well developed, well nourished and + ill appearing Eyes PERRL, conjunctivae normal, anicteric sclerae ENMT external ear and nose normal, oropharynx normal Neck trachea midline, no thyromegaly Respiratory Auscultation: + crackles and + wheezes (decreased wheezing) Cardiovascular RRR, no murmur, no edema Gastrointestinal (Abdomen) normal bowel sounds, soft, nontender, no hepatosplenomegaly Musculoskeletal no cyanosis or clubbing, extremities motor strength 5/5 Skin no rashes, warm and dry Neurologic PERRL, EOMI, accommodation nl, no face palsy, no dysarthria Psychiatric A+Ox3, euthymic affect Lymphatic no cervical or axillary lymphadenopathy Discharge Data Allergies Allergy/AdvReac Type Severity Reaction Status Date / Time codeine Allergy Unknown HIVES Verified 12/28/23 10:05 meperidine Allergy Unknown hives Verified 12/28/23 10:05 oxycodone Allergy Unknown HIVES, Verified 12/28/23 10:05 ITCHING Consultations 01/02/24 12:47 ED Decision to Admit Stat Hospital Course (1) Parainfluenza infection: [facility]. Patient will be admitted for supportive care given worsening sytoms at home, recurrent need for nebulizer treatment and history of pulmonary fibrosis. held further antibiotics and corticosteroids. Over course of hospital stay, patient improved clinically as well as in his labs with improved inflammatory markers. Patient was discharged on 01/05 (2) Pulmonary fibrosis: Chronic hypoxic respiratory failure :Pt noted to chronically use home O2 support. Treatment: chronic home O2, ventolin HFA, breo ellipta, incruse ellipta (3) Chronic anticoagulation: Patient is on anticoagulation for history of pulmonary embolism Transitioned to Eliquis. will start on Tuesday as INR is 2.1 will hold warfarin today and tomorrow Total Time Total Time Spent Total Time Spent (In Minutes): 32 Discharge Plan Discharge Items Patient Disposition: Home - Self-Care Reason For Visit: VIRAL PNEUMONITIS Discharge Diagnosis: viral pneumonitis Condition on Discharge: Fair Activity: Resume your previous activity Non-emergency contact: Primary Care Provider Call non-emergency contact if: you have any medication questions Follow-up/Referrals: Darnell Velazco MD [Primary Care Provider] - 01/17/24 3:00 pm Diet: Heart Healthy and Low Sodium (2gm) Addtl Attending Provider Instructions: You have been hospitalized for a viral pneumonia. During your stay at [facility], we treated you with supportive care while keeping you as comfortable as possible.We are happy to see you recovered. You will continue to improve over the next few days at home. We discussed some medication changes. You will be placed on Eliquis 5 mg twice a day, take first dose on Tuesday. I will also recommend not sure naprosyn for risk of having a gastrointestinal bleed when combining this with eliquis or even warfarin. Now that you are on Eliquis, please stop taking warfarin. Please make sure you see your Primary Care Provider as part of your follow up plan in 1-2 weeks. It was a pleasure. Kindest regards, Fabian Durham Pending Studies at Discharge: No Stand-Alone Forms: My [facility], Smoking Cessation Medications and DC Order Prescriptions: New Eliquis 5 mg tablet 5 mg PO Q12H Qty: 60 0RF Rx Instructions: take with meals First dose Tuesday Continued acetaminophen 650 mg tablet extended release 1,300 mg PO UD PRN (Reason: Pain) aspirin 81 mg tablet,delayed release (DR/EC) 81 mg PO QAM sennosides [senna] 8.6 mg tablet 8.6 mg PO DAILY PRN (Reason: Constipation) Qty: 90 3RF ipratropium-albuterol 0.5 mg-3 mg(2.5 mg base)/3 mL solution for nebulization 3 ml INHALATION Q6H PRN (Reason: Shortness Of Breath) Qty: 180 5RF pantoprazole 40 mg tablet,delayed release (DR/EC) 40 mg PO DAILY Qty: 90 3RF gabapentin 600 mg tablet 600 mg PO BID Qty: 180 3RF isosorbide mononitrate 30 mg tablet extended release 24 hr 30 mg PO QAM Qty: 90 3RF ranolazine 500 mg tablet extended release 12 hr 500 mg PO BID Qty: 180 3RF rosuvastatin 40 mg tablet 40 mg PO DAILY Qty: 90 3RF albuterol sulfate 90 mcg/actuation HFA aerosol inhaler 2 puff INHALATION Q6H PRN (Reason: Shortness Of Breath) Qty: 18 5RF budesonide-formoterol [Symbicort] 160-4.5 mcg/actuation HFA aerosol inhaler 2 puff inhalation BID Qty: 3 1RF (DME) Portable Oxygen Misc See Rx Instructions .MEDSUPPLY Qty: 1 0RF Rx Instructions: Oxygen 3 liters continuous via nasal cannula on exertion with portable concentrator. BELEN 99 nitroglycerin [Nitrostat] 0.4 mg tablet, sublingual 0.4 mg Sublingual DIRECTED PRN (Reason: Chest Pain) Qty: 25 3RF Rx Instructions: PLACE 1 TABLET UNDER TONGUE EVERY 5 MINUTES FOR UP TO 3 DOSES Spiriva Respimat 2.5 mcg/actuation mist 2 inh inhalation DAILY 30 Days Qty: 4 4RF spironolactone 25 mg tablet 25 mg PO DAILY Qty: 90 3RF furosemide 20 mg tablet 20 mg PO .COMPLEX Qty: 12 2RF Rx Instructions: Take 1 tab PO Tuesday, Tuesday, and Tuesday tamsulosin 0.4 mg capsule 0.4 mg PO DAILY Qty: 90 1RF magnesium oxide 400 mg (241.3 mg magnesium) tablet 400 mg PO QAM metoprolol succinate 25 mg tablet extended release 24 hr 25 mg PO QAM cholecalciferol (vitamin D3) 50 mcg (2,000 unit) capsule 50 mcg PO PM Discontinued naproxen sodium 220 mg tablet 220 mg PO UD PRN (Reason: Pain) warfarin 3 mg tablet 3 mg PO UD Rx Instructions: 1.5mg q , 3mg x 6 days per [facility] orally use as directed; Ofev 150 mg capsule 150 mg PO UD Patient Comments: haven't picked it up yet, my copay is 4000/plans to discuss with today to see what we can come up with. Rx Instructions: Per , the patient hasn't started this medication Discharge Orders: Discharge Order (Routine); Ordered 01/06/24 Ordered By: Fabian Durham Admission Data Admit Date/Time: 01/02/24 13:22 Attending Provider: Fabian Durham Admit Provider: Fabian Durham Primary Care Provider: Darnell Velazco Other Providers: Fabian Durham Other Interventions: Discharge Summary Assessment (RN) Last Done: 01/06/24 11:40 Coding Level of Care Code 22752 INP/OBS DISCH >30 MIN Diagnoses Parainfluenza infection B34.8 Pulmonary fibrosis J84.10 Chronic anticoagulation Z79.01
[2024-01-06 11:43] VITALS: BP 119/73; PULSE 75
== END 2024-01-06 12:08 | disposition home or self-care (01) | DRG 866 ==
LOC: ED 09:56 → EDINP 13:22 → INTOOBSV 13:22 → 3N 17:58

== ENCOUNTER 2024-09-03 13:20 | Inpatient (IN) ==
[2024-09-03 14:00] LABS: Basophils # (auto) 0.03 K/uL (0.00-0.20); Basophils % (auto) 0.4 %; Eosinophils # (auto) 0.04 K/uL (0.00-0.50); Eosinophils % (auto) 0.5 %; Hematocrit (blood only) 37.4 % (42.0-52.0); Hemoglobin 12.6 g/dl (14.0-18.0); Immature Granulocytes # (auto) 0.02 K/uL (0.01-0.20); Immature Granulocytes % (auto) 0.2 %; Lymphocytes # (auto) 0.92 K/uL (1.20-3.40); Lymphocytes % (auto) 10.9 %; Mean Corpuscular Hemoglobin 33.1 pg (25.0-34.0); Mean Corpuscular Hgb Conc 33.7 g/dL (32.0-36.0); Mean Corpuscular Volume 98.2 fL (80.0-100.0); Mean Platelet Volume 9.6 fL (9.4-12.4); Monocytes # (auto) 0.82 K/uL (0.11-0.59); Monocytes % (auto) 9.7 %; Neutrophils # (auto) 6.61 K/uL (1.40-6.50); Neutrophils % (auto) 78.3 %; Platelet Count 141 K/uL (130-400); RDW Standard Deviation 49.1 fL (36.4-46.3); Red Blood Count 3.81 M/uL (4.70-6.10); White Blood Count 8.44 K/ul (4.8-10.8)
--- NOTE | 2024-09-03 14:18 | XRay Report ---
XR chest 1V not portable CLINICAL HISTORY: Chest pain, nonspecific COMPARISON STUDY: 12/16/2023 FINDINGS: Stable cardiomegaly without pulmonary vascular congestion. Stable small area of opacity lat eral right upper lung. Stable reticular opacity at the left lower lung. No new consolidation or pleur al effusion. No pneumothorax. Stable old left rib fractures. IMPRESSION: Stable exam. ACT 112: Negative or not required by law. Electronically signed by: Johnny Valles M.D. 09/03/2024 2:17 PM
[2024-09-03 14:21] LABS: Alanine Aminotransferase 10 U/L (7-52); Albumin Globulin Ratio 1.2 (0.9-2); Albumin Level 3.8 gm/dl (3.4-5.0); Alkaline Phosphatase 50 U/L (34-104); Anion Gap 8 (3-11); Aspartate Aminotransferase 12 U/L (13-39); BUN Creatinine Ratio 16.3 (10-20); Bilirubin,Total 0.6 mg/dl (0.2-1.0); Blood Urea Nitrogen 25 mg/dl (6-23); Calcium 9.7 mg/dl (8.6-10.3); Carbon Dioxide 29 mmol/L (21-32); Chloride 101 mmol/L (98-107); Globulin 3.2 gm/dl (2.5-4.0); Glucose 124 mg/dl (70-99(Fasting)); Sodium 138 mmol/L (136-145)
[2024-09-03 14:24] LABS: INR 1.1 (0.9-1.1); Partial Thromboplastin Ratio 1.2; Partial Thromboplastin Time 33 Seconds (21-31); Prothrombin Time 11.9 Seconds (9.0-12.0)
[2024-09-03 14:27] LABS: Troponin I High Sensitivity 23.8 pg/ml (0-20)
[2024-09-03 14:45] LABS: Adenovirus PCR Not Detected (NotDetected); Bordetella parapertussis PCR Not Detected (NotDetected); Bordetella pertussis PCR Not Detected (NotDetected); Chlamydia pneumoniae PCR Not Detected (NotDetected); Coronavirus 229E PCR Not Detected (NotDetected); Coronavirus CoV-2 (COVID19)PCR Not Detected (NotDetected); Coronavirus HKU1 PCR Not Detected (NotDetected); Coronavirus NL63 PCR Not Detected (NotDetected); Coronavirus OC43PCR Not Detected (NotDetected); Human Metapneumovirus PCR Not Detected (NotDetected); Influenza A PCR Not Detected (NotDetected); Influenza B PCR Not Detected (NotDetected); Mycoplasma pneumoniae PCR Not Detected (NotDetected); Parainfluenza Virus 1 PCR Not Detected (NotDetected); Parainfluenza Virus 2 PCR Not Detected (NotDetected); Parainfluenza Virus 3 PCR Not Detected (NotDetected); Parainfluenza Virus 4 PCR Not Detected (NotDetected); Respiratory Syncytial VirusPCR Not Detected (NotDetected); Rhinovirus/Enterovirus PCR Not Detected (NotDetected)
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
[2024-09-03] MEDS: methylPREDNISolone 125 MG/2 ML VIAL IV STA (15:34)
--- NOTE | 2024-09-03 15:51 | Electrocardiogram Report ---
Test Reason : Blood Pressure : */* mmHG Vent. Rate : 83 BPM Atrial Rate : 83 BPM P-R Int : 198 ms QRS Dur : 94 ms QT Int : 368 ms P-R-T Axes : 36 -32 67 degrees QTcB Int : 432 ms Sinus rhythm with Premature supraventricular complexes Left axis deviation Lateral infarct (cited on or before 09-May-2015) When compared with ECG of 02-Jan-2024 10:30, Premature ventricular complexes are no longer Present Premature supraventricular complexes are now Present Questionable change in initial forces of Anterolateral leads Nonspecific T wave abnormality no longer evident in Anterior leads T wave inversion now evident in Lateral leads Confirmed by aDrnell Thomason ([id number]) on 09/03/2024 3:51:02 PM Referred By: Confirmed By: Darnell Thomason
[2024-09-03] MEDS: ALBUT/IPRATROP 3MG/0.5MG NEB 3 ML VIAL NEB STA (15:57)
[2024-09-03 16:35] LABS: D Dimer 490 ug/L FEU (0-500)
[2024-09-03] MEDS: ASPIRIN 81 MG CHEW PO STA (16:42)
[2024-09-03] MEDS: SODIUM CHLORIDE 0.9% 1,000 ML IV SCH (16:43)
[2024-09-03] MEDS ORDERED: ONDANSETRON INJ 2 MG/ML 2 ML VIAL IV PRN (16:55)
[2024-09-03] MEDS ORDERED: ACETAMINOPHEN 325 MG TAB PO PRN (16:55)
--- NOTE | 2024-09-03 17:49 | CT Scan Report ---
Clinical history: Hypoxia. Possible pneumonia Technique: Axial computed tomography images were obtained of the chest without intravenous contrast Comparison is made to the prior CT dated 12/16/2023 Findings: There is mild emphysema. There is no pleural effusion or pneumothorax. There are unchanged multifocal peripheral interstitial opacities, suggestive of mild pulmonary fibrosis. No endobronchial lesion is seen There is no mediastinal, hilar, or axillary adenopathy. The thoracic aorta is of normal caliber. There is no pericardial effusion. There is extensive coronary atherosclerosis The visualized upper abdomen appears unremarkable. There are multiple old left rib fractures. No focal osseous lesion is evident Impression: 1. Unchanged pulmonary fibrosis and mild emphysema 2. Extensive coronary atherosclerosis Electronically signed by David Joy 09-03-2024 5:47 PM
[2024-09-03] MEDS: APIXABAN 5 MG TABLET PO SCH (18:06)
[2024-09-03] MEDS: ALBUT/IPRATROP 3MG/0.5MG NEB 3 ML VIAL NEB SCH (19:54)
[2024-09-03] MEDS: RANOLAZINE 500 MG ER TAB PO SCH (21:33)
[2024-09-03] MEDS: GABAPENTIN 600 MG TAB PO SCH (21:33)
[2024-09-03] MEDS: TAMSULOSIN HCL 0.4 MG CAP PO SCH (21:34)
[2024-09-03] MEDS: FLUTICASONE/VILANTEROL 200/25MCG 14 PUFFS/INHALER INH SCH (21:34)
[2024-09-03] MEDS: NITROGLYCERIN 2% OINTMENT 30GM TUBE EXT PRN (23:59)
[2024-09-04] MEDS ORDERED: NITROGLYCERIN 2% OINTMENT 30GM TUBE EXT SCH
[2024-09-04 03:00] LABS: Basophils # (auto) 0.01 K/uL (0.00-0.20); Basophils % (auto) 0.1 %; Hematocrit (blood only) 36.5 % (42.0-52.0); Hemoglobin 12.2 g/dl (14.0-18.0); Immature Granulocytes # (auto) 0.03 K/uL (0.01-0.20); Immature Granulocytes % (auto) 0.4 %; Lymphocytes # (auto) 0.71 K/uL (1.20-3.40); Lymphocytes % (auto) 8.6 %; Mean Corpuscular Hemoglobin 33.2 pg (25.0-34.0); Mean Corpuscular Hgb Conc 33.4 g/dL (32.0-36.0); Mean Corpuscular Volume 99.2 fL (80.0-100.0); Mean Platelet Volume 9.5 fL (9.4-12.4); Monocytes % (auto) 7.2 %; Neutrophils # (auto) 6.94 K/uL (1.40-6.50); Neutrophils % (auto) 83.7 %; Platelet Count 136 K/uL (130-400); RDW Coefficient of Variation 13.9 % (11.5-14.5); RDW Standard Deviation 49.5 fL (36.4-46.3); Red Blood Count 3.68 M/uL (4.70-6.10); White Blood Count 8.29 K/ul (4.8-10.8)
[2024-09-04 03:14] LABS: BUN Creatinine Ratio 19.5 (10-20); Creatinine Clr Calc Pharmacy 59.5 ml/min; Magnesium 1.8 mg/dl (1.7-2.4); Potassium 4.4 mmol/L (3.5-5.1)
[2024-09-04 03:28] LABS: Troponin I High Sensitivity 321.4 pg/ml (0-20)
[2024-09-04] MEDS ORDERED: methylPREDNISolone 1000 MG/16 ML IV SCH (09:00)
--- NOTE | 2024-09-04 09:18 | XCELERA ---
[id number] \\[id number]
[2024-09-04] MEDS: methylPREDNISolone 20 MG in SYRINGE 0 ML IV SCH (09:25)
[2024-09-04] MEDS: UMECLIDINIUM BROMIDE 62.5MCG/BLISTER 7 PUFFS/INHALER INH SCH (09:25)
[2024-09-04] MEDS: ROSUVASTATIN CALCIUM 20 MG TAB PO SCH (09:26)
[2024-09-04] MEDS: ISOSORBIDE MONO EXTENDED REL 30 MG TABCR PO SCH (09:26)
[2024-09-04] MEDS: MAGNESIUM OXIDE 400 MG TAB PO SCH (09:26)
[2024-09-04] MEDS: ASPIRIN 81 MG ECTAB PO SCH (09:27)
[2024-09-04] MEDS: PANTOprazole 40 MG TAB PO SCH (09:27)
[2024-09-04] MEDS: METOPROLOL SUCC 25MG EXT REL TAB PO SCH (09:28)
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
--- NOTE | 2024-09-04 13:31 | Hospitalist Progress Note ---
Date of Service September 04, 2024 Assessment & Plan (1) Acute on chronic hypoxic respiratory failure: (2) TALIA (acute kidney injury): (3) Chest pain: Plan Scot is a 74-year-old male with PMH of CAD, anxiety, seizures, pulmonary embolism (on apixaban), IVC filter, asthmaCOPD overlap syndrome, SBO, [place], and pulmonary fibrosis. He presented on 09/03 for chest pain/SOB. Patient reports that his laundry room flooded over the weekend, and he was exposed to a Clorox bill as well as plaster board, which may have exacerbated his symptoms. He started to develop SOB both at rest and with exertion yesterday, and then developed chest tightness this morning. Per her home pulse ox, he reports he has been dropping to 50/60% while walking around at home. He is on supplemental oxygen at baseline (2L [place]), but has been increasing it to 5 L at home as needed. He describes the chest tightness as a sharp, stabbing pain substernally, that will radiate up to his left arm and down his left shoulder. #Acute on chronic hypoxic respiratory failure /chemical pneumonitis Suspect he may have a chemical pneumonitis. He appears to be improving on Solu- Medrol 20 mg IV BID therefore we will continue on this. He is back on his baseline 2 L/min. #Chest tightness/pain; elevated troponin Troponin peaked at 321 Aspirin 243 mg p.o. x 1, as patient does report he has had episodes of brief/sharp chest pain in the ED Echocardiogram without regional wall motion abnormalities, normal ejection fraction and no significant valvular pathology Seen by cardiology and not suspected to be acute coronary syndrome and I agree chest pain is atypical however he has never had such a significant troponin rise previously and on discussion with Dr. Thomason could consider dobutamine stress testing tomorrow which I think is reasonable He will not be going home on a nitroglycerin patch therefore we will remove this to see if his chest pain returns #History of pulmonary fibrosis/farmers lung Doubtful exacerbation with fluoxetine causing session acute exacerbation. Okay to continue this. #TALIA Appears to be resolved with normal saline overnight Hold spironolactone Gentle fluid resuscitation Trend BMP VTE prophylaxis - Eliquis Diet - heart healthy diet Disposition - continued admission on PCU Admission and Anticipated Discharge Date Admission Date: September 03, 2024 Subjective No longer currently having chest pain with Nitropaste. He reports the nitroglycerin helped with his chest pain. Troponin appears to have peaked around 321. Improvement in his breathing with Solu-Medrol. Previous increase of prednisone to 10 mg did not help. Physical Exam Constitutional: WD/WN, vitals as above Respiratory: normal respiratory effort; no respiratory distress Auscultation: breath sounds present, no diminished lung sounds, no crackles, no rhonchi and no wheezes Cardiovascular: Rate/Rhythm: regular rate and regular rhythm Heart Sounds: + murmur ([place]) Extremities: normal capillary refill; no calf tenderness and no pedal edema Gastrointestinal (Abdomen): normal bowel sounds, soft, nontender, no hepatosplenomegaly Results & Data Results & Data Vital Signs (Past 12 Hours) Vital Signs Temp Pulse Pulse Resp BP Pulse Ox O2 Del Method 09/04/24 10:53 91 H 20 151/83 H 96 Nasal Cannula 09/04/24 08:55 80 22 97 Nasal Cannula 09/04/24 08:00 88 20 121/77 98 Nasal Cannula 09/04/24 07:12 89 09/04/24 03:27 36.6 C 96 H 20 155/95 H 96 Nasal Cannula O2 Flow Rate 09/04/24 10:53 2 09/04/24 08:55 2 09/04/24 08:00 2 09/04/24 07:12 09/04/24 03:27 3 PG Care Time/CCT Total # of Minutes Spent Total Time Spent with Patient: Total time spent is greater than 50% in coordination of care (as documented) at patient's floor/unit and/or counseling patient: Coding Level of Care Code 80640 SUB INP/OBS CARE 3/50MIN Diagnoses Acute on chronic hypoxic respiratory failure J96.21 TALIA (acute kidney injury) N17.9 Chest pain R07.9
--- NOTE | 2024-09-04 16:00 | Electrocardiogram Report ---
Test Reason : Blood Pressure : */* mmHG Vent. Rate : 80 BPM Atrial Rate : 80 BPM P-R Int : 176 ms QRS Dur : 100 ms QT Int : 374 ms P-R-T Axes : 62 -26 58 degrees QTcB Int : 431 ms Sinus rhythm with Premature atrial complexes Inferior-posterior infarct (cited on or before 10-May-2015) Anterolateral infarct (cited on or before 09-May-2015) Abnormal ECG When compared with ECG of 03-Sep-2024 13:33, Questionable change in initial forces of Anterior leads T wave inversion no longer evident in Lateral leads Confirmed by Darnell Thomason ([id number]) on 09/04/2024 4:00:20 PM Referred By: REFERRED SELF Confirmed By: Darnell Thomason
[2024-09-05] MEDS ORDERED: NITROGLYCERIN SL 0.4 MG/TAB TAB SL PRN (02:06)
[2024-09-05] MEDS: FLUoxetine HCL 10 MG CAP PO SCH (08:04)
[2024-09-05] MEDS: SPIRONOLACTONE 25 MG TAB PO SCH (08:04)
[2024-09-05] MEDS: ATROPINE SULFATE 0.1 MG/ML 10ML SYR IV ONE (10:56)
[2024-09-05] MEDS: DOBUTamine HCL 12.5 MG/ML 20 ML VIAL IV ONE (10:56)
[2024-09-05] MEDS: METOPROLOL TARTRATE 1 MG/ML VIAL IV ONE (10:57)
--- NOTE | 2024-09-05 13:16 | XCELERA ---
[id number]
--- NOTE | 2024-09-05 16:47 | Hospitalist Progress Note ---
Date of Service September 05, 2024 Assessment & Plan (1) Acute on chronic hypoxic respiratory failure: (2) TALIA (acute kidney injury): (3) Chest pain: Plan Scot is a 74-year-old male with PMH of CAD, anxiety, seizures, pulmonary embolism (on apixaban), IVC filter, asthmaCOPD overlap syndrome, SBO, [place], and pulmonary fibrosis. He presented on 09/03 for chest pain/SOB. Patient reports that his laundry room flooded over the weekend, and he was exposed to a Clorox bill as well as plaster board, which may have exacerbated his symptoms. He started to develop SOB both at rest and with exertion yesterday, and then developed chest tightness this morning. Per her home pulse ox, he reports he has been dropping to 50/60% while walking around at home. He is on supplemental oxygen at baseline (2L [place]), but has been increasing it to 5 L at home as needed. He describes the chest tightness as a sharp, stabbing pain substernally, that will radiate up to his left arm and down his left shoulder. #Acute on chronic hypoxic respiratory failure /chemical pneumonitis Suspect chemical pneumonitis after exposure to fumes from combination of Clorox and soap. Does have a baseline of chronic lung disease with farmers lung and pulmonary fibrosis Titrate oxygen as needed to maintain oxygen greater than 88% Is on his baseline of 2 to 3 L 09/05, but exertional desaturations and with episode of chest pain overnight does warrant additional monitoring and IV steroids Does appear to be improving on IV steroids twice daily. Will continue Solu- Medrol 20 mg IV twice daily. Consolidate to prednisone taper possibly tomorrow if doing well #Chest tightness/pain; elevated troponin Troponin peaked at 321, downtrending Aspirin 243 mg p.o. x 1, as patient does report he has had episodes of brief/sharp chest pain in the ED Echocardiogram without regional wall motion abnormalities, normal ejection fraction and no significant valvular pathology Patient did have an episode of chest pain 09/04 while ambulated the bathroom and was on oxygen with significant hypoxia to the 70s at the time. Suspect this was demand with known coronary and residual RCA disease but no evidence of a ACS event. His dobutamine stress echo today did not show any new wall motion abnormalities. Some baseline abnormalities were noted but these were similar compared to 09/04/2024 and prior echo. EKG portion nondiagnostic due to baseline abnormalities. Overall given his known coronary disease did tolerate and stress echo well would not pursue further ischemic evaluation at this time. Will continue treatment of pulmonary exacerbation. #History of pulmonary fibrosis/farmers lung Continue inhalers, treatment of acute pneumonitis as noted #TALIA Previously resolved gentle fluids Repeat labs in the morning pending VTE prophylaxis - Eliquis Diet - heart healthy diet Disposition - continued admission on PCU Admission and Anticipated Discharge Date Admission Date: September 03, 2024 Subjective Doing well on morning assessment. No recurrent chest pain or chest pressure. No shortness of breath on oxygen. On her afternoon reassessment did have a episode of hypoxia into the mid 80s with ambulation. No chest pain. No fever chills or sweats. Denies cough. Is a little dyspneic with exertion Physical Exam Physical Exam: General: A&Ox3. NAD. Cooperative. HEENT: Atraumatic, normocephalic.Vision/hearing intact. Pulm: CTAB A&P. -wheezes, -rales, -rhonchi, scattered trace fine crackles bilaterally which clear. Symmetrical chest rise. No increased work of breathing. No respiratory distress. On 2-3L NC Cardiac: RRR, -mrg. Radial pulses intact and symmetrical. Abdominal: Nontender, nondistended, soft. BS present. Results & Data Results & Data Vital Signs (Past 12 Hours) Vital Signs Temp Pulse Pulse Resp BP Pulse Ox O2 Del Method 09/05/24 16:09 36.5 C 85 22 140/84 89 L Nasal Cannula 09/05/24 13:27 75 16 95 Nasal Cannula 09/05/24 12:23 36.3 C L 95 H 20 135/55 L 94 Nasal Cannula 09/05/24 09:00 Nasal Cannula 09/05/24 09:00 81 09/05/24 08:19 36.6 C 86 18 136/83 97 Nasal Cannula 09/05/24 07:47 78 18 94 Nasal Cannula O2 Flow Rate 09/05/24 16:09 2 09/05/24 13:27 2 09/05/24 12:23 2 09/05/24 09:00 2 09/05/24 09:00 09/05/24 08:19 3 09/05/24 07:47 3 PG Care Time/CCT Total # of Minutes Spent Total Time Spent with Patient: Total time spent is greater than 50% in coordination of care (as documented) at patient's floor/unit and/or counseling patient: Coding Level of Care Code 48253 SUB INP/OBS CARE 350MIN Diagnoses Acute on chronic hypoxic respiratory failure J96.21 TALIA (acute kidney injury) N17.9 Chest pain R07.9
[2024-09-06 05:23] LABS: Basophils # (auto) 0.01 K/uL (0.00-0.20); Basophils % (auto) 0.1 %; Eosinophils # (auto) 0.01 K/uL (0.00-0.50); Eosinophils % (auto) 0.1 %; Hematocrit (blood only) 36.8 % (42.0-52.0); Hemoglobin 12.6 g/dl (14.0-18.0); Immature Granulocytes # (auto) 0.05 K/uL (0.01-0.20); Immature Granulocytes % (auto) 0.5 %; Lymphocytes # (auto) 1.11 K/uL (1.20-3.40); Lymphocytes % (auto) 11.5 %; Mean Corpuscular Hemoglobin 33.9 pg (25.0-34.0); Mean Corpuscular Hgb Conc 34.2 g/dL (32.0-36.0); Mean Corpuscular Volume 98.9 fL (80.0-100.0); Mean Platelet Volume 9.8 fL (9.4-12.4); Monocytes # (auto) 0.87 K/uL (0.11-0.59); Neutrophils # (auto) 7.64 K/uL (1.40-6.50); Neutrophils % (auto) 78.8 %; Platelet Count 141 K/uL (130-400); RDW Coefficient of Variation 14.3 % (11.5-14.5); RDW Standard Deviation 51.2 fL (36.4-46.3); Red Blood Count 3.72 M/uL (4.70-6.10); White Blood Count 9.69 K/ul (4.8-10.8)
[2024-09-06 05:30] LABS: BUN Creatinine Ratio 24.8 (10-20); Calcium 9.5 mg/dl (8.6-10.3); Creatinine Clr Calc Pharmacy 70.3 ml/min; Potassium 4.4 mmol/L (3.5-5.1)
[2024-09-06 07:38] VITALS: TEMP 97.9
[2024-09-06 07:48] VITALS: RESP 17
--- NOTE | 2024-09-06 09:55 | Discharge Summary ---
Discharge Summary Date of Service September 06, 2024 Principal Dx & Hospital Course #1 = Principal Diagnosis (1) Acute on chronic hypoxic respiratory failure: (2) TALIA (acute kidney injury): (3) Chest pain: Plan Scot is a 74-year-old male with PMH of CAD, anxiety, seizures, pulmonary embolism (on apixaban), IVC filter, asthmaCOPD overlap syndrome, SBO, [place], and pulmonary fibrosis. He presented on 09/03 for chest pain/SOB. Patient reports that his laundry room flooded over the weekend, and he was exposed to a Clorox bill as well as plaster board, which may have exacerbated his symptoms. To do as outpatient: Continue prednisone taper for suspected chemical pneumonitis. Routine outpatient follow-up to cardiology for chest pain. Had an episode of suspected angina due to severe hypoxia when ambulating off oxygen with desaturation 70% and a follow-up DSE which was with a normal echo and nondiagnostic EKG.09/06 did endorse increased fatigue and had a somewhat poor night. PT/OT was consulted, patient was ambulating independently and was recommended for return home. Rehab was not recommended. Nursing also ambulated with patient who maintained oxygenation greater than 90% on 2 to 3 L of oxygen, his home requirement. Suspect he will have a slow recovery from his chemical pneumonitis however it does not show signs of secondary infection and is progressing well. Did offer continued observation in the hospital given his preceding night and consolidation of steroids to oral this morning. Discussed/benefits of this which have to be balanced against his risk of hospital-acquired infections. In shared decision making patient strongly first to avoid exposure to both respiratory viruses and hospital-acquired pathogens due to his poor baseline respiratory status and while he feels tired notes he is able to ambulate independently at his baseline level of strength without hypoxia less than 90% and feels comfortable returning home with home rehab and follow-up with pulmonary/pulmonary rehab. #Acute on chronic hypoxic respiratory failure /chemical pneumonitis Suspect chemical pneumonitis after exposure to fumes from combination of Clorox and soap. 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 He will follow-up with his patient providers for further adjustments if needed. #Chest tightness/pain; elevated troponin Troponin peaked at 321, downtrending Aspirin 243 mg p.o. x 1, as patient does report he has had episodes of brief/sharp chest pain in the ED Echocardiogram without regional wall motion abnormalities, normal ejection fraction and no significant valvular pathology Patient did have an episode of chest pain 09/04 while ambulated the bathroom and was on oxygen with significant hypoxia to the 70s at the time. Suspect this was demand with known coronary and residual RCA disease but no evidence of a ACS event. His dobutamine stress echo did not show any new wall motion abnormalities. Some baseline abnormalities were noted but these were similar compared to 09/04/2024 and prior echo. EKG portion nondiagnostic due to baseline abnormalities. Overall given his known coronary disease did tolerate and stress echo well would not pursue further ischemic evaluation at this time. Current meds continued. Will have outpatient follow-up for this. Chest pain-free day of discharge #History of pulmonary fibrosis/farmers lung Continue inhalers, treatment of acute pneumonitis as noted #TALIA Resolved with gentle fluids Admission HPI Per Admitting Provider Scot is a 74-year-old male with PMH of CAD, anxiety, seizures, pulmonary embolism (on apixaban), IVC filter, asthmaCOPD overlap syndrome, SBO, [place], and pulmonary fibrosis. He presented on 09/03 for chest pain/SOB. Patient reports that his laundry room flooded over the weekend, and he was exposed to a Clorox bill as well as plaster board, which may have exacerbated his symptoms. He started to develop SOB both at rest and with exertion yesterday, and then developed chest tightness this morning. Per her home pulse ox, he reports he has been dropping to 50/60% while walking around at home. He is on supplemental oxygen at baseline (2L NC), but has been increasing it to 5 L at home as needed. He describes the chest tightness as a sharp, stabbing pain substernally, that will radiate up to his left arm and down his left shoulder. Patient reports that he took nitro x 2 today at 1230 and 1300 without relief. He does have a history of [place] back in April 2015. He does report that he has a history of PNES, and is unsure if that might be contributing to his chest tightness/symp toms. He is unsure if he is having any muscle spasms. No rashes on his chest wall. Patient took his regular morning medicines today. He reports good compliance with taking his Eliquis for history of DVT/PE. Changes in medications: Started on fluoxetine for depression on Thursday 08/31; his Flomax dosage increased recently; and he has been on a 7-day prednisone taper. Patient is hypotensive at 100/59 at time admission; SpO2 90% on 4L NC. ED course: DuoNeb 3mL Methylprednisolone 40 mg IV ROS: Patient endorses SOB at rest and with exertion, lightheadedness when standing, exertional chest pain, occasional stabbing pain through the chest at rest, Patient denies fever, chills, night sweats, syncopal episodes, cough, hemoptysis, pleuritic CP, abdominal pain, N/V/D, changes in urinary bowel h abits, or redness or swelling in the legs. Discharge Exam General: A&Ox3. NAD. Cooperative. HEENT: Atraumatic, normocephalic.Vision/hearing intact. Pulm: CTAB A&P. -wheezes, -rales, -rhonchi, scattered trace fine crackles bilaterally which clear. Symmetrical chest rise. No increased work of breathing. No respiratory distress. On 2L NC Cardiac: RRR, -mrg. Radial pulses intact and symmetrical. Abdominal: Nontender, nondistended, soft. BS present. Extremities: Distal extremity strength and sensation remains intact although easily fatigued. Discharge Plan Discharge Items Patient Disposition: Home - Self-Care Reason For Visit: ACUTE ON CHRONIC HYPOXIC RESP FAILURE Discharge Diagnosis: Chemical pneumonitis Condition on Discharge: Fair Activity: As commented below Non-emergency contact: Primary Care Provider and Schedule Analyst Call non-emergency contact if: you have any medication questions and your symptoms worsen Follow-up/Referrals: Darnell Velazco MD [Primary Care Provider] - 09/11/24 3:00 pm (Hospital follow up on September 11 at 3 pm.) Kervin Grubbs Jr, MD, [facility] [Physician] - 10/03/24 3:00 pm Diet: Heart Healthy Addtl Attending Provider Instructions: You are seen in the hospital for suspected chemical pneumonitis, inflammation of the lung due to a chemical exposure. You recovered well and were placed on a course of steroids which helped with your breathing. You have been placed on a prednisone taper as below. You did have some chest pain while hypoxic during admission, you had a stress echo which was normal and a EKG portion of this was nondiagnostic due to baseline changes. Further ischemic workup was not recommended at this time, your case was reviewed with cardiology and follow-up has been scheduled for you with the [facility] cardiology office. You have been prescribed a prednisone taper. Please take prednisone as prescribed below. You did not show any evidence of pneumonia requiring antibiotics. If you develop any new or worsening symptoms including fever, chills, sweats, chest pain, chest pressure, difficulty breathing, uncontrolled nausea/vomiting, rash, wheezing, passing out or nearly passing out, bleeding, black/bloody bowel movements, or other new or concerning symptoms please call your primary care physician, or call 911 for re-evaluation in the emergency department if you are very concerned. Pending Studies at Discharge: No Stand-Alone Forms: My [facility], Smoking Cessation Medications and DC Order Prescriptions: New prednisone 10 mg tablet See Rx Instructions PO .COMPLEX Qty: 42 0RF Rx Instructions: Take prednisone once daily as follows: 40mg daily for 4 days, then 30mg daily for 4 days, then 20mg daily for 4 days, then 10mg daily Continued acetaminophen 650 mg tablet extended release 1,300 mg PO UD PRN (Reason: Pain) aspirin 81 mg tablet,delayed release (DR/EC) 81 mg PO QAM sennosides [senna] 8.6 mg tablet 8.6 mg PO DAILY PRN (Reason: Constipation) Qty: 90 3RF ipratropium-albuterol 0.5 mg-3 mg(2.5 mg base)/3 mL solution for nebulization 3 ml INHALATION Q6H PRN (Reason: Shortness Of Breath) Qty: 180 5RF isosorbide mononitrate 30 mg tablet extended release 24 hr 30 mg PO QAM Qty: 90 3RF metoprolol succinate 25 mg tablet extended release 24 hr 25 mg PO QAM Qty: 90 3RF pantoprazole 40 mg tablet,delayed release (DR/EC) 40 mg PO QAM Qty: 90 3RF gabapentin 600 mg tablet 600 mg PO BID Qty: 180 3RF rosuvastatin 40 mg tablet 40 mg PO QAM Qty: 90 3RF Eliquis 5 mg tablet 5 mg PO Q12H Qty: 180 3RF Rx Instructions: take with meals First dose Tuesday ranolazine 500 mg tablet extended release 12 hr 500 mg PO BID Qty: 180 3RF albuterol sulfate 90 mcg/actuation HFA aerosol inhaler 2 puff INHALATION Q6H PRN (Reason: Shortness Of Breath) Qty: 18 5RF budesonide-formoterol [Symbicort] 160-4.5 mcg/actuation HFA aerosol inhaler 2 puff inhalation BID Qty: 3 1RF nitroglycerin [Nitrostat] 0.4 mg tablet, sublingual 0.4 mg Sublingual DIRECTED PRN (Reason: Chest Pain) Qty: 25 3RF Rx Instructions: PLACE 1 TABLET UNDER TONGUE EVERY 5 MINUTES FOR UP TO 3 DOSES tamsulosin 0.4 mg capsule 0.8 mg PO HS Qty: 90 3RF fluoxetine 10 mg tablet 10 mg PO DAILY Qty: 30 2RF magnesium oxide 400 mg (241.3 mg magnesium) tablet 400 mg PO QAM cholecalciferol (vitamin D3) 50 mcg (2,000 unit) capsule 50 mcg PO PM spironolactone 25 mg tablet 25 mg PO QAM Spiriva Respimat 2.5 mcg/actuation mist 2 inh inhalation QAM Discontinued prednisolone 5 mg tablet 5 mg PO DAILY No Action (DME) Portable Oxygen Misc See Rx Instructions .MEDSUPPLY Qty: 1 0RF Rx Instructions: Oxygen 3 liters continuous via nasal cannula on exertion with portable concentrator. BELEN 99 Discharge Orders: Discharge Order (Routine); Ordered 09/06/24 Ordered By: Hubert Ramon/Other Patient Handouts: COPD: Chronic Coughing, COPD: Coping with Fatigue, Warning Signs of a Heart Attack Admission Data Admit Date/Time: 09/03/24 16:15 Attending Provider: Hubert Bryan Admit Provider: Mark Esteves Primary Care Provider: Darnell Velazco Other Providers: Mark Esteves; Ric Vázquez Other Interventions: Discharge Summary Assessment (RN) Last Done: 09/06/24 10:06 Hospital Stay Data Consultations 09/03/24 15:30 ED Decision to Admit Stat 09/03/24 20:07 Consult Cardiology Routine Diagnostic Imagining Performed 09/03/24 16:56 CT chest without contrast [CT chest diagnostic wo con] Stat Discharge Instructions Given to Patient (Per Discharging Provider) You are seen in the hospital for suspected chemical pneumonitis, inflammation of the lung due to a chemical exposure. You recovered well and were placed on a course of steroids which helped with your breathing. You have been placed on a prednisone taper as below. You did have some chest pain while hypoxic during admission, you had a stress echo which was normal and a EKG portion of this was nondiagnostic due to baseline changes. Further ischemic workup was not recommended at this time, your case was reviewed with cardiology and follow-up has been scheduled for you with the [facility] cardiology office. You have been prescribed a prednisone taper. Please take prednisone as prescribed below. You did not show any evidence of pneumonia requiring antibiotics. If you develop any new or worsening symptoms including fever, chills, sweats, chest pain, chest pressure, difficulty breathing, uncontrolled nausea/vomiting, rash, wheezing, passing out or nearly passing out, bleeding, black/bloody bowel movements, or other new or concerning symptoms please call your primary care physician, or call 911 for re-evaluation in the emergency department if you are very concerned. Total Time Total Time Spent Total Time Spent (In Minutes): Time spend day of discharge 35 minutes including direct patient care, documentation, review of labs and images, and coordination of care. Coding Level of Care Code 80763 INP/OBS DISCH >30 MIN Diagnoses Acute on chronic hypoxic respiratory failure J96.21 TALIA (acute kidney injury) N17.9 Chest pain R07.9
[2024-09-06 10:09] VITALS: BP 138/83
[2024-09-06] MEDS: predniSONE 20 MG TAB PO SCH (11:14)
[2024-09-06 13:19] VITALS: PULSE 82; O2SAT 99
--- NOTE | 2024-09-07 23:03 | Electrocardiogram Report ---
Test Reason : Blood Pressure : */* mmHG Vent. Rate : 104 BPM Atrial Rate : 104 BPM P-R Int : 178 ms QRS Dur : 88 ms QT Int : 352 ms P-R-T Axes : 47 -30 65 degrees QTcB Int : 462 ms Sinus tachycardia Left axis deviation Possible Anterolateral infarct (cited on or before 09-May-2015) Inferior-posterior infarct (cited on or before 10-May-2015) Abnormal ECG When compared with ECG of 03-Sep-2024 23:34, Premature atrial complexes are no longer Present Questionable change in initial forces of Anterior leads Confirmed by Demond Sutherland ([id number]) on 09/07/2024 11:03:06 PM Referred By: REFERRED SELF Confirmed By: Demond Sutherland
== END 2024-09-06 14:49 | disposition home or self-care (01) | DRG 205 ==
LOC: ED 13:20 → EDINP 16:15 → SUATTDRO 16:15 → 4W 16:55

== ENCOUNTER 2024-10-18 11:50 | Inpatient (IN) ==
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
[2024-10-18 12:18] LABS: Base Excess VBG -0.8 mEq/L; HCO3 VBG 24 mmol/L; Oxygen Saturation VBG < 60.0 %; PCO2 VBG 41 mmHg (38-50); PO2 VBG 33 mmHg; pH VBG 7.38 (7.36-7.41)
--- NOTE | 2024-10-18 12:29 | XRay Report ---
XR chest 1V portable CLINICAL HISTORY: Chest pain, nonspecific COMPARISON STUDY: 09/03/2024 FINDINGS: Stable cardiomegaly without pulmonary vascular congestion. There is increased stranding [place] at the left lower lung. No pneumothorax. IMPRESSION: Atelectasis versus pneumonia left lower lung. ACT 112: Negative or not required by law. Electronically signed by: Johnny Valles M.D. 10/18/2024 12:28 PM
[2024-10-18 12:36] LABS: Basophils # (auto) 0.03 K/uL (0.00-0.20); Basophils % (auto) 0.4 %; Eosinophils # (auto) 0.05 K/uL (0.00-0.50); Eosinophils % (auto) 0.6 %; Hematocrit (blood only) 36.7 % (42.0-52.0); Hemoglobin 12.1 g/dl (14.0-18.0); Immature Granulocytes # (auto) 0.09 K/uL (0.01-0.20); Immature Granulocytes % (auto) 1.1 %; Lymphocytes # (auto) 0.59 K/uL (1.20-3.40); Lymphocytes % (auto) 7.2 %; Mean Corpuscular Hemoglobin 32.1 pg (25.0-34.0); Mean Corpuscular Volume 97.3 fL (80.0-100.0); Mean Platelet Volume 9.5 fL (9.4-12.4); Monocytes # (auto) 0.61 K/uL (0.11-0.59); Monocytes % (auto) 7.5 %; Neutrophils % (auto) 83.2 %; Platelet Count 200 K/uL (130-400); RDW Coefficient of Variation 15.3 % (11.5-14.5); RDW Standard Deviation 54.3 fL (36.4-46.3); Red Blood Count 3.77 M/uL (4.70-6.10); White Blood Count 8.17 K/ul (4.8-10.8)
[2024-10-18 13:04] LABS: BUN Creatinine Ratio 18.9 (10-20); Calcium 9.4 mg/dl (8.6-10.3); Creatinine Clr Calc Pharmacy 56.4 ml/min; Potassium 4.2 mmol/L (3.5-5.1)
[2024-10-18 13:05] LABS: Influenza A virus by PCR Negative (Neg); Influenza B virus by PCR Negative (Neg); RSV by PCR Negative (Neg); SARS CoV2 RNA(COVID-19) Ceph NEGATIVE (Negative)
[2024-10-18 13:08] LABS: Troponin I High Sensitivity 22.2 pg/ml (0-20)
[2024-10-18 13:11] LABS: INR 1.2 (0.9-1.1); Partial Thromboplastin Ratio 1.4; Partial Thromboplastin Time 37 Seconds (21-31); Prothrombin Time 12.6 Seconds (9.0-12.0)
[2024-10-18] MEDS ORDERED: ALBUT/IPRATROP 3MG/0.5MG NEB 3 ML VIAL INH PRN (16:43)
[2024-10-18] MEDS ORDERED: ALBUTEROL HFA 8 GM INHALER INH PRN (16:43)
[2024-10-18] MEDS ORDERED: methylPREDNISolone 125 MG/2 ML VIAL IV STA (17:36)
--- OUTSIDE RECORDS SUMMARY | 2024-10-18 17:45 | External Medical Summary | Continuity of Care Document ---
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 Date(s): 10/02/24 - 10/02/24 [facility] 2017 [facility] [address], [address], [address] AM[place] Gage [address] [phone] Encounter Diagnosis Interstitial pulmonary disease, unspecified(Discharge Diagnosis) - 10/02/24 Discharge Disposition: Home or Self Care Attending Physician: MD Avila Richard C Referring Physician: MD Velazco Jeffrey W Encounter Type: [facility] Allergies, Adverse Reactions, Alerts Substance Criticality Severity Reaction Reaction Severity Status codeine Unable to assess criticality Moderate HIVES Active meperidine Unable to assess criticality Moderate hives Active oxyCODONE Unable to assess criticality Moderate HIVES, ITCHING Active Tylenol with Codeine Eruption Active Medications Albuterol (Eqv-ProAir HFA) Start: 12/29/23 10:34:00 AM EDT, 90 mcg =, inhaled, q6h, 0 Refill(s) Start Date: 12/29/23 Status: Ordered Repeat number: 1 aspirin 81 mg oral capsule Start: 12/29/23 10:34:00 AM EDT, 1 cap, PO, q24h, 0 Refill(s) Start Date: 12/29/23 Status: Ordered Repeat number: 1 Eliquis 5 mg oral tablet Start: 10/02/24 10:57:00 AM EDT, 1 tab, PO, bid Start Date: 10/02/24 Status: Ordered Repeat number: 1 Flomax Start: 12/29/23 10:35:00 AM EDT, 0.4 mg =, PO, Daily, 0 Refill(s) Start Date: 12/29/23 Status: Ordered Repeat number: 1 furosemide Start: 12/29/23 10:37:00 AM EDT Start Date: 12/29/23 Status: Ordered Repeat number: 1 gabapentin Start: 12/29/23 10:35:00 AM EDT, 600 mg =, PO, bid, 0 Refill(s) Start Date: 12/29/23 Status: Ordered Repeat number: 1 isosorbide dinitrate Start: 12/29/23 10:35:00 AM EDT, 5 mg =, PO, bid, 0 Refill(s) Start Date: 12/29/23 Status: Ordered Repeat number: 1 magnesium (as citrate)-melatonin 71.5 mg-1 mg oral tablet Start: 12/29/23 10:35:00 AM EDT, 2 tab, PO, Daily, 0 Refill(s) Start Date: 12/29/23 Status: Ordered Repeat number: 1 metoprolol succinate (ER) Start: 12/29/23 10:36:00 AM EDT, 25 mg =, PO, Daily, 0 Refill(s) Start Date: 12/29/23 Status: Ordered Repeat number: 1 Naprosyn Start: 12/29/23 10:36:00 AM EDT, 250 mg =, PO, bid, 0 Refill(s) Start Date: 12/29/23 Status: Ordered Repeat number: 1 nitroglycerin 0.4 mg sublingual tablet Start: 12/29/23 10:36:00 AM EDT, 25 each, 0 Refill(s), PLACE 1 TABLET UNDER TONGUE EVERY 5 MINUTES FOR UP TO 3 DOSES Start Date: 12/29/23 Status: Ordered Repeat number: 1 Ofev Start: 12/29/23 10:37:00 AM EDT, not started yet Start Date: 12/29/23 Status: Ordered Repeat number: 1 pantoprazole 40 mg oral delayed release tablet Start: 12/29/23 10:36:00 AM EDT, 90 tab, 0 Refill(s) Start Date: 12/29/23 Status: Ordered Repeat number: 1 predniSONE 20 mg oral tablet Start: 04/19/24 1:27:00 PM EDT, 1 tab, PO, Daily, Disp# 7 tab, Refills: 2, Pharmacy: [facility] Start Date: 04/19/24 Stop Date: 05/10/24 Status: Ordered Quantity: 7.0 Unit: tab Repeat number: 3 Indication: Interstitial pulmonary disease, unspecified predniSONE 20 mg oral tablet Start: 08/06/24 3:45:00 PM EST, 1 tab, PO, Daily, Disp# 7 tab, Refills: 2, Pharmacy: [facility] Start Date: 08/06/24 Stop Date: 08/27/24 Status: Ordered Quantity: 7.0 Unit: tab Repeat number: 3 Indication: Interstitial pulmonary disease, unspecified predniSONE 5 mg oral tablet Start: 08/27/24 1:46:00 PM EST, 1 tab, PO, Daily, Disp# 30 tab, Refills: 11, Pharmacy: [facility] Start Date: 08/27/24 Stop Date: 08/22/25 Status: Ordered Quantity: 30.0 Unit: tab Repeat number: 12 Indication: Interstitial pulmonary disease, unspecified PROzac 10 mg oral capsule Start: 10/02/24 10:57:00 AM EDT, 1 cap, PO, Daily Start Date: 10/02/24 Status: Ordered Repeat number: 1 rosuvastatin Start: 12/29/23 10:36:00 AM EDT, 40 mg =, PO, Daily, 0 Refill(s) Start Date: 12/29/23 Status: Ordered Repeat number: 1 Zithromax Z-Rodrigo 250 mg oral tablet Start: 04/19/24 1:20:00 PM EDT, See Comments, PO, Daily, Disp# 6 tab, Refills: 2, 500 mg (2 tabs) on day 1, then 250 mg (1 tab) on days 2-5, Pharmacy: [facility] Start Date: 04/19/24 Stop Date: 05/04/24 Status: Ordered Quantity: 6.0 Unit: tab Repeat number: 3 Indication: Interstitial pulmonary disease, unspecified Zithromax Z-Rodrigo 250 mg oral tablet Start: 07/10/24 1:27:00 PM EST, See Instructions, Disp# 6 tab, Refills: 2, See Comments PO Daily asdirected on package labeling, Pharmacy: [facility] Start Date: 07/10/24 Status: Ordered Quantity: 6.0 Unit: tab Repeat number: 3 Indication: Interstitial pulmonary disease, unspecified Problem List No Chronic Problems Diagnosis Diagnosis Type Effective Dates Health Status Clinical Service Informant Interstitial pulmonary disease, unspecified Discharge Diagnosis 10/02/24 Non-Specified Social History Social History Type Response Smoking Status Never smoked cigaret liz Sex Male Sex Representation Male (finding) Patient Care team information Care Team Personnel Name: MD Breen Judie A Position: Physician - Pulmonary Med Member Role: Lifetime Relationship Address: [address] [place] [address] [address] Telecom: [phone] Name: MD Velazco Jeffrey W Position: Referring DIRECT Member Role: Primary Care Provider Address: [facility] [address] Telecom: [phone] Care Team Related Persons Name: MONSE KIDD Insurance Providers Guarantor name: FLACA KIDD Health Plan Information #: 1 Payer: [employer] Member Number: [id number] Policy Number: NA Group Number: [id number] Health Plan Information #: 2 Payer: [employer] Member Number: [id number] Policy Number: NA Group Number: NA
--- OUTSIDE RECORDS SUMMARY | 2024-10-18 17:45 | External Medical Summary | Continuity of Care Document ---
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 Role Phone Darnell Velazco Primary Care Physician [phone] [id number] Date(s): 10/02/24 - 10/02/24 [facility] [address] [facility] [address], [address], [address] [place] [address] Encounter Diagnosis ILD (interstitial lung disease)(Discharge Diagnosis) - 10/02/24 Discharge Disposition: Home or Self Care Attending Physician: MD Breen Judie A Referring Physician: MD Velazco Jeffrey W Encounter Type: [facility] Allergies, Adverse Reactions, Alerts Substance Criticality Severity [...] Daily, Disp# 7 tab, Refills: 2, Pharmacy: [facility] Start Date: 04/19/24 Stop Date: 05/10/24 Status: Ordered Quantity: 7.0 Unit: tab Repeat number: 3 Indication: Interstitial pulmonary disease, unspecified predniSONE 20 mg oral tablet Start: 08/06/24 3:45:00 PM EST, 1 tab, PO, Daily, Disp# 7 tab, Refills: 2, Pharmacy: [facility] Start Date: 08/06/24 Stop Date: 08/27/24 Status: Ordered Quantity: 7.0 Unit: tab Repeat number: 3 Indication: Interstitial pulmonary disease, unspecified predniSONE 5 mg oral tablet Start: 08/27/24 1:46:00 PM EST, 1 tab, PO, Daily, Disp# 30 tab, Refills: 11, Pharmacy: [facility] Start Date: 08/27/24 Stop Date: 08/22/25 [...] mg (1 tab) on days 2-5, Pharmacy: [facility] Start Date: 04/19/24 Stop Date: 05/04/24 Status: Ordered Quantity: 6.0 Unit: tab Repeat number: 3 Indication: Interstitial pulmonary disease, unspecified Zithromax Z-Rodrigo 250 mg oral tablet Start: 07/10/24 1:27:00 PM EST, See Instructions, Disp# 6 tab, Refills: 2, See Comments PO Daily asdirected on package labeling, Pharmacy: [facility] Start Date: 07/10/24 Status: Ordered Quantity: 6.0 Unit: tab Repeat number: 3 Indication: Interstitial pulmonary disease, unspecified Mental Status 10/02/24 Barriers to Learning one year None evide nt Mandatory Health Literacy Documentation Yes Health Literacy Communication Barriers N ever Primary Language Dominican Problem List No Chronic Problems Diagnosis Diagnosis Type Effective Dates Health Status Cl inical Service Informant ILD (interstitial lung disease) Discharge Diagnosis 10/02/24 Vital Signs Most recent to oldest [Reference Range]: 1 Height 175 cm (10/02/24 10:58 AM) Patient Weight 92.5 kg (10/02/24 10:58 AM) Body Mass Index 30.2 kg/m2 (10/02/24 10:58 AM) Temperature [36.5-37.9 DegC] 36.4 DegC *LOW* (10/02/24 10:58 AM) Heart Rate 81 bpm (10/02/24 10:58 AM) Respiratory Rate 19 br/min (10/02/24 10:58 AM) Blood Pressure 128/86mmHg (10/02/24 10:58 AM) Cuff Pulse Pressure 42 mmHg (10/02/24 10:58 AM) BP Location # 1 Right Arm (10/02/24 10:58 AM) Social History Social History Type Response Smoking Status Never smoked cigaret liz Sex Male Sex Representation Male (finding) Patient Care team information Care Team Personnel Name: MD Jamshid, Griselda Faustin Position: Physician - Pulmonary Med Member Role: Lifetime Relationship Address: [address] [place] [address] Telecom: [phone] Name: MD Velazco Jeffrey W Position: Referring DIRECT Member Role: Primary Care Provider Address: [facility] [address] Telecom: [phone] Care Team Related Persons Name: MONSE KIDD Insurance Providers Guarantor name: FLACA KIDD Health Plan Information #: 1 Payer: [employer] Member Number: [id number] Policy Number: NA Group Number: [id number] Health Plan Information #: 2 Payer: [employer] Member Number: [id number] Policy Number: NA Group Number: NA
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
[2024-10-18] MEDS: APIXABAN 5 MG TABLET PO SCH (18:08)
[2024-10-18] MEDS: methylPREDNISolone 40 MG in SYRINGE 0 ML IV STA (18:31)
[2024-10-18] MEDS: TAMSULOSIN HCL 0.4 MG CAP PO SCH (20:51)
[2024-10-18] MEDS: CHOLECALCIFEROL 25 MCG (1000 UNITS) TAB PO SCH (20:52)
[2024-10-18] MEDS: RANOLAZINE 500 MG ER TAB PO SCH (20:52)
[2024-10-18] MEDS: GABAPENTIN 600 MG TAB PO SCH (20:52)
[2024-10-18] MEDS: methylPREDNISolone 40 MG in SYRINGE 0 ML IV SCH (20:53)
[2024-10-18] MEDS ORDERED: methylPREDNISolone 10 mg/mL (For Ped Dose < 7mg) IV SCH (21:00)
--- NOTE | 2024-10-18 22:45 | Electrocardiogram Report ---
Test Reason : Blood Pressure : */* mmHG Vent. Rate : 90 BPM Atrial Rate : 90 BPM P-R Int : 182 ms QRS Dur : 86 ms QT Int : 370 ms P-R-T Axes : 42 -33 59 degrees QTcB Int : 453 ms Sinus rhythm with frequent Premature atrial complexes Left axis deviation Lateral infarct (cited on or before 09-May-2015) Inferior-posterior infarct (cited on or before 10-May-2015) Abnormal ECG When compared with ECG of 05-Sep-2024 01:54, Premature atrial complexes are now Present Confirmed by Demond Sutherland ([id number]) on 10/18/2024 10:44:44 PM Referred By: Confirmed By: Demond Sutherland
[2024-10-19] MEDS: FLUTICASONE/VILANTEROL 200/25MCG 14 PUFFS/INHALER INH SCH (07:59)
[2024-10-19] MEDS: UMECLIDINIUM BROMIDE 62.5MCG/BLISTER 7 PUFFS/INHALER INH SCH (07:59)
[2024-10-19] MEDS ORDERED: predniSONE 5 MG TAB PO SCH (09:00)
[2024-10-19] MEDS: ASPIRIN 81 MG ECTAB PO SCH (09:18)
[2024-10-19] MEDS: ROSUVASTATIN CALCIUM 20 MG TAB PO SCH (09:18)
[2024-10-19] MEDS: SPIRONOLACTONE 25 MG TAB PO SCH (09:18)
[2024-10-19] MEDS: FLUoxetine HCL 10 MG CAP PO SCH (09:19)
[2024-10-19] MEDS: PANTOprazole 40 MG TAB PO SCH (09:19)
[2024-10-19] MEDS: METOPROLOL SUCC 25MG EXT REL TAB PO SCH (09:19)
[2024-10-19] MEDS: ISOSORBIDE MONO EXTENDED REL 30 MG TABCR PO SCH (09:19)
[2024-10-19] MEDS: MAGNESIUM OXIDE 400 MG TAB PO SCH (09:19)
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
--- NOTE | 2024-10-19 17:41 | Billing Data ---
Date of Service October 19, 2024 Coding Level of Care Code 63384 SUB INP/OBS CARE MIN
[2024-10-20] MEDS ORDERED: Nursing to Pharmacy Communication SCH (06:00)
--- NOTE | 2024-10-20 06:54 | Hospitalist Progress Note ---
Date of Service October 20, 2024 Assessment & Plan (1) Pulmonary fibrosis: Plan: Pt is a 74 yo male with PMH of end stage pulmonary fibrosis (requiring 4L oxygen at home), hx of DVT/PE, and CAD presenting to the hospital d/t SOB and chest pain. End stage pulmonary fibrosis - pt with long standing pulmonary fibrosis but acute worsening since an accidental bleach inhalation early this year - since then, he has been struggling with his oxygen saturations/dyspnea - steroids began on admission seem to have some benefit; will continue with methylpred 40mg BID for at least a few days and if continued improvement, may consider oil heaterman steroids - on 2 step 10/19, he required 4L at rest and 10L with exertion- his home oxygen is only able to go up to 4L; will need to discuss further options with case management in terms of home oxygen concentrators - discussed initiation of morphine to help with pt's SOB; he seems to be getting at least noticeable improvement with the steroids so we will continue with this for now- may always add morphine if necessary if symptoms worsen Elevated trop - no symptoms of ischemia; no ischemia on EKG - suspect secondary to demand ischemia in setting of dyspnea 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 Extensive discussion with patient and familysee below. Discussed with case management, and actually 10 L is potentially possible with some limitations for home equipment if he continues to need this. Vitals noted, in general he is awake and alert pleasant no distress. HEENT normocephalic atraumatic mucous membranes moist. Breathing unlabored no acces michelet muscle use good effort. Skin without rashes pallor or icterus. Neuro without focal deficits. Pulmonary fibrosissevere end-stage restrictive lung diseasechronic hypoxic respiratory failure - may be feeling a little bit better with steroidscontinue. Continue supportive care. Continue to offer help and guidance through goals of care type discussions. Discussed goals of care extensively with patient and familyhe has a very understandable ambivalence because he enjoys his life and his time with his family but also knows that he has an essentially unfixable problem and does want to value quality of life as well. We discussed how to balance this in depthpractical answers as below steroids: He is feeling better on the steroids, right now he is on 40 mg of IV methylprednisolone twice daily and feeling better each day. We discussed that from a aggressive treatment standpoint it would be reasonable to continue to a course of steroids and then wean down to as low as possible to minimize steroid side effects; but in a ejqoyso-pt-qfix measure, it would not be unreasonable to wean to his low as when he notices rebound symptoms regardless of dose. Once his improvement in symptoms has plateaued, would start to wean steroids. Probably safe for home once he is able to be on a 60 mg prednisone p.o. equivalent or less. Oxygen: Most recent two-step showed 4 L at rest/10 L with exertion, it seemed like he was probably at his current baseline when we checked this, but then as a good surprise, he is feeling better on the steroids, so once he gets closer to discharge we will recheck a two-step. At the same time, we discussed that for aggressive medical care he would want to abide by what ever it takes to keep his pulse ox 88-92%, even if it limits his ability to be out and social; from a fwqpoah-nq-lvoo standpoint, it would be using oxygen to alleviate dyspnea, and tolerating desaturations with a degree of disregard to his pulse ox readings if it allows him to do what he enjoys. (in discussion with case management - 4L at rest 10L with exertion could actually be set up for home, with some limitations on his ability to use that 10L with exertion) morphine as needed for dyspnea: First, I addressed the misunderstanding that this would essentially be a end-of-life treatmentdiscussed the enormous difference between low doses of as needed morphine to alleviate dyspnea and what it would amount to euthanasia and that we would definitely not do the latter. Discussed that while the steroids and the oxygen both have an aggressive and quality of life way of instituting treatment, the morphine as needed for dyspnea would be purely a sjhutmy-qe-uwbv measurediscussed that this would be something that he could take and follow for response, if it helps without a whole lot of notable side effects (grogginess/sluggishness/sedation/etc.) then he could potentially use it more liberally; at the same time if it alleviates dyspnea but does cause a degree of sedation/etc., then he might only want to take it whenever he has significant dyspnea that cannot be alleviated otherwise. continue current care - discharge plan will be to home - anticipate once he's f eeling like his steroid-mediated improvement has plateaued then would start to wean - once down to ~60mg PO prednisone equivalent would then be able to go home with very slow taper and close outpt f/u to determine "basement dose" that alleviates dyspnea; once down to steroid levels compatible with going home then would repeat 2-step to reassess O2 needs Subjective Overall states feeling somewhat better this morning. Less dyspnea. Up and back to bathroom. Daughter, and grandkids in room this morning, discussed concern that this may be his baseline and likely need for increased oxygen at home. Possible steroids may decrease requirement some, but concerned that this is baseline. Lung transplant was discussed at last outpatient pulm f/u, but concerns with his current status if this is viable/realistic option. Questions in regards to morphine, went over that it would be used symptomatically and while more in line with hospice/palliative/comfort goals dose not need to be hospice status in order to trial-> will consider. Also discussed antifibrinolytics as per [facility] pulmonary and likely need for f/u to discuss. Review of Systems Review of Systems: As per above Physical Exam Physical Exam: Constitutional: well appearing, no acute distress HEENT: normocephalic, no conjunctival injection CV: RRR, no murmur, no LE edema Respiratory: Diminished breath sounds throughout. No rhonchi, wheezes, or crackles. No increased work of breathing MSK: no gross deformities noted Skin: warm, dry, no rashes Neuro: alert, oriented, no FND noted Psych: mood and affect congruent Results & Data Results & Data Vital Signs (Past 12 Hours) Vital Signs Temp Pulse Resp BP Pulse Ox O2 Del Method O2 Flow Rate 10/20/24 03:08 36.6 C 65 20 148/76 H 98 Nasal Cannula 4 10/19/24 23:16 36.6 C 74 20 143/83 H 96 Nasal Cannula 4 10/19/24 20:00 Nasal Cannula 4 10/19/24 19:24 36.6 C 75 18 128/75 95 Nasal Cannula 4 Resident Activity Tracking Resident Involvement: Resident Care Provided Care Provided: Adult Hospital Medicine
--- NOTE | 2024-10-20 16:47 | Billing Data ---
Date of Service October 20, 2024 Coding Level of Care Code 46420 SUB INP/OBS CARE MIN
[2024-10-20] MEDS: SENNA 8.6 MG TAB PO PRN (18:31)
[2024-10-21] MEDS ORDERED: DICLOFENAC SOD 1% GEL 100 GM TUBE EXT PRN (00:53)
[2024-10-21] MEDS: ACETAMINOPHEN 325 MG TAB PO PRN (01:28)
--- NOTE | 2024-10-21 13:08 | Hospitalist Progress Note ---
Date of Service October 21, 2024 Assessment & Plan (1) Pulmonary fibrosis: Plan: Pt is a 74 yo male with PMH of end stage pulmonary fibrosis (requiring 4L oxygen at home), hx of DVT/PE, and CAD presenting to the hospital d/t SOB and chest pain. End stage pulmonary fibrosis - pt with long standing pulmonary fibrosis but acute worsening since an accidental bleach inhalation early this year - on 2 step 10/19, he required 4L at rest and 10L with exertion- his home oxygen is only able to go up to 4L; will need to discuss further options with case management in terms of home oxygen concentrators Slowly taper steroids with goal of 60 mg total daily dose for discharge, continue to wean oxygen as able. Slow outpatient steroid wean over many weeks Has been discussed that patient could add morphine for dyspnea however this also does not improve his underlying oxygenation. Patient would like to continue steroids and oxygen wean at this time, at the point where he may consider morphine for dyspnea would also reconsider antifibrotic therapy with the same provider at that time. Patient is aware that morphine for dyspnea is a comfort oriented measure and that it is true that sometimes people breathe slightly less but more comfortably and that does not improve oxygenation but does have a role in palliation of severe end-stage lung disease. Do not feel patient is appropriate for steroid wean 10/21 due to hypoxic event. 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 Extensive conversation regarding his care and care plan over approximately 35-40 minutes. Doing reasonably well while laying in bed but did have a hypoxic episode this morning with some prolonged recovery requiring OxyMask after attempted ambulation. He reports overall once he rested he feels about the same as yesterday. No chest pain, chest pressure at night. Episode of dyspnea/hypoxia this morning. Otherwise no shortness of breath and this has resolved. No productive cough. Overall discussed short-term and long-term plan with the patient. For now goal is to wean steroids to a total daily dose of 60 or less and titrate down his oxygen to a level which can be supported by his home concentrator which unfortunately tends to heat up after attempted bursts of around 6 L. The goal is to reduce his oxygen requirement is much as possible, and to down titrate steroids to the lowest dose to support what ever that requirement is. He reports he has not done well with a wean down to as far as 5-7.5 mg in the past but that these have helped up until that point. Once he is able to ambulate with oxygen levels reasonably tolerable for his concentrator can continue down titration oral prednisone but will do so very slowly over a period of weeks. Patient understands the risks of long-term steroids however some level disease will need to be accommodated due to his very poor pulmonary status. If that balance is reached and he is still not able to have a reasonably functional level in his life he would then consider antifibrotic's at that time but has been very reluctant to do so otherwise. He reports that he has also considered and has been mentioned that he could see [facility] for potential lung transplant, but also acknowledges that he has other comorbidities that may make him a poor candidate and notes "even if I went for this, it can take years and might not be an option anyway ". He would like to continue surgery when as noted for now. No other questions at time of bedside visit Physical Exam Physical Exam: General: A&Ox3. NAD. Cooperative. HEENT: Atraumatic, normocephalic. Pulm: +fine basilar crackles. Symmetrical chest rise. No increased work of breathing. No respiratory distress. Cardiac: RRR, +sm. Radial pulses intact and symmetrical. Results & Data Results & Data Vital Signs (Past 12 Hours) Vital Signs Temp Pulse Pulse Resp BP Pulse Ox O2 Del Method 10/21/24 11:00 63 10/21/24 10:57 36.3 C L 76 18 136/77 96 Room Air 10/21/24 09:00 Nasal Cannula 10/21/24 07:44 36.6 C 67 16 155/93 H 96 Nasal Cannula 10/21/24 03:15 36.3 C L 58 L 18 150/82 H 99 Nasal Cannula O2 Flow Rate 10/21/24 11:00 10/21/24 10:57 10/21/24 09:00 4 10/21/24 07:44 7 10/21/24 03:15 7 PG Care Time/CCT Total # of Minutes Spent Total Time Spent with Patient: Total time spent is greater than 50% in coordination of care (as documented) at patient's floor/unit and/or counseling patient: Coding Level of Care Code 17791 SUB INP/OBS CARE 3/50MIN Diagnoses Pulmonary fibrosis J84.10 History of pulmonary embolus (PE) Z86.711 CAD (coronary artery disease) I25.10
[2024-10-22] MEDS: METHYLPREDNISOLONE IV SCH (10:15)
--- NOTE | 2024-10-22 12:12 | Hospitalist Progress Note ---
Date of Service October 22, 2024 Assessment & Plan (1) Pulmonary fibrosis: Plan: Pt is a 74 yo male with PMH of end stage pulmonary fibrosis (requiring 4L oxygen at home), hx of DVT/PE, and CAD presenting to the hospital d/t SOB and chest pain. End stage pulmonary fibrosis - pt with long standing pulmonary fibrosis but acute worsening since an accidental bleach inhalation early this year - on 2 step 10/19, he required 4L at rest and 10L with exertion- his home oxygen is only able to go up to 4L; will need to discuss further options with case management in terms of home oxygen concentrators Slowly taper steroids with goal of 60 mg total daily dose for discharge, continue to wean oxygen as able. Slow outpatient steroid wean over many weeks Has been discussed that patient could add morphine for dyspnea however this also does not improve his underlying oxygenation. Patient would like to continue steroids and oxygen wean at this time, at the point where he may consider morphine for dyspnea would also reconsider antifibrotic therapy with the same provider at that time. Patient is aware that morphine for dyspnea is a comfort oriented measure and that it is true that sometimes people breathe slightly less but more comfortably and that does not improve oxygenation but does have a role in palliation of severe end-stage lung disease. Methylprednisolone weaned to 35 mg twice daily, follow progression Cough No fever, chills suggestive of pneumonia but patient has had a chronic dry cough. Does feel he has difficulty expectorating sputum. 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 Doing well no events overnight. No hypoxic events overnight. Did walk to the bathroom and did not use his oxy mask and oxygen came off for a bit and desatted down to the 70s but other than this feels well and has been on 2-4 L of oxygen. No chest pain chest pressure. Feels comfortable with. Weaned to 35 twice daily today. Physical Exam Physical Exam: General: A&Ox3. NAD. Cooperative. HEENT: Atraumatic, normocephalic. Pulm: +fine basilar crackles. Symmetrical chest rise. No increased work of breathing. No respiratory distress. Improved aeration of the right lower lung on exam compared to prior Cardiac: RRR, +sm. Radial pulses intact and symmetrical. Results & Data Results & Data Vital Signs (Past 12 Hours) Vital Signs Temp Pulse Pulse Resp BP Pulse Ox O2 Del Method 10/22/24 11:28 36.7 C 68 20 135/74 99 Nasal Cannula 10/22/24 08:00 Nasal Cannula 10/22/24 07:48 36.8 C 75 22 150/79 H 94 Nasal Cannula 10/22/24 07:20 59 L 10/22/24 04:33 36.5 C 56 L 16 128/70 97 Room Air 10/22/24 00:11 36.4 C L 70 16 137/81 98 Nasal Cannula O2 Flow Rate 10/22/24 11:28 4 10/22/24 08:00 10/22/24 07:48 4 10/22/24 07:20 10/22/24 04:33 10/22/24 00:11 4 PG Care Time/CCT Total # of Minutes Spent Total Time Spent with Patient: Total time spent is greater than 50% in coordination of care (as documented) at patient's floor/unit and/or counseling patient: Coding Level of Care Code 83467 SUB INP/OBS CARE 3/50MIN Diagnoses Pulmonary fibrosis J84.10 History of pulmonary embolus (PE) Z86.711 CAD (coronary artery disease) I25.10
[2024-10-22] MEDS: guaiFENesin 600 MG TABCR PO SCH (20:05)
[2024-10-23 09:09] LABS: Basophils # (auto) 0.01 K/uL (0.00-0.20); Basophils % (auto) 0.1 %; Hematocrit (blood only) 37.5 % (42.0-52.0); Hemoglobin 12.7 g/dl (14.0-18.0); Immature Granulocytes # (auto) 0.19 K/uL (0.01-0.20); Immature Granulocytes % (auto) 1.6 %; Lymphocytes % (auto) 6.7 %; Mean Corpuscular Hemoglobin 32.2 pg (25.0-34.0); Mean Corpuscular Hgb Conc 33.9 g/dL (32.0-36.0); Mean Corpuscular Volume 95.2 fL (80.0-100.0); Mean Platelet Volume 9.6 fL (9.4-12.4); Monocytes # (auto) 0.66 K/uL (0.11-0.59); Monocytes % (auto) 5.5 %; Neutrophils # (auto) 10.28 K/uL (1.40-6.50); Neutrophils % (auto) 86.1 %; Nucleated RBC # (auto) 0.08 K/uL (0.00-0.12); Nucleated RBC % (auto) 0.7 %; Platelet Count 178 K/uL (130-400); RDW Coefficient of Variation 15.1 % (11.5-14.5); RDW Standard Deviation 51.7 fL (36.4-46.3); Red Blood Count 3.94 M/uL (4.70-6.10); White Blood Count 11.94 K/ul (4.8-10.8)
[2024-10-23 09:27] LABS: Calcium 9.1 mg/dl (8.6-10.3); Potassium 4.4 mmol/L (3.5-5.1)
[2024-10-23 09:33] LABS: BUN Creatinine Ratio 31.9 (10-20); Creatinine Clr Calc Pharmacy 65.4 ml/min
--- NOTE | 2024-10-23 18:14 | Hospitalist Progress Note ---
Date of Service October 23, 2024 Assessment & Plan (1) Pulmonary fibrosis: Plan: Pt is a 74 yo male with PMH of end stage pulmonary fibrosis (requiring 4L oxygen at home), hx of DVT/PE, and CAD presenting to the hospital d/t SOB and chest pain. End stage pulmonary fibrosis - pt with long standing pulmonary fibrosis but acute worsening since an accidental bleach inhalation early this year Slowly taper steroids with goal of 60 mg total daily dose for discharge, cont inue to wean oxygen as able. Slow outpatient steroid wean over many weeks Has been discussed that patient could add morphine for dyspnea however this also does not improve his underlying oxygenation. Patient would like to continue steroids and oxygen wean at this time, at the point where he may consider morphine for dyspnea would also reconsider antifibrotic therapy with the same provider at that time. Patient is aware that morphine for dyspnea is a comfort oriented measure and that it is true that sometimes people breathe slightly less but more comfortably and that does not improve oxygenation but does have a role in palliation of severe end-stage lung disease. Methylprednisolone further weaned to 30mg BID. If tolerating --> reasonable dose to consolidate to pred 60 for d/c slow wean. Repeat 2 step tomorrow afternoon when at 60mg dose to ensure exertional reqs/recovery does not exceed that supplied by his home concentrator. Cough No fever, chills suggestive of pneumonia but patient has had a chronic dry cough. Does feel he has difficulty expectorating sputum. 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 Had a small desaturation episode while walking but quickly returned to normal with his regular oxygen requirements. No wheezing. Does not feel that he has worsened. Okay with a further wean off of steroids today. On afternoon did have an acute episode of hypoxia and coughing up a suspected he aspirated. Subsequently maintaining normal saturations on room air. Monitoring continue Physical Exam Physical Exam: General: A&Ox3. NAD. Cooperative. HEENT: Atraumatic, normocephalic. Pulm: +fine basilar crackles. Improved air movement form prior. Good volumes on IS at bedside. Symmetrical chest rise. No increased work of breathing. No res piratory distress. Improved aeration of the right lower lung on exam compared to prior Cardiac: RRR, +sm. Radial pulses intact and symmetrical. Results & Data Results & Data Vital Signs (Past 12 Hours) Vital Signs Temp Pulse Pulse Resp BP Pulse Ox O2 Del Method 10/23/24 16:07 67 10/23/24 15:41 36.3 C L 73 18 148/92 H 99 Nasal Cannula 10/23/24 11:21 36.6 C 62 20 104/65 96 Nasal Cannula 10/23/24 10:08 Nasal Cannula 10/23/24 07:33 36.5 C 66 20 144/88 H 97 Nasal Cannula 10/23/24 07:20 68 O2 Flow Rate 10/23/24 16:07 10/23/24 15:41 4 10/23/24 11:21 4 10/23/24 10:08 4 10/23/24 07:33 4 10/23/24 07:20 PG Care Time/CCT Total # of Minutes Spent Total Time Spent with Patient: Total time spent is greater than 50% in coordination of care (as documented) at patient's floor/unit and/or counseling patient: Coding Level of Care Code 00628 SUB INP/OBS CARE 3/50MIN Diagnoses Pulmonary fibrosis J84.10 History of pulmonary embolus (PE) Z86.711 CAD (coronary artery disease) I25.10
[2024-10-23] MEDS: methylPREDNISolone 30 MG in SYRINGE 0 ML IV SCH (20:15)
[2024-10-24] MEDS: NITROGLYCERIN SL 0.4 MG/TAB TAB SL PRN (04:50)
--- NOTE | 2024-10-24 05:17 | Communication Note ---
Date of Service: October 24, 2024 Rapid Response called - patient found to have left sided facial droop, ptosis, left sided hemiparesis involving LUE and LLE. Upon questioning patient reports that he is having one of his "Spells" where he develops left sided paralysis. He reports that he takes a Nitro for these episodes and they resolve in 2-3 minutes. States "this isn't a stroke" Blood pressure 201/93 EKG with SR with PACs, no acute ischemia Nitro 0.4mg SL x [address] of the head and CTA ordered Patient with rapid recovery to his baseline after administration of SL Nitro. 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
[2024-10-24] MEDS: hydrOXYzine HCl 25 MG TAB PO PRN (05:25)
[2024-10-24 06:56] LABS: Basophils # (auto) 0.01 K/uL (0.00-0.20); Basophils % (auto) 0.1 %; Hematocrit (blood only) 35.7 % (42.0-52.0); Hemoglobin 12.4 g/dl (14.0-18.0); Immature Granulocytes % (auto) 1.6 %; Lymphocytes % (auto) 6.5 %; Mean Corpuscular Hemoglobin 32.8 pg (25.0-34.0); Mean Corpuscular Hgb Conc 34.7 g/dL (32.0-36.0); Mean Corpuscular Volume 94.4 fL (80.0-100.0); Mean Platelet Volume 9.7 fL (9.4-12.4); Monocytes % (auto) 6.5 %; Neutrophils # (auto) 10.52 K/uL (1.40-6.50); Neutrophils % (auto) 85.3 %; Nucleated RBC # (auto) 0.03 K/uL (0.00-0.12); Nucleated RBC % (auto) 0.2 %; Platelet Count 179 K/uL (130-400); RDW Coefficient of Variation 14.7 % (11.5-14.5); RDW Standard Deviation 50.1 fL (36.4-46.3); Red Blood Count 3.78 M/uL (4.70-6.10); White Blood Count 12.33 K/ul (4.8-10.8)
[2024-10-24 07:49] LABS: Potassium 4.7 mmol/L (3.5-5.1)
[2024-10-24 07:55] LABS: BUN Creatinine Ratio 37.5 (10-20)
--- NOTE | 2024-10-24 10:19 | Electrocardiogram Report ---
Test Reason : Blood Pressure : */* mmHG Vent. Rate : 71 BPM Atrial Rate : 71 BPM P-R Int : 182 ms QRS Dur : 88 ms QT Int : 384 ms P-R-T Axes : 21 -31 10 degrees QTcB Int : 417 ms Sinus rhythm with Premature atrial complexes Left axis deviation Minimal voltage criteria for LVH, may be normal variant Inferior infarct (cited on or before 10-May-2015) Abnormal ECG When compared with ECG of 18-Oct-2024 11:56, Premature atrial complexes are now Present Confirmed by Ric Vázquez ([id number]) on 10/24/2024 10:18:52 AM Referred By: Darnell Velazco Confirmed By: Ric Vázquez
[2024-10-24] MEDS: predniSONE 10 MG TABLET PO STA (14:05)
[2024-10-24 14:50] VITALS: RESP 18; TEMP 98.1; O2SAT 96
[2024-10-24 16:29] VITALS: BP 201/93; PULSE 67
--- NOTE | 2024-10-24 19:08 | Discharge Summary ---
Discharge Summary Date of Service October 24, 2024 Principal Dx & Hospital Course #1 = Principal Diagnosis (1) Pulmonary fibrosis: Pt is a 74 yo male with PMH of end stage pulmonary fibrosis (requiring 4L oxygen at home), hx of DVT/PE, and CAD presenting to the hospital with shortness of breath and chest pain he had an accidental inhalational injury caused by spilled a gallon of bleach in late August with chemical pneumonitis and has had a sharp decline ever since that pulmonary fibrosis with worsening acute on chronic hypoxic respiratory failure -long standing pulmonary fibrosis but acute worsening since an accidental bleach inhalation earlier this year -no evidence of infection, not meeting strict criteria for IPF "flare" treated with steroids, bronchodilators - improvement in hypoxia and dyspnea -he was not volume overloaded on exams prednisone 60 mg at discharge with slow taper of 10 mg every 5 days down to 20 mg, follow up with pulmonary clinic to continue tapering if appropriate. Previously his baseline was prednisone 5 mg daily home oxygen needs increased to 2-3 L at rest and 6 L with activity, wrote new prescription and his home oxygen company will deliver a stronger concentrator Cough chronic dry cough related to pulmonary fibrosis Elevated trop - no symptoms of ischemia; no ischemia on EKG - secondary to myocardial demand ischemia caused by hypoxia PNES - triggered by dyspnea; hopeful for better control of breathing will also decrease frequency of seizures - he had an episode early this morning which was evaluated by my colleague and resolved with sublingual nitroglycerin per his usual pattern coronary artery diseasecontinue usual medications: aspirin, Imdur, metoprolol, diltiazem, ranolazine, rosuvastatin, spironolactone he is anticoagulated on apixaban he will follow-up with Dr. Miller and with his counter server at [facility] Dr. Montanez (2) History of pulmonary embolus (PE): (3) CAD (coronary artery disease): Notes For Next Care Provider Medication Changes From Visit prednisone taper Admission HPI Per Admitting Provider patient is a very pleasant 74-year-old male who presents through the ER at the direction of pulmonary rehab. He notes that he was in his usual state of health, and then this morning whenever he went to drive, his portable oxygen concentrator did not work righthe thinks probably it blew the fuse in the caressentially he was at least for a little while without his supplemental oxygen. He then went to pulmonary rehab and actually felt like he did reasonably well, and then as they were helping him to his car he desaturated again and apparently had more difficulties with his equipment. They felt like with his O2 sats being where they were he should come to the ER for further evaluation. He essentially feels like he is at his baseline, does not feel like anything new or different is going onnotes that since he had the bleach inhalation about 2 months ago he has unfortunately noted a new and much lower plateau, he saw his counter server who did lung function tests and essentially told him he is in transplant territory. Patient himself notes that he has heard of many people that are on transplant list for years and also worries if he would even be strong enough to go through with 1. He notes that he jokes frequently that with his that she just needs to call the director of emergency nursing, notes that because he is saved he is not afraid to , but also notes that because he loves his kids and his grandkids he would like to be around if he can be, but expresses a very good understanding that he is declining in an essentially unfixable way. He notes that he would like to try to get new oxygen equipment, and is not sure what levels he should be at at rest and exertion and also notes that his home equipment only goes up to 4 L. He notes that a while ago (before the bleach inhalation) he was put on 20 mg of prednisone and actually felt a lot better for a while. Notes no new infectious symptoms, no new symptoms otherwise. He does not feel like he is quite ready for hospice, but also is amenable to considering more "hospice like" means to alleviate his dyspnea. Discharge Exam Last 24h vitals reviewed GEN: no acute distress, sitting in bed HEENT: pupils equal, sclerae anicteric, moist MM RESP: normal WOB, coarse bibasilar and fine apical crackles CV: reg no mrg ABD: soft/nt/nd +BT : no lloyd SKIN: warm and dry, no generalized rashes, no edema NEURO: AOx person, place, and situation. Face symmetric, speech normal, moves 4 ext spontaneously and equally Discharge Plan Discharge Items Patient Disposition: Home - Self-Care Reason For Visit: CHEST PAIN Discharge Diagnosis: Acute flare of pulmonary fibrosis, recent inhalational lung injury Activity: Per Instructions section Non-emergency contact: Primary Care Provider and Advertising Representative Call non-emergency contact if: you have any medication questions, your symptoms worsen and you have a fever Follow-up/Referrals: Darnell Velazco MD [Primary Care Provider] - 10/29/24 9:00 am (Hospital follow up on October 29 at 9 am.) Arnold Miller MD, [facility] [Physician] - 10/26/24 4:00 pm (Hospital follow up on October 26 at 4 pm.) Diet: Heart Healthy Addtl Attending Provider Instructions: You were treated for flare of pulmonary fibrosis and worsening hypoxia Recent inhalational injury is probably playing a role in this. I'm unsure how much it will improve over time. We increased your home oxygen level We put you on a slow prednisone taper starting at 60 mg daily. Taper down to 20 mg and stay at this dose until/unless adjusted by Dr. Miller Follow up with Dr. Miller as soon as possible and with your counter server at [place] It was a pleasure taking care of you in the hospital, Maria C Roman MD Pending Studies at Discharge: No Stand-Alone Forms: My [facility], Smoking Cessation Medications and DC Order Prescriptions: New prednisone 10 mg tablet See Taper PO DAILY Qty: 100 0RF Taper: Taper, Blank 60 mg DAILY for 5 Days 50 mg DAILY for 5 Days 40 mg DAILY for 5 Days 30 mg DAILY for 5 Days 20 mg DAILY for 10 Days Rx Instructions: dosing per taper, then continue 20 mg daily Continued aspirin 81 mg tablet,delayed release (DR/EC) 81 mg PO QAM Rx Instructions: 10/18-otc unable to verify sennosides [senna] 8.6 mg tablet 8.6 mg PO DAILY PRN (Reason: Constipation) Qty: 90 3RF Rx Instructions: 10/18-otc unable to verify ipratropium-albuterol 0.5 mg-3 mg(2.5 mg base)/3 mL solution for nebulization 3 ml INHALATION Q6H PRN (Reason: Shortness Of Breath) Qty: 180 5RF Rx Instructions: no fill history available unable to verify metoprolol succinate 25 mg tablet extended release 24 hr 25 mg PO QAM Qty: 90 3RF pantoprazole 40 mg tablet,delayed release (DR/EC) 40 mg PO QAM Qty: 90 3RF gabapentin 600 mg tablet 600 mg PO BID Qty: 180 3RF rosuvastatin 40 mg tablet 40 mg PO QAM Qty: 90 3RF Eliquis 5 mg tablet 5 mg PO Q12H Qty: 180 3RF Rx Instructions: take with meals First dose Tuesday ranolazine 500 mg tablet extended release 12 hr 500 mg PO BID Qty: 180 3RF magnesium oxide 400 mg (241.3 mg magnesium) tablet 400 mg PO QAM Qty: 90 3RF Rx Instructions: 10/18-otc unable to verify nitroglycerin [Nitrostat] 0.4 mg tablet, sublingual 0.4 mg Sublingual DIRECTED PRN (Reason: Chest Pain) Qty: 25 3RF Rx Instructions: PLACE 1 TABLET UNDER TONGUE EVERY 5 MINUTES FOR UP TO 3 DOSES isosorbide mononitrate 30 mg tablet extended release 24 hr 30 mg PO QAM Qty: 90 3RF tamsulosin 0.4 mg capsule 0.8 mg PO HS Qty: 90 3RF albuterol sulfate 90 mcg/actuation HFA aerosol inhaler 2 puff INHALATION Q6H PRN (Reason: Shortness Of Breath) Qty: 18 5RF Rx Instructions: no fill history available unable to verify (DME) Portable Oxygen Misc See Rx Instructions .MEDSUPPLY Qty: 1 0RF Rx Instructions: Oxygen 3 liters continuous via nasal cannula on exertion with portable concentrator. BELEN 99 fluoxetine 10 mg tablet 10 mg PO DAILY Qty: 30 2RF budesonide-formoterol [Symbicort] 160-4.5 mcg/actuation HFA aerosol inhaler 2 puff inhalation UD Rx Instructions: 2 puff inhalation bid. no fill history available unable to verify cholecalciferol (vitamin D3) 50 mcg (2,000 unit) capsule 50 mcg PO PM Rx Instructions: 10/18-otc unable to verify spironolactone 25 mg tablet 25 mg PO QAM Rx Instructions: 25 mg po qam. last filled 06/29/24 90 day supply Spiriva Respimat 2.5 mcg/actuation mist 2 inh inhalation UD Rx Instructions: 2 inh inhalation qam. no fill history available unable to verify Discontinued prednisone 5 mg tablet 5 mg PO DAILY Discharge Orders: Discharge Order (Routine); Ordered 10/24/24 Ordered By: Maria C Roman Admission Data Admit Date/Time: 10/19/24 17:37 Attending Provider: Maria C Roman Admit Provider: Da Arellano Primary Care Provider: Darnell Velazco Other Providers: Johny Swartz Other Interventions: Discharge Summary Assessment (RN) Last Done: 10/24/24 16:27 Hospital Stay Data Consultations 10/18/24 13:13 ED Decision to Admit Stat Pending Results Patient Have Any Pending Studies at Discharge: No Discharge Instructions Given to Patient (Per Discharging Provider) You were treated for flare of pulmonary fibrosis and worsening hypoxia Recent inhalational injury is probably playing a role in this. I'm unsure how much it will improve over time. We increased your home oxygen level We put you on a slow prednisone taper starting at 60 mg daily. Taper down to 20 mg and stay at this dose until/unless adjusted by Dr. Miller Follow up with Dr. Miller as soon as possible and with your counter server at [place] It was a pleasure taking care of you in the hospital, Maria C Roman MD Total Time Total Time Spent Total Time Spent (In Minutes): I personally spent: 50 minutes today on clinical care activities including: reviewing chart notes and vital signs reviewing labs reviewing studies discussion with child care giver examining and counseling the patient arranging home oxygen writing orders writing prescriptions, discharge instructions documentation Coding Level of Care Code 24481 INP/OBS DISCH >30 MIN Diagnoses Pulmonary fibrosis J84.10 History of pulmonary embolus (PE) Z86.711 CAD (coronary artery disease) I25.10
[2024-10-25] MEDS ORDERED: predniSONE 20 MG TAB PO SCH (09:00)
== END 2024-10-24 19:25 | disposition home or self-care (01) | DRG 197 ==
LOC: EDSEX → ED 11:50 → 2S 11:50 → SUATTDRO 10-19 17:37

== ENCOUNTER 2024-10-29 18:23 | Inpatient (IN) ==
[2024-10-29] MEDS: TXA 10% Non-IV Routes 100 MG/ML VIAL ONE (19:46)
[2024-10-29] MEDS: OXYMETAZOLINE 0.05% 30 ML BTL ONE (19:46)
[2024-10-29] MEDS: TXA 10% Non-IV Routes 100 MG/ML VIAL TOP ONE (22:40)
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
[2024-10-30 00:01] LABS: Basophils # (auto) 0.03 K/uL (0.00-0.20); Basophils % (auto) 0.2 %; Eosinophils # (auto) 0.03 K/uL (0.00-0.50); Eosinophils % (auto) 0.2 %; Hematocrit (blood only) 36.4 % (42.0-52.0); Hemoglobin 12.3 g/dl (14.0-18.0); Immature Granulocytes # (auto) 0.37 K/uL (0.01-0.20); Immature Granulocytes % (auto) 2.4 %; Lymphocytes # (auto) 1.26 K/uL (1.20-3.40); Lymphocytes % (auto) 8.3 %; Mean Corpuscular Hemoglobin 32.2 pg (25.0-34.0); Mean Corpuscular Hgb Conc 33.8 g/dL (32.0-36.0); Mean Corpuscular Volume 95.3 fL (80.0-100.0); Mean Platelet Volume 9.9 fL (9.4-12.4); Monocytes # (auto) 1.41 K/uL (0.11-0.59); Monocytes % (auto) 9.3 %; Neutrophils # (auto) 12.11 K/uL (1.40-6.50); Neutrophils % (auto) 79.6 %; Nucleated RBC # (auto) 0.02 K/uL (0.00-0.12); Nucleated RBC % (auto) 0.1 %; Platelet Count 163 K/uL (130-400); RDW Coefficient of Variation 15.3 % (11.5-14.5); RDW Standard Deviation 53.4 fL (36.4-46.3); Red Blood Count 3.82 M/uL (4.70-6.10); White Blood Count 15.21 K/ul (4.8-10.8)
[2024-10-30 00:03] LABS: Alanine Aminotransferase 84 U/L (7-52); Albumin Globulin Ratio 1.3 (0.9-2); Albumin Level 3.5 gm/dl (3.4-5.0); Alkaline Phosphatase 51 U/L (34-104); Anion Gap 5 (3-11); Aspartate Aminotransferase 33 U/L (13-39); BUN Creatinine Ratio 41.8 (10-20); Bilirubin,Total 0.6 mg/dl (0.2-1.0); Blood Urea Nitrogen 46 mg/dl (6-23); Calcium 8.7 mg/dl (8.6-10.3); Carbon Dioxide 30 mmol/L (21-32); Chloride 100 mmol/L (98-107); Globulin 2.6 gm/dl (2.5-4.0); Glucose 116 mg/dl (70-99(Fasting)); Potassium 4.4 mmol/L (3.5-5.1); Sodium 135 mmol/L (136-145); Total Protein 6.1 gm/dl (6.0-8.3)
[2024-10-30 00:40] LABS: INR 1.1 (0.9-1.1); Prothrombin Time 12.2 Seconds (9.0-12.0)
[2024-10-30] MEDS ORDERED: ONDANSETRON INJ 2 MG/ML 2 ML VIAL IV PRN (00:41)
[2024-10-30] MEDS ORDERED: ALBUTEROL HFA 8 GM INHALER INH PRN (00:41)
[2024-10-30] MEDS ORDERED: NITROGLYCERIN SL 0.4 MG/TAB TAB SL PRN (00:41)
[2024-10-30] MEDS ORDERED: SENNA 8.6 MG TAB PO PRN (00:41)
[2024-10-30] MEDS: GABAPENTIN 600 MG TAB PO STA (01:08)
[2024-10-30] MEDS: TAMSULOSIN HCL 0.4 MG CAP PO ONE (01:08)
[2024-10-30] MEDS: predniSONE 10 MG TABLET PO STA (01:28)
[2024-10-30] MEDS: RANOLAZINE 500 MG ER TAB PO STA (01:32)
--- NOTE | 2024-10-30 02:25 | Billing Data ---
Date of Service October 29, 2024 Coding Level of Care Code 65876 INT INP/OBS CARE
[2024-10-30 04:29] LABS: Basophils # (auto) 0.01 K/uL (0.00-0.20); Basophils % (auto) 0.1 %; Eosinophils # (auto) 0.08 K/uL (0.00-0.50); Eosinophils % (auto) 0.6 %; Hematocrit (blood only) 34.4 % (42.0-52.0); Hemoglobin 11.5 g/dl (14.0-18.0); Immature Granulocytes # (auto) 0.25 K/uL (0.01-0.20); Lymphocytes % (auto) 9.7 %; Mean Corpuscular Hemoglobin 31.8 pg (25.0-34.0); Mean Corpuscular Hgb Conc 33.4 g/dL (32.0-36.0); Mean Platelet Volume 9.2 fL (9.4-12.4); Monocytes # (auto) 1.11 K/uL (0.11-0.59); Neutrophils # (auto) 9.72 K/uL (1.40-6.50); Neutrophils % (auto) 78.6 %; Platelet Count 138 K/uL (130-400); RDW Coefficient of Variation 15.1 % (11.5-14.5); RDW Standard Deviation 52.2 fL (36.4-46.3); Red Blood Count 3.62 M/uL (4.70-6.10); White Blood Count 12.37 K/ul (4.8-10.8)
[2024-10-30 04:44] LABS: Alanine Aminotransferase 74 U/L (7-52); Albumin Globulin Ratio 1.3 (0.9-2); Albumin Level 3.2 gm/dl (3.4-5.0); Alkaline Phosphatase 48 U/L (34-104); Anion Gap 6 (3-11); Aspartate Aminotransferase 28 U/L (13-39); BUN Creatinine Ratio 42.6 (10-20); Bilirubin,Total 0.5 mg/dl (0.2-1.0); Blood Urea Nitrogen 43 mg/dl (6-23); Calcium 8.3 mg/dl (8.6-10.3); Carbon Dioxide 29 mmol/L (21-32); Chloride 100 mmol/L (98-107); Globulin 2.4 gm/dl (2.5-4.0); Glucose 94 mg/dl (70-99(Fasting)); Potassium 4.1 mmol/L (3.5-5.1); Sodium 135 mmol/L (136-145); Total Protein 5.6 gm/dl (6.0-8.3)
[2024-10-30 04:54] LABS: INR 1.1 (0.9-1.1); Partial Thromboplastin Ratio 0.9; Partial Thromboplastin Time 25 Seconds (21-31); Prothrombin Time 12.2 Seconds (9.0-12.0)
[2024-10-30] MEDS ORDERED: AMOXICILLIN/CLAVULANATE 875 MG TAB PO SCH (08:00)
[2024-10-30] MEDS: ROSUVASTATIN CALCIUM 20 MG TAB PO SCH (08:27)
[2024-10-30] MEDS: AMOXICILLIN/CLAVULANATE 875 MG TAB PO SCH (08:27)
[2024-10-30] MEDS: MAGNESIUM OXIDE 400 MG TAB PO SCH (08:27)
[2024-10-30] MEDS: FLUoxetine HCL 10 MG CAP PO SCH (08:27)
[2024-10-30] MEDS: GABAPENTIN 600 MG TAB PO SCH (08:27)
[2024-10-30] MEDS: METOPROLOL SUCC 25MG EXT REL TAB PO SCH (08:28)
[2024-10-30] MEDS: PANTOprazole 40 MG TAB PO SCH (08:28)
[2024-10-30] MEDS: predniSONE 10 MG TABLET PO SCH (08:29)
[2024-10-30] MEDS: RANOLAZINE 500 MG ER TAB PO SCH (08:30)
[2024-10-30] MEDS: ISOSORBIDE MONO EXTENDED REL 30 MG TABCR PO SCH (08:30)
[2024-10-30] MEDS: FLUTICASONE/VILANTEROL 200/25MCG 14 PUFFS/INHALER INH SCH (08:31)
[2024-10-30] MEDS: SPIRONOLACTONE 25 MG TAB PO SCH (08:31)
[2024-10-30] MEDS: UMECLIDINIUM BROMIDE 62.5MCG/BLISTER 7 PUFFS/INHALER INH SCH (08:31)
[2024-10-30] MEDS ORDERED: predniSONE 10 MG TABLET PO SCH (09:00)
[2024-10-30] MEDS: ACETAMINOPHEN 325 MG TAB PO PRN (10:20)
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
--- NOTE | 2024-10-30 15:24 | Hospitalist Progress Note ---
Date of Service October 30, 2024 Assessment & Plan (1) Acute anterior epistaxis: (2) Pulmonary fibrosis: Plan Scot is a 74 y/o male with PMH of Ends stage pulmonary fibrosis (Daily oxygen 6L NC), hc of DVT/PE (on Eliquis) and CAD presenting to the hospital due to acute anterior epistaxis. Bleeding started on the morning of 10/29 with continue oozing during the day. Patient was recently admitted (10/18-10/24) due to exacerbation secondary to inhalation exposure, currently doing a Prednisone yady. Bleeding was initially controlled with Rhino Rocket. Patient will be admitted for observation/ bleeding control and supplementation of oxygen Epistaxis - Patient presented with significant blood clots on nares. Evaluated by ENT Septal perforation found Controlled with silver nitrate and Surgicel by ENT - Continue oxygen supplementation with mask - Hgb stable, hemodynamically stable - Per ENT, can resume Eliquis anytime now. I plan to resume it tomorrow/ - CBC, PT/PTT AM Elevated WBC - Secondary to steroids, no signs of active infection - continue to monitor Trending down - CBC AM Pulmonary fibrosis: - stable, no new symptoms - Continue Prednisone Yady as previously prescribe: slow taper of 10 mg every 5 days down to 20 mg - Continue Oxygen supplementation - New baseline 2-3L at rest, 6L with activity - follow with pulmonology outpatient (Dr. Miller and [facility] Dr. Soto) PNES - triggered by dyspnea - Denied recent episodes hx DVt/ PE (2014) - Eliquis on hold plan to resume tomorrow10/31 CAD - Aspirin and Apaxiban on hold - Continue home meds DVT prophylaxis- SCDs, ambulation as tolerated, Eliquis/ Aspirin on hold. Will resume tomorrow Admission and Anticipated Discharge Date Admission Date: October 29, 2024 Subjective I have seen and examined the patient at 12:20 PM. He was evaluated and managed by ENT prior to my visit. The patient is doing well currently. No more epistaxis. Review of Systems Review of Systems: All systems reviewed & are unremarkable except as noted in Subjective Physical Exam Physical Exam: General: Awake, conversant Heart: S1, S2/regular rate and rhythm, no murmur rubs or gallops Lungs: Clear to auscultation bilaterally. Normal effort Abdomen: Soft/nontender/nondistended. No hepatosplenomegaly Extremities: No clubbing/cyanosis. No edema Behavior: Appropriate, cooperative Results & Data Results & Data Vital Signs (Past 12 Hours) Vital Signs Temp Pulse Pulse Resp BP BP Pulse Ox 10/30/24 12:05 10/30/24 12:00 36.7 C 85 18 110/70 94 10/30/24 11:47 76 16 120/77 96 10/30/24 10:00 77 24 120/77 96 10/30/24 08:40 95 H 10/30/24 08:28 93 H 16 121/81 98 10/30/24 07:30 10/30/24 06:36 69 14 97 10/30/24 06:28 70 10/30/24 06:15 74 24 93 10/30/24 06:00 155/96 H 10/30/24 06:00 155/96 H 10/30/24 06:00 76 20 91 10/30/24 05:57 70 18 99 10/30/24 05:42 75 21 97 10/30/24 05:30 76 17 100 10/30/24 05:12 78 22 100 10/30/24 05:03 75 16 100 10/30/24 04:45 71 13 100 10/30/24 04:39 73 13 100 10/30/24 04:26 151/123 H 10/30/24 04:24 71 17 100 10/30/24 04:15 75 16 100 10/30/24 04:03 74 21 100 10/30/24 04:01 157/80 H 10/30/24 04:01 157/80 H 10/30/24 04:01 157/80 H 10/30/24 03:48 82 13 100 10/30/24 03:42 73 19 100 10/30/24 03:30 79 14 100 O2 Del Method O2 Flow Rate 10/30/24 12:05 Oxymask 7 10/30/24 12:00 Oxymask 7 10/30/24 11:47 Oxymask 8 10/30/24 10:00 Room Air 10/30/24 08:40 10/30/24 08:28 Oxymask 8 10/30/24 07:30 Oxymask 8 10/30/24 06:36 10/30/24 06:28 10/30/24 06:15 04/22/25 06:00 10/30/24 06:00 10/30/24 06:00 10/30/24 05:57 10/30/24 05:42 10/30/24 05:30 10/30/24 05:12 10/30/24 05:03 10/30/24 04:45 10/30/24 04:39 10/30/24 04:26 10/30/24 04:24 10/30/24 04:15 10/30/24 04:03 10/30/24 04:01 10/30/24 04:01 10/30/24 04:01 10/30/24 03:48 10/30/24 03:42 10/30/24 03:30 Laboratory Results Abnormal lab results 10/29/24 10/30/24 Range/Units 23:31 04:16 WBC 15.21 H 12.37 H (4.8-10.8) K/ul RBC 3.82 L 3.62 L (4.70-6.10) M/uL Hgb 12.3 L 11.5 L (14.0-18.0) g/dl Hct 36.4 L 34.4 L (42.0-52.0) % RDW Std Deviation 53.4 H 52.2 H (36.4-46.3) fL RDW Coeff of Yasmin 15.3 H 15.1 H (11.5-14.5) % MPV 9.2 L (9.4-12.4) fL Neut # (Auto) 12.11 H 9.72 H (1.40-6.50) K/uL [place] # (Auto) 1.41 H 1.11 H (0.11-0.59) K/uL Immature Gran # (Auto) 0.37 H 0.25 H (0.01-0.20) K/uL PT 12.2 H 12.2 H (9.0-12.0) Seconds Sodium 135 L 135 L (136-145) mmol/L BUN 46 H 43 H (6-23) mg/dl BUN/Creatinine Ratio 41.8 H 42.6 H (10-20) Glucose 116 H (70-99(Fasting)) mg/dl Calcium 8.3 L (8.6-10.3) mg/dl ALT 84 H 74 H (7-52) U/L Total Protein 5.6 L (6.0-8.3) gm/dl Albumin 3.2 L (3.4-5.0) gm/dl Globulin 2.4 L (2.5-4.0) gm/dl PG Care Time/CCT Total # of Minutes Spent Total Time Spent with Patient: Total time spent is greater than 50% in coordination of care (as documented) at patient's floor/unit and/or counseling patient: Coding Level of Care Code 85356 SUB INP/OBS CARE 2/35MIN Diagnoses Acute anterior epistaxis R04.0 Pulmonary fibrosis J84.10
[2024-10-30] MEDS: Patient's HEIGHT &/or WEIGHT Needed SCH (16:05)
[2024-10-30] MEDS: TAMSULOSIN HCL 0.4 MG CAP PO SCH (20:53)
[2024-10-30] MEDS: MELATONIN 3 MG TAB PO PRN (21:19)
[2024-10-31] MEDS: ASPIRIN 81 MG ECTAB PO SCH (08:44)
[2024-10-31] MEDS: APIXABAN 5 MG TABLET PO SCH (08:44)
--- NOTE | 2024-10-31 14:35 | Hospitalist Progress Note ---
Date of Service October 31, 2024 Assessment & Plan (1) Acute anterior epistaxis: (2) Pulmonary fibrosis: Plan Scot is a 74 y/o male with PMH of Ends stage pulmonary fibrosis (Daily oxygen 6L NC), hc of DVT/PE (on Eliquis) and CAD presenting to the hospital due to acute anterior epistaxis. Bleeding started on the morning of 10/29 with continue oozing during the day. Patient was recently admitted (10/18-10/24) due to exacerbation secondary to inhalation exposure, currently doing a Prednisone yady. Bleeding was initially controlled with Rhino Rocket. Patient will be admitted for observation/ bleeding control and supplementation of oxygen Epistaxis - Patient presented with significant blood clots on nares. Evaluated by ENT Septal perforation found Controlled with silver nitrate and Surgicel by ENT - Continue oxygen supplementation with mask - Hgb stable, hemodynamically stable - Per ENT, can resume Eliquis anytime. Eliquis started today Aspirin started today as well. - CBC, PT/PTT AM Elevated WBC - Secondary to steroids, no signs of active infection - continue to monitor Trending down - CBC AM Pulmonary fibrosis: - stable, no new symptoms - Continue Prednisone Yady as previously prescribe: slow taper of 10 mg every 5 days down to 20 mg - Continue Oxygen supplementation - New baseline 2-3L at rest, 6L with activity - follow with pulmonology outpatient (Dr. Miller and [facility] Dr. Soto) PNES - triggered by dyspnea - Denied recent episodes hx DVt/ PE (2014) - Eliquis resumed today CAD - Aspirin and Apaxiban resumed today - Continue home meds DVT prophylaxis-Eliquis resumed today Likely discharge tomorrow Admission and Anticipated Discharge Date Admission Date: October 29, 2024 Subjective Patient feels well. No more epistaxis overnight. Denies shortness of breath. No chest pain. Review of Systems Review of Systems: All systems reviewed & are unremarkable except as noted in Subjective Physical Exam Physical Exam: General: Awake, conversant Heart: S1, S2/regular rate and rhythm, no murmur rubs or gallops Lungs: Clear to auscultation bilaterally. Normal effort Abdomen: Soft/nontender/nondistended. No hepatosplenomegaly Extremities: No clubbing/cyanosis. No edema Behavior: Appropriate, cooperative Results & Data Results & Data Vital Signs (Past 12 Hours) Vital Signs Temp Pulse Pulse Resp BP BP Pulse Ox 10/31/24 10:53 36.4 C L 69 18 121/74 96 10/31/24 08:00 10/31/24 07:48 64 10/31/24 07:13 36.4 C L 56 L 18 152/93 H 100 10/31/24 03:25 36.4 C L 64 18 142/86 H 99 O2 Del Method O2 Flow Rate 10/31/24 10:53 Oxymask 8 10/31/24 08:00 Oxymask 6 10/31/24 07:48 10/31/24 07:13 Oxymask 8 10/31/24 03:25 Oxymask 6 PG Care Time/CCT Total # of Minutes Spent Total Time Spent with Patient: Total time spent is greater than 50% in coordination of care (as documented) at patient's floor/unit and/or counseling patient: Coding Level of Care Code 61826 SUB INP/OBS CARE 2/35MIN Diagnoses Acute anterior epistaxis R04.0 Pulmonary fibrosis J84.10
[2024-11-01 03:11] VITALS: TEMP 97.5
[2024-11-01] MEDS: ALBUT/IPRATROP 3MG/0.5MG NEB 3 ML VIAL INH PRN (03:20)
[2024-11-01 06:31] LABS: Hematocrit (blood only) 34.3 % (42.0-52.0); Hemoglobin 11.6 g/dl (14.0-18.0); Mean Corpuscular Hgb Conc 33.8 g/dL (32.0-36.0); Mean Corpuscular Volume 94.5 fL (80.0-100.0); Mean Platelet Volume 9.9 fL (9.4-12.4); Platelet Count 133 K/uL (130-400); RDW Standard Deviation 52.3 fL (36.4-46.3); Red Blood Count 3.63 M/uL (4.70-6.10)
[2024-11-01 07:49] VITALS: PULSE 70; RESP 20; O2SAT 92
--- NOTE | 2024-11-01 09:05 | Discharge Summary ---
Date of Service November 01, 2024 Admission HPI Per Admitting Provider Scot is a 74 y/o male with PMH of Ends stage pulmonary fibrosis (Daily oxygen 6L NC), hx of DVT/PE (on Eliquis) and CAD presenting to the hospital due to acute anterior epistaxis. Bleeding started on the morning of 10/29 with continue oozing during the day. Patient was recently admitted (10/18-10/24) due to exacerbation secondary to inhalation exposure, currently doing a Prednisone yady. Patient states that this had happened in the past. Saw his primary care doctor in the morning but bleed had stopped at that point. It restarted in the afternoon. Denied any lightheadedness, dizziness, worsen SOB, palpitations, chest pain. Denied any leg swelling, Denied nausea and vomiting. At the time of my evaluation bleeding had stooped with bilateral Rhino Rocket. He presented with significant blood clots in bilateral nares. Afrin and TXA gauzed held epistaxis only temporary. Principal Diagnosis epistaxis, acute blood loss in the setting of being on anticoagulants Discharge Exam General: Awake, conversant Heart: S1, S2/regular rate and rhythm, no murmur rubs or gallops Lungs: Clear to auscultation bilaterally. Normal effort Abdomen: Soft/nontender/nondistended. No hepatosplenomegaly Extremities: No clubbing/cyanosis. No edema Behavior: Appropriate, cooperative Discharge Data Allergies Allergy/AdvReac Type Severity Reaction Status Date / Time codeine Allergy Unknown HIVES Verified 10/29/24 07:35 meperidine Allergy Unknown hives Verified 10/29/24 07:35 oxycodone Allergy Unknown HIVES, Verified 10/29/24 07:35 ITCHING Consultations 10/29/24 23:27 ED Decision to Admit Stat 10/30/24 00:55 Consult Otolaryngology (Head and Neck) Routine Procedures Performed Operation Date: 10/30/24 12:00 <No data on this case meets the specified criteria> Hospital Course (1) Acute anterior epistaxis: (2) Pulmonary fibrosis: Plan Scot is a 74 y/o male with PMH of Ends stage pulmonary fibrosis (Daily oxygen 6L NC), hc of DVT/PE (on Eliquis) and CAD presenting to the hospital due to acute anterior epistaxis. Bleeding started on the morning of 10/29 with continue oozing during the day. Patient was recently admitted (10/18-10/24) due to exacerbation secondary to inhalation exposure, currently doing a Prednisone yady. Bleeding was initially controlled with Rhino Rocket. Patient will be admitted for observation/ bleeding control and supplementation of oxygen Epistaxis - Patient presented with significant blood clots on nares. Evaluated by ENT Septal perforation found Controlled with silver nitrate and Surgicel by ENT - Continue oxygen supplementation with mask - Hgb stable, hemodynamically stable - Per ENT, can resume Eliquis anytime. Eliquis started 10/31 Aspirin started 10/31 as well. - No bleeding since Eliquis and aspirin resumed Elevated WBC - Secondary to steroids, no signs of active infection - continue to monitor Trending down - CBC AM Pulmonary fibrosis: - stable, no new symptoms - Continue Prednisone Yady as previously prescribe: slow taper of 10 mg every 5 days down to 20 mg - Continue Oxygen supplementation - New baseline 2-3L at rest, 6L with activity - follow with pulmonology outpatient (Dr. Miller and [facility] Dr. Soto) PNES - triggered by dyspnea - Denied recent episodes hx DVt/ PE (2014) - Eliquis resumed CAD - Aspirin and Apaxiban resumed - Continue home meds Since the patient is tolerating Eliquis and aspirin without any further epistaxis, he is deemed stable for discharge. Total Time Total Time Spent Total Time Spent (In Minutes): 35 Discharge Plan Discharge Items Patient Disposition: Home - Self-Care Reason For Visit: EPISTAXIS Discharge Diagnosis: epistaxis, acute blood loss in the setting of being on anticoagulants Activity: Resume your previous activity Non-emergency contact: Primary Care Provider Call non-emergency contact if: you have any medication questions and your symptoms worsen Follow-up/Referrals: Darnell Velazco MD [Primary Care Provider] - 11/08/24 3:00 pm Alberto Arias MD [Physician] - 12/18/24 9:00 am (PLEASE CALL THE OFFICE SOONER WITH ANY PROBLEMS OR QUESTIONS) Diet: Heart Healthy Addtl Attending Provider Instructions: Advised to follow-up with PCP in 1 week Advised to follow-up with ENT in 1 week Pending Studies at Discharge: No Stand-Alone Forms: My [facility] FX Aligned Medications and DC Order Prescriptions: Continued aspirin 81 mg tablet,delayed release (DR/EC) 81 mg PO QAM Rx Instructions: 10/18-otc unable to verify sennosides [senna] 8.6 mg tablet 8.6 mg PO DAILY PRN (Reason: Constipation) Qty: 90 3RF Rx Instructions: 10/18-otc unable to verify ipratropium-albuterol 0.5 mg-3 mg(2.5 mg base)/3 mL solution for nebulization 3 ml INHALATION Q6H PRN (Reason: Shortness Of Breath) Qty: 180 5RF Rx Instructions: no fill history available unable to verify metoprolol succinate 25 mg tablet extended release 24 hr 25 mg PO QAM Qty: 90 3RF pantoprazole 40 mg tablet,delayed release (DR/EC) 40 mg PO QAM Qty: 90 3RF gabapentin 600 mg tablet 600 mg PO BID Qty: 180 3RF rosuvastatin 40 mg tablet 40 mg PO QAM Qty: 90 3RF Eliquis 5 mg tablet 5 mg PO Q12H Qty: 180 3RF Rx Instructions: take with meals First dose Tuesday ranolazine 500 mg tablet extended release 12 hr 500 mg PO BID Qty: 180 3RF magnesium oxide 400 mg (241.3 mg magnesium) tablet 400 mg PO QAM Qty: 90 3RF Rx Instructions: 10/18-otc unable to verify nitroglycerin [Nitrostat] 0.4 mg tablet, sublingual 0.4 mg Sublingual DIRECTED PRN (Reason: Chest Pain) Qty: 25 3RF Rx Instructions: PLACE 1 TABLET UNDER TONGUE EVERY 5 MINUTES FOR UP TO 3 DOSES isosorbide mononitrate 30 mg tablet extended release 24 hr 30 mg PO QAM Qty: 90 3RF tamsulosin 0.4 mg capsule 0.8 mg PO HS Qty: 90 3RF albuterol sulfate 90 mcg/actuation HFA aerosol inhaler 2 puff INHALATION Q6H PRN (Reason: Shortness Of Breath) Qty: 18 5RF Rx Instructions: no fill history available unable to verify (DME) Portable Oxygen Misc See Rx Instructions .MEDSUPPLY Qty: 1 0RF Rx Instructions: Oxygen 3 liters continuous via nasal cannula on exertion with portable concentrator. BELEN 99 budesonide-formoterol [Symbicort] 160-4.5 mcg/actuation HFA aerosol inhaler 2 puff inhalation UD Qty: 10.2 0RF Rx Instructions: 2 puff inhalation bid. no fill history available unable to verify Spiriva Respimat 2.5 mcg/actuation mist 2 inh inhalation UD Qty: 4 0RF Rx Instructions: 2 inh inhalation qam. no fill history available unable to verify fluoxetine 10 mg tablet 10 mg PO DAILY Qty: 30 2RF cholecalciferol (vitamin D3) 50 mcg (2,000 unit) capsule 50 mcg PO PM Rx Instructions: 10/18-otc unable to verify spironolactone 25 mg tablet 25 mg PO QAM Rx Instructions: 25 mg po qam. last filled 06/29/24 90 day supply prednisone 10 mg tablet See Taper PO DAILY Qty: 100 0RF Taper: Taper, Blank 60 mg DAILY for 5 Days 50 mg DAILY for 5 Days 40 mg DAILY for 5 Days 30 mg DAILY for 5 Days 20 mg DAILY for 10 Days Rx Instructions: dosing per taper, then continue 20 mg daily Discharge Orders: Discharge Order (Routine); Ordered 11/01/24 Ordered By: Dante Mcintyre Admission Data Admit Date/Time: 10/29/24 23:46 Attending Provider: Dante Mcintyre Admit Provider: Kinga Bone Primary Care Provider: Darnell Velazco Other Providers: Johny Slade; Alberto Arias; IRB Approved Study,Marlon Other Interventions: Discharge Summary Assessment (RN) Last Done: 11/01/24 10:22
[2024-11-01 10:26] VITALS: BP 142/86
== END 2024-11-01 10:34 | disposition home or self-care (01) | DRG 151 ==
LOC: ED 18:23 → 2N 22:10 → SUATTDRO 23:46 → EDINP 23:46 → 2N 10-30 11:53
DX: D68.32 Hemorrhagic disorder due to extrinsic circulating anticoagulants; E78.5 Hyperlipidemia, unspecified; J84.10 Pulmonary fibrosis, unspecified; Z99.81 Dependence on supplemental oxygen; R04.0 Epistaxis; Z86.74 Personal history of sudden cardiac arrest; T45.515A Adverse effect of anticoagulants, initial encounter; J44.89 Other specified chronic obstructive pulmonary disease; T38.0X5A Adverse effect of glucocorticoids and synthetic analogues, initial encounter; D72.829 Elevated white blood cell count, unspecified; Z79.82 Long term (current) use of aspirin; I10 Essential (primary) hypertension; Z86.711 Personal history of pulmonary embolism; Z86.73 Personal history of transient ischemic attack (TIA), and cerebral infarction without residual deficits; I27.20 Pulmonary hypertension, unspecified; I25.10 Atherosclerotic heart disease of native coronary artery without angina pectoris; Z79.01 Long term (current) use of anticoagulants; D62 Acute posthemorrhagic anemia; Z88.5 Allergy status to narcotic agent; Z79.899 Other long term (current) drug therapy; I25.2 Old myocardial infarction; G47.33 Obstructive sleep apnea (adult) (pediatric); Z86.718 Personal history of other venous thrombosis and embolism; Z86.16 Personal history of COVID-19; J96.11 Chronic respiratory failure with hypoxia; Z88.8 Allergy status to other drugs, medicaments and biological substances

== ENCOUNTER 2024-11-07 12:00 | Observation (INO) ==
[2024-11-07 12:31] LABS: Hematocrit (blood only) 34.9 % (42.0-52.0); Hemoglobin 11.3 g/dl (14.0-18.0); Mean Corpuscular Hemoglobin 32.1 pg (25.0-34.0); Mean Corpuscular Hgb Conc 32.4 g/dL (32.0-36.0); Mean Corpuscular Volume 99.1 fL (80.0-100.0); Mean Platelet Volume 10.3 fL (9.4-12.4); Platelet Count 113 K/uL (130-400); RDW Coefficient of Variation 15.8 % (11.5-14.5); RDW Standard Deviation 58.1 fL (36.4-46.3); Red Blood Count 3.52 M/uL (4.70-6.10); White Blood Count 10.34 K/ul (4.8-10.8)
--- NOTE | 2024-11-07 12:44 | XRay Report ---
XR chest 1V portable CLINICAL HISTORY: Chest pain, nonspecific COMPARISON STUDY: 10/18/2024 FINDINGS: Single view chest is unchanged demonstrating chronic cardiomegaly and pulmonary vascular co ngestion. Chronic prominence of interstitial lung markings is once again noted. Obscuration of the le ft hemidiaphragm is persistent and remains suspicious for a infiltrate in the lingular segment of the left upper lobe. There is no pneumothorax. 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 IMPRESSION: Stable exam as described. Persistent airspace opacity in the lingular segment of the lef t upper lobe. ACT 112: Negative or not required by law. Electronically signed by: Ling Adame M.D. 11/07/2024 12:42 PM
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
[2024-11-07 12:49] LABS: Basophils # (auto) 0.01 K/uL (0.00-0.20); Basophils % (auto) 0.1 %; Eosinophils # (auto) 0.12 K/uL (0.00-0.50); Eosinophils % (auto) 1.2 %; Immature Granulocytes # (auto) 0.06 K/uL (0.01-0.20); Immature Granulocytes % (auto) 0.6 %; Lymphocytes # (auto) 0.32 K/uL (1.20-3.40); Lymphocytes % (auto) 3.1 %; Monocytes # (auto) 0.43 K/uL (0.11-0.59); Monocytes % (auto) 4.2 %; Neutrophils % (auto) 90.8 %; RBC Morphology Unremarkable
[2024-11-07 12:56] LABS: INR 1.1 (0.9-1.1); Partial Thromboplastin Ratio 1.1; Partial Thromboplastin Time 30 Seconds (21-31); Prothrombin Time 11.9 Seconds (9.0-12.0)
[2024-11-07 13:06] LABS: Albumin Globulin Ratio 1.2 (0.9-2); Albumin Level 3.2 gm/dl (3.4-5.0); BUN Creatinine Ratio 18.8 (10-20); Bilirubin,Total 0.6 mg/dl (0.2-1.0); Calcium 8.5 mg/dl (8.6-10.3); Creatinine Clr Calc Pharmacy 56.9 ml/min; Globulin 2.6 gm/dl (2.5-4.0); Magnesium 1.6 mg/dl (1.7-2.4); Potassium 4.1 mmol/L (3.5-5.1); Total Protein 5.8 gm/dl (6.0-8.3)
[2024-11-07 13:11] LABS: Troponin I High Sensitivity 41.4 pg/ml (0-20)
[2024-11-07] MEDS: MAGNESIUM SULFATE / D5W 1 GM/100 ML BAG IV STA (15:19)
[2024-11-07] MEDS: ALBUT/IPRATROP 3MG/0.5MG NEB 3 ML VIAL NEB STA (15:31)
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
[2024-11-07] MEDS ORDERED: NITROGLYCERIN SL 0.4 MG/TAB TAB SL PRN (19:12)
[2024-11-07] MEDS ORDERED: methylPREDNISolone 10 mg/mL (For Ped Dose < 7mg) IV SCH (19:12)
[2024-11-07] MEDS ORDERED: ONDANSETRON INJ 2 MG/ML 2 ML VIAL IV PRN (19:12)
[2024-11-07] MEDS ORDERED: ALBUT/IPRATROP 3MG/0.5MG NEB 3 ML VIAL NEB PRN (19:23)
[2024-11-07] MEDS: ALBUT/IPRATROP 3MG/0.5MG NEB 3 ML VIAL NEB SCH (20:36)
[2024-11-07] MEDS: methylPREDNISolone 60 MG in SYRINGE 0 ML IV SCH (20:53)
[2024-11-07] MEDS: MELATONIN 3 MG TAB PO PRN (20:54)
[2024-11-07] MEDS: CHOLECALCIFEROL 25 MCG (1000 UNITS) TAB PO SCH (20:55)
[2024-11-07] MEDS: APIXABAN 5 MG TABLET PO SCH (20:55)
[2024-11-07] MEDS: TAMSULOSIN HCL 0.4 MG CAP PO SCH (20:56)
[2024-11-07] MEDS: FUROSEMIDE 40 MG/4 ML VIAL IV SCH (20:59)
[2024-11-07] MEDS: GABAPENTIN 600 MG TAB PO SCH (20:59)
[2024-11-07] MEDS: FLUTICASONE/VILANTEROL 200/25MCG 14 PUFFS/INHALER INH SCH (21:00)
[2024-11-07] MEDS: RANOLAZINE 500 MG ER TAB PO SCH (21:01)
[2024-11-08] MEDS: ACETAMINOPHEN 325 MG TAB PO PRN (03:28)
[2024-11-08 06:06] LABS: BUN Creatinine Ratio 23.4 (10-20); Calcium 8.8 mg/dl (8.6-10.3); Creatinine Clr Calc Pharmacy 68.1 ml/min; Magnesium 1.9 mg/dl (1.7-2.4); Potassium 3.9 mmol/L (3.5-5.1)
--- NOTE | 2024-11-08 09:52 | Electrocardiogram Report ---
Test Reason : Blood Pressure : */* mmHG Vent. Rate : 98 BPM Atrial Rate : 98 BPM P-R Int : 176 ms QRS Dur : 96 ms QT Int : 352 ms P-R-T Axes : 23 -30 33 degrees QTcB Int : 449 ms Sinus rhythm with marked sinus arrhythmia with occasional Premature ventricular complexes Left axis deviation Lateral infarct (cited on or before 09-May-2015) When compared with ECG of 31-Oct-2024 05:29, Premature ventricular complexes are now Present QRS axis Shifted left Questionable change in initial forces of Anterior leads Non-specific change in ST segment in Inferior leads ST no longer elevated in Anterolateral leads Confirmed by Dallas Hatch ([id number]) on 11/08/2024 9:51:38 AM Referred By: Confirmed By: Dallas Hatch
[2024-11-08] MEDS: ROSUVASTATIN CALCIUM 20 MG TAB PO SCH (09:54)
[2024-11-08] MEDS: METOPROLOL SUCC 25MG EXT REL TAB PO SCH (09:55)
[2024-11-08] MEDS: ASPIRIN 81 MG ECTAB PO SCH (09:55)
[2024-11-08] MEDS: ISOSORBIDE MONO EXTENDED REL 30 MG TABCR PO SCH (09:56)
[2024-11-08] MEDS: PANTOprazole 40 MG TAB PO SCH (09:56)
[2024-11-08] MEDS: MAGNESIUM OXIDE 400 MG TAB PO SCH (09:56)
[2024-11-08] MEDS: FLUoxetine HCL 10 MG CAP PO SCH (09:57)
[2024-11-08] MEDS: SPIRONOLACTONE 25 MG TAB PO SCH (09:57)
[2024-11-08] MEDS: UMECLIDINIUM BROMIDE 62.5MCG/BLISTER 7 PUFFS/INHALER INH SCH (09:58)
[2024-11-08] MEDS: COUGH DROP (SUGAR FREE) LOZ 24 LOZ/1 BOX BUCCAL ONE (12:00)
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
[2024-11-09 06:25] LABS: BUN Creatinine Ratio 29.7 (10-20); Calcium 9.2 mg/dl (8.6-10.3); Creatinine Clr Calc Pharmacy 56.9 ml/min; Magnesium 1.9 mg/dl (1.7-2.4); Potassium 4.1 mmol/L (3.5-5.1)
--- NOTE | 2024-11-09 07:53 | XRay Report ---
EXAM: XR chest 1V portable CLINICAL HISTORY: A/C resp failure, ILD, suspected CHF TECHNIQUE: An X-ray image of the chest is obtained in 1 AP projection. COMPARISON: 11/07/2024. FINDINGS: Pulmonary Parenchyma: Reduced volume of left lung with mid and lower zonal ill defined opacity obscuring the related costophrenic angle. Rest of both lung emerson appear interstitially coarsened. Faint opacity is seen overlying the right costoprenic recess. Heart and Mediastinum: Apparent cardiomegaly. No mediastinal widening or masses. No hilar or mediastinal lymphadenopathy. Bony Thorax: Left sided multiple rib fractures, likely post intervention/post-traumatic sequel. Soft Tissues: Soft tissues overlying the chest wall are unremarkable. IMPRESSION: 1. Left lung mid and lower zonal and right basal opacity likely pneumonia, mild progression since last study. 2. Bilateral obscured costophrenic recess more on the left likely related to thickening/ effusion, mildly progressed. Electronically signed by Alonzo Garcia 11-09-2024 07:52 AM
[2024-11-09] MEDS: SENNA 8.6 MG TAB PO PRN (11:50)
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
[2024-11-09] MEDS: POLYETHYLENE (MIRALAX) 17 GM PACK PO PRN (20:17)
[2024-11-10 06:19] LABS: BUN Creatinine Ratio 35.6 (10-20); Calcium 8.9 mg/dl (8.6-10.3); Potassium 3.6 mmol/L (3.5-5.1)
[2024-11-10 11:27] LABS: Appearance Urine Clear (Clear); Bilirubin Urine Negative (Negative); Blood Urine Negative (Negative); Color Urine Yellow; Glucose Urine UA Negative (Negative); Ketones Urine Negative (Negative); Leukocyte Esterase Urine Negative (Negative); Nitrite Urine Negative (Negative); Protein Urine Negative (Negative); Specific Gravity Urine 1.008 (1.000-1.030); Urobilinogen Urine Negative (Negative)
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
[2024-11-10] MEDS: predniSONE 10 MG TABLET PO SCH (14:17)
--- NOTE | 2024-11-11 08:20 | XRay Report ---
HISTORY: CHF. TECHNIQUE: Portable AP radiograph of the chest. COMPARISON: Chest radiograph dated 11/09/2024. FINDINGS: Multifocal airspace opacities most pronounced involving the mid and lower left lung. No pneumothorax. Possible small left effusion. Cardiomegaly. Left-sided aortic arch. Degenerative changes of the shoulders and spine. Included upper abdomen is unremarkable. IMPRESSION: * No significant interval change. * Multifocal airspace opacity is most pronounced involving the mid and lower left lung. Possible small left pleural effusion. * Cardiomegaly. Electronically signed by Mick Anderson 11-11-2024 08:19 AM
[2024-11-11] MEDS: FUROSEMIDE 40 MG TAB PO SCH (08:41)
[2024-11-11 10:52] LABS: BUN Creatinine Ratio 39.3 (10-20); Calcium 8.9 mg/dl (8.6-10.3); Potassium 4.4 mmol/L (3.5-5.1)
[2024-11-11 11:12] VITALS: BP 98/57; TEMP 97.3
[2024-11-11] MEDS ORDERED: GLUCAGON FOR INJ 1 MG VIAL SQ PRN (12:31)
[2024-11-11] MEDS ORDERED: DEXTROSE 50% 50 ML SYRINGE IV PRN (12:31)
[2024-11-11] MEDS ORDERED: GLUCOSE 40% GEL 15 GM TUBE PO PRN (12:31)
[2024-11-11] MEDS ORDERED: GLUCOSE 10 TAB/TUBE PO PRN (12:31)
[2024-11-11] MEDS ORDERED: CARBOHYDRATES FOR HYPOGLYCEMIA PO PRN (12:31)
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
[2024-11-11 14:37] VITALS: PULSE 72; RESP 16; O2SAT 98
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
[2024-11-11] MEDS ORDERED: INSULIN ASPART PER UNIT CHARGE SC SCH (16:30)
== END 2024-11-11 17:21 | disposition home or self-care (01) | DRG 291 ==
LOC: ED 12:00 → 4W 16:42 → INTOOBSV 16:42 → 4W 18:13